=== PATIENT | female | born 1990 | race Caucasian/White ===

== ENCOUNTER 2023-07-12 18:59 | Outpatient (REF) | payer BC, SELFPAY ==
[2023-07-18 17:07] LABS: Age Gdln ACOG Testing Note (.); HPV Aptima Negative (Negative); IGP, Aptima HPV, rfx 16/18,45 Note (.)
== END 2023-07-12 19:00 | disposition home or self-care (01) ==
LOC: LAB 18:59
PROVIDERS: PCP Nurse Practitioner; Visit Provider Obstetrics & Gynecology
DX: Z12.4 Encounter for screening for malignant neoplasm of cervix (principal)
CPT/HCPCS: 87624; G0145

== ENCOUNTER 2023-12-29 09:30 | Outpatient (OUT) | payer BC, SELFPAY ==
--- NOTE | 2023-12-29 09:32 | US_ITS ---
[address] [address] Patient Name: MEE WIGGINS MRN: [id number] date: 1990 Sex: F Assigned Patient Location: [facility] Current Patient Location: [facility] Accession/Order Number: [id number] Exam Date: 12/29/2023 09:32 Report Date: 12/29/2023 10:36 At the request of: YEYO SHEARER Procedure: US OB transvaginal EXAMINATION: US OB transvaginal HISTORY: MISSED MENSES COMPARISON: No relevant comparison available. FINDINGS: GESTATIONAL SAC: Present and normal appearing. YOLK SAC: Present and normal appearing. POLE: Present and normal appearing. CARDIAC: Present. UTERUS: Normal size and appearance. OVARIES: Right: Normal. Left: Normal. CERVIX: 4.2 cm in length and closed. CUL-DE-SAC: Normal. OTHER: None. AGE BY LMP: 8 weeks 2 days QUINTIN BY LMP: 08/07/2024 AGE BY US CRL: 10 weeks 4 days QUINTIN BY US CRL: 07/22/2024 US/US OB transvaginal IMPRESSION: 1. Single live intrauterine . Electronically authenticated by: THONY SANTOS Date: 12/29/2023 10:36
== END 2023-12-29 09:31 | disposition home or self-care (01) ==
LOC: NOMS 09:30
PROVIDERS: PCP Nurse Practitioner; Visit Provider Obstetrics & Gynecology
DX: Z34.91 Encounter for supervision of normal pregnancy, unspecified, first trimester (principal); Z3A.08 8 weeks gestation of pregnancy
CPT/HCPCS: 76817

== ENCOUNTER 2023-12-29 10:42 | Outpatient (OUT) | payer BC, SELFPAY ==
[2023-12-29 11:23] LABS: Basophils Percent Auto 0.3 % (0.2-2.0); Eosinophils Percent Auto 0.4 % (0.9-7.0); Hematocrit 38.8 % (36.0-48.0); Hemoglobin 12.8 g/dL (12.0-16.0); Immature Granulocytes Abs Auto 0.02 10^3/uL (0.00-0.03); Immature Granulocytes Pct Auto 0.3 % (0.0-0.5); Lymphocytes Absolute Auto 1.5 10^3/uL (1.2-3.8); Lymphocytes Percent Auto 20.1 % (20.5-60.0); Mean Corpuscular Volume 90.9 fL (81.0-99.0); Mean Platelet Volume 9.4 fL (9.5-13.5); Monocytes Absolute Auto 0.5 10^3/uL (0.3-0.8); Monocytes Percent Auto 7.3 % (1.7-12.0); Neutrophils Absolute Auto 5.2 10^3/uL (1.4-6.5); Neutrophils Percent Auto 71.6 % (43.0-75.0); Platelet Count 258 10^3/uL (150-450); Red Blood Count 4.27 10^6/uL (4.20-5.40); Red Cell Distribution Width 13.2 % (11.0-15.0); White Blood Count 7.3 10^3/uL (4.0-11.0)
[2023-12-29 11:47] LABS: Estimated Average Glucose 91 mg/dL; Glycohemoglobin A1C 4.8 % (4.5-6.2)
[2023-12-30 06:09] LABS: HBsAg Screen Negative (Negative); HIV Ab/p24 Ag Screen Non Reactive (Non Reactive)
[2023-12-30 08:11] LABS: HCV Ab Non Reactive (Non Reactive); Rapid Plasma Reagin, Quant Non Reactive titer (NonRea<1:1); Rubella Antibodies, IgG 3.93 index (Immune >0.99)
== END 2023-12-29 10:43 | disposition home or self-care (01) ==
LOC: LAB 10:44
PROVIDERS: PCP Nurse Practitioner; Visit Provider Obstetrics & Gynecology
DX: Z34.91 Encounter for supervision of normal pregnancy, unspecified, first trimester (principal); Z3A.08 8 weeks gestation of pregnancy; Z36.0 Encounter for antenatal screening for chromosomal anomalies; N92.6 Irregular menstruation, unspecified
CPT/HCPCS: 36415; 76817; 83036; 85025; 86592; 86762; 86803; 86850; 86900; 86901; 87086; 87340; 87389

== ENCOUNTER 2024-04-02 15:54 | Outpatient (OUT) | payer BC, SELFPAY ==
--- NOTE | 2024-04-02 15:56 | US_ITS ---
[address] [address] Patient Name: MEE WIGGINS MRN: [id number] date: 1990 Sex: F Assigned Patient Location: Current Patient Location: Accession/Order Number: [id number] Exam Date: 04/02/2024 16:06 Report Date: 04/03/2024 07:04 At the request of: YEYO SHEARER Procedure: US OB growth EXAMINATION: US OB growth HISTORY: Choroid plexus cyst of fetus affecting care of mother COMPARISON: No relevant comparison available. FINDINGS: Heart Rate: 137.06 bpm Amniotic Fluid Volume: 19.4 cm. Maximum fluid pocket 5.1 cm Cervix: Closed, 3.7 cm in length Placenta: Anterior. The placental edge is 8 cm from the internal cervical os Number: 1 Position: Breech presentation, longitudinal lie BIOMETRY: BPD: 5.87 cm cm; 24 weeks 0 days; 38.40 %% HC: 22.32 cm cm; 24 weeks 2 days; 39.20 %% AC: 19.38 cm cm; 24 weeks 1 day; 38.90 %% FL: 4.17 cm cm; 23 weeks 4 days; 20.30 %% EFW: 641.17 g; 1 lb. 7 oz. 30.50 % FL/AC: 21.51 FL/BPD: 70.99 HC/AC: 1.15 GESTATIONAL AGE: Age by EDC: 24 weeks 1 day QUINTIN by EDC: 2024-07-22 Age by US: 24 weeks 0 days QUINTIN by US: 2024-07-23 US/US OB growth IMPRESSION: Normal interval growth Closed cervix measuring 3.7 cm in length Electronically authenticated by: SHUKRI LOCKWOOD Date: 04/03/2024 07:04
--- NOTE | 2024-04-02 15:56 | US_ITS ---
[address] [address] Patient Name: MEE WIGGINS MRN: [id number] date: 1990 Sex: F Assigned Patient Location: US Current Patient Location: Accession/Order Number: [id number] Exam Date: 04/02/2024 16:06 Report Date: 04/03/2024 07:04 At the request of: YEYO SHEARER Procedure: US OB cervical length EXAMINATION: US OB cervical length HISTORY: Encounter for screening for cervical length Z36.86 COMPARISON: No relevant comparison available. FINDINGS: Closed cervix measuring 3.7 cm in length US/US OB cervical length IMPRESSION: Closed cervix measuring 3.7 cm in length Electronically authenticated by: SHUKRI LOCKWOOD Date: 04/03/2024 07:04
== END 2024-04-02 15:55 | disposition home or self-care (01) ==
LOC: US 15:54
PROVIDERS: PCP Nurse Practitioner; Visit Provider Obstetrics & Gynecology
DX: O35.03X1 Maternal care for (suspected) central nervous system malformation or damage in fetus, choroid plexus cysts, fetus 1 (principal); Z36.86 Encounter for antenatal screening for cervical length; Z3A.24 24 weeks gestation of pregnancy
CPT/HCPCS: 76816; 76817

== ENCOUNTER 2024-04-24 15:37 | Outpatient (OUT) | payer BC, SELFPAY ==
--- NOTE | 2024-04-24 15:41 | US_ITS ---
[address] [address] Patient Name: MEE WIGGINS MRN: [id number] date: 1990 Sex: F Assigned Patient Location: Current Patient Location: Accession/Order Number: [id number] Exam Date: 04/24/2024 16:06 Report Date: 04/25/2024 07:34 At the request of: YEYO SHEARER Procedure: US OB growth EXAMINATION: US OB growth HISTORY: Choroid Plexus Cyst Affecting Care Of Mother COMPARISON: ULTRASOUND OB GROWTH 04/02/2024 FINDINGS: Heart Rate: 137.76 bpm Amniotic Fluid Volume: 16.3 cm; normal range Number: 1 Position: CEPHALIC Cervix: 3.3 cm in length, closed. BIOMETRY: BPD: 7.41 cm; 29 weeks 5 days; 96.60 % HC: 27.30 cm; 29 weeks 6 days; 91.80 % AC: 22.51 cm; 26 weeks 6 days; 30.20 % FL: 5.31 cm; 28 weeks 1 day; 63.10 % EFW: 1129.75 g; 59 % FL/AC: 23.59 FL/BPD: 71.62 HC/AC: 1.21 GESTATIONAL AGE: Age by EDC: 27 weeks 2 days QUINTIN by EDC: 2024-07-22 Age by US: 28 weeks 5 days QUINTIN by US: 2024-07-12 US/US OB growth IMPRESSION: 1. Single live intrauterine with growth detailed above. 2. Closed cervix 3.3 cm in length; unchanged. Electronically authenticated by: THONY SANTOS Date: 04/25/2024 07:34
--- NOTE | 2024-04-24 15:41 | US_ITS ---
[address] [address] Patient Name: MEE WIGGINS MRN: [id number] date: 1990 Sex: F Assigned Patient Location: Current Patient Location: Accession/Order Number: [id number] Exam Date: 04/24/2024 16:06 Report Date: 04/25/2024 07:35 At the request of: YEYO SHEARER Procedure: US OB cervical length EXAMINATION: US OB cervical length HISTORY: Choroid Plexus Cyst Affecting Care Of Mother COMPARISON: No relevant comparison available. TECHNIQUE: Transabdominal sonographic examination was performed for obstetrical and evaluation. FINDINGS: Closed cervix 3.3 cm in length. US/US OB cervical length IMPRESSION: 1. Stable, closed cervix 3.3 cm in length. Electronically authenticated by: THONY SANTOS Date: 04/25/2024 07:35
--- OUTSIDE RECORDS SUMMARY | 2024-04-24 15:48 | XMS_ITS | CCD ---
Author Organization [facility] Team Providers Care Telehealth Nurse Name Role Phone JANKI ., DR ORONA Admitting Unavailable JANKI ., DR ORONA Attending Unavailable LUIS E DAVIS Primary Care Unavailable JANKI ., DR ORONA Consulting Unavailable AICHHOLZ, CHAIR CAR DRIVER AC Admitting Unavailable AICHHOLZ, CHAIR CAR DRIVER AC Attending Unavailable AICHHOLZ, CHAIR CAR DRIVER AC Primary Care Unavailable AICHHOLZ, CHAIR CAR DRIVER AC Consulting Unavailable JANKI, YEYO Attending Unavailable PURA SOLIS Attending Unavailable JANKIYEYO Terrell Attending Unavailable Problems Active Problems Problem Classification Problem Date Documented Da te Episodic/Chronic Abdominal pain (4 sources) Unspecified abdominal pain; Translations: [UNSPECIFIED ABDOMINAL PAIN] Onset: 12-28-2022 Episodic Past or Other Problems Problem Classification Problem Date Documented Date Episodic/Chronic Immunizations and screening for infectious disease (1 source) Encounter for screening for human papillomavirus (HPV); Translations: [ENC SCREENING HUMAN PAPILLOMAVIRUS] Onset: 07-07-2022 Episodic Other screening for suspected conditions (not mental disorders or infectious disease) (4 sources) Encounter for screening for malignant neoplasm of cervix; Translations: [ENC SCREENING MALIG NEOPLASM CERV] Onset: 07-06-2022 Episodic Results Test Name Value Interpretation Reference Range Facil ity AMYLASEon 12-28-2022 Amylase [Catalytic activity/Vol] 36 U/L Normal 25-115 [facility] Comment on above: Performed By: #### C MP, PURA, DBIL, LIPA, LIPID #### [facility] [address] [address] [address] Garry Obrien BILIRUBIN CONJUGATED (DIRECT )on 12-28-2022 BILI, CONJUGATED 0.1 mg/dL Normal 0.0-0.2 [facility] Comment on above: Performed By: #### C MP, PURA, DBIL, LIPA, LIPID #### [facility] [address] [address] [address] Garry Obrien CBC AUTO DIFFon 12-28-2022 BASO # 0.0 103/ul Normal 0.0-0.1 [facility] Comment on above: Performed By: #### C BC #### [facility] [address] [address] [address] Garry Obrien Basophils/100 WBC (Bld) 0.3 % Normal 0.2-2.0 [facility] Comment on above: Performed By: #### C BC #### [facility] [address] [address] [address] Garry Obrien EO # 0.5 103/ul Normal 0.0-0.7 [facility] Comment on above: Performed By: #### C BC #### [facility] [address] [place] [address] Dr. Garry Obrien Eosinophils/100 WBC (Bld) 8.2 % Critically high 0.9-7.0 [facility] Comment on above: Performed By: #### C BC #### [facility] [address] [address] [address] Garry Obrien Erythrocyte distribution width (RBC) [Ratio] 13.5 % Normal 11.0-15.0 [facility] Comment on above: Performed By: #### C BC #### [facility] [address] [address] [address] Garry Obrien Hematocrit (Bld) [Volume fraction] 41.7 % Normal 36.0-48.0 [facility] Comment on above: Performed By: #### C BC #### [facility] [address] [address] [address] Garry Obrien Hemoglobin (Bld) [Mass/Vol] 13.8 g/dL Normal 12.0-16.0 [facility] Comment on above: Performed By: #### C BC #### [facility] [address] [address] [address] Garry Obrien IG # 0.01 10e3/ul Normal 0.00-0.03 [facility] Comment on above: Performed By: #### C BC #### [facility] [address] [place] [address] Dr. Garry Obrien IG % 0.2 % Normal 0.0-0.5 [facility] Comment on above: Performed By: #### C BC #### [facility] [address] [place] [address] Dr. Garry Obrien LYMPH # 2.0 103/ul Normal 1.2-3.8 [facility] Comment on above: Performed By: #### C BC #### [facility] [address] [place] [address] Dr. Garry Obrien Lymphocytes/100 WBC (Bld) 32.8 % Normal 20.5-60.0 [facility] Comment on above: Performed By: #### C BC #### [facility] [address] [place] [address] Dr. Garry Obrien MANUAL DIFF REQ NO Normal [facility] Comment on above: Performed By: #### C BC #### [facility] [address] [place] [address] Dr. Garry Obrien MCH (RBC) [Entitic mass] 29.2 pg Normal 26.7-34.0 [facility] Comment on above: Performed By: #### C BC #### [facility] [address] [place] [address] Dr. Garry Obrien MCHC (RBC) [Mass/Vol] 33.1 g/dL Normal 29.9-35.2 [facility] Comment on above: Performed By: #### C BC #### [facility] [address] [place] [address] Dr. Garry Obrien MCV (RBC) [Entitic vol] 88.2 fL Normal 81.0-99.0 [facility] Comment on above: Performed By: #### C BC #### [facility] [address] [place] [address] Dr. Garry Obrien MONO # 0.5 103/ul Normal 0.3-0.8 [facility] Comment on above: Performed By: #### C BC #### [facility] [address] [place] [address] Dr. Garry Obrien Monocytes/100 WBC (Bld) 7.7 % Normal 1.7-12.0 [facility] Comment on above: Performed By: #### C BC #### [facility] [address] [place] [address] Dr. Garry Obrien NEUT # 3.1 103/ul Normal 1.4-6.5 [facility] Comment on above: Performed By: #### C BC #### [facility] [address] [place] [address] Dr. Garry Obrien Neutrophils/100 WBC (Bld) 50.8 % Normal 43.0-75.0 [facility] Comment on above: Performed By: #### C BC #### [facility] [address] [place] [address] Dr. Garry Obrien Platelet mean volume (Bld) [Entitic vol] 9.3 fL Critically low 9.5-13.5 [facility] Comment on above: Performed By: #### C BC #### [facility] [address] [place] [address] Dr. Garry Obrien PLT 318 103/ul Normal 150-450 [facility] Comment on above: Performed By: #### C BC #### [facility] [address] [place] [address] Dr. Garry Obrien RBC 4.73 106/ul Normal 4.20-5.40 [facility] Comment on above: Performed By: #### C BC #### [facility] [address] [place] [address] Dr. Garry Obrien WBC 6.1 103/ul Normal 4.0-11.0 [facility] Comment on above: Performed By: #### C BC #### [facility] [address] [place] [address] Dr. Garry Obrien LIPASEon 12-28-2022 Lipase [Catalytic activity/Vol] 198.0 U/L Normal 73.0-393.0 [facility] Comment on above: Performed By: #### C MP, PURA, DBIL, LIPA, LIPID #### [facility] [address] [address] [address] Garry Obrien LIPID PROFILEon 12-28-2022 CHOL-HDL RATIO NORM SEE BELOW Normal [facility] Comment on above: Result Comment: 3.3 - 4.4 LOW RISK 4.4 - 7.1 AVERAGE RISK 7.1 - 11.0 MODERATE RISK >11.0 HIGH RISK Performed By: #### C MP, PURA, DBIL, LIPA, LIPID #### [facility] [address] [address] [address] Garry Obrien Cholesterol [Mass/Vol] 237 mg/dL Critically high <=200 [facility] Comment on above: Performed By: #### C MP, PURA, DBIL, LIPA, LIPID #### [facility] [address] [address] [address] Garry Obrien Cholesterol in HDL [Mass/Vol] 67 mg/dL Critically high 40-60 [facility] Comment on above: Performed By: #### C MP, PURA, DBIL, LIPA, LIPID #### [facility] [address] [address] [address] Garry Obrien Cholesterol in LDL [Mass/Vol] 144.8 mg/dL Normal [facility] Comment on above: Performed By: #### C MP, PURA, DBIL, LIPA, LIPID #### [facility] [address] [place] [address] Dr. Garry Obrien Cholesterol.total/ Cholesterol in HDL [Mass ratio] 3.5 {ratio} Normal [facility] Comment on above: Performed By: #### C MP, PURA, DBIL, LIPA, LIPID #### [facility] [address] [address] [address] Garry Obrien HDL NORMAL > or = 60 mg/dl - LO W CARDIOVASCULAR RISK <40 mg/dl - HIGH CARDIOVASCULAR RISK Normal [facility] Comment on above: Performed By: #### C MP, PURA, DBIL, LIPA, LIPID #### [facility] [address] [address] [address] Garry Obrien LDL CALC NORMAL SEE BELOW Normal [facility] Comment on above: Result Comment: <100 mg/dl OPTIMAL 100 - 129 mg/dl NEAR OR ABOVE OPTIMAL 130 - 159 mg/dl BORDERLINE HIGH 160 - 189 mg/dl HIGH >190 mg/dl VERY HIGH Performed By: #### C MP, PURA, DBIL, LIPA, LIPID #### [facility] [address] [address] [address] Garry Obrien Triglyceride [Mass/Vol] 126 mg/dL Normal <=150 [facility] Comment on above: Performed By: #### C MP, PURA, DBIL, LIPA, LIPID #### [facility] [address] [address] [address] Garry Obrien VLDL CALC 25.2 mg/dL Normal [facility] Comment on above: Performed By: #### C MP, PURA, DBIL, LIPA, LIPID #### [facility] [address] [place] [address] Dr. Garry Obrien PREG HCG QUALon 12-28-2022 , QUAL Negative Normal NEGATIVE [facility] Comment on above: Performed By: #### P REG #### [facility] [address] [place] [address] Dr. Garry Obrien PROF 14(COMP METB)on 023 Albumin [Mass/Vol] 3.9 g/dL Normal 3.4-5.0 [facility] Comment on above: Performed By: #### C MP, PURA, DBIL, LIPA, LIPID #### [facility] [address] [place] [address] Dr. Garry Obrien Albumin/Globulin [Mass ratio] 0.9 {ratio} Normal [facility] Comment on above: Performed By: #### C MP, PURA, DBIL, LIPA, LIPID #### [facility] [address] [place] [address] Dr. Garry Obrien ALP [Catalytic activity/Vol] 51 U/L Normal 46-116 [facility] Comment on above: Performed By: #### C MP, PURA, DBIL, LIPA, LIPID #### [facility] [address] [place] [address] Dr. Garry Obrien ALT [Catalytic activity/Vol] 20 U/L Normal 14-59 [facility] Comment on above: Performed By: #### C MP, PURA, DBIL, LIPA, LIPID #### [facility] [address] [place] [address] Dr. Garry Obrien Anion gap [Moles/Vol] 12.5 mmol/L Normal [facility] Comment on above: Performed By: #### C MP, PURA, DBIL, LIPA, LIPID #### [facility] [address] [place] [address] Dr. Garry Obrien AST [Catalytic activity/Vol] 20 U/L Normal 15-37 [facility] Comment on above: Performed By: #### C MP, PURA, DBIL, LIPA, LIPID #### [facility] [address] [place] [address] Dr. Garry Obrien Bilirubin [Mass/Vol] 0.5 mg/dL Normal 0.2-1.0 [facility] Comment on above: Performed By: #### C MP, PURA, DBIL, LIPA, LIPID #### [facility] [address] [place] [address] Dr. Garry Obrien Calcium [Mass/Vol] 9.5 mg/dL Normal 8.5-10.1 [facility] Comment on above: Performed By: #### C MP, PURA, DBIL, LIPA, LIPID #### [facility] [address] [place] [address] Dr. Garry Obrien Chloride [Moles/Vol] 100 mmol/L Normal 98-107 [facility] Comment on above: Performed By: #### C MP, PURA, DBIL, LIPA, LIPID #### [facility] [address] [place] [address] Dr. Garry Obrien CO2 [Moles/Vol] 27.4 mmol/L Normal 21.0-32.0 [facility] Comment on above: Performed By: #### C MP, PURA, DBIL, LIPA, LIPID #### [facility] [address] [place] [address] Dr. Garry Obrien Creatinine [Mass/Vol] 0.67 mg/dL Normal 0.55-1.02 [facility] Comment on above: Performed By: #### C MP, PURA, DBIL, LIPA, LIPID #### [facility] [address] [address] [address] Garry Obrien EGFR-AF SERBIAN >60 Normal >=60 [facility] Comment on above: Performed By: #### C MP, PURA, DBIL, LIPA, LIPID #### [facility] [address] [address] [address] Garry Obrien EGFR-NON AF SERBIAN >60 Normal >=60 [facility] Comment on above: Performed By: #### C MP, PURA, DBIL, LIPA, LIPID #### [facility] [address] [place] [address] Dr. Garry Obrien Globulin (S) [Mass/Vol] 4.3 g/dL Normal [facility] Comment on above: Performed By: #### C MP, PURA, DBIL, LIPA, LIPID #### [facility] [address] [place] [address] Dr. Garry Obrien Glucose [Mass/Vol] 99 mg/dL Normal 74-[address] [facility] Comment on above: Performed By: #### C MP, PURA, DBIL, LIPA, LIPID #### [facility] [address] [place] [address] Dr. Garry Obrien Potassium [Moles/Vol] 3.9 mmol/L Normal 3.5-5.1 [facility] Comment on above: Performed By: #### C MP, PURA, DBIL, LIPA, LIPID #### [facility] [address] [place] [address] Dr. Garry Obrien Protein [Mass/Vol] 8.2 g/dL Normal 6.4-8.[address] [facility] Comment on above: Performed By: #### C MP, PURA, DBIL, LIPA, LIPID #### [facility] [address] [place] [address] Dr. Garry Obrien Sodium [Moles/Vol] 136 mmol/L Normal 136-[address] [facility] Comment on above: Performed By: #### C MP, PURA, DBIL, LIPA, LIPID #### [facility] [address] [place] [address] Dr. Garry Obrien Urea nitrogen [Mass/Vol] 10.0 mg/dL Normal 7.0-18.0 [facility] Comment on above: Performed By: #### C MP, PURA, DBIL, LIPA, LIPID #### [facility] [address] [place] [address] Dr. Garry Obrien Urea nitrogen/Creatinin e [Mass ratio] 14.9 mg/mg Normal [facility] Comment on above: Performed By: #### C MP, PURA, DBIL, LIPA, LIPID #### [facility] [address] [place] [address] Dr. Garry Ob[facility] mm/hr Normal <=20 [facility] Comment on above: Performed By: #### S EDR #### [facility] [address] [place] [address] Dr. Garry Obrien UA RANDOM W/MICROSCOPICon BACTERIA SMALL Abnormal NONE SEEN [facility] Comment on above: Performed By: #### U AMIC #### [facility] [address] [place] [address] Dr. Garry Obrien Bilirubin Ql (U) Negative Normal NEGATIVE [facility] Comment on above: Performed By: #### U AMIC #### [facility] [address] [place] [address] Dr. Garry Obrien CAST NONE SEEN Normal NONE SEEN [facility] Comment on above: Performed By: #### U AMIC #### [facility] [address] [place] [address] Dr. Garry Obrien Clarity (U) CLEAR Normal CLEAR [facility] Comment on above: Performed By: #### U AMIC #### [facility] [address] [place] [address] Dr. Garry Obrien Color (U) LT. YELLOW Normal YELLOW [facility] Comment on above: Performed By: #### U AMIC #### [facility] [address] [address] [address] Garry Obrien Crystals LM Nom (Urine sed) NONE SEEN Normal NONE SEEN [facility] Comment on above: Performed By: #### U AMIC #### [facility] [address] [address] [address] Garry Obrien Epithelial cells LM Ql (Urine sed) FEW Abnormal NONE SEEN /RARE [facility] Comment on above: Performed By: #### U AMIC #### [facility] [address] [place] [address] Dr. Garry Obrien Glucose Ql (U) Negative Normal NEGATIVE [facility] Comment on above: Performed By: #### U AMIC #### [facility] [address] [place] [address] Dr. Garry Obrien Hemoglobin Ql (U) TRACE-INTACT Abnormal NEGATIVE [facility] Comment on above: Performed By: #### U AMIC #### [facility] [address] [address] [address] Garry Obrien Ketones Ql (U) Negative Normal NEGATIVE [facility] Comment on above: Performed By: #### U AMIC #### [facility] [address] [address] [address] Garry Obrien LEUKOCYTES TRACE Abnormal NEGATIVE [facility] Comment on above: Performed By: #### U AMIC #### [facility] [address] [address] [address] Garry Obrien MUCOUS NONE SEEN Normal NONE SEEN [facility] Comment on above: Performed By: #### U AMIC #### [facility] [address] [place] [address] Dr. Garry Obrien Nitrite Ql (U) Negative Normal NEGATIVE [facility] Comment on above: Performed By: #### U AMIC #### [facility] [address] [place] [address] Dr. Garry Obrien pH (U) 6.0 [pH] Normal 5-9 [facility] Comment on above: Performed By: #### U AMIC #### [facility] [address] [address] [address] Garry Obrien RBC 0-2 Normal 0-2 [facility] Comment on above: Performed By: #### U AMIC #### [facility] [address] [address] [address] Garry Obrien SPEC GRAVITY <=1.005 Abnormal 1.005-<=1.025 [facility] Comment on above: Performed By: #### U AMIC #### [facility] [address] [address] [address] Garry Obrien UA PROTEIN Negative Normal NEGATIVE/ TRACE [facility] Comment on above: Performed By: #### U AMIC #### [facility] [address] [address] [address] Garry Obrien Urobilinogen Qn (U) 0.2 {Griselda'U}/dL Normal 0.2 - 1.0 [facility] Comment on above: Performed By: #### U AMIC #### [facility] [address] [place] [address] Dr. Garry bOrien WBC 2-5 Abnormal NONE SEEN [facility] Comment on above: Performed By: #### U AMIC #### [facility] [address] [place] [address] Dr. Garry Obrien PAP ACOG PANEL 2: 30 to 65on 07-13-[address] [facility] Comment on above: Result Comment: Perf ormed at: WB Performed By: #### [id number] #### [facility] [address] [place] [address] Dr. Garry Obrien Age Gdln ACOG Testing 30-[address] [facility] Comment on above: Performed By: #### [id number] #### [facility] [address] [place] [address] Dr. Garry Obrien DIAGNOSIS: Comment Normal [facility] Comment on above: Result Comment: NEGA TIVE FOR INTRAEPITHELIAL LESION OR MALIGNANCY. Performed at: WB Performed By: #### [id number] #### [facility] [address] [place] [address] Dr. Garry Obrien HPV Aptima Negative Normal Negative [facility] Comment on above: Result Comment: This nucleic acid amplification test detects fourteen high-risk HPV types (16,18,31,33,35,39,45,51,52,56,58,59,66,68) without differentiation. Performed at: =G Performed By: #### [id number] #### [facility] [address] [address] [address] Garry Obrien Methodology: Comment Normal [facility] Comment on above: Result Comment: This liquid based ThinPrep(R) pap test was screened with the use of an image guided system. Performed at: WB Performed By: #### [id number] #### [facility] [address] [place] [address] Dr. Garry Obrien Note: Comment Normal [facility] Comment on above: Result Comment: The Pap smear is a screening test designed to aid in the detection of premalignant and malignant conditions of the uterine cervix. It is not a diagnostic procedure and should not be used as the sole means of detecting cervical cancer. Both false-positive and false-negative reports do occur. . Performed at: WB Performed By: #### [id number] #### [facility] [address] [address] [address] Garry Obrien Performed by: Comment Normal [facility] Comment on above: Result Comment: Macrina Lamar, Unit Aide Tech (ASCP) Performed at: WB Performed By: #### [id number] #### [facility] [address] [place] [address] Dr. Garry Obrien Specimen adequacy: Comment Normal [facility] Comment on above: Result Comment: Sati sfactory for evaluation. Endocervical and/or squamous metaplastic cells (endocervical component) are present. Performed at: WB Performed By: #### [id number] #### [facility] [address] [place] [address] Dr. Garry Obrien Encounters Encounter Date Encounter Type Care Provider Facility Start: 04-01-2024 End: 04-01-2024 ambulatory YEYO SHEARER Not Available Start: 02-28-2024 End: 02-28-2024 ambulatory PURA SOLIS Not Available Start: 01-31-2024 End: 01-31-2024 ambulatory YEYO SHEARER Not Available Start: 12-29-2023 End: 12-29-2023 ambulatory YEYO SHEARER Not Available Start: 12-28-2022 End: 12-29-2022 ambulatory MILEY COPELAND Facility: Start: 07-06-2022 End: 07-06-[address] YEYO SHEARER . Facility:[facility] Payers Date Payer Category Payer Unknown [id number] 2.16.84 [id number] 1992 Unknown [id number] 2.16.84 [id number] 1992 Unknown [id number] 2.16.84 [id number] 1992 Unknown [id number] 2.16.84 [id number] 1992 Unknown [id number] 2.16.84 [id number] 1992 Unknown [id number] 2.16.84 [id number] 1959 Unknown [id number] Summary Purpose Family History No Family History Records FoundNo Family History Records Found Advance Directives No Advanced Directives Records FoundNo Advanced Directives Records Found Additional Source Comments INFORMATION SOURCE (unrecogn ized section and content) DATE CREATED AUTHOR 01/01/2023 [facility] DATE CREATED AUTHOR AUTHOR'S ORGANIZ ATION 04/02/2024 [facility] FOR RECORDS PERTAINING TO PATIENTS WHO ARE OR HAVE BEEN ENROLLED IN A CHEMICAL DEPENDENCY/SUBSTANCEABUSE PROGRAM, SOME INFORMATION MAY BE OMITTED. This clinical summary was aggregated from multiple sources. Caution should be exercised in using it in the provision of clinical care. This summary normalizes information from multiple sources, and as a consequence, information in this document may materially change the coding, format and clinical context of patient data. In addition, data may be omitted in some cases. CLINICAL DECISIONS SHOULD BE BASED ON THE PRIMARY CLINICAL RECORDS. [facility]. provides no warranty or guarantee of the accuracy or completeness of information in this document.
== END 2024-04-24 15:38 | disposition home or self-care (01) ==
LOC: US 15:37
PROVIDERS: PCP Nurse Practitioner; Visit Provider Obstetrics & Gynecology
DX: O35.03X1 Maternal care for (suspected) central nervous system malformation or damage in fetus, choroid plexus cysts, fetus 1 (principal); Z36.86 Encounter for antenatal screening for cervical length; Z3A.28 28 weeks gestation of pregnancy
CPT/HCPCS: 76816; 76817

== ENCOUNTER 2024-05-09 06:48 | Outpatient (OUT) | payer BC, SELFPAY ==
--- OUTSIDE RECORDS SUMMARY | 2024-05-09 06:50 | XMS_ITS | CCD ---
Author Organization [facility] Team Providers Care First Helper Name Role Phone JANKI ., DR ORONA Admitting Unavailable JANKI ., DR ORONA Attending Unavailable LUIS E DAVIS Primary Care Unavailable JANKI ., DR ORONA Consulting Unavailable [place] Admitting Unavailable [place] Attending Unavailable [place] Primary Care Unavailable [place] Consulting Unavailable JANKI, YEYO Attending Unavailable PURA SOLIS Attending Unavailable JANKI, YEYO Attending Unavailable PURA SOLIS Attending Unavailable Problems Active Problems Problem Classification [...] [Catalytic activity/Vol] 36 U/L Normal 25-115 [facility] Comment on above: Performed By: #### C ERENDIRA, PURA, DBIL, LIPA, LIPID #### [facility] [address] [place], [place] [address] Dr. Garry Obrien BILIRUBIN CONJUGATED (DIRECT )on 12-28-2022 BILI, CONJUGATED 0.1 mg/dL Normal 0.0-0.2 [facility] Comment on above: Performed By: #### C MP, PURA, DBIL, LIPA, LIPID #### [facility] [address] [address] [address] Garry Obrien CBC AUTO DIFFon 12-28-2022 BASO # 0.0 103/ul Normal 0.0-0.1 [facility] Comment on above: Performed By: #### C BC #### [facility] [address] [address] [address] Garry Obrien Basophils/100 WBC (Bld) 0.3 % Normal 0.2-2.0 [facility] Comment on above: Performed By: #### C BC #### [facility] [address] [address] [address] Garry Obrien EO # 0.5 103/ul Normal 0.0-0.7 [facility] Comment on above: Performed By: #### C BC #### [facility] [address] [place] [address] Dr. Garry Obrien Eosinophils/100 WBC (Bld) 8.2 % Critically high 0.9-7.0 [facility] Comment on above: Performed By: #### C BC #### [facility] [address] [place] [address] Dr. Garry Obrien Erythrocyte distribution width (RBC) [Ratio] 13.5 % Normal 11.0-15.0 [facility] Comment on above: Performed By: #### C BC #### [facility] [address] [place] [address] Dr. Garry Obrien Hematocrit (Bld) [Volume fraction] 41.7 % Normal 36.0-48.0 [facility] Comment on above: Performed By: #### C BC #### [facility] [address] [place] [address] Dr. Garry Obrien Hemoglobin (Bld) [Mass/Vol] 13.8 g/dL Normal 12.0-16.0 [facility] Comment on above: Performed By: #### C BC #### [facility] [address] [place] [address] Dr. Garry Obrien IG # 0.01 10e3/ul Normal 0.00-0.03 [facility] Comment on above: Performed By: #### C BC #### [facility] [address] [place] [address] Dr. Garry Obrien IG % 0.2 % Normal 0.0-0.5 [facility] Comment on above: Performed By: #### C BC #### [facility] [address] [place] [address] Dr. Garry Obrien LYMPH # 2.0 103/ul Normal 1.2-3.8 [facility] Comment on above: Performed By: #### C BC #### [facility] [address] [place] [address] Dr. Garry Obrien Lymphocytes/100 WBC (Bld) 32.8 % Normal 20.5-60.0 [facility] Comment on above: Performed By: #### C BC #### [facility] [address] [place] [address] Dr. Garry Obrien MANUAL DIFF REQ NO Normal [facility] Comment on above: Performed By: #### C BC #### [facility] [address] [place] [address] Dr. Garry Obrien MCH (RBC) [Entitic mass] 29.2 pg Normal 26.7-34.0 [facility] Comment on above: Performed By: #### C BC #### [facility] [address] [place] [address] Dr. Garry Obrien MCHC (RBC) [Mass/Vol] 33.1 g/dL Normal 29.9-35.2 [facility] Comment on above: Performed By: #### C BC #### [facility] [address] [place] [address] Dr. Garry Obrien MCV (RBC) [Entitic vol] 88.2 fL Normal 81.0-99.0 [facility] Comment on above: Performed By: #### C BC #### [facility] [address] [place] [address] Dr. Garry Obrien MONO # 0.5 103/ul Normal 0.3-0.8 [facility] Comment on above: Performed By: #### C BC #### [facility] [address] [place] [address] Dr. Garry Obrien Monocytes/100 WBC (Bld) 7.7 % Normal 1.7-12.0 [facility] Comment on above: Performed By: #### C BC #### [facility] [address] [place] [address] Dr. Garry Obrien NEUT # 3.1 103/ul Normal 1.4-6.5 [facility] Comment on above: Performed By: #### C BC #### [facility] [address] [place] [address] Dr. Garry Obrien Neutrophils/100 WBC (Bld) 50.8 % Normal 43.0-75.0 [facility] Comment on above: Performed By: #### C BC #### [facility] [address] [place] [address] Dr. Garry Obrien Platelet mean volume (Bld) [Entitic vol] 9.3 fL Critically low 9.5-13.5 [facility] Comment on above: Performed By: #### C BC #### [facility] [address] [place] [address] Dr. Garry Obrien PLT 318 103/ul Normal 150-450 [facility] Comment on above: Performed By: #### C BC #### [facility] [address] [place] [address] Dr. Garry Obrien RBC 4.73 106/ul Normal 4.20-5.40 [facility] Comment on above: Performed By: #### C BC #### [facility] [address] [place] [address] Dr. Garry Obrien WBC 6.1 103/ul Normal 4.0-11.0 [facility] Comment on above: Performed By: #### C BC #### [facility] [address] [place] [address] Dr. Garry Obrien LIPASEon 12-28-2022 Lipase [Catalytic activity/Vol] 198.0 U/L Normal 73.0-393.0 [facility] Comment on above: Performed By: #### C MP, PURA, DBIL, LIPA, LIPID #### [facility] [address] [address] [address] Garry Obrien LIPID PROFILEon 12-28-2022 CHOL-HDL RATIO NORM SEE BELOW Normal [facility] Comment on above: Result Comment: 3.3 - 4.4 LOW RISK 4.4 - 7.1 AVERAGE RISK 7.1 - 11.0 MODERATE RISK >11.0 HIGH RISK Performed By: #### C MP, PURA, DBIL, LIPA, LIPID #### [facility] [address] [place] [address] Dr. Garry Obrien Cholesterol [Mass/Vol] 237 mg/dL Critically high <=200 [facility] Comment on above: Performed By: #### C MP, PURA, DBIL, LIPA, LIPID #### [facility] [address] [address] [address] Garry Obrien Cholesterol in HDL [Mass/Vol] 67 mg/dL Critically high 40-60 [facility] Comment on above: Performed By: #### C MP, PURA, DBIL, LIPA, LIPID #### [facility] [address] [place] [address] Dr. Garry Obrien Cholesterol in LDL [Mass/Vol] 144.8 mg/dL Normal [facility] Comment on above: Performed By: #### C MP, PURA, DBIL, LIPA, LIPID #### [facility] [address] [place] [address] Dr. Garry Obrien Cholesterol.total/ Cholesterol in HDL [Mass ratio] 3.5 {ratio} Normal [facility] Comment on above: Performed By: #### C MP, PURA, DBIL, LIPA, LIPID #### [facility] [address] [address] [address] Garry Obrien HDL NORMAL > or = 60 mg/dl - LO W CARDIOVASCULAR RISK <40 mg/dl - HIGH CARDIOVASCULAR RISK Normal [facility] Comment on above: Performed By: #### C MP, PURA, DBIL, LIPA, LIPID #### [facility] [address] [place] [address] Dr. Garry Obrien LDL CALC NORMAL SEE BELOW Normal [facility] Comment on above: Result Comment: <100 mg/dl OPTIMAL 100 - 129 mg/dl NEAR OR ABOVE OPTIMAL 130 - 159 mg/dl BORDERLINE HIGH 160 - 189 mg/dl HIGH >190 mg/dl VERY HIGH Performed By: #### C MP, PRUA, DBIL, LIPA, LIPID #### [facility] [address] [address] [address] Garry Obrien Triglyceride [Mass/Vol] 126 mg/dL Normal <=150 [facility] Comment on above: Performed By: #### C MP, PURA, DBIL, LIPA, LIPID #### [facility] [address] [address] [address] Garry Obrien VLDL CALC 25.2 mg/dL Normal [facility] Comment on above: Performed By: #### C MP, PURA, DBIL, LIPA, LIPID #### [facility] [address] [place] [address] Dr. Garry Obrien PREG HCG QUALon 12-28-2022 , QUAL Negative Normal NEGATIVE [facility] Comment on above: Performed By: #### P REG #### [facility] [address] [address] [address] Garry Obrien PROF 14(COMP METB)on 023 Albumin [Mass/Vol] 3.9 g/dL Normal 3.4-5.0 [facility] Comment on above: Performed By: #### C MP, PURA, DBIL, LIPA, LIPID #### [facility] [address] [address] [address] Garry Obrien Albumin/Globulin [Mass ratio] 0.9 {ratio} Normal [facility] Comment on above: Performed By: #### C MP, PURA, DBIL, LIPA, LIPID #### [facility] [address] [address] [address] Garry Obrien ALP [Catalytic activity/Vol] 51 U/L Normal 46-116 [facility] Comment on above: Performed By: #### C MP, PURA, DBIL, LIPA, LIPID #### [facility] [address] [address] [address] Garry Obrien ALT [Catalytic activity/Vol] 20 U/L Normal 14-59 [facility] Comment on above: Performed By: #### C MP, PURA, DBIL, LIPA, LIPID #### [facility] [address] [place] [address] Dr. Garry Obrien Anion gap [Moles/Vol] 12.5 mmol/L Normal [facility] Comment on above: Performed By: #### C MP, PURA, DBIL, LIPA, LIPID #### [facility] [address] [place] [address] Dr. Garry Obrien AST [Catalytic activity/Vol] 20 U/L Normal 15-37 [facility] Comment on above: Performed By: #### C MP, PURA, DBIL, LIPA, LIPID #### [facility] [address] [place] [address] Dr. Garry Obrien Bilirubin [Mass/Vol] 0.5 mg/dL Normal 0.2-1.0 [facility] Comment on above: Performed By: #### C MP, PURA, DBIL, LIPA, LIPID #### [facility] [address] [place] [address] Dr. Garry Obrien Calcium [Mass/Vol] 9.5 mg/dL Normal 8.5-10.1 [facility] Comment on above: Performed By: #### C MP, PURA, DBIL, LIPA, LIPID #### [facility] [address] [place] [address] Dr. Garry Obrien Chloride [Moles/Vol] 100 mmol/L Normal 98-107 [facility] Comment on above: Performed By: #### C MP, PURA, DBIL, LIPA, LIPID #### [facility] [address] [place] [address] Dr. Garry Obrein CO2 [Moles/Vol] 27.4 mmol/L Normal 21.0-32.0 [facility] Comment on above: Performed By: #### C MP, PURA, DBIL, LIPA, LIPID #### [facility] [address] [place] [address] Dr. Garry Obrien Creatinine [Mass/Vol] 0.67 mg/dL Normal 0.55-1.02 [facility] Comment on above: Performed By: #### C MP, PURA, DBIL, LIPA, LIPID #### [facility] [address] [address] [address] Garry Obrien EGFR-AF NICARAGUAN >60 Normal >=60 [facility] Comment on above: Performed By: #### C MP, PURA, DBIL, LIPA, LIPID #### [facility] [address] [place] [address] Dr. Garry Obrien EGFR-NON AF NICARAGUAN >60 Normal >=60 [facility] Comment on above: Performed By: #### C MP, PURA, DBIL, LIPA, LIPID #### [facility] [address] [place] [address] Dr. Garry Obrien Globulin (S) [Mass/Vol] 4.3 g/dL Normal [facility] Comment on above: Performed By: #### C MP, PURA, DBIL, LIPA, LIPID #### [facility] [address] [place] [address] Dr. Garry Obrien Glucose [Mass/Vol] 99 mg/dL Normal 74-106 [facility] Comment on above: Performed By: #### C MP, PURA, DBIL, LIPA, LIPID #### [facility] [address] [place] [address] Dr. Garry Obrien Potassium [Moles/Vol] 3.9 mmol/L Normal 3.5-5.1 [facility] Comment on above: Performed By: #### C MP, PURA, DBIL, LIPA, LIPID #### [facility] [address] [address] [address] Garry Obrien Protein [Mass/Vol] 8.2 g/dL Normal 6.4-8.2 [facility] Comment on above: Performed By: #### C MP, PURA, DBIL, LIPA, LIPID #### [facility] [address] [address] [address] Garry Obrien Sodium [Moles/Vol] 136 mmol/L Normal 136-145 [facility] Comment on above: Performed By: #### C MP, PURA, DBIL, LIPA, LIPID #### [facility] [address] [place] [address] Dr. Garry Obrien Urea nitrogen [Mass/Vol] 10.0 mg/dL Normal 7.0-18.0 [facility] Comment on above: Performed By: #### C MP, PURA, DBIL, LIPA, LIPID #### [facility] [address] [place] [address] Dr. Garry Obrien Urea nitrogen/Creatinin e [Mass ratio] 14.9 mg/mg Normal [facility] Comment on above: Performed By: #### C MP, PURA, DBIL, LIPA, LIPID #### [facility] [address] [place] [address] Dr. Garry Obrien [facility] 13 mm/hr Normal <=20 [facility] Comment on above: Performed By: #### S EDR #### [facility] [address] [place] [address] Dr. Garry Obrien UA RANDOM W/MICROSCOPICon BACTERIA SMALL Abnormal NONE SEEN [facility] Comment on above: Performed By: #### U AMIC #### [facility] [address] [place] [address] Dr. Garry Obrien Bilirubin Ql (U) Negative Normal NEGATIVE [facility] Comment on above: Performed By: #### U AMIC #### [facility] [address] [place] [address] Dr. Garry Obrien CAST NONE SEEN Normal NONE SEEN [facility] Comment on above: Performed By: #### U AMIC #### [facility] [address] [place] [address] Dr. Garry Obrien Clarity (U) CLEAR Normal CLEAR [facility] Comment on above: Performed By: #### U AMIC #### [facility] [address] [place] [address] Dr. Garry Obrien Color (U) LT. YELLOW Normal YELLOW [facility] Comment on above: Performed By: #### U AMIC #### [facility] [address] [address] [address] Garry Obrien Crystals LM Nom (Urine sed) NONE SEEN Normal NONE SEEN [facility] Comment on above: Performed By: #### U AMIC #### [facility] [address] [address] [address] Garry Obrien Epithelial cells LM Ql (Urine sed) FEW Abnormal NONE SEEN /RARE [facility] Comment on above: Performed By: #### U AMIC #### [facility] [address] [address] [address] Garry Obrien Glucose Ql (U) Negative Normal NEGATIVE [facility] Comment on above: Performed By: #### U AMIC #### [facility] [address] [place] [address] Dr. Garry Obrien Hemoglobin Ql (U) TRACE-INTACT Abnormal NEGATIVE [facility] Comment on above: Performed By: #### U AMIC #### [facility] [address] [address] [address] Garry Obrien Ketones Ql (U) Negative Normal NEGATIVE [facility] Comment on above: Performed By: #### U AMIC #### [facility] [address] [address] [address] Garry Obrien LEUKOCYTES TRACE Abnormal NEGATIVE [facility] Comment on above: Performed By: #### U AMIC #### [facility] [address] [address] [address] Garry Obrien MUCOUS NONE SEEN Normal NONE SEEN [facility] Comment on above: Performed By: #### U AMIC #### [facility] [address] [address] [address] Garry Obrien Nitrite Ql (U) Negative Normal NEGATIVE [facility] Comment on above: Performed By: #### U AMIC #### [facility] [address] [place] [address] Dr. Garry Obrien pH (U) 6.0 [pH] Normal 5-9 [facility] Comment on above: Performed By: #### U AMIC #### [facility] [address] [place] [address] Dr. Garry Obrien RBC 0-2 Normal 0-2 [facility] Comment on above: Performed By: #### U AMIC #### [facility] [address] [place] [address] Dr. Garry Obrien SPEC GRAVITY <=1.005 Abnormal 1.005-<=1.025 [facility] Comment on above: Performed By: #### U AMIC #### [facility] [address] [address] [address] Garry Obrien UA PROTEIN Negative Normal NEGATIVE/ TRACE [facility] Comment on above: Performed By: #### U AMIC #### [facility] [address] [place] [address] Dr. Garry Obrien Urobilinogen Qn (U) 0.2 {Griselda'U}/dL Normal 0.2 - 1.0 [facility] Comment on above: Performed By: #### U AMIC #### [facility] [address] [place] [address] Dr. Garry Obrien WBC 2-5 Abnormal NONE SEEN [facility] Comment on above: Performed By: #### U AMIC #### [facility] [address] [place] [address] Dr. Garry Obrien PAP ACOG PANEL 2: 30 to 65on 07-13-2022 . . Normal [facility] Comment on above: Result Comment: Perf ormed at: WB Performed By: #### [id number] #### [facility] [address] [place] [address] Dr. Garry Obrien Age Gdln ACOG Testing 30-65 Normal [facility] Comment on above: Performed By: #### [id number] #### [facility] [address] [place] [address] Dr. Garry Obrien DIAGNOSIS: Comment Normal [facility] Comment on above: Result Comment: NEGA TIVE FOR INTRAEPITHELIAL LESION OR MALIGNANCY. Performed at: WB Performed By: #### [id number] #### [facility] [address] [place] [address] Dr. Garry Obrien HPV Aptima Negative Normal Negative [facility] Comment on above: Result Comment: This nucleic acid amplification test detects fourteen high-risk HPV types (16,18,31,33,35,39,45,51,52,56,58,59,66,68) without differentiation. Performed at: =G Performed By: #### [id number] #### [facility] [address] [address] [address] Garry Obrien Methodology: Comment Normal [facility] Comment on above: Result Comment: This liquid based ThinPrep(R) pap test was screened with the use of an image guided system. Performed at: WB Performed By: #### [id number] #### [facility] [address] [place] [address] Dr. Garry Obrien Note: Comment Normal [facility] Comment on above: Result Comment: The Pap smear is a screening test designed to aid in the detection of premalignant and malignant conditions of the uterine cervix. It is not a diagnostic procedure and should not be used as the sole means of detecting cervical cancer. Both false-positive and false-negative reports do occur. . Performed at: WB Performed By: #### [id number] #### [facility] [address] [address] [address] Garry Obrien Performed by: Comment Normal [facility] Comment on above: Result Comment: Macrina Lamar, Senior Mechanical Design Engineer (ASCP) Performed at: WB Performed By: #### [id number] #### [facility] [address] [place] [address] Dr. Garry Obrien Specimen adequacy: Comment Normal [facility] Comment on above: Result Comment: Sati sfactory for evaluation. Endocervical and/or squamous metaplastic cells (endocervical component) are present. Performed at: WB Performed By: #### [id number] #### [facility] [address] [place] [address] Dr. Garry Obrien Encounters Encounter Date Encounter Type Care Provider Facility Start: 04-23-2024 End: 04-23-2024 ambulatory PURA SOLIS Not Available Start: 04-01-2024 End: 04-01-2024 ambulatory YEYO SHEARER Not Available Start: 02-28-2024 End: 02-28-2024 ambulatory PURA SOLIS Not Available Start: 01-31-2024 End: 01-31-2024 ambulatory YEYO SHEARER Not Available Start: 12-29-2023 End: 12-29-2023 ambulatory YEYO SHEARER Not Available Start: 12-28-2022 End: 12-29-2022 ambulatory MILEY COPELAND Facility:[facility] Start: 07-06-2022 End: 07-06-[address] YEYO SHEARER . Facility: Payers Date Payer Category Payer Unknown [id number] 2.16.84 [id number] 1992 Unknown [id number] 2.16.84 [id number] 1992 Unknown [id number] 2.16.84 [id number] 1992 Unknown [id number] 2.16.84 [id number] 1992 Unknown [id number] 2.16.84 [id number] 1992 Unknown [id number] 2.16.84 [id number] 1992 Unknown [id number] 2.16.84 [id number] 1959 Unknown [id number] Summary Purpose Family History No Family History Records FoundNo Family History Records Found Advance Directives No Advanced Directives Records FoundNo Advanced Directives Records Found Additional Source Comments INFORMATION SOURCE (unrecogn ized section and content) DATE CREATED AUTHOR 01/01/2023 [facility] DATE CREATED AUTHOR WILLIS IVEY 04/27/2024 [facility] EPIC FOR RECORDS PERTAINING TO PATIENTS WHO ARE [...] BE BASED ON THE PRIMARY CLINICAL RECORDS. [employer] [facility]. provides no warranty or guarantee of the accuracy or completeness of information in this document.
[2024-05-09 08:11] LABS: Basophils Percent Auto 0.3 % (0.2-2.0); Eosinophils Absolute Auto 0.1 10^3/uL (0.0-0.7); Eosinophils Percent Auto 0.7 % (0.9-7.0); Hematocrit 34.7 % (36.0-48.0); Hemoglobin 11.7 g/dL (12.0-16.0); Immature Granulocytes Abs Auto 0.14 10^3/uL (0.00-0.03); Immature Granulocytes Pct Auto 1.5 % (0.0-0.5); Lymphocytes Percent Auto 21.5 % (20.5-60.0); Mean Corpuscular HGB Conc 33.7 g/dL (29.9-35.2); Mean Corpuscular Hemoglobin 31.4 pg (26.7-34.0); Mean Platelet Volume 9.5 fL (9.5-13.5); Monocytes Absolute Auto 0.6 10^3/uL (0.3-0.8); Monocytes Percent Auto 6.3 % (1.7-12.0); Neutrophils Absolute Auto 6.6 10^3/uL (1.4-6.5); Neutrophils Percent Auto 69.7 % (43.0-75.0); Platelet Count 239 10^3/uL (150-450); Red Blood Count 3.73 10^6/uL (4.20-5.40); Red Cell Distribution Width 13.7 % (11.0-15.0); White Blood Count 9.5 10^3/uL (4.0-11.0)
--- NOTE | 2024-05-09 08:48 | US_ITS ---
[address] [address] Patient Name: MEE WIGGINS MRN: [id number] date: 1990 Sex: F Assigned Patient Location: US Current Patient Location: Accession/Order Number: [id number] Exam Date: 05/09/2024 08:54 Report Date: 05/09/2024 10:45 At the request of: YEYO SHEARER Procedure: US OB cervical length EXAMINATION: US OB cervical length HISTORY: Choroid Plexus Cyst Of Fetus Affecting Care Of Mother COMPARISON: No relevant comparison available. TECHNIQUE: Transabdominal and transvaginal sonographic examination for cervical length. FINDINGS: CERVIX LENGTH: 3.6 cm; closed. POSITION: Cephalic HEART RATE: 136 bpm AMNIOTIC FLUID: 17.0 cm Age by EDC: 33 weeks 5 days QUINTIN by EDC: 06/22/2024 US/US OB cervical length IMPRESSION: 1. Closed cervix 3.6 cm in length. Electronically authenticated by: THONY SANTOS Date: 05/09/2024 10:45
[2024-05-09 09:04] LABS: Glucose 1 Hour 117 mg/dL (<130)
== END 2024-05-09 06:49 | disposition home or self-care (01) ==
LOC: US 06:48
PROVIDERS: PCP Nurse Practitioner; Visit Provider Obstetrics & Gynecology
DX: Z13.1 Encounter for screening for diabetes mellitus (principal); Z3A.33 33 weeks gestation of pregnancy
CPT/HCPCS: 36415; 76817; 82950; 85025

== ENCOUNTER 2024-05-21 08:58 | Outpatient (OUT) | payer BC, SELFPAY ==
--- OUTSIDE RECORDS SUMMARY | 2024-05-21 09:07 | XMS_ITS | CCD ---
Author Organization [facility] Care Team Providers Care Gravity Prospecting Operator Name Role Phone JANKI ., DR ORONA Admitting Unavailable JANKI ., DR ORONA Attending Unavailable LUIS E DAVIS Primary Care Unavailable JANKI ., DR ORONA Consulting Unavailable AICHHOLZ, PARACHUTIST/COMBATANT DIVER QUALIFIED AC Admitting Unavailable AICHHOLZ, PARACHUTIST/COMBATANT DIVER QUALIFIED AC Attending Unavailable AICHHOLZ, PARACHUTIST/COMBATANT DIVER QUALIFIED AC Primary Care Unavailable AICHHOLZ, PARACHUTIST/COMBATANT DIVER QUALIFIED AC Consulting Unavailable JANKI, YEYO Attending Unavailable WILL, PURA Attending Unavailable JANKI, YEYO Attending Unavailable WILL PURA Attending Unavailable WILL, PURA Attending Unavailable Problems Active Problems Problem Classification [...] 36 U/L Normal 25-115 [facility] Comment on above: Performed By: #### C MP, PURA, DBIL, LIPA, LIPID #### [facility] [address], [place] [address] Dr. Garry Obrien BILIRUBIN CONJUGATED (DIRECT )on 12-28-2022 BILI, CONJUGATED 0.1 mg/dL Normal 0.0-0.2 [facility] Comment on above: Performed By: #### C MP, PURA, DBIL, LIPA, LIPID #### [facility] [address] [place] [address] Dr. Garry Obrien CBC AUTO DIFFon 12-28-2022 BASO # 0.0 103/ul Normal 0.0-0.1 [facility] Comment on above: Performed By: #### C BC #### [facility] [address] [place] [address] Dr. Garry Obrien Basophils/100 WBC (Bld) 0.3 % Normal 0.2-2.0 [facility] Comment on above: Performed By: #### C BC #### [facility] [address] [place] [address] Dr. Garry Obrien EO # 0.5 103/ul Normal 0.0-0.7 [facility] Comment on above: Performed By: #### C BC #### [facility] [address] [place] [address] Dr. Garry Obrien Eosinophils/100 WBC (Bld) 8.2 % Critically high 0.9-7.0 [facility] Comment on above: Performed By: #### C BC #### [facility] [address] [place] [address] Dr. Garry Obrien Erythrocyte distribution width (RBC) [Ratio] 13.5 % Normal 11.0-15.0 [facility] Comment on above: Performed By: #### C BC #### [facility] [address] [place] [address] Dr. Garry Obrien Hematocrit (Bld) [Volume fraction] 41.7 % Normal 36.0-48.0 [facility] Comment on above: Performed By: #### C BC #### [facility] [address] [place] [address] Dr. Garry Obrien Hemoglobin (Bld) [Mass/Vol] 13.8 g/dL Normal 12.0-16.0 [facility] Comment on above: Performed By: #### C BC #### [facility] [address] [place] [address] Dr. Garry Obrien IG # 0.01 10e3/ul Normal 0.00-0.03 [facility] Comment on above: Performed By: #### C BC #### [facility] [address] [place] [address] Dr. Garry Obrien IG % 0.2 % Normal 0.0-0.5 [facility] Comment on above: Performed By: #### C BC #### [facility] [address] [place] [address] Dr. Garry Obrien LYMPH # 2.0 103/ul Normal 1.2-3.8 [facility] Comment on above: Performed By: #### C BC #### [facility] [address] [place] [address] Dr. Garry Obrien Lymphocytes/100 WBC (Bld) 32.8 % Normal 20.5-60.0 [facility] Comment on above: Performed By: #### C BC #### [facility] [address] [place] [address] Dr. Garry Obrien MANUAL DIFF REQ NO Normal [facility] Comment on above: Performed By: #### C BC #### [facility] [address] [place] [address] Dr. Garry Obrien MCH (RBC) [Entitic mass] 29.2 pg Normal 26.7-34.0 [facility] Comment on above: Performed By: #### C BC #### [facility] [address] [place] [address] Dr. Garry Obrien MCHC (RBC) [Mass/Vol] 33.1 g/dL Normal 29.9-35.2 [facility] Comment on above: Performed By: #### C BC #### [facility] [address] [place] [address] Dr. Garry Obrien MCV (RBC) [Entitic vol] 88.2 fL Normal 81.0-99.0 [facility] Comment on above: Performed By: #### C BC #### [facility] [address] [place] [address] Dr. Garry Obrien MONO # 0.5 103/ul Normal 0.3-0.8 [facility] Comment on above: Performed By: #### C BC #### [facility] [address] [address] [address] Garry Obrien Monocytes/100 WBC (Bld) 7.7 % Normal 1.7-12.0 [facility] Comment on above: Performed By: #### C BC #### [facility] [address] [place] [address] Dr. Garry Obrien NEUT # 3.1 103/ul Normal 1.4-6.5 [facility] Comment on above: Performed By: #### C BC #### [facility] [address] [place] [address] Dr. Garry Obrien Neutrophils/100 WBC (Bld) 50.8 % Normal 43.0-75.0 [facility] Comment on above: Performed By: #### C BC #### [facility] [address] [place] [address] Dr. Garry Obrien Platelet mean volume (Bld) [Entitic vol] 9.3 fL Critically low 9.5-13.5 [facility] Comment on above: Performed By: #### C BC #### [facility] [address] [place] [address] Dr. Garry Obrien PLT 318 103/ul Normal 150-450 [facility] Comment on above: Performed By: #### C BC #### [facility] [address] [place] [address] Dr. Garry Obrien RBC 4.73 106/ul Normal 4.20-5.40 [facility] Comment on above: Performed By: #### C BC #### [facility] [address] [place] [address] Dr. Garry Obrien WBC 6.1 103/ul Normal 4.0-11.0 [facility] Comment on above: Performed By: #### C BC #### [facility] [address] [place] [address] Dr. Garry Obrien LIPASEon 12-28-2022 Lipase [Catalytic activity/Vol] 198.0 U/L Normal 73.0-393.0 [facility] Comment on above: Performed By: #### C MP, PURA, DBIL, LIPA, LIPID #### [facility] [address] [address] [address] Garry Obrien LIPID PROFILEon 12-28-2022 CHOL-HDL RATIO NORM SEE BELOW Normal [facility] Comment on above: Result Comment: 3.3 - 4.4 LOW RISK 4.4 - 7.1 AVERAGE RISK 7.1 - 11.0 MODERATE RISK >11.0 HIGH RISK Performed By: #### C MP, PURA, DBIL, LIPA, LIPID #### [facility] [address] [address] [address] Garry Obrien Cholesterol [Mass/Vol] 237 mg/dL Critically high <=200 [facility] Comment on above: Performed By: #### C MP, PURA, DBIL, LIPA, LIPID #### [facility] [address] [place] [address] Dr. Garry Obrien Cholesterol in HDL [Mass/Vol] 67 mg/dL Critically high 40-60 [facility] Comment on above: Performed By: #### C MP, PURA, DBIL, LIPA, LIPID #### [facility] [address] [place] [address] Dr. Garry Obrien Cholesterol in LDL [Mass/Vol] 144.8 mg/dL Normal [facility] Comment on above: Performed By: #### C MP, PURA, DBIL, LIPA, LIPID #### [facility] [address] [place] [address] Dr. Garry Obrien Cholesterol.total/ Cholesterol in HDL [Mass ratio] 3.5 {ratio} Normal [facility] Comment on above: Performed By: #### C MP, PURA, DBIL, LIPA, LIPID #### [facility] [address] [place] [address] Dr. Garry Obrien HDL NORMAL > or = 60 mg/dl - LO W CARDIOVASCULAR RISK <40 mg/dl - HIGH CARDIOVASCULAR RISK Normal [facility] Comment on above: Performed By: #### C MP, PURA, DBIL, LIPA, LIPID #### [facility] [address] [place] [address] Dr. Garry Obrien LDL CALC NORMAL SEE BELOW Normal [facility] Comment on above: Result Comment: <100 mg/dl OPTIMAL 100 - 129 mg/dl NEAR OR ABOVE OPTIMAL 130 - 159 mg/dl BORDERLINE HIGH 160 - 189 mg/dl HIGH >190 mg/dl VERY HIGH Performed By: #### C MP, PURA, DBIL, LIPA, LIPID #### [facility] [address] [address] [address] Garry Obrien Triglyceride [Mass/Vol] 126 mg/dL Normal <=150 [facility] Comment on above: Performed By: #### C MP, PURA, DBIL, LIPA, LIPID #### [facility] [address] [address] [address] Garry Obrien VLDL CALC 25.2 mg/dL Normal [facility] Comment on above: Performed By: #### C MP, PURA, DBIL, LIPA, LIPID #### [facility] [address] [address] [address] Garry Obrien PREG HCG QUALon 12-28-2022 , QUAL Negative Normal NEGATIVE [facility] Comment on above: Performed By: #### P REG #### [facility] [address] [address] [address] Garry Obrien PROF 14(COMP METB)on 023 Albumin [Mass/Vol] 3.9 g/dL Normal 3.4-5.0 [facility] Comment on above: Performed By: #### C MP, PURA, DBIL, LIPA, LIPID #### [facility] [address] [address] [address] Garry Obrien Albumin/Globulin [Mass ratio] 0.9 {ratio} Normal [facility] Comment on above: Performed By: #### C MP, PURA, DBIL, LIPA, LIPID #### [facility] [address] [address] [address] Garry Obrien ALP [Catalytic activity/Vol] 51 U/L Normal 46-116 [facility] Comment on above: Performed By: #### C MP, PURA, DBIL, LIPA, LIPID #### [facility] [address] [place] [address] Dr. Garry Obrien ALT [Catalytic activity/Vol] 20 U/L Normal 14-59 [facility] Comment on above: Performed By: #### C MP, PURA, DBIL, LIPA, LIPID #### [facility] [address] [place] [address] Dr. Garry Obrien Anion gap [Moles/Vol] 12.5 mmol/L Normal [facility] Comment on above: Performed By: #### C MP, PURA, DBIL, LIPA, LIPID #### [facility] [address] [place] [address] Dr. Garry Obrien AST [Catalytic activity/Vol] 20 U/L Normal 15-37 [facility] Comment on above: Performed By: #### C MP, PURA, DBIL, LIPA, LIPID #### [facility] [address] [place] [address] Dr. Garry Obrien Bilirubin [Mass/Vol] 0.5 mg/dL Normal 0.2-1.0 [facility] Comment on above: Performed By: #### C MP, PURA, DBIL, LIPA, LIPID #### [facility] [address] [place] [address] Dr. Garry Obrien Calcium [Mass/Vol] 9.5 mg/dL Normal 8.5-10.1 [facility] Comment on above: Performed By: #### C MP, PURA, DBIL, LIPA, LIPID #### [facility] [address] [place] [address] Dr. Garry Obrien Chloride [Moles/Vol] 100 mmol/L Normal 98-107 [facility] Comment on above: Performed By: #### C MP, PURA, DBIL, LIPA, LIPID #### [facility] [address] [place] [address] Dr. Garry Obrien CO2 [Moles/Vol] 27.4 mmol/L Normal 21.0-32.0 [facility] Comment on above: Performed By: #### C MP, PURA, DBIL, LIPA, LIPID #### [facility] [address] [place] [address] Dr. Garry Obrien Creatinine [Mass/Vol] 0.67 mg/dL Normal 0.55-1.02 [facility] Comment on above: Performed By: #### C MP, PURA, DBIL, LIPA, LIPID #### [facility] [address] [address] [address] Garry Obrien EGFR-AF SAMOAN >60 Normal >=60 [facility] Comment on above: Performed By: #### C MP, PURA, DBIL, LIPA, LIPID #### [facility] [address] [address] [address] Garry Obrien EGFR-NON AF SAMOAN >60 Normal >=60 [facility] Comment on above: Performed By: #### C MP, PURA, DBIL, LIPA, LIPID #### [facility] [address] [address] [address] Garry Obrien Globulin (S) [Mass/Vol] 4.3 g/dL Normal [facility] Comment on above: Performed By: #### C MP, PURA, DBIL, LIPA, LIPID #### [facility] [address] [address] [address] Garry Obrien Glucose [Mass/Vol] 99 mg/dL Normal 74-106 [facility] Comment on above: Performed By: #### C MP, PURA, DBIL, LIPA, LIPID #### [facility] [address] [address] [address] Garry Obrien Potassium [Moles/Vol] 3.9 mmol/L Normal 3.5-5.1 [facility] Comment on above: Performed By: #### C MP, PURA, DBIL, LIPA, LIPID #### [facility] [address] [address] [address] Garry Obrien Protein [Mass/Vol] 8.2 g/dL Normal 6.4-8.2 [facility] Comment on above: Performed By: #### C MP, PURA, DBIL, LIPA, LIPID #### [facility] [address] [address] [address] Garry Obrien Sodium [Moles/Vol] 136 mmol/L Normal 136-145 [facility] Comment on above: Performed By: #### C MP, PURA, DBIL, LIPA, LIPID #### [facility] [address] [place] [address] Dr. Garry Obrien Urea nitrogen [Mass/Vol] 10.0 mg/dL Normal 7.0-18.0 [facility] Comment on above: Performed By: #### C MP, PURA, DBIL, LIPA, LIPID #### [facility] [address] [place] [address] Dr. Garry Obrien Urea nitrogen/Creatinin e [Mass ratio] 14.9 mg/mg Normal [facility] Comment on above: Performed By: #### C MP, PURA, DBIL, LIPA, LIPID #### [facility] [address] [place] [address] Dr. Garry Obrien [facility] SED RATE 13 mm/hr Normal <=20 [facility] Comment on above: Performed By: #### S EDR #### [facility] [address] [place] [address] Dr. Garry Obrien UA RANDOM W/MICROSCOPICon BACTERIA SMALL Abnormal NONE SEEN [facility] Comment on above: Performed By: #### U AMIC #### [facility] [address] [place] [address] Dr. Garry Obrien Bilirubin Ql (U) Negative Normal NEGATIVE [facility] Comment on above: Performed By: #### U AMIC #### [facility] [address] [place] [address] Dr. Garry Obrien CAST NONE SEEN Normal NONE SEEN [facility] Comment on above: Performed By: #### U AMIC #### [facility] [address] [place] [address] Dr. Garry Obrien Clarity (U) CLEAR Normal CLEAR [facility] Comment on above: Performed By: #### U AMIC #### [facility] [address] [place] [address] Dr. Garry Obrien Color (U) LT. YELLOW Normal YELLOW [facility] Comment on above: Performed By: #### U AMIC #### [facility] [address] [address] [address] Garry Obrien Crystals LM Nom (Urine sed) NONE SEEN Normal NONE SEEN [facility] Comment on above: Performed By: #### U AMIC #### [facility] [address] [address] [address] Garry Obrien Epithelial cells LM Ql (Urine sed) FEW Abnormal NONE SEEN /RARE [facility] Comment on above: Performed By: #### U AMIC #### [facility] [address] [address] [address] Garry Obrien Glucose Ql (U) Negative Normal NEGATIVE [facility] Comment on above: Performed By: #### U AMIC #### [facility] [address] [address] [address] Garry Obrien Hemoglobin Ql (U) TRACE-INTACT Abnormal NEGATIVE [facility] Comment on above: Performed By: #### U AMIC #### [facility] [address] [address] [address] Garry Obrien Ketones Ql (U) Negative Normal NEGATIVE [facility] Comment on above: Performed By: #### U AMIC #### [facility] [address] [address] [address] Garry Obrien LEUKOCYTES TRACE Abnormal NEGATIVE [facility] Comment on above: Performed By: #### U AMIC #### [facility] [address] [address] [address] Garry Obrien MUCOUS NONE SEEN Normal NONE SEEN [facility] Comment on above: Performed By: #### U AMIC #### [facility] [address] [address] [address] Garry Obrien Nitrite Ql (U) Negative Normal NEGATIVE [facility] Comment on above: Performed By: #### U AMIC #### [facility] [address] [address] [address] Garry Obrien pH (U) 6.0 [pH] Normal 5-9 [facility] Comment on above: Performed By: #### U AMIC #### [facility] [address] [address] [address] Garry Obrien RBC 0-2 Normal 0-2 [facility] Comment on above: Performed By: #### U AMIC #### [facility] [address] [place] [address] Dr. Garry Obrien SPEC GRAVITY <=1.005 Abnormal 1.005-<=1.025 [facility] Comment on above: Performed By: #### U AMIC #### [facility] [address] [place] [address] Dr. Garry Obrien UA PROTEIN Negative Normal NEGATIVE/ TRACE [facility] Comment on above: Performed By: #### U AMIC #### [facility] [address] [place] [address] Dr. Garry Obrien Urobilinogen Qn (U) 0.2 {Griselda'U}/dL Normal 0.2 - 1.0 [facility] Comment on above: Performed By: #### U AMIC #### [facility] [address] [place] [address] Dr. Garry Obrien WBC 2-5 Abnormal NONE SEEN [facility] Comment on above: Performed By: #### U AMIC #### [facility] [address] [place] [address] Dr. Garry Obrien PAP ACOG PANEL 2: 30 to 65on 07-13-2022 . . Normal [facility] Comment on above: Result Comment: Perf ormed at: WB Performed By: #### [id number] #### [facility] [address] [place] [address] Dr. Garry Obrien Age Gdln ACOG Testing 30-65 Normal [facility] Comment on above: Performed By: #### [id number] #### [facility] [address] [place] [address] Dr. Garry Obrien DIAGNOSIS: Comment Normal [facility] Comment on above: Result Comment: NEGA TIVE FOR INTRAEPITHELIAL LESION OR MALIGNANCY. Performed at: WB Performed By: #### [id number] #### [facility] [address] [place] [address] Dr. Garry Obrien HPV Aptima Negative Normal Negative [facility] Comment on above: Result Comment: This nucleic acid amplification test detects fourteen high-risk HPV types (16,18,31,33,35,39,45,51,52,56,58,59,66,68) without differentiation. Performed at: =G Performed By: #### [id number] #### [facility] [address] [place] [address] Dr. Garry Obrien Methodology: Comment Normal [facility] Comment on above: Result Comment: This liquid based ThinPrep(R) pap test was screened with the use of an image guided system. Performed at: WB Performed By: #### [id number] #### [facility] [address] [place] [address] Dr. Garry Obrien Note: Comment Normal [facility] Comment on above: Result Comment: The Pap smear is a screening test designed to aid in the detection of premalignant and malignant conditions of the uterine cervix. It is not a diagnostic procedure and should not be used as the sole means of detecting cervical cancer. Both false-positive and false-negative reports do occur. . Performed at: WB Performed By: #### [id number] #### [facility] [address] [place] [address] Dr. Garry Obrien Performed by: Comment Normal [facility] Comment on above: Result Comment: Macrina Lamar, Inner Tube Tuber Machine Operator (ASCP) Performed at: WB Performed By: #### [id number] #### [facility] [address] [place] [address] Dr. Garry Obrien Specimen adequacy: Comment Normal [facility] Comment on above: Result Comment: Sati sfactory for evaluation. Endocervical and/or squamous metaplastic cells (endocervical component) are present. Performed at: WB Performed By: #### [id number] #### [facility] [address] [place] [address] Dr. Garry Obrien Encounters Encounter Date Encounter Type Care Provider Facility Start: 05-08-2024 End: 05-08-2024 ambulatory PURA SOLIS Not Available Start: 04-23-2024 End: 04-23-2024 ambulatory PURA SOLIS Not Available Start: 04-01-2024 End: 04-01-2024 ambulatory YEYO THOMPSONO Not Available Start: 02-28-2024 End: 02-28-2024 ambulatory PURA SOLIS Not Available Start: 01-31-2024 End: 01-31-2024 ambulatory YEYO JANKI Not Available Start: 12-29-2023 End: 12-29-2023 ambulatory YEYO SHEARER Not Available Start: 12-28-2022 End: 12-29-2022 ambulatory MILEY COPELAND Facility: Start: 07-06-2022 End: 07-06-[address] YEYO SHEARER . Facility: Payers Date Payer Category Payer Unknown [id number] 2.16.84 [id number] 1992 Unknown [id number] 2.16.84 [id number] 1992 Unknown [id number] 2.16.84 [id number] 1992 Unknown [id number] 2.16.84 [id number] 1992 Unknown [id number] 2.16.84 [id number] 1992 Unknown [id number] 2.16.84 [id number] 1992 Unknown [id number] 2.16.84 [id number] 1992 Unknown [id number] 2.16.84 [id number] 1959 Unknown [id number] Summary Purpose Family History No Family History Records FoundNo Family History Records Found Advance Directives No Advanced Directives Records FoundNo Advanced Directives Records Found Additional Source Comments INFORMATION SOURCE (unrecogn ized section and content) DATE CREATED AUTHOR 01/01/2023 [facility] DATE CREATED AUTHOR AUTHOR'S ORGANIZ ATDONNA 05/11/2024 [facility] dical Special[facility] FOR RECORDS PERTAINING TO PATIENTS [...] BE BASED ON THE PRIMARY CLINICAL RECORDS. [facility] provides no warranty or guarantee of the accuracy or completeness of information in this document.
--- NOTE | 2024-05-21 09:10 | US_ITS ---
[address] [address] Patient Name: MEE WIGGINS MRN: [id number] date: 1990 Sex: F Assigned Patient Location: [facility] Current Patient Location: [facility] Accession/Order Number: [id number] Exam Date: 05/21/2024 09:12 Report Date: 05/21/2024 10:23 At the request of: YEYO SHEARER Procedure: US OB growth EXAMINATION: US OB growth, US OB cervical length HISTORY: MATERNAL OBESITY WITH BMI>30, CHOROID PLEXUS CYST COMPARISON: 04/24/2024 TECHNIQUE: Transabdominal sonographic examination was performed for obstetrical and evaluation. FINDINGS: Number: 1 Heart Rate: 137 bpm H.B. /min Amniotic Fluid Volume: 13.2 cm, largest fluid pocket 3.8 cm position: Cephalic presentation, longitudinal lie Placental Location: Anterior Cervix Length: 3.66 cm , closed Other: Previously noted choroid plexus cyst is not observed BIOMETRY: BPD: 8.44 cm; 34 weeks 0 days; 97 % HC: 30.03 cm; 33 weeks 2 days; 73.40 % AC: 27.11 cm; 31 weeks 1 day; 48.50 % FL: 6.52 cm; 33 weeks 4 days; 92.40 % EFW:1965.50 g; 79.20 %, 4 lbs. 5 oz. FL/AC: 24.05 FL/BPD: 77.25 HC/AC: 1.11 GESTATIONAL AGE: Age by EDC: 31 weeks 1 day QUINTIN by EDC: 2024-07-22 Age by current US: 32 weeks 0 days QUINTIN by current US: 2024-07-09 US/US OB growth IMPRESSION: BPD greater than the 97th percentile Closed cervix measuring 3.7 cm *Reference: [facility] Practice Guideline for the performance of Obstetric Ultrasound Examinations, July 09, 2007. Electronically authenticated by: SHUKRI LOCKWOOD Date: 05/21/2024 10:23
--- NOTE | 2024-05-21 09:10 | US_ITS ---
[address] [address] Patient Name: MEE WIGGINS MRN: [id number] date: 1990 Sex: F Assigned Patient Location: [facility] Current Patient Location: [facility] Accession/Order Number: [id number] Exam Date: 05/21/2024 09:12 Report Date: 05/21/2024 10:23 At the request of: YEYO SHEARER Procedure: US OB cervical length EXAMINATION: US OB growth, US OB cervical length HISTORY: MATERNAL OBESITY WITH BMI>30, CHOROID PLEXUS CYST COMPARISON: 04/24/2024 TECHNIQUE: Transabdominal sonographic examination was performed for obstetrical and evaluation. FINDINGS: Number: 1 Heart Rate: 137 bpm H.B. /min Amniotic Fluid Volume: 13.2 cm, largest fluid pocket 3.8 cm position: Cephalic presentation, longitudinal lie Placental Location: Anterior Cervix Length: 3.66 cm , closed Other: Previously noted choroid plexus cyst is not observed BIOMETRY: BPD: 8.44 cm; 34 weeks 0 days; 97 % HC: 30.03 cm; 33 weeks 2 days; 73.40 % AC: 27.11 cm; 31 weeks 1 day; 48.50 % FL: 6.52 cm; 33 weeks 4 days; 92.40 % EFW:1965.50 g; 79.20 %, 4 lbs. 5 oz. 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 Electronically authenticated by: SHUKRI LOCKWOOD Date: 05/21/2024 10:23
== END 2024-05-21 08:59 | disposition home or self-care (01) ==
LOC: NOMS 08:58
PROVIDERS: PCP Nurse Practitioner; Visit Provider Obstetrics & Gynecology
DX: O35.03X1 Maternal care for (suspected) central nervous system malformation or damage in fetus, choroid plexus cysts, fetus 1 (principal); Z36.86 Encounter for antenatal screening for cervical length; Z3A.32 32 weeks gestation of pregnancy
CPT/HCPCS: 76816; 76817

== ENCOUNTER 2024-06-04 07:33 | Outpatient (OUT) | payer BC, SELFPAY ==
--- OUTSIDE RECORDS SUMMARY | 2024-06-04 07:35 | XMS_ITS | CCD ---
Author Organization [facility] Care Team Providers Care Occupational Therapist'S Assistant Name Role Phone JANKI ., DR ORONA Admitting Unavailable JANKI ., DR ORONA Attending Unavailable LUIS E DAVIS Primary Care Unavailable JANKI ., DR ORONA Consulting Unavailable AICHHOLZ, CITIZEN PARTICIPATION SPECIALIST AC Admitting Unavailable AICHHOLZ, CITIZEN PARTICIPATION SPECIALIST AC Attending Unavailable AICHHOLZ, CITIZEN PARTICIPATION SPECIALIST AC Primary Care Unavailable AICHHOLZ, CITIZEN PARTICIPATION SPECIALIST AC Consulting Unavailable JANKI, YEYO Attending Unavailable PURA SOLIS Attending Unavailable JANKI, YEYO Attending Unavailable WILL PURA Attending Unavailable WILL PURA Attending Unavailable JANKI, YEYO Attending Unavailable Problems Active Problems Problem Classification [...] [Catalytic activity/Vol] 36 U/L Normal 25-115 [facility] Comment on above: Performed By: #### C MP, PURA, DBIL, LIPA, LIPID #### [facility] [address], [place] [address] Dr. Garry Obrien BILIRUBIN CONJUGATED (DIRECT )on 12-28-2022 BILI, CONJUGATED 0.1 mg/dL Normal 0.0-0.2 [facility] Comment on above: Performed By: #### C MP, PURA, DBIL, LIPA, LIPID #### [facility] [address] [place] [address] Dr. Garry Obrien CBC AUTO DIFFon 12-28-2022 BASO # 0.0 103/ul Normal 0.0-0.1 [facility] Comment on above: Performed By: #### C BC #### [facility] [address] [place] [address] Dr. Garry Obrien Basophils/100 WBC (Bld) 0.3 % Normal 0.2-2.0 [facility] Comment on above: Performed By: #### C BC #### [facility] [address] [place] [address] Dr. Garry Obrien EO # 0.5 103/ul Normal 0.0-0.7 [facility] Comment on above: Performed By: #### C BC #### [facility] [address] [place] [address] Dr. Garry Obrien Eosinophils/100 WBC (Bld) 8.2 % Critically high 0.9-7.0 [facility] Comment on above: Performed By: #### C BC #### [facility] [address] [place] [address] Dr. Garry Obrien Erythrocyte distribution width (RBC) [Ratio] 13.5 % Normal 11.0-15.0 [facility] Comment on above: Performed By: #### C BC #### [facility] [address] [place] [address] Dr. Garry Obrien Hematocrit (Bld) [Volume fraction] 41.7 % Normal 36.0-48.0 [facility] Comment on above: Performed By: #### C BC #### [facility] [address] [place] [address] Dr. Garry Obrien Hemoglobin (Bld) [Mass/Vol] 13.8 g/dL Normal 12.0-16.0 [facility] Comment on above: Performed By: #### C BC #### [facility] [address] [place] [address] Dr. Garry Obrien IG # 0.01 10e3/ul Normal 0.00-0.03 [facility] Comment on above: Performed By: #### C BC #### [facility] [address] [place] [address] Dr. Garry Obrien IG % 0.2 % Normal 0.0-0.5 [facility] Comment on above: Performed By: #### C BC #### [facility] [address] [place] [address] Dr. Garry Obrein LYMPH # 2.0 103/ul Normal 1.2-3.8 [facility] Comment on above: Performed By: #### C BC #### [facility] [address] [place] [address] Dr. Garry Obrien Lymphocytes/100 WBC (Bld) 32.8 % Normal 20.5-60.0 [facility] Comment on above: Performed By: #### C BC #### [facility] [address] [place] [address] Dr. Garry Obrien MANUAL DIFF REQ NO Normal [facility] Comment on above: Performed By: #### C BC #### [facility] [address] [place] [address] Dr. Garry Obrien MCH (RBC) [Entitic mass] 29.2 pg Normal 26.7-34.0 [facility] Comment on above: Performed By: #### C BC #### [facility] [address] [place] [address] Dr. Garry Obrien MCHC (RBC) [Mass/Vol] 33.1 g/dL Normal 29.9-35.2 [facility] Comment on above: Performed By: #### C BC #### [facility] [address] [place] [address] Dr. Garry Obrien MCV (RBC) [Entitic vol] 88.2 fL Normal 81.0-99.0 [facility] Comment on above: Performed By: #### C BC #### [facility] [address] [place] [address] Dr. Garry Obrien MONO # 0.5 103/ul Normal 0.3-0.8 [facility] Comment on above: Performed By: #### C BC #### [facility] [address] [place] [address] Dr. Garry Obrine Monocytes/100 WBC (Bld) 7.7 % Normal 1.7-12.0 [facility] Comment on above: Performed By: #### C BC #### [facility] [address] [place] [address] Dr. Garry Obrien NEUT # 3.1 103/ul Normal 1.4-6.5 [facility] Comment on above: Performed By: #### C BC #### [facility] [address] [place] [address] Dr. Garry Obrien Neutrophils/100 WBC (Bld) 50.8 % Normal 43.0-75.0 [facility] Comment on above: Performed By: #### C BC #### [facility] [address] [place] [address] Dr. Garry Obrien Platelet mean volume (Bld) [Entitic vol] 9.3 fL Critically low 9.5-13.5 [facility] Comment on above: Performed By: #### C BC #### [facility] [address] [place] [address] Dr. aGrry Obrien PLT 318 103/ul Normal 150-450 [facility] Comment on above: Performed By: #### C BC #### [facility] [address] [place] [address] Dr. Garry Obrien RBC 4.73 106/ul Normal 4.20-5.40 [facility] Comment on above: Performed By: #### C BC #### [facility] [address] [place] [address] Dr. Garry Obrien WBC 6.1 103/ul Normal 4.0-11.0 [facility] Comment on above: Performed By: #### C BC #### [facility] [address] [place] [address] Dr. Garry Obrien LIPASEon 12-28-2022 Lipase [Catalytic activity/Vol] 198.0 U/L Normal 73.0-393.0 [facility] Comment on above: Performed By: #### C MP, PURA, DBIL, LIPA, LIPID #### [facility] [address] [place] [address] Dr. Garry Obrien LIPID PROFILEon 12-28-2022 CHOL-HDL RATIO NORM SEE BELOW Normal [facility] Comment on above: Result Comment: 3.3 - 4.4 LOW RISK 4.4 - 7.1 AVERAGE RISK 7.1 - 11.0 MODERATE RISK >11.0 HIGH RISK Performed By: #### C MP, PURA, DBIL, LIPA, LIPID #### [facility] [address] [place] [address] Dr. Garry Obrien Cholesterol [Mass/Vol] 237 mg/dL Critically high <=200 [facility] Comment on above: Performed By: #### C MP, PURA, DBIL, LIPA, LIPID #### [facility] [address] [place] [address] Dr. Garry Obrien Cholesterol in HDL [Mass/Vol] 67 mg/dL Critically high 40-60 [facility] Comment on above: Performed By: #### C MP, PURA, DBIL, LIPA, LIPID #### [facility] [address] [place] [address] Dr. Garry Obrien Cholesterol in LDL [Mass/Vol] 144.8 mg/dL Normal [facility] Comment on above: Performed By: #### C MP, PURA, DBIL, LIPA, LIPID #### [facility] [address] [place] [address] Dr. Garry Obrien Cholesterol.total/ Cholesterol in HDL [Mass ratio] 3.5 {ratio} Normal [facility] Comment on above: Performed By: #### C MP, PURA, DBIL, LIPA, LIPID #### [facility] [address] [place] [address] Dr. Garry Obrien HDL NORMAL > or = 60 mg/dl - LO W CARDIOVASCULAR RISK <40 mg/dl - HIGH CARDIOVASCULAR RISK Normal [facility] Comment on above: Performed By: #### C MP, PURA, DBIL, LIPA, LIPID #### [facility] [address] [place] [address] Dr. Garry Obrien LDL CALC NORMAL SEE BELOW Normal [facility] Comment on above: Result Comment: <100 mg/dl OPTIMAL 100 - 129 mg/dl NEAR OR ABOVE OPTIMAL 130 - 159 mg/dl BORDERLINE HIGH 160 - 189 mg/dl HIGH >190 mg/dl VERY HIGH Performed By: #### C MP, PURA, DBIL, LIPA, LIPID #### [facility] [address] [place] [address] [address] Garry Obrien Triglyceride [Mass/Vol] 126 mg/dL Normal <=150 [facility] Comment on above: Performed By: #### C MP, PURA, DBIL, LIPA, LIPID #### [facility] [address] [place] [address] [address] Garry Obrien VLDL CALC 25.2 mg/dL Normal [facility] Comment on above: Performed By: #### C MP, PURA, DBIL, LIPA, LIPID #### [facility] [address] [place] [address] Dr. Garry Obrien PREG HCG QUALon 12-28-2022 , QUAL Negative Normal NEGATIVE [facility] Comment on above: Performed By: #### P REG #### [facility] [address] [place] [address] Dr. Garry Obrien PROF 14(COMP METB)on 023 Albumin [Mass/Vol] 3.9 g/dL Normal 3.4-5.0 [facility] Comment on above: Performed By: #### C MP, PURA, DBIL, LIPA, LIPID #### [facility] [address] [place] [address] Dr. Garry Obrien Albumin/Globulin [Mass ratio] 0.9 {ratio} Normal [facility] Comment on above: Performed By: #### C MP, PURA, DBIL, LIPA, LIPID #### [facility] [address] [place] [address] Dr. Garry Obrien ALP [Catalytic activity/Vol] 51 U/L Normal 46-116 [facility] Comment on above: Performed By: #### C MP, PURA, DBIL, LIPA, LIPID #### [facility] [address] [place] [address] Dr. Garry Obrien ALT [Catalytic activity/Vol] 20 U/L Normal 14-59 [facility] Comment on above: Performed By: #### C MP, PURA, DBIL, LIPA, LIPID #### [facility] [address] [place] [address] Dr. Garry Obrien Anion gap [Moles/Vol] 12.5 mmol/L Normal [facility] Comment on above: Performed By: #### C MP, PURA, DBIL, LIPA, LIPID #### [facility] [address] [place] [address] Dr. Garry Obrien AST [Catalytic activity/Vol] 20 U/L Normal 15-37 [facility] Comment on above: Performed By: #### C MP, PURA, DBIL, LIPA, LIPID #### [facility] [address] [place] [address] Dr. Garry Obrien Bilirubin [Mass/Vol] 0.5 mg/dL Normal 0.2-1.0 [facility] Comment on above: Performed By: #### C MP, PURA, DBIL, LIPA, LIPID #### [facility] [address] [place] [address] Dr. Garry Obrien Calcium [Mass/Vol] 9.5 mg/dL Normal 8.5-10.1 [facility] Comment on above: Performed By: #### C MP, PURA, DBIL, LIPA, LIPID #### [facility] [address] [place] [address] Dr. Garry Obrien Chloride [Moles/Vol] 100 mmol/L Normal 98-107 [facility] Comment on above: Performed By: #### C MP, PURA, DBIL, LIPA, LIPID #### [facility] [address] [place] [address] Dr. Garry Obrien CO2 [Moles/Vol] 27.4 mmol/L Normal 21.0-32.0 [facility] Comment on above: Performed By: #### C MP, PURA, DBIL, LIPA, LIPID #### [facility] [address] [place] [address] [address] Garry Obrien Creatinine [Mass/Vol] 0.67 mg/dL Normal 0.55-1.02 [facility] Comment on above: Performed By: #### C MP, PURA, DBIL, LIPA, LIPID #### [facility] [address] [place] [address] [address] Garry Obrien EGFR-AF VINCENTIAN >60 Normal >=60 [facility] Comment on above: Performed By: #### C MP, PURA, DBIL, LIPA, LIPID #### [facility] [address] [place] [address] Dr. Garry Obrien EGFR-NON AF VINCENTIAN >60 Normal >=60 [facility] Comment on above: Performed By: #### C MP, PURA, DBIL, LIPA, LIPID #### [facility] [address] [place] [address] Dr. Garry Obrien Globulin (S) [Mass/Vol] 4.3 g/dL Normal [facility] Comment on above: Performed By: #### C MP, PURA, DBIL, LIPA, LIPID #### [facility] [address] [place] [address] Dr. Garry Obrien Glucose [Mass/Vol] 99 mg/dL Normal 74-106 [facility] Comment on above: Performed By: #### C MP, PURA, DBIL, LIPA, LIPID #### [facility] [address] [place] [address] Dr. Garry Obrien Potassium [Moles/Vol] 3.9 mmol/L Normal 3.5-5.1 [facility] Comment on above: Performed By: #### C MP, PURA, DBIL, LIPA, LIPID #### [facility] [address] [place] [address] Dr. Garry Obrien Protein [Mass/Vol] 8.2 g/dL Normal 6.4-8.2 [facility] Comment on above: Performed By: #### C MP, PURA, DBIL, LIPA, LIPID #### [facility] [address] [place] [address] Dr. Garry Obrien Sodium [Moles/Vol] 136 mmol/L Normal 136-145 [facility] Comment on above: Performed By: #### C MP, PURA, DBIL, LIPA, LIPID #### [facility] [address] [place] [address] Dr. Garry Obrien Urea nitrogen [Mass/Vol] 10.0 mg/dL Normal 7.0-18.0 [facility] Comment on above: Performed By: #### C MP, PURA, DBIL, LIPA, LIPID #### [facility] [address] [place] [address] Dr. Garry Obrien Urea nitrogen/Creatinin e [Mass ratio] 14.9 mg/mg Normal [facility] Comment on above: Performed By: #### C MP, PURA, DBIL, LIPA, LIPID #### [facility] [address] [place] [address] Dr. Garry Obrien [facility] mm/hr Normal <=20 [facility] Comment on above: Performed By: #### S EDR #### [facility] [address] [place] [address] Dr. Garry Obrien UA RANDOM W/MICROSCOPICon BACTERIA SMALL Abnormal NONE SEEN [facility] Comment on above: Performed By: #### U AMIC #### [facility] [address] [place] [address] Dr. Garry Obrien Bilirubin Ql (U) Negative Normal NEGATIVE [facility] Comment on above: Performed By: #### U AMIC #### [facility] [address] [place] [address] Dr. Garry Obrien CAST NONE SEEN Normal NONE SEEN [facility] Comment on above: Performed By: #### U AMIC #### [facility] [address] [place] [address] Dr. Garry Obrien Clarity (U) CLEAR Normal CLEAR [facility] Comment on above: Performed By: #### U AMIC #### [facility] [address] [place] [address] Dr. Garry Obrien Color (U) LT. YELLOW Normal YELLOW [facility] Comment on above: Performed By: #### U AMIC #### [facility] [address] [place] [address] [address] Garry Obrien Crystals LM Nom (Urine sed) NONE SEEN Normal NONE SEEN [facility] Comment on above: Performed By: #### U AMIC #### [facility] [address] [place] [address] [address] Garry Obrien Epithelial cells LM Ql (Urine sed) FEW Abnormal NONE SEEN /RARE [facility] Comment on above: Performed By: #### U AMIC #### [facility] [address] [address] [address] Garry Obrien Glucose Ql (U) Negative Normal NEGATIVE [facility] Comment on above: Performed By: #### U AMIC #### [facility] [address] [place] [address] Dr. Garry Obrien Hemoglobin Ql (U) TRACE-INTACT Abnormal NEGATIVE [facility] Comment on above: Performed By: #### U AMIC #### [facility] [address] [place] [address] [address] Garry Obrien Ketones Ql (U) Negative Normal NEGATIVE [facility] Comment on above: Performed By: #### U AMIC #### [facility] [address] [address] [address] Garry Obrien LEUKOCYTES TRACE Abnormal NEGATIVE [facility] Comment on above: Performed By: #### U AMIC #### [facility] [address] [place] [address] [address] Garry Obrien MUCOUS NONE SEEN Normal NONE SEEN [facility] Comment on above: Performed By: #### U AMIC #### [facility] [address] [address] [address] Garry Obrien Nitrite Ql (U) Negative Normal NEGATIVE [facility] Comment on above: Performed By: #### U AMIC #### [facility] [address] [place] [address] Dr. Garry Obrien pH (U) 6.0 [pH] Normal 5-9 [facility] Comment on above: Performed By: #### U AMIC #### [facility] [address] [address] [address] Garry Obrien RBC 0-2 Normal 0-2 [facility] Comment on above: Performed By: #### U AMIC #### [facility] [address] [address] [address] Garry Obrien SPEC GRAVITY <=1.005 Abnormal 1.005-<=1.025 [facility] Comment on above: Performed By: #### U AMIC #### [facility] [address] [place] [address] [address] Garry Obrien UA PROTEIN Negative Normal NEGATIVE/ TRACE [facility] Comment on above: Performed By: #### U AMIC #### [facility] [address] [place] [address] Dr. Garry Obrien Urobilinogen Qn (U) 0.2 {Griselda'U}/dL Normal 0.2 - 1.0 [facility] Comment on above: Performed By: #### U AMIC #### [facility] [address] [place] [address] Dr. Garyr Obrien WBC 2-5 Abnormal NONE SEEN [facility] Comment on above: Performed By: #### U AMIC #### [facility] [address] [place] [address] Dr. Garry Obrien PAP ACOG PANEL 2: 30 to 65on 07-13-2022 . . Normal [facility] Comment on above: Result Comment: Perf ormed at: WB Performed By: #### [id number] #### [facility] [address] [place] [address] Dr. Garry Obrien Age Gdln ACOG Testing 30-65 Normal [facility] Comment on above: Performed By: #### [id number] #### [facility] [address] [place] [address] Dr. Garry Obrien DIAGNOSIS: Comment Normal [facility] Comment on above: Result Comment: NEGA TIVE FOR INTRAEPITHELIAL LESION OR MALIGNANCY. Performed at: WB Performed By: #### [id number] #### [facility] [address] [place] [address] Dr. Garry Obrien HPV Aptima Negative Normal Negative [facility] Comment on above: Result Comment: This nucleic acid amplification test detects fourteen high-risk HPV types (16,18,31,33,35,39,45,51,52,56,58,59,66,68) without differentiation. Performed at: =G Performed By: #### [id number] #### [facility] [address] [place] [address] Dr. Garry Obrien Methodology: Comment Normal [facility] Comment on above: Result Comment: This liquid based ThinPrep(R) pap test was screened with the use of an image guided system. Performed at: WB Performed By: #### [id number] #### [facility] [address] [place] [address] Dr. Garry Obrien Note: Comment Normal [facility] Comment on above: Result Comment: The Pap smear is a screening test designed to aid in the detection of premalignant and malignant conditions of the uterine cervix. It is not a diagnostic procedure and should not be used as the sole means of detecting cervical cancer. Both false-positive and false-negative reports do occur. . Performed at: WB Performed By: #### [id number] #### [facility] [address] [place] [address] Dr. Garry Obrien Performed by: Comment Normal [facility] Comment on above: Result Comment: Macrina Lamar, Cooling System Operator (ASCP) Performed at: WB Performed By: #### [id number] #### [facility] [address] [place] [address] Dr. Garry Obrien Specimen adequacy: Comment Normal [facility] Comment on above: Result Comment: Sati sfactory for evaluation. Endocervical and/or squamous metaplastic cells (endocervical component) are present. Performed at: WB Performed By: #### [id number] #### [facility] [address] [place] [address] Dr. Garry Obrien Encounters Encounter Date Encounter Type Care Provider Facility Start: 05-21-2024 End: 05-21-2024 ambulatory YEYO SHEARER Not Available Start: 05-08-2024 End: 05-08-2024 ambulatory PURA SOLIS Not Available Start: 04-23-2024 End: 04-23-2024 ambulatory PURA SOLIS Not Available Start: 04-01-2024 End: 04-01-2024 ambulatory YEYO THOMPSONO Not Available Start: 02-28-2024 End: 02-28-2024 ambulatory PURA SOLIS Not Available Start: 01-31-2024 End: 01-31-2024 ambulatory YEYO JANKI Not Available Start: 12-29-2023 End: 12-29-2023 ambulatory YEYO JANKI Not Available Start: 12-28-2022 End: 12-29-2022 ambulatory MILEY AC DINORAH Facility:[facility] Start: 07-06-2022 End: 07-06-[address] YEYO SHEARER . Facility: Payers Date Payer Category Payer Unknown [id number] 2.16.84 [id number] 1990 Unknown [id number] 2.16.84 [id number] 1992 Unknown [id number] 2.16.84 [id number] 1992 Unknown [id number] 2.16.84 [id number] 1992 Unknown [id number] 2.16.84 [id number] 1992 Unknown [id number] 2.16.84 [id number] 1992 Unknown [id number] 2.16.84 [id number] 1992 Unknown [id number] 2.16.84 [id number] 1992 Unknown [id number] 2.16.84 [id number] 1959 Unknown [id number] Summary Purpose Family History No Family History Records FoundNo Family History Records Found Advance Directives No Advanced Directives Records FoundNo Advanced Directives Records Found Additional Source Comments INFORMATION SOURCE (unrecogn ized section and content) DATE CREATED AUTHOR 01/01/2023 [facility] DATE CREATED AUTHOR WILLIS IVEY 05/22/2024 [facility] EPIC FOR RECORDS PERTAINING TO [...] BE BASED ON THE PRIMARY CLINICAL RECORDS. [facility] [employer] provides no warranty or guarantee of the accuracy or completeness of information in this document.
--- NOTE | 2024-06-04 16:02 | US_ITS ---
[address] [address] Patient Name: MEE WIGGINS MRN: [id number] date: 1990 Sex: F Assigned Patient Location: US Current Patient Location: Accession/Order Number: [id number] Exam Date: 06/04/2024 16:07 Report Date: 06/05/2024 08:48 At the request of: YEYO SHEARER Procedure: US OB BPP w non-stress EXAMINATION: US OB BPP w non-stress HISTORY:CHOROID PLEXUS CYST O35.03X1 COMPARISON: Ultrasound OB growth 05/21/2024 TECHNIQUE: Ultrasound biophysical profile was performed in the radiology department. BREATHING MOVEMENTS: 2 GROSS BODY MOVEMENTS: 2 TONE: 2 QUALITATIVE AMNIOTIC FLUID VOLUME: 2 PRESENTATION: CEPHALIC HEART RATE: 139.18 bpm AMNIOTIC FLUID VOLUME: 13.87 cm GESTATIONAL AGE: 33 weeks 1 day US/US OB BPP w non-stress IMPRESSION: Total biophysical profile score: 8 Electronically authenticated by: THONY SANTOS Date: 06/05/2024 08:48
--- NOTE | 2024-06-04 16:03 | US_ITS ---
The [address] [address] Patient Name: MEE WIGGINS MRN: [id number] date: 1990 Sex: F Assigned Patient Location: US Current Patient Location: Accession/Order Number: [id number] Exam Date: 06/04/2024 16:07 Report Date: 06/05/2024 08:54 At the request of: YEYO SHEARER Procedure: US OB cervical length EXAMINATION: US OB cervical length HISTORY: CHOROID PLEXUS CYST O35.03X1 COMPARISON: Ultrasound OB cervical length 05/21/2024 TECHNIQUE: Transabdominal and transvaginal sonographic examination for cervical length. FINDINGS: CERVIX LENGTH: 3.2 cm, closed. POSITION: Cephalic HEART RATE: 139 bpm Age by EDC: 33 weeks 1 day QUINTIN by EDC: 07/22/2024 US/US OB cervical length IMPRESSION: 1. Closed cervix 3.2 cm in length (3.7 cm on 05/21/2024). Electronically authenticated by: THONY SANTOS Date: 06/05/2024 08:54
[2024-06-04 17:01] VITALS: BP 111/70; PULSE 96
== END 2024-06-04 17:30 | disposition home or self-care (01) ==
LOC: US 07:33 → FBC 15:52
PROVIDERS: PCP Nurse Practitioner; Visit Provider Obstetrics & Gynecology
DX: O35.03X1 Maternal care for (suspected) central nervous system malformation or damage in fetus, choroid plexus cysts, fetus 1 (principal); Z3A.33 33 weeks gestation of pregnancy
CPT/HCPCS: 76817; 76818

== ENCOUNTER 2024-06-07 07:10 | Outpatient (OUT) | payer BC, SELFPAY ==
--- OUTSIDE RECORDS SUMMARY | 2024-06-07 07:13 | XMS_ITS | CCD ---
Author Organization [email or web address] Team Providers Care Pediatric Medical Assistant Name Role Phone JANKI ., DR ORONA Admitting Unavailable JANKI ., DR ORONA Attending Unavailable LUIS E DAVIS Primary Care Unavailable JANKI ., DR ORONA Consulting Unavailable AICHHOLZ, VARITYPE OPERATOR AC Admitting Unavailable AICHHOLZ, VARITYPE OPERATOR AC Attending Unavailable AICHHOLZ, VARITYPE OPERATOR AC Primary Care Unavailable AICHHOLZ, VARITYPE OPERATOR AC Consulting Unavailable JANKI, YEYO Attending Unavailable WILL, PURA Attending Unavailable JANKI, YEYO Attending Unavailable WILL, PURA Attending Unavailable WILL, PURA Attending Unavailable JANKI, YEYO Attending Unavailable WILL, PURA Attending Unavailable Problems [...] 36 U/L Normal 25-115 [facility] Comment on above: Performed By: #### C MP, PURA, DBIL, LIPA, LIPID #### [facility] [address] [address] [address] Garry Obrien BILIRUBIN CONJUGATED (DIRECT )on 12-28-2022 BILI, CONJUGATED 0.1 mg/dL Normal 0.0-0.2 [facility] Comment on above: Performed By: #### C MP, PURA, DBIL, LIPA, LIPID #### [facility] [address] [place] [address] Dr. Garry Obrien CBC AUTO DIFFon 12-28-2022 BASO # 0.0 103/ul Normal 0.0-0.1 [facility] Comment on above: Performed By: #### C BC #### [facility] [address] [place] [address] Dr. Garry Obrien Basophils/100 WBC (Bld) 0.3 % Normal 0.2-2.0 [facility] Comment on above: Performed By: #### C BC #### [facility] [address] [place] [address] Dr. Garry Obrien EO # 0.5 103/ul Normal 0.0-0.7 [facility] Comment on above: Performed By: #### C BC #### [facility] [address] [place] [address] Dr. Garry Obrien Eosinophils/100 WBC (Bld) 8.2 % Critically high 0.9-7.0 [facility] Comment on above: Performed By: #### C BC #### [facility] [address] [place] [address] Dr. Garry Obrien Erythrocyte distribution width (RBC) [Ratio] 13.5 % Normal 11.0-15.0 [facility] Comment on above: Performed By: #### C BC #### [facility] [address] [place] [address] Dr. Garry Obrien Hematocrit (Bld) [Volume fraction] 41.7 % Normal 36.0-48.0 [facility] Comment on above: Performed By: #### C BC #### [facility] [address] [place] [address] Dr. Garry Obrien Hemoglobin (Bld) [Mass/Vol] 13.8 g/dL Normal 12.0-16.0 [facility] Comment on above: Performed By: #### C BC #### [facility] [address] [place] [address] Dr. Garry Obrien IG # 0.01 10e3/ul Normal 0.00-0.03 [facility] Comment on above: Performed By: #### C BC #### [facility] [address] [place] [address] Dr. Garry Obrien IG % 0.2 % Normal 0.0-0.5 [facility] Comment on above: Performed By: #### C BC #### [facility] [address] [place] [address] Dr. aGrry Obrien LYMPH # 2.0 103/ul Normal 1.2-3.8 [facility] Comment on above: Performed By: #### C BC #### [facility] [address] [place] [address] Dr. Garry Obrien Lymphocytes/100 WBC (Bld) 32.8 % Normal 20.5-60.0 [facility] Comment on above: Performed By: #### C BC #### [facility] [address] [place] [address] Dr. Garry Obrien MANUAL DIFF REQ NO Normal [facility] Comment on above: Performed By: #### C BC #### [facility] [address] [place] [address] Dr. Garry Obrien MCH (RBC) [Entitic mass] 29.2 pg Normal 26.7-34.0 [facility] Comment on above: Performed By: #### C BC #### [facility] [address] [place] [address] Dr. Garry Obrien MCHC (RBC) [Mass/Vol] 33.1 g/dL Normal 29.9-35.2 [facility] Comment on above: Performed By: #### C BC #### [facility] [address] [place] [address] Dr. Garry Obrien MCV (RBC) [Entitic vol] 88.2 fL Normal 81.0-99.0 [facility] Comment on above: Performed By: #### C BC #### [facility] [address] [place] [address] Dr. Garry Obrien MONO # 0.5 103/ul Normal 0.3-0.8 [facility] Comment on above: Performed By: #### C BC #### [facility] [address] [place] [address] Dr. Garry Obrien Monocytes/100 WBC (Bld) 7.7 % Normal 1.7-12.0 [facility] Comment on above: Performed By: #### C BC #### [facility] [address] [place] [address] Dr. Garry Obrien NEUT # 3.1 103/ul Normal 1.4-6.5 [facility] Comment on above: Performed By: #### C BC #### [facility] [address] [place] [address] Dr. Garry Obrien Neutrophils/100 WBC (Bld) 50.8 % Normal 43.0-75.0 [facility] Comment on above: Performed By: #### C BC #### [facility] [address] [place] [address] Dr. Garry Obrien Platelet mean volume (Bld) [Entitic vol] 9.3 fL Critically low 9.5-13.5 [facility] Comment on above: Performed By: #### C BC #### [facility] [address] [place] [address] Dr. Garry Obrien PLT 318 103/ul Normal 150-450 [facility] Comment on above: Performed By: #### C BC #### [facility] [address] [place] [address] Dr. Garry Obrien RBC 4.73 106/ul Normal 4.20-5.40 [facility] Comment on above: Performed By: #### C BC #### [facility] [address] [place] [address] Dr. Garry Obrien WBC 6.1 103/ul Normal 4.0-11.0 [facility] Comment on above: Performed By: #### C BC #### [facility] [address] [place] [address] Dr. Garry Obrien LIPASEon 12-28-2022 Lipase [Catalytic activity/Vol] 198.0 U/L Normal 73.0-393.0 [facility] Comment on above: Performed By: #### C MP, PURA, DBIL, LIPA, LIPID #### [facility] [address] [place] [address] Dr. Garry Obrien LIPID PROFILEon 12-28-2022 CHOL-HDL RATIO NORM SEE BELOW Normal [facility] Comment on above: Result Comment: 3.3 - 4.4 LOW RISK 4.4 - 7.1 AVERAGE RISK 7.1 - 11.0 MODERATE RISK >11.0 HIGH RISK Performed By: #### C MP, PURA, DBIL, LIPA, LIPID #### [facility] [address] [place] [address] Dr. Garry Obrien Cholesterol [Mass/Vol] 237 mg/dL Critically high <=200 [facility] Comment on above: Performed By: #### C MP, PURA, DBIL, LIPA, LIPID #### [facility] [address] [place] [address] Dr. Garry Obrien Cholesterol in HDL [Mass/Vol] 67 mg/dL Critically high 40-60 [facility] Comment on above: Performed By: #### C MP, PURA, DBIL, LIPA, LIPID #### [facility] [address] [place] [address] Dr. Garry Obrien Cholesterol in LDL [Mass/Vol] 144.8 mg/dL Normal [facility] Comment on above: Performed By: #### C MP, PURA, DBIL, LIPA, LIPID #### [facility] [address] [place] [address] Dr. Garry Obrien Cholesterol.total/ Cholesterol in HDL [Mass ratio] 3.5 {ratio} Normal [facility] Comment on above: Performed By: #### C MP, PURA, DBIL, LIPA, LIPID #### [facility] [address] [place] [address] Dr. Garry Obrien HDL NORMAL > or = 60 mg/dl - LO W CARDIOVASCULAR RISK <40 mg/dl - HIGH CARDIOVASCULAR RISK Normal [facility] Comment on above: Performed By: #### C MP, PURA, DBIL, LIPA, LIPID #### [facility] [address] [place] [address] Dr. Garry Obrien LDL CALC NORMAL SEE BELOW Normal [facility] Comment on above: Result Comment: <100 mg/dl OPTIMAL 100 - 129 mg/dl NEAR OR ABOVE OPTIMAL 130 - 159 mg/dl BORDERLINE HIGH 160 - 189 mg/dl HIGH >190 mg/dl VERY HIGH Performed By: #### C MP, PURA, DBIL, LIPA, LIPID #### [facility] [address] [place] [address] Dr. Garry Obrien Triglyceride [Mass/Vol] 126 mg/dL Normal <=150 [facility] Comment on above: Performed By: #### C MP, PURA, DBIL, LIPA, LIPID #### [facility] [address] [place] [address] Dr. Garry Obrien VLDL CALC 25.2 mg/dL Normal [facility] Comment on above: Performed By: #### C MP, PURA, DBIL, LIPA, LIPID #### [facility] [address] [place] [address] Dr. Garry Obrien PREG HCG QUALon 12-28-2022 , QUAL Negative Normal NEGATIVE [facility] Comment on above: Performed By: #### P REG #### [facility] [address] [place] [address] Dr. Garry Obrien PROF 14(COMP METB)on 023 Albumin [Mass/Vol] 3.9 g/dL Normal 3.4-5.0 [facility] Comment on above: Performed By: #### C MP, PURA, DBIL, LIPA, LIPID #### [facility] [address] [place] [address] Dr. Garry Obrien Albumin/Globulin [Mass ratio] 0.9 {ratio} Normal [facility] Comment on above: Performed By: #### C MP, PURA, DBIL, LIPA, LIPID #### [facility] [address] [place] [address] Dr. Garry Obrien ALP [Catalytic activity/Vol] 51 U/L Normal 46-116 [facility] Comment on above: Performed By: #### C MP, PURA, DBIL, LIPA, LIPID #### [facility] [address] [place] [address] Dr. Garry Obrien ALT [Catalytic activity/Vol] 20 U/L Normal 14-59 [facility] Comment on above: Performed By: #### C MP, PURA, DBIL, LIPA, LIPID #### [facility] [address] [place] [address] Dr. Garry Obrien Anion gap [Moles/Vol] 12.5 mmol/L Normal [facility] Comment on above: Performed By: #### C MP, PURA, DBIL, LIPA, LIPID #### [facility] [address] [place] [address] Dr. Garry Obrien AST [Catalytic activity/Vol] 20 U/L Normal 15-37 [facility] Comment on above: Performed By: #### C MP, PURA, DBIL, LIPA, LIPID #### [facility] [address] [place] [address] Dr. Garry Obrien Bilirubin [Mass/Vol] 0.5 mg/dL Normal 0.2-1.0 [facility] Comment on above: Performed By: #### C MP, PURA, DBIL, LIPA, LIPID #### [facility] [address] [place] [address] Dr. Garry Obrien Calcium [Mass/Vol] 9.5 mg/dL Normal 8.5-10.1 [facility] Comment on above: Performed By: #### C MP, PURA, DBIL, LIPA, LIPID #### [facility] [address] [place] [address] Dr. Garry Obrien Chloride [Moles/Vol] 100 mmol/L Normal 98-107 [facility] Comment on above: Performed By: #### C MP, PURA, DBIL, LIPA, LIPID #### [facility] [address] [place] [address] Dr. Garry Obrien CO2 [Moles/Vol] 27.4 mmol/L Normal 21.0-32.0 [facility] Comment on above: Performed By: #### C MP, PURA, DBIL, LIPA, LIPID #### [facility] [address] [place] [address] Dr. Garry Obrien Creatinine [Mass/Vol] 0.67 mg/dL Normal 0.55-1.02 [facility] Comment on above: Performed By: #### C MP, PURA, DBIL, LIPA, LIPID #### [facility] [address] [place] [address] Dr. Garry Obrien EGFR-AF TURKISH >60 Normal >=[address] [facility] Comment on above: Performed By: #### C MP, PURA, DBIL, LIPA, LIPID #### [facility] [address] [place] [address] Dr. Garry Obrien EGFR-NON AF TURKISH >60 Normal >=60 [facility] Comment on above: Performed By: #### C MP, PURA, DBIL, LIPA, LIPID #### [facility] [address] [place] [address] Dr. Garry Obrien Globulin (S) [Mass/Vol] 4.3 g/dL Normal [facility] Comment on above: Performed By: #### C MP, PURA, DBIL, LIPA, LIPID #### [facility] [address] [place] [address] Dr. Garry Obrien Glucose [Mass/Vol] 99 mg/dL Normal 74-106 [facility] Comment on above: Performed By: #### C MP, PURA, DBIL, LIPA, LIPID #### [facility] [address] [place] [address] Dr. Garry Obrien Potassium [Moles/Vol] 3.9 mmol/L Normal 3.5-5.1 [facility] Comment on above: Performed By: #### C MP, PURA, DBIL, LIPA, LIPID #### [facility] [address] [place] [address] Dr. Garry Obrien Protein [Mass/Vol] 8.2 g/dL Normal 6.4-8.2 [facility] Comment on above: Performed By: #### C MP, PURA, DBIL, LIPA, LIPID #### [facility] [address] [place] [address] Dr. Garry Obrien Sodium [Moles/Vol] 136 mmol/L Normal 136-145 [facility] Comment on above: Performed By: #### C MP, PURA, DBIL, LIPA, LIPID #### [facility] [address] [place] [address] Dr. Garry Obrien Urea nitrogen [Mass/Vol] 10.0 mg/dL Normal 7.0-18.0 [facility] Comment on above: Performed By: #### C MP, PURA, DBIL, LIPA, LIPID #### [facility] [address] [place] [address] Dr. Garry Obrien Urea nitrogen/Creatinin e [Mass ratio] 14.9 mg/mg Normal [facility] Comment on above: Performed By: #### C MP, PURA, DBIL, LIPA, LIPID #### [facility] [address] [place] [address] Dr. Garry Obrien [facility] 13 mm/hr Normal <=20 [facility] Comment on above: Performed By: #### S EDR #### [facility] [address] [place] [address] Dr. Garry Obrien UA RANDOM W/MICROSCOPICon BACTERIA SMALL Abnormal NONE SEEN [facility] Comment on above: Performed By: #### U AMIC #### [facility] [address] [place] [address] Dr. Garry Obrien Bilirubin Ql (U) Negative Normal NEGATIVE [facility] Comment on above: Performed By: #### U AMIC #### [facility] [address] [place] [address] Dr. Garry Obrien CAST NONE SEEN Normal NONE SEEN [facility] Comment on above: Performed By: #### U AMIC #### [facility] [address] [place] [address] Dr. Garry Obrien Clarity (U) CLEAR Normal CLEAR [facility] Comment on above: Performed By: #### U AMIC #### [facility] [address] [place] [address] Dr. Garry Obrien Color (U) LT. YELLOW Normal YELLOW [facility] Comment on above: Performed By: #### U AMIC #### [facility] [address] [address] [address] Garry Obrien Crystals LM Nom (Urine sed) NONE SEEN Normal NONE SEEN [facility] Comment on above: Performed By: #### U AMIC #### [facility] [address] [address] [address] Garry Obrien Epithelial cells LM Ql (Urine sed) FEW Abnormal NONE SEEN /RARE [facility] Comment on above: Performed By: #### U AMIC #### [facility] [address] [address] [address] Garry Obrien Glucose Ql (U) Negative Normal NEGATIVE [facility] Comment on above: Performed By: #### U AMIC #### [facility] [address] [place] [address] Dr. Garry Obrien Hemoglobin Ql (U) TRACE-INTACT Abnormal NEGATIVE [facility] Comment on above: Performed By: #### U AMIC #### [facility] [address] [address] [address] Garry Obrien Ketones Ql (U) Negative Normal NEGATIVE [facility] Comment on above: Performed By: #### U AMIC #### [facility] [address] [address] [address] Garry Obrien LEUKOCYTES TRACE Abnormal NEGATIVE [facility] Comment on above: Performed By: #### U AMIC #### [facility] [address] [address] [address] Garry Obrien MUCOUS NONE SEEN Normal NONE SEEN [facility] Comment on above: Performed By: #### U AMIC #### [facility] [address] [address] [address] Garry Obrien Nitrite Ql (U) Negative Normal NEGATIVE [facility] Comment on above: Performed By: #### U AMIC #### [facility] [address] [place] [address] Dr. Garry Obrien pH (U) 6.0 [pH] Normal 5-9 [facility] Comment on above: Performed By: #### U AMIC #### [facility] [address] [address] [address] Garry Obrien RBC 0-2 Normal 0-2 [facility] Comment on above: Performed By: #### U AMIC #### [facility] [address] [address] [address] Garry Obrien SPEC GRAVITY <=1.005 Abnormal 1.005-<=1.025 [facility] Comment on above: Performed By: #### U AMIC #### [facility] [address] [address] [address] Garry Obrien UA PROTEIN Negative Normal NEGATIVE/ TRACE [facility] Comment on above: Performed By: #### U AMIC #### [facility] [address] [address] [address] Garry Obrien Urobilinogen Qn (U) 0.2 {Griselda'U}/dL Normal 0.2 - 1.0 [facility] Comment on above: Performed By: #### U AMIC #### [facility] [address] [place] [address] Dr. Garry Obrien WBC 2-5 Abnormal NONE SEEN [facility] Comment on above: Performed By: #### U AMIC #### [facility] [address] [place] [address] Dr. Garry Obrien PAP ACOG PANEL 2: 30 to 65on 07-13-2022 . . Normal [facility] Comment on above: Result Comment: Perf ormed at: WB Performed By: #### [id number] #### [facility] [address] [place] [address] Dr. Garry Obrien Age Gdln ACOG Testing 30-65 [facility] Comment on above: Performed By: #### [id number] #### [facility] [address] [place] [address] Dr. Garry Obrien DIAGNOSIS: Comment Normal [facility] Comment on above: Result Comment: NEGA TIVE FOR INTRAEPITHELIAL LESION OR MALIGNANCY. Performed at: WB Performed By: #### [id number] #### [facility] [address] [place] [address] Dr. Garry Obrien HPV Aptima Negative Normal Negative [facility] Comment on above: Result Comment: This nucleic acid amplification test detects fourteen high-risk HPV types (16,18,31,33,35,39,45,51,52,56,58,59,66,68) without differentiation. Performed at: =G Performed By: #### [id number] #### [facility] [address] [place] [address] Dr. Garry Obiren Methodology: Comment Normal [facility] Comment on above: Result Comment: This liquid based ThinPrep(R) pap test was screened with the use of an image guided system. Performed at: WB Performed By: #### [id number] #### [facility] [address] [place] [address] Dr. Garry Obrien Note: Comment Normal [facility] Comment on above: Result Comment: The Pap smear is a screening test designed to aid in the detection of premalignant and malignant conditions of the uterine cervix. It is not a diagnostic procedure and should not be used as the sole means of detecting cervical cancer. Both false-positive and false-negative reports do occur. . Performed at: WB Performed By: #### [id number] #### [facility] [address] [place] [address] Dr. Garry Obrien Performed by: Comment Normal [facility] Comment on above: Result Comment: Macrina Lamar, Glost Kiln Operator (ASCP) Performed at: WB Performed By: #### [id number] #### [facility] [address] [place] [address] Dr. Garry Obrien Specimen adequacy: Comment Normal [facility] Comment on above: Result Comment: Sati sfactory for evaluation. Endocervical and/or squamous metaplastic cells (endocervical component) are present. Performed at: WB Performed By: #### [id number] #### [facility] [address] [place] [address] Dr. Garry Obrien Encounters Encounter Date Encounter Type Care Provider Facility Start: 06-04-2024 End: 06-04-2024 ambulatory PURA WILL Not Available Start: 05-21-2024 End: 05-21-2024 ambulatory YEYO JANKI Not Available Start: 05-08-2024 End: 05-08-2024 ambulatory PURA WILL Not Available Start: 04-23-2024 End: 04-23-2024 ambulatory PURA WILL Not Available Start: 04-01-2024 End: 04-01-2024 ambulatory YEYO JANKI Not Available Start: 02-28-2024 End: 02-28-2024 ambulatory PURA WILL Not Available Start: 01-31-2024 End: 01-31-2024 ambulatory YEYO JANKI Not Available Start: 12-29-2023 End: 12-29-2023 ambulatory YEYO JANKI Not Available Start: 12-28-2022 End: 12-29-2022 ambulatory MILEY COPELAND Facility: Start: 07-06-2022 End: 07-06-[address] YEYO SHEARER . Facility: Payers Date Payer Category Payer Unknown [id number] 2.16.84 [id number] 1992 Unknown [id number] 2.16.84 [id number] 1992 Unknown [id number] 2.16.84 [id number] 1992 Unknown [id number] 1992 Unknown [id number] 2.16.84 [id number] 1992 Unknown [id number] .16.84 [id number] 1992 Unknown [id number] .16.84 [id number] 1992 Unknown [id number] 2.16.84 [id number] 1992 Unknown [id number] 2.16.84 [id number] 1992 Unknown [id number] 2.16.84 [id number] 1959 Unknown [id number] Summary Purpose Family History No Family History Records FoundNo Family History Records Found Advance Directives No Advanced Directives Records FoundNo Advanced Directives Records Found Additional Source Comments INFORMATION SOURCE (unrecogn ized section and content) DATE CREATED AUTHOR 01/01/2023 [facility] DATE CREATED AUTHOR AUTHOR'S MARYIZ ATDONNA 06/06/2024 [facility] FOR RECORDS PERTAINING TO PATIENTS WHO ARE [...] BE BASED ON THE PRIMARY CLINICAL RECORDS. [facility] [employer] provides no warranty or guarantee of the accuracy or completeness of information in this document.
[2024-06-07 15:00] VITALS: BP 112/66; PULSE 103
== END 2024-06-07 15:38 | disposition home or self-care (01) ==
LOC: FBCO 07:11 → FBC 14:55
PROVIDERS: PCP Nurse Practitioner; Visit Provider Obstetrics & Gynecology
DX: O26.893 Other specified pregnancy related conditions, third trimester (principal)
CPT/HCPCS: 59025

== ENCOUNTER 2024-06-11 07:10 | Outpatient (OUT) | payer BC, SELFPAY ==
--- OUTSIDE RECORDS SUMMARY | 2024-06-11 07:12 | XMS_ITS | CCD ---
Author Organization [place] [facility] Care Team Providers Care Field Service Representative Name Role Phone JANKI ., DR ORONA Admitting Unavailable JANKI ., DR ORONA Attending Unavailable LUIS E DAVIS Primary Care Unavailable JANKI ., DR ORONA Consulting Unavailable AICHHOLZ, [employer]ER AC Admitting Unavailable AICHHOLZ, [employer] MANUFACTURER AC Attending Unavailable AICHHOLZ, [employer] MANUFACTURER AC Primary Care Unavailable AICHHOLZ, [employer] MANUFACTURER AC Consulting Unavailable JANKI, YEYO Attending Unavailable [...] [Catalytic activity/Vol] 36 U/L Normal 25-115 [facility] Comment on above: Performed By: #### C MP, PURA, DBIL, LIPA, LIPID #### [facility] [address] [address] [address] Garry Obrien BILIRUBIN CONJUGATED (DIRECT )on 12-28-2022 BILI, CONJUGATED 0.1 mg/dL Normal 0.0-0.2 [facility] Comment on above: Performed By: #### C MP, PURA, DBIL, LIPA, LIPID #### [facility] [address] [place] [address] Dr. Garry Obrien CBC AUTO DIFFon 12-28-2022 BASO # 0.0 103/ul Normal 0.0-0.1 [facility] Comment on above: Performed By: #### C BC #### [facility] [address] [place] [address] Dr. Garry Obrien Basophils/100 WBC (Bld) 0.3 % Normal 0.2-2.0 [facility] Comment on above: Performed By: #### C BC #### [facility] [address] [place] [address] Dr. Garry Obrien EO # 0.5 103/ul Normal 0.0-0.7 [facility] Comment on above: Performed By: #### C BC #### [facility] [address] [place] [address] Dr. Garry Obrien Eosinophils/100 WBC (Bld) 8.2 % Critically high 0.9-7.0 [facility] Comment on above: Performed By: #### C BC #### [facility] [address] [place] [address] Dr. Garry Obrien Erythrocyte distribution width (RBC) [Ratio] 13.5 % Normal 11.0-15.0 [facility] Comment on above: Performed By: #### C BC #### [facility] [address] [place] [address] Dr. Garry Obrien Hematocrit (Bld) [Volume fraction] 41.7 % Normal 36.0-48.0 [facility] Comment on above: Performed By: #### C BC #### [facility] [address] [place] [address] Dr. Garry Obrien Hemoglobin (Bld) [Mass/Vol] 13.8 g/dL Normal 12.0-16.0 [facility] Comment on above: Performed By: #### C BC #### [facility] [address] [place] [address] Dr. Garry Obrien IG # 0.01 10e3/ul Normal 0.00-0.03 [facility] Comment on above: Performed By: #### C BC #### [facility] [address] [place] [address] Dr. Garry Obrien IG % 0.2 % Normal 0.0-0.5 [facility] Comment on above: Performed By: #### C BC #### [facility] [address] [place] [address] Dr. Garry Obrien LYMPH # 2.0 103/ul Normal 1.2-3.8 [facility] Comment on above: Performed By: #### C BC #### [facility] [address] [place] [address] Dr. Garry Obrien Lymphocytes/100 WBC (Bld) 32.8 % Normal 20.5-60.0 [facility] Comment on above: Performed By: #### C BC #### [facility] [address] [place] [address] Dr. Garry Obrien MANUAL DIFF REQ NO Normal [facility] Comment on above: Performed By: #### C BC #### [facility] [address] [place] [address] Dr. Garry Obrien MCH (RBC) [Entitic mass] 29.2 pg Normal 26.7-34.0 [facility] Comment on above: Performed By: #### C BC #### [facility] [address] [place] [address] Dr. Garry Obrien MCHC (RBC) [Mass/Vol] 33.1 g/dL Normal 29.9-35.2 [facility] Comment on above: Performed By: #### C BC #### [facility] [address] [place] [address] Dr. Garry Obrien MCV (RBC) [Entitic vol] 88.2 fL Normal 81.0-99.0 [facility] Comment on above: Performed By: #### C BC #### [facility] [address] [place] [address] Dr. Garry Obrien MONO # 0.5 103/ul Normal 0.3-0.8 [facility] Comment on above: Performed By: #### C BC #### [facility] [address] [place] [address] Dr. Garry Obrien Monocytes/100 WBC (Bld) 7.7 % Normal 1.7-12.0 [facility] Comment on above: Performed By: #### C BC #### [facility] [address] [place] [address] Dr. Garry Obrien NEUT # 3.1 103/ul Normal 1.4-6.5 [facility] Comment on above: Performed By: #### C BC #### [facility] [address] [place] [address] Dr. Garry Obrien Neutrophils/100 WBC (Bld) 50.8 % Normal 43.0-75.0 [facility] Comment on above: Performed By: #### C BC #### [facility] [address] [place] [address] Dr. Garry Obrien Platelet mean volume (Bld) [Entitic vol] 9.3 fL Critically low 9.5-13.5 [facility] Comment on above: Performed By: #### C BC #### [facility] [address] [place] [address] Dr. Garry Obrien PLT 318 103/ul Normal 150-450 [facility] Comment on above: Performed By: #### C BC #### [facility] [address] [place] [address] Dr. Garry Obrien RBC 4.73 106/ul Normal 4.20-5.40 [facility] Comment on above: Performed By: #### C BC #### [facility] [address] [place] [address] Dr. Garry Obrien WBC 6.1 103/ul Normal 4.0-11.0 [facility] Comment on above: Performed By: #### C BC #### [facility] [address] [place] [address] Dr. Garry Obrien LIPASEon 12-28-2022 Lipase [Catalytic activity/Vol] 198.0 U/L Normal 73.0-393.0 [facility] Comment on above: Performed By: #### C MP, PURA, DBIL, LIPA, LIPID #### [facility] [address] [place] [address] Dr. Garry Obrien LIPID PROFILEon 12-28-2022 CHOL-HDL RATIO NORM SEE BELOW Normal [facility] Comment on above: Result Comment: 3.3 - 4.4 LOW RISK 4.4 - 7.1 AVERAGE RISK 7.1 - 11.0 MODERATE RISK >11.0 HIGH RISK Performed By: #### C MP, PURA, DBIL, LIPA, LIPID #### [facility] [address] [place] [address] Dr. Garry Obrien Cholesterol [Mass/Vol] 237 mg/dL Critically high <=200 [facility] Comment on above: Performed By: #### C MP, PURA, DBIL, LIPA, LIPID #### [facility] [address] [place] [address] Dr. Garry Obrien Cholesterol in HDL [Mass/Vol] 67 mg/dL Critically high 40-60 [facility] Comment on above: Performed By: #### C MP, PURA, DBIL, LIPA, LIPID #### [facility] [address] [place] [address] Dr. Garry Obrien Cholesterol in LDL [Mass/Vol] 144.8 mg/dL Normal [facility] Comment on above: Performed By: #### C MP, PURA, DBIL, LIPA, LIPID #### [facility] [address] [place] [address] Dr. Garry Obrien Cholesterol.total/ Cholesterol in HDL [Mass ratio] 3.5 {ratio} Normal [facility] Comment on above: Performed By: #### C MP, PURA, DBIL, LIPA, LIPID #### [facility] [address] [place] [address] Dr. Garry Obrien HDL NORMAL > or = 60 mg/dl - LO W CARDIOVASCULAR RISK <40 mg/dl - HIGH CARDIOVASCULAR RISK Normal [facility] Comment on above: Performed By: #### C MP, PURA, DBIL, LIPA, LIPID #### [facility] [address] [place] [address] Dr. Garry Obrien LDL CALC NORMAL SEE BELOW Normal [facility] Comment on above: Result Comment: <100 mg/dl OPTIMAL 100 - 129 mg/dl NEAR OR ABOVE OPTIMAL 130 - 159 mg/dl BORDERLINE HIGH 160 - 189 mg/dl HIGH >190 mg/dl VERY HIGH Performed By: #### C MP, PURA, DBIL, LIPA, LIPID #### [facility] [address] [place] [address] Dr. Garry Obrien Triglyceride [Mass/Vol] 126 mg/dL Normal <=150 [facility] Comment on above: Performed By: #### C MP, PURA, DBIL, LIPA, LIPID #### [facility] [address] [place] [address] Dr. Garry Obrien VLDL CALC 25.2 mg/dL Normal [facility] Comment on above: Performed By: #### C MP, PURA, DBIL, LIPA, LIPID #### [facility] [address] [place] [address] Dr. Garry Obrien PREG HCG QUALon 12-28-2022 , QUAL Negative Normal NEGATIVE [facility] Comment on above: Performed By: #### P REG #### [facility] [address] [place] [address] Dr. Garry Obrien PROF 14(COMP METB)on 023 Albumin [Mass/Vol] 3.9 g/dL Normal 3.4-5.0 [facility] Comment on above: Performed By: #### C MP, PURA, DBIL, LIPA, LIPID #### [facility] [address] [place] [address] Dr. Garry Obrien Albumin/Globulin [Mass ratio] 0.9 {ratio} Normal [facility] Comment on above: Performed By: #### C MP, PURA, DBIL, LIPA, LIPID #### [facility] [address] [place] [address] Dr. Garry Obrien ALP [Catalytic activity/Vol] 51 U/L Normal 46-116 [facility] Comment on above: Performed By: #### C MP, PURA, DBIL, LIPA, LIPID #### [facility] [address] [place] [address] Dr. Garry Obrien ALT [Catalytic activity/Vol] 20 U/L Normal 14-59 [facility] Comment on above: Performed By: #### C MP, PURA, DBIL, LIPA, LIPID #### [facility] [address] [place] [address] Dr. Garry Obrien Anion gap [Moles/Vol] 12.5 mmol/L Normal [facility] Comment on above: Performed By: #### C MP, PURA, DBIL, LIPA, LIPID #### [facility] [address] [place] [address] Dr. Garry Obrien AST [Catalytic activity/Vol] 20 U/L Normal 15-37 [facility] Comment on above: Performed By: #### C MP, PURA, DBIL, LIPA, LIPID #### [facility] [address] [place] [address] Dr. Garry Obrien Bilirubin [Mass/Vol] 0.5 mg/dL Normal 0.2-1.0 [facility] Comment on above: Performed By: #### C MP, PURA, DBIL, LIPA, LIPID #### [facility] [address] [place] [address] Dr. Garry Obrien Calcium [Mass/Vol] 9.5 mg/dL Normal 8.5-10.1 [facility] Comment on above: Performed By: #### C MP, PURA, DBIL, LIPA, LIPID #### [facility] [address] [place] [address] Dr. Garry Obrien Chloride [Moles/Vol] 100 mmol/L Normal 98-107 [facility] Comment on above: Performed By: #### C MP, PURA, DBIL, LIPA, LIPID #### [facility] [address] [place] [address] Dr. Garry Obrien CO2 [Moles/Vol] 27.4 mmol/L Normal 21.0-32.0 [facility] Comment on above: Performed By: #### C MP, PURA, DBIL, LIPA, LIPID #### [facility] [address] [place] [address] Dr. Garry Obrien Creatinine [Mass/Vol] 0.67 mg/dL Normal 0.55-1.02 [facility] Comment on above: Performed By: #### C MP, PURA, DBIL, LIPA, LIPID #### [facility] [address] [place] [address] Dr. Garry Obrien EGFR-AF GUYANESE >60 Normal >=60 [facility] Comment on above: Performed By: #### C MP, PURA, DBIL, LIPA, LIPID #### [facility] [address] [place] [address] Dr. Garry Obrien EGFR-NON AF GUYANESE >60 Normal >=60 [facility] Comment on above: Performed By: #### C MP, PURA, DBIL, LIPA, LIPID #### [facility] [address] [place] [address] Dr. Garry Obrien Globulin (S) [Mass/Vol] 4.3 g/dL Normal [facility] Comment on above: Performed By: #### C MP, PURA, DBIL, LIPA, LIPID #### [facility] [address] [place] [address] Dr. Garry Obrien Glucose [Mass/Vol] 99 mg/dL Normal 74-106 [facility] Comment on above: Performed By: #### C MP, PURA, DBIL, LIPA, LIPID #### [facility] [address] [place] [address] Dr. Garry Obrien Potassium [Moles/Vol] 3.9 mmol/L Normal 3.5-5.1 [facility] Comment on above: Performed By: #### C MP, PURA, DBIL, LIPA, LIPID #### [facility] [address] [place] [address] Dr. Garry Obrien Protein [Mass/Vol] 8.2 g/dL Normal 6.4-8.2 [facility] Comment on above: Performed By: #### C MP, PURA, DBIL, LIPA, LIPID #### [facility] [address] [place] [address] Dr. Garry Obrien Sodium [Moles/Vol] 136 mmol/L Normal 136-145 [facility] Comment on above: Performed By: #### C MP, PURA, DBIL, LIPA, LIPID #### [facility] [address] [place] [address] Dr. Garry Obrien Urea nitrogen [Mass/Vol] 10.0 mg/dL Normal 7.0-18.0 [facility] Comment on above: Performed By: #### C MP, PURA, DBIL, LIPA, LIPID #### [facility] [address] [place] [address] Dr. Garry Obrien Urea nitrogen/Creatinin e [Mass ratio] 14.9 mg/mg Normal [facility] Comment on above: Performed By: #### C MP, PURA, DBIL, LIPA, LIPID #### [facility] [address] [place] [address] Dr. Garry Obrien [facility] SED RATE 13 mm/hr Normal <=20 [facility] Comment on above: Performed By: #### S EDR #### [facility] [address] [place] [address] Dr. Garry Obrien UA RANDOM W/MICROSCOPICon BACTERIA SMALL Abnormal NONE SEEN [facility] Comment on above: Performed By: #### U AMIC #### [facility] [address] [place] [address] Dr. Garry Obrien Bilirubin Ql (U) Negative Normal NEGATIVE [facility] Comment on above: Performed By: #### U AMIC #### [facility] [address] [place] [address] Dr. Garry Obrien CAST NONE SEEN Normal NONE SEEN [facility] Comment on above: Performed By: #### U AMIC #### [facility] [address] [place] [address] Dr. Garry Obrien Clarity (U) CLEAR Normal CLEAR [facility] Comment on above: Performed By: #### U AMIC #### [facility] [address] [place] [address] Dr. Garry Obrien Color (U) LT. YELLOW Normal YELLOW [facility] Comment on above: Performed By: #### U AMIC #### [facility] [address] [address] [address] Garry Obrien Crystals LM Nom (Urine sed) NONE SEEN Normal NONE SEEN [facility] Comment on above: Performed By: #### U AMIC #### [facility] [address] [address] [address] Garry Obrien Epithelial cells LM Ql (Urine sed) FEW Abnormal NONE SEEN /RARE [facility] Comment on above: Performed By: #### U AMIC #### [facility] [address] [address] [address] Garry Obrien Glucose Ql (U) Negative Normal NEGATIVE [facility] Comment on above: Performed By: #### U AMIC #### [facility] [address] [place] [address] Dr. Garry Obrien Hemoglobin Ql (U) TRACE-INTACT Abnormal NEGATIVE [facility] Comment on above: Performed By: #### U AMIC #### [facility] [address] [address] [address] Garry Obrien Ketones Ql (U) Negative Normal NEGATIVE [facility] Comment on above: Performed By: #### U AMIC #### [facility] [address] [address] [address] Garry Obrien LEUKOCYTES TRACE Abnormal NEGATIVE [facility] Comment on above: Performed By: #### U AMIC #### [facility] [address] [address] [address] Garry Obrien MUCOUS NONE SEEN Normal NONE SEEN [facility] Comment on above: Performed By: #### U AMIC #### [facility] [address] [address] [address] Garry Obrien Nitrite Ql (U) Negative Normal NEGATIVE [facility] Comment on above: Performed By: #### U AMIC #### [facility] [address] [place] [address] Dr. Garry Obrien pH (U) 6.0 [pH] Normal 5-9 [facility] Comment on above: Performed By: #### U AMIC #### [facility] [address] [address] [address] Garry Obrien RBC 0-2 Normal 0-2 [facility] Comment on above: Performed By: #### U AMIC #### [facility] [address] [address] [address] Garry Obrien SPEC GRAVITY <=1.005 Abnormal 1.005-<=1.025 [facility] Comment on above: Performed By: #### U AMIC #### [facility] [address] [address] [address] Garry Obrien UA PROTEIN Negative Normal NEGATIVE/ TRACE [facility] Comment on above: Performed By: #### U AMIC #### [facility] [address] [address] [address] Garry Obrien Urobilinogen Qn (U) 0.2 {Griselda'U}/dL Normal 0.2 - 1.0 [facility] Comment on above: Performed By: #### U AMIC #### [facility] [address] [place] [address] Dr. Garry Obrien WBC 2-5 Abnormal NONE SEEN [facility] Comment on above: Performed By: #### U AMIC #### [facility] [address] [place] [address] Dr. Garry Obrien PAP ACOG PANEL 2: 30 to 65on 07-13-2022 . . Normal [facility] Comment on above: Result Comment: Perf ormed at: WB Performed By: #### [id number] #### [facility] [address] [place] [address] Dr. Garry Obrien Age Gdln ACOG Testing 30-65 [facility] Comment on above: Performed By: #### [id number] #### [facility] [address] [place] [address] Dr. Garry Obrien DIAGNOSIS: Comment Normal [facility] Comment on above: Result Comment: NEGA TIVE FOR INTRAEPITHELIAL LESION OR MALIGNANCY. Performed at: WB Performed By: #### [id number] #### [facility] [address] [place] [address] Dr. Garry Obrien HPV Aptima Negative Normal Negative [facility] Comment on above: Result Comment: This nucleic acid amplification test detects fourteen high-risk HPV types (16,18,31,33,35,39,45,51,52,56,58,59,66,68) without differentiation. Performed at: =G Performed By: #### [id number] #### [facility] [address] [place] [address] Dr. Garry Obrien Methodology: Comment Normal [facility] Comment on above: Result Comment: This liquid based ThinPrep(R) pap test was screened with the use of an image guided system. Performed at: WB Performed By: #### [id number] #### [facility] [address] [place] [address] Dr. Garry Obrien Note: Comment Normal [facility] Comment on above: Result Comment: The Pap smear is a screening test designed to aid in the detection of premalignant and malignant conditions of the uterine cervix. It is not a diagnostic procedure and should not be used as the sole means of detecting cervical cancer. Both false-positive and false-negative reports do occur. . Performed at: WB Performed By: #### [id number] #### [facility] [address] [place] [address] Dr. Garry Obrien Performed by: Comment Normal [facility] Comment on above: Result Comment: Macrina Lamar, Oxyhydrogen Welder (ASCP) Performed at: WB Performed By: #### [id number] #### [facility] [address] [place] [address] Dr. Garry Obrien Specimen adequacy: Comment Normal [facility] Comment on above: Result Comment: Sati sfactory for evaluation. Endocervical and/or squamous metaplastic cells (endocervical component) are present. Performed at: WB Performed By: #### [id number] #### [facility] [address] [place] [address] Dr. Garry Obrien Encounters Encounter Date Encounter [...] Facility: Payers Date Payer Category Payer Unknown [id number] 2.16.84 [id number] 1990 Unknown [id number] 2.16.84 [id number] 1992 Unknown [id number] 2.16.84 [id number] 1992 Unknown [id number] 1992 Unknown [id number] 2.16.84 [id number] 1992 Unknown [id number] .16.84 [id number] 1992 Unknown [id number] .16.84 [id number] 1992 Unknown [id number] 2.16.84 [id number] 1992 Unknown [id number] 2.16.84 [id number] 1992 Unknown [id number] 2.16.84 [id number] 1959 Unknown [id number] Summary Purpose Family History No Family History Records FoundNo Family History Records Found Advance Directives No Advanced Directives Records FoundNo Advanced Directives Records Found Additional Source Comments INFORMATION SOURCE (unrecogn ized section and content) DATE CREATED AUTHOR 01/01/2023 [facility] DATE CREATED AUTHOR AUTHOR'S MARYIZ ATDONNA 06/06/2024 [facility] Special[facility] FOR RECORDS PERTAINING TO PATIENTS WHO [...] BE BASED ON THE PRIMARY CLINICAL RECORDS. [facility] [employer] provides no warranty or guarantee of the accuracy or completeness of information in this document.
--- NOTE | 2024-06-11 15:08 | US_ITS ---
[address] [address] Patient Name: MEE WIGGINS MRN: [facility]:[id number] date: 1990 Sex: F Assigned Patient Location: [facility] Current Patient Location: Accession/Order Number: [id number] Exam Date: 06/11/2024 15:09 Report Date: 06/12/2024 05:48 At the request of: YEYO SHEARER Procedure: US OB BPP w non-stress EXAMINATION: US OB BPP w non-stress HISTORY:Choroid plexus cyst of fetus O35.03x1 COMPARISON: Ultrasound OB biophysical 06/04/2024 TECHNIQUE: Ultrasound biophysical profile was performed in the radiology department. BREATHING MOVEMENTS: 2 GROSS BODY MOVEMENTS: 2 TONE: 2 QUALITATIVE AMNIOTIC FLUID VOLUME: 2 PRESENTATION: CEPHALIC HEART RATE: 134 bpm AMNIOTIC FLUID VOLUME: 16.76 cm GESTATIONAL AGE: 34 weeks 1 day US/US OB BPP w non-stress IMPRESSION: Total biophysical profile score: 8 Electronically authenticated by: THONY SANTOS Date: 06/12/2024 05:48
[2024-06-11 15:30] VITALS: BP 111/62; PULSE 97
== END 2024-06-11 16:08 | disposition home or self-care (01) ==
LOC: US 07:10 → FBC 15:06
PROVIDERS: PCP Nurse Practitioner; Visit Provider Obstetrics & Gynecology
DX: O35.03X1 Maternal care for (suspected) central nervous system malformation or damage in fetus, choroid plexus cysts, fetus 1 (principal); Z3A.34 34 weeks gestation of pregnancy
CPT/HCPCS: 76818

== ENCOUNTER 2024-06-14 06:59 | Outpatient (OUT) | payer BC, SELFPAY ==
--- OUTSIDE RECORDS SUMMARY | 2024-06-14 07:03 | XMS_ITS | CCD ---
Author Organization [facility] Care Team Providers Care Hospitality Services Manager Name Role Phone JANKI ., DR ORONA Admitting Unavailable JANKI ., DR ORONA Attending Unavailable LUIS E DAVIS Primary Care Unavailable JANKI ., DR ORONA Consulting Unavailable AICHHOLZ, SCRAP METAL BURNER AC Admitting Unavailable AICHHOLZ, SCRAP METAL BURNER AC Attending Unavailable AICHHOLZ, SCRAP METAL BURNER AC Primary Care Unavailable AICHHOLZ, SCRAP METAL BURNER AC Consulting Unavailable JANKI, YEYO Attending Unavailable WILL, PURA Attending Unavailable JANKI, YYEO Attending Unavailable WILL, PURA Attending Unavailable WILL, [...] [Catalytic activity/Vol] 36 U/L Normal 25-115 [facility] Comment on above: Performed By: #### C MP, PURA, DBIL, LIPA, LIPID #### [facility] [address] [address] [address] Garry Obrien BILIRUBIN CONJUGATED (DIRECT )on 12-28-2022 BILI, CONJUGATED 0.1 mg/dL Normal 0.0-0.2 [facility] Comment on above: Performed By: #### C MP, PURA, DBIL, LIPA, LIPID #### [facility] [address] [place] [address] Dr. Garry Obrien CBC AUTO DIFFon 12-28-2022 BASO # 0.0 103/ul Normal 0.0-0.1 [facility] Comment on above: Performed By: #### C BC #### [facility] [address] [place] [address] Dr. Garry Obrien Basophils/100 WBC (Bld) 0.3 % Normal 0.2-2.0 [facility] Comment on above: Performed By: #### C BC #### [facility] [address] [place] [address] Dr. Garry Obrien EO # 0.5 103/ul Normal 0.0-0.7 [facility] Comment on above: Performed By: #### C BC #### [facility] [address] [place] [address] Dr. Garry Obrien Eosinophils/100 WBC (Bld) 8.2 % Critically high 0.9-7.0 [facility] Comment on above: Performed By: #### C BC #### [facility] [address] [place] [address] Dr. Garry Obrien Erythrocyte distribution width (RBC) [Ratio] 13.5 % Normal 11.0-15.0 [facility] Comment on above: Performed By: #### C BC #### [facility] [address] [place] [address] Dr. Garry Obrien Hematocrit (Bld) [Volume fraction] 41.7 % Normal 36.0-48.0 [facility] Comment on above: Performed By: #### C BC #### [facility] [address] [place] [address] Dr. Garry Obrien Hemoglobin (Bld) [Mass/Vol] 13.8 g/dL Normal 12.0-16.0 [facility] Comment on above: Performed By: #### C BC #### [facility] [address] [place] [address] Dr. Garry Obrien IG # 0.01 10e3/ul Normal 0.00-0.03 [facility] Comment on above: Performed By: #### C BC #### [facility] [address] [place] [address] Dr. Garry Obrien IG % 0.2 % Normal 0.0-0.5 [facility] Comment on above: Performed By: #### C BC #### [facility] [address] [place] [address] Dr. Garry Obrien LYMPH # 2.0 103/ul Normal 1.2-3.8 [facility] Comment on above: Performed By: #### C BC #### [facility] [address] [place] [address] Dr. Garry Obrien Lymphocytes/100 WBC (Bld) 32.8 % Normal 20.5-60.0 [facility] Comment on above: Performed By: #### C BC #### [facility] [address] [place] [address] Dr. Garry Obrien MANUAL DIFF REQ NO Normal [facility] Comment on above: Performed By: #### C BC #### [facility] [address] [place] [address] Dr. Garry Obrien MCH (RBC) [Entitic mass] 29.2 pg Normal 26.7-34.0 [facility] Comment on above: Performed By: #### C BC #### [facility] [address] [place] [address] Dr. Garry Obrien MCHC (RBC) [Mass/Vol] 33.1 g/dL Normal 29.9-35.2 [facility] Comment on above: Performed By: #### C BC #### [facility] [address] [place] [address] Dr. Garry Obrien MCV (RBC) [Entitic vol] 88.2 fL Normal 81.0-99.0 [facility] Comment on above: Performed By: #### C BC #### [facility] [address] [place] [address] Dr. Garry Obrien MONO # 0.5 103/ul Normal 0.3-0.8 [facility] Comment on above: Performed By: #### C BC #### [facility] [address] [place] [address] Dr. Garry Obrien Monocytes/100 WBC (Bld) 7.7 % Normal 1.7-12.0 [facility] Comment on above: Performed By: #### C BC #### [facility] [address] [place] [address] Dr. Garry Obrien NEUT # 3.1 103/ul Normal 1.4-6.5 [facility] Comment on above: Performed By: #### C BC #### [facility] [address] [place] [address] Dr. Garry Obrien Neutrophils/100 WBC (Bld) 50.8 % Normal 43.0-75.0 [facility] Comment on above: Performed By: #### C BC #### [facility] [address] [place] [address] Dr. Garry Obrien Platelet mean volume (Bld) [Entitic vol] 9.3 fL Critically low 9.5-13.5 [facility] Comment on above: Performed By: #### C BC #### [facility] [address] [place] [address] Dr. Garry Obrien PLT 318 103/ul Normal 150-450 [facility] Comment on above: Performed By: #### C BC #### [facility] [address] [place] [address] Dr. Garry Obrien RBC 4.73 106/ul Normal 4.20-5.40 [facility] Comment on above: Performed By: #### C BC #### [facility] [address] [place] [address] Dr. Garry Obrien WBC 6.1 103/ul Normal 4.0-11.0 [facility] Comment on above: Performed By: #### C BC #### [facility] [address] [place] [address] Dr. Garry Obrien LIPASEon 12-28-2022 Lipase [Catalytic activity/Vol] 198.0 U/L Normal 73.0-393.0 [facility] Comment on above: Performed By: #### C MP, PURA, DBIL, LIPA, LIPID #### [facility] [address] [place] [address] Dr. Garry Obrien LIPID PROFILEon 12-28-2022 CHOL-HDL RATIO NORM SEE BELOW Normal [facility] Comment on above: Result Comment: 3.3 - 4.4 LOW RISK 4.4 - 7.1 AVERAGE RISK 7.1 - 11.0 MODERATE RISK >11.0 HIGH RISK Performed By: #### C MP, PURA, DBIL, LIPA, LIPID #### [facility] [address] [place] [address] Dr. Garry Obrien Cholesterol [Mass/Vol] 237 mg/dL Critically high <=200 [facility] Comment on above: Performed By: #### C MP, PURA, DBIL, LIPA, LIPID #### [facility] [address] [place] [address] Dr. Garry Obrien Cholesterol in HDL [Mass/Vol] 67 mg/dL Critically high 40-60 [facility] Comment on above: Performed By: #### C MP, PURA, DBIL, LIPA, LIPID #### [facility] [address] [place] [address] Dr. Garry Obrien Cholesterol in LDL [Mass/Vol] 144.8 mg/dL Normal [facility] Comment on above: Performed By: #### C MP, PURA, DBIL, LIPA, LIPID #### [facility] [address] [place] [address] Dr. Garry Obrien Cholesterol.total/ Cholesterol in HDL [Mass ratio] 3.5 {ratio} Normal [facility] Comment on above: Performed By: #### C MP, PURA, DBIL, LIPA, LIPID #### [facility] [address] [place] [address] Dr. Garry Obrien HDL NORMAL > or = 60 mg/dl - LO W CARDIOVASCULAR RISK <40 mg/dl - HIGH CARDIOVASCULAR RISK Normal [facility] Comment on above: Performed By: #### C MP, PURA, DBIL, LIPA, LIPID #### [facility] [address] [place] [address] Dr. Garry Obrien LDL CALC NORMAL SEE BELOW Normal [facility] Comment on above: Result Comment: <100 mg/dl OPTIMAL 100 - 129 mg/dl NEAR OR ABOVE OPTIMAL 130 - 159 mg/dl BORDERLINE HIGH 160 - 189 mg/dl HIGH >190 mg/dl VERY HIGH Performed By: #### C MP, PURA, DBIL, LIPA, LIPID #### [facility] [address] [place] [address] Dr. Garry Obrien Triglyceride [Mass/Vol] 126 mg/dL Normal <=150 [facility] Comment on above: Performed By: #### C MP, PURA, DBIL, LIPA, LIPID #### [facility] [address] [place] [address] Dr. Garry Obrien VLDL CALC 25.2 mg/dL Normal [facility] Comment on above: Performed By: #### C MP, PURA, DBIL, LIPA, LIPID #### [facility] [address] [place] [address] Dr. Garry Obrien PREG HCG QUALon 12-28-2022 , QUAL Negative Normal NEGATIVE [facility] Comment on above: Performed By: #### P REG #### [facility] [address] [place] [address] Dr. Garry Obrien PROF 14(COMP METB)on 023 Albumin [Mass/Vol] 3.9 g/dL Normal 3.4-5.0 [facility] Comment on above: Performed By: #### C MP, PURA, DBIL, LIPA, LIPID #### [facility] [address] [place] [address] Dr. Garry Obrien Albumin/Globulin [Mass ratio] 0.9 {ratio} Normal [facility] Comment on above: Performed By: #### C MP, PURA, DBIL, LIPA, LIPID #### [facility] [address] [place] [address] Dr. Garry Obrien ALP [Catalytic activity/Vol] 51 U/L Normal 46-116 [facility] Comment on above: Performed By: #### C MP, PURA, DBIL, LIPA, LIPID #### [facility] [address] [place] [address] Dr. Garry Obrien ALT [Catalytic activity/Vol] 20 U/L Normal 14-59 [facility] Comment on above: Performed By: #### C MP, PURA, DBIL, LIPA, LIPID #### [facility] [address] [place] [address] Dr. Garry Obrien Anion gap [Moles/Vol] 12.5 mmol/L Normal [facility] Comment on above: Performed By: #### C MP, PURA, DBIL, LIPA, LIPID #### [facility] [address] [place] [address] Dr. Garry Obrien AST [Catalytic activity/Vol] 20 U/L Normal 15-37 [facility] Comment on above: Performed By: #### C MP, PURA, DBIL, LIPA, LIPID #### [facility] [address] [place] [address] Dr. Garry Obrien Bilirubin [Mass/Vol] 0.5 mg/dL Normal 0.2-1.0 [facility] Comment on above: Performed By: #### C MP, PURA, DBIL, LIPA, LIPID #### [facility] [address] [place] [address] Dr. Garry Obrien Calcium [Mass/Vol] 9.5 mg/dL Normal 8.5-10.1 [facility] Comment on above: Performed By: #### C MP, PURA, DBIL, LIPA, LIPID #### [facility] [address] [place] [address] Dr. Garry Obrien Chloride [Moles/Vol] 100 mmol/L Normal 98-107 [facility] Comment on above: Performed By: #### C MP, PURA, DBIL, LIPA, LIPID #### [facility] [address] [place] [address] Dr. Garry Obrien CO2 [Moles/Vol] 27.4 mmol/L Normal 21.0-32.0 [facility] Comment on above: Performed By: #### C MP, PURA, DBIL, LIPA, LIPID #### [facility] [address] [place] [address] Dr. Garry Obrien Creatinine [Mass/Vol] 0.67 mg/dL Normal 0.55-1.02 [facility] Comment on above: Performed By: #### C MP, PURA, DBIL, LIPA, LIPID #### [facility] [address] [place] [address] Dr. Garry Obrien EGFR-AF JAPANESE >60 Normal >=60 [facility] Comment on above: Performed By: #### C MP, PURA, DBIL, LIPA, LIPID #### [facility] [address] [place] [address] Dr. Garry Obrien EGFR-NON AF JAPANESE >60 Normal >=60 [facility] Comment on above: Performed By: #### C MP, PURA, DBIL, LIPA, LIPID #### [facility] [address] [place] [address] Dr. Garry Obrien Globulin (S) [Mass/Vol] 4.3 g/dL Normal [facility] Comment on above: Performed By: #### C MP, PURA, DBIL, LIPA, LIPID #### [facility] [address] [place] [address] Dr. Garry Obrien Glucose [Mass/Vol] 99 mg/dL Normal 74-106 [facility] Comment on above: Performed By: #### C MP, PURA, DBIL, LIPA, LIPID #### [facility] [address] [place] [address] Dr. Garry Obrien Potassium [Moles/Vol] 3.9 mmol/L Normal 3.5-5.1 [facility] Comment on above: Performed By: #### C MP, PURA, DBIL, LIPA, LIPID #### [facility] [address] [place] [address] Dr. Garry Obrien Protein [Mass/Vol] 8.2 g/dL Normal 6.4-8.2 [facility] Comment on above: Performed By: #### C MP, PURA, DBIL, LIPA, LIPID #### [facility] [address] [place] [address] Dr. Garry Obrien Sodium [Moles/Vol] 136 mmol/L Normal 136-145 [facility] Comment on above: Performed By: #### C MP, PURA, DBIL, LIPA, LIPID #### [facility] [address] [place] [address] Dr. Garry Obrien Urea nitrogen [Mass/Vol] 10.0 mg/dL Normal 7.0-18.0 [facility] Comment on above: Performed By: #### C MP, PURA, DBIL, LIPA, LIPID #### [facility] [address] [place] [address] Dr. Garry Obrien Urea nitrogen/Creatinin e [Mass ratio] 14.9 mg/mg Normal [facility] Comment on above: Performed By: #### C MP, PURA, DBIL, LIPA, LIPID #### [facility] [address] [place] [address] Dr. Garry Obrien [facility] SED RATE 13 mm/hr Normal <=20 [facility] Comment on above: Performed By: #### S EDR #### [facility] [address] [place] [address] Dr. Garry Obrien UA RANDOM W/MICROSCOPICon BACTERIA SMALL Abnormal NONE SEEN [facility] Comment on above: Performed By: #### U AMIC #### [facility] [address] [place] [address] Dr. Garry Obrien Bilirubin Ql (U) Negative Normal NEGATIVE [facility] Comment on above: Performed By: #### U AMIC #### [facility] [address] [place] [address] Dr. Garry Obrien CAST NONE SEEN Normal NONE SEEN [facility] Comment on above: Performed By: #### U AMIC #### [facility] [address] [place] [address] Dr. Garry Obrien Clarity (U) CLEAR Normal CLEAR [facility] Comment on above: Performed By: #### U AMIC #### [facility] [address] [place] [address] Dr. Garry Obrien Color (U) LT. YELLOW Normal YELLOW [facility] Comment on above: Performed By: #### U AMIC #### [facility] [address] [address] [address] Garry Obrien Crystals LM Nom (Urine sed) NONE SEEN Normal NONE SEEN [facility] Comment on above: Performed By: #### U AMIC #### [facility] [address] [address] [address] Garry Obrien Epithelial cells LM Ql (Urine sed) FEW Abnormal NONE SEEN /RARE [facility] Comment on above: Performed By: #### U AMIC #### [facility] [address] [address] [address] Garry Obrien Glucose Ql (U) Negative Normal NEGATIVE [facility] Comment on above: Performed By: #### U AMIC #### [facility] [address] [place] [address] Dr. Garry Obrien Hemoglobin Ql (U) TRACE-INTACT Abnormal NEGATIVE [facility] Comment on above: Performed By: #### U AMIC #### [facility] [address] [address] [address] Garry Obrien Ketones Ql (U) Negative Normal NEGATIVE [facility] Comment on above: Performed By: #### U AMIC #### [facility] [address] [address] [address] Garry Obrien LEUKOCYTES TRACE Abnormal NEGATIVE [facility] Comment on above: Performed By: #### U AMIC #### [facility] [address] [address] [address] Garry Obrien MUCOUS NONE SEEN Normal NONE SEEN [facility] Comment on above: Performed By: #### U AMIC #### [facility] [address] [address] [address] Garry Obrien Nitrite Ql (U) Negative Normal NEGATIVE [facility] Comment on above: Performed By: #### U AMIC #### [facility] [address] [place] [address] Dr. Garry Obrien pH (U) 6.0 [pH] Normal 5-9 [facility] Comment on above: Performed By: #### U AMIC #### [facility] [address] [address] [address] Garry Obrien RBC 0-2 Normal 0-2 [facility] Comment on above: Performed By: #### U AMIC #### [facility] [address] [address] [address] Garry Obrien SPEC GRAVITY <=1.005 Abnormal 1.005-<=1.025 [facility] Comment on above: Performed By: #### U AMIC #### [facility] [address] [address] [address] Garry Obrien UA PROTEIN Negative Normal NEGATIVE/ TRACE [facility] Comment on above: Performed By: #### U AMIC #### [facility] [address] [address] [address] Garry Obrien Urobilinogen Qn (U) 0.2 {Griselda'U}/dL Normal 0.2 - 1.0 [facility] Comment on above: Performed By: #### U AMIC #### [facility] [address] [place] [address] Dr. Garry Obrien WBC 2-5 Abnormal NONE SEEN [facility] Comment on above: Performed By: #### U AMIC #### [facility] [address] [place] [address] Dr. Garry Obrien PAP ACOG PANEL 2: 30 to 65on 07-13-2022 . . Normal [facility] Comment on above: Result Comment: Perf ormed at: WB Performed By: #### [id number] #### [facility] [address] [place] [address] Dr. Garry Obrien Age Gdln ACOG Testing 30-65 [facility] Comment on above: Performed By: #### [id number] #### [facility] [address] [place] [address] Dr. Garry Obrien DIAGNOSIS: Comment Normal [facility] Comment on above: Result Comment: NEGA TIVE FOR INTRAEPITHELIAL LESION OR MALIGNANCY. Performed at: WB Performed By: #### [id number] #### [facility] [address] [place] [address] Dr. Garry Obrien HPV Aptima Negative Normal Negative [facility] Comment on above: Result Comment: This nucleic acid amplification test detects fourteen high-risk HPV types (16,18,31,33,35,39,45,51,52,56,58,59,66,68) without differentiation. Performed at: =G Performed By: #### [id number] #### [facility] [address] [place] [address] Dr. Garry Obrien Methodology: Comment Normal [facility] Comment on above: Result Comment: This liquid based ThinPrep(R) pap test was screened with the use of an image guided system. Performed at: WB Performed By: #### [id number] #### [facility] [address] [place] [address] Dr. Garry Obrien Note: Comment Normal [facility] Comment on above: Result Comment: The Pap smear is a screening test designed to aid in the detection of premalignant and malignant conditions of the uterine cervix. It is not a diagnostic procedure and should not be used as the sole means of detecting cervical cancer. Both false-positive and false-negative reports do occur. . Performed at: WB Performed By: #### [id number] #### [facility] [address] [place] [address] Dr. Garry Obrien Performed by: Comment Normal [facility] Comment on above: Result Comment: Macrina Lamar, Felt Washing Machine Tender (ASCP) Performed at: WB Performed By: #### [id number] #### [facility] [address] [place] [address] Dr. Garry Obrien Specimen adequacy: Comment Normal [facility] Comment on above: Result Comment: Sati sfactory for evaluation. Endocervical and/or squamous metaplastic cells (endocervical component) are present. Performed at: WB Performed By: #### [id number] #### [facility] [address] [place] [address] Dr. Garry Obrien Encounters Encounter Date Encounter [...] Facility: Payers Date Payer Category Payer Unknown [id number] 2.16.84 [id number] 1992 Unknown [id number] 2.16.84 [id number] 1992 Unknown [id number] 2.16.84 [id number] 1992 Unknown [id number] 1992 Unknown [id number] 2.16.84 [id number] 1992 Unknown [id number] .16.84 [id number] 1992 Unknown [id number] .16.84 [id number] 1992 Unknown [id number] 2.16.84 [id number] 1992 Unknown [id number] 2.16.84 [id number] 1992 Unknown [id number] 2.16.84 [id number] 1959 Unknown [id number] Summary Purpose Family History No Family History Records FoundNo Family History Records Found Advance Directives No Advanced Directives Records FoundNo Advanced Directives Records Found Additional Source Comments INFORMATION SOURCE (unrecogn ized section and content) DATE CREATED AUTHOR 01/01/2023 [facility] DATE CREATED AUTHOR AUTHOR'S MARYIZ ATDONNA 06/06/2024 [facility] FOR RECORDS PERTAINING TO PATIENTS WHO [...] BE BASED ON THE PRIMARY CLINICAL RECORDS. [facility] [employer] provides no warranty or guarantee of the accuracy or completeness of information in this document.
[2024-06-14 12:07] VITALS: BP 131/74; PULSE 81
== END 2024-06-14 12:54 | disposition home or self-care (01) ==
LOC: FBCO 06:59 → FBC 11:59
PROVIDERS: PCP Nurse Practitioner; Visit Provider Obstetrics & Gynecology
DX: O35.8XX0 Maternal care for other (suspected) fetal abnormality and damage, not applicable or unspecified (principal)
CPT/HCPCS: 59025

== ENCOUNTER 2024-06-18 06:50 | Outpatient (OUT) | payer BC, SELFPAY ==
--- OUTSIDE RECORDS SUMMARY | 2024-06-18 06:52 | XMS_ITS | CCD ---
Author Organization [place] [employer] [facility] Team Providers Care Medical Photographer Name Role Phone JANKI ., DR ORONA Admitting Unavailable JANKI ., DR ORONA Attending Unavailable LUIS E DAVIS Primary Care Unavailable JANKI ., DR ORONA Consulting Unavailable AICHHOLZ, SALES CLERK SUPERVISOR AC Admitting Unavailable AICHHOLZ, SALES CLERK SUPERVISOR AC Attending Unavailable AICHHOLZ, SALES CLERK SUPERVISOR AC Primary Care Unavailable AICHHOLZ, SALES CLERK SUPERVISOR AC Consulting Unavailable JANKI, YEYO Attending Unavailable [...] [Catalytic activity/Vol] 36 U/L Normal 25-115 [facility] Comment on above: Performed By: #### C MP, PURA, DBIL, LIPA, LIPID #### [facility] [address] [address] [address] Garry Obrien BILIRUBIN CONJUGATED (DIRECT )on 12-28-2022 BILI, CONJUGATED 0.1 mg/dL Normal 0.0-0.2 [facility] Comment on above: Performed By: #### C MP, PURA, DBIL, LIPA, LIPID #### [facility] [address] [place] [address] Dr. Garry Obrien CBC AUTO DIFFon 12-28-2022 BASO # 0.0 103/ul Normal 0.0-0.1 [facility] Comment on above: Performed By: #### C BC #### [facility] [address] [place] [address] Dr. Garry Obrien Basophils/100 WBC (Bld) 0.3 % Normal 0.2-2.0 [facility] Comment on above: Performed By: #### C BC #### [facility] [address] [place] [address] Dr. Garry Obrien EO # 0.5 103/ul Normal 0.0-0.7 [facility] Comment on above: Performed By: #### C BC #### [facility] [address] [place] [address] Dr. Garry Obrien Eosinophils/100 WBC (Bld) 8.2 % Critically high 0.9-7.0 [facility] Comment on above: Performed By: #### C BC #### [facility] [address] [place] [address] Dr. Garry Obrien Erythrocyte distribution width (RBC) [Ratio] 13.5 % Normal 11.0-15.0 [facility] Comment on above: Performed By: #### C BC #### [facility] [address] [place] [address] Dr. Garry Obrien Hematocrit (Bld) [Volume fraction] 41.7 % Normal 36.0-48.0 [facility] Comment on above: Performed By: #### C BC #### [facility] [address] [place] [address] Dr. Garry Obrien Hemoglobin (Bld) [Mass/Vol] 13.8 g/dL Normal 12.0-16.0 [facility] Comment on above: Performed By: #### C BC #### [facility] [address] [place] [address] Dr. Garry Obrien IG # 0.01 10e3/ul Normal 0.00-0.03 [facility] Comment on above: Performed By: #### C BC #### [facility] [address] [place] [address] Dr. Garry Obrien IG % 0.2 % Normal 0.0-0.5 [facility] Comment on above: Performed By: #### C BC #### [facility] [address] [place] [address] Dr. Garry Obrien LYMPH # 2.0 103/ul Normal 1.2-3.8 [facility] Comment on above: Performed By: #### C BC #### [facility] [address] [place] [address] Dr. Garry Obrien Lymphocytes/100 WBC (Bld) 32.8 % Normal 20.5-60.0 [facility] Comment on above: Performed By: #### C BC #### [facility] [address] [place] [address] Dr. Garry Obrien MANUAL DIFF REQ NO Normal [facility] Comment on above: Performed By: #### C BC #### [facility] [address] [place] [address] Dr. Garry Obrien MCH (RBC) [Entitic mass] 29.2 pg Normal 26.7-34.0 [facility] Comment on above: Performed By: #### C BC #### [facility] [address] [place] [address] Dr. Garry Obrien MCHC (RBC) [Mass/Vol] 33.1 g/dL Normal 29.9-35.2 [facility] Comment on above: Performed By: #### C BC #### [facility] [address] [place] [address] Dr. Garry Obrien MCV (RBC) [Entitic vol] 88.2 fL Normal 81.0-99.0 [facility] Comment on above: Performed By: #### C BC #### [facility] [address] [place] [address] Dr. Garry Obrien MONO # 0.5 103/ul Normal 0.3-0.8 [facility] Comment on above: Performed By: #### C BC #### [facility] [address] [place] [address] Dr. Garry Obrien Monocytes/100 WBC (Bld) 7.7 % Normal 1.7-12.0 [facility] Comment on above: Performed By: #### C BC #### [facility] [address] [place] [address] Dr. Garry Obrien NEUT # 3.1 103/ul Normal 1.4-6.5 [facility] Comment on above: Performed By: #### C BC #### [facility] [address] [place] [address] Dr. Garry Obrien Neutrophils/100 WBC (Bld) 50.8 % Normal 43.0-75.0 [facility] Comment on above: Performed By: #### C BC #### [facility] [address] [place] [address] Dr. Garry Obrien Platelet mean volume (Bld) [Entitic vol] 9.3 fL Critically low 9.5-13.5 [facility] Comment on above: Performed By: #### C BC #### [facility] [address] [place] [address] Dr. Garry Obrien PLT 318 103/ul Normal 150-450 [facility] Comment on above: Performed By: #### C BC #### [facility] [address] [place] [address] Dr. Garry Obrien RBC 4.73 106/ul Normal 4.20-5.40 [facility] Comment on above: Performed By: #### C BC #### [facility] [address] [place] [address] Dr. Garry Obrien WBC 6.1 103/ul Normal 4.0-11.0 [facility] Comment on above: Performed By: #### C BC #### [facility] [address] [place] [address] Dr. Garry Obrien LIPASEon 12-28-2022 Lipase [Catalytic activity/Vol] 198.0 U/L Normal 73.0-393.0 [facility] Comment on above: Performed By: #### C MP, PURA, DBIL, LIPA, LIPID #### [facility] [address] [place] [address] Dr. Garry Obrien LIPID PROFILEon 12-28-2022 CHOL-HDL RATIO NORM SEE BELOW Normal [facility] Comment on above: Result Comment: 3.3 - 4.4 LOW RISK 4.4 - 7.1 AVERAGE RISK 7.1 - 11.0 MODERATE RISK >11.0 HIGH RISK Performed By: #### C MP, PURA, DBIL, LIPA, LIPID #### [facility] [address] [place] [address] Dr. Garry Obrien Cholesterol [Mass/Vol] 237 mg/dL Critically high <=200 [facility] Comment on above: Performed By: #### C MP, PURA, DBIL, LIPA, LIPID #### [facility] [address] [place] [address] Dr. Garry Obrien Cholesterol in HDL [Mass/Vol] 67 mg/dL Critically high 40-60 [facility] Comment on above: Performed By: #### C MP, PURA, DBIL, LIPA, LIPID #### [facility] [address] [place] [address] Dr. Garry Obrien Cholesterol in LDL [Mass/Vol] 144.8 mg/dL Normal [facility] Comment on above: Performed By: #### C MP, PURA, DBIL, LIPA, LIPID #### [facility] [address] [place] [address] Dr. Garry Obrien Cholesterol.total/ Cholesterol in HDL [Mass ratio] 3.5 {ratio} Normal [facility] Comment on above: Performed By: #### C MP, PRUA, DBIL, LIPA, LIPID #### [facility] [address] [place] [address] Dr. Garry Obrien HDL NORMAL > or = 60 mg/dl - LO W CARDIOVASCULAR RISK <40 mg/dl - HIGH CARDIOVASCULAR RISK Normal [facility] Comment on above: Performed By: #### C MP, PURA, DBIL, LIPA, LIPID #### [facility] [address] [place] [address] Dr. Garry Obrien LDL CALC NORMAL SEE BELOW Normal [facility] Comment on above: Result Comment: <100 mg/dl OPTIMAL 100 - 129 mg/dl NEAR OR ABOVE OPTIMAL 130 - 159 mg/dl BORDERLINE HIGH 160 - 189 mg/dl HIGH >190 mg/dl VERY HIGH Performed By: #### C MP, PURA, DBIL, LIPA, LIPID #### [facility] [address] [place] [address] Dr. Garry Obrien Triglyceride [Mass/Vol] 126 mg/dL Normal <=150 [facility] Comment on above: Performed By: #### C MP, PURA, DBIL, LIPA, LIPID #### [facility] [address] [place] [address] Dr. Garry Obrien VLDL CALC 25.2 mg/dL Normal [facility] Comment on above: Performed By: #### C MP, PURA, DBIL, LIPA, LIPID #### [facility] [address] [place] [address] Dr. Garry Obrien PREG HCG QUALon 12-28-2022 , QUAL Negative Normal NEGATIVE [facility] Comment on above: Performed By: #### P REG #### [facility] [address] [place] [address] Dr. Garry Obrien PROF 14(COMP METB)on 023 Albumin [Mass/Vol] 3.9 g/dL Normal 3.4-5.0 [facility] Comment on above: Performed By: #### C MP, PURA, DBIL, LIPA, LIPID #### [facility] [address] [place] [address] Dr. Garry Obrien Albumin/Globulin [Mass ratio] 0.9 {ratio} Normal [facility] Comment on above: Performed By: #### C MP, PURA, DBIL, LIPA, LIPID #### [facility] [address] [place] [address] Dr. Garry Obrien ALP [Catalytic activity/Vol] 51 U/L Normal 46-116 [facility] Comment on above: Performed By: #### C MP, PURA, DBIL, LIPA, LIPID #### [facility] [address] [place] [address] Dr. Garry Obrien ALT [Catalytic activity/Vol] 20 U/L Normal 14-59 [facility] Comment on above: Performed By: #### C MP, PURA, DBIL, LIPA, LIPID #### [facility] [address] [place] [address] Dr. Garry Obrien Anion gap [Moles/Vol] 12.5 mmol/L Normal [facility] Comment on above: Performed By: #### C MP, PURA, DBIL, LIPA, LIPID #### [facility] [address] [place] [address] Dr. Garry Obrien AST [Catalytic activity/Vol] 20 U/L Normal 15-37 [facility] Comment on above: Performed By: #### C MP, PURA, DBIL, LIPA, LIPID #### [facility] [address] [place] [address] Dr. Garry Obrien Bilirubin [Mass/Vol] 0.5 mg/dL Normal 0.2-1.0 [facility] Comment on above: Performed By: #### C MP, PURA, DBIL, LIPA, LIPID #### [facility] [address] [place] [address] Dr. Garry Obrien Calcium [Mass/Vol] 9.5 mg/dL Normal 8.5-10.1 [facility] Comment on above: Performed By: #### C MP, PURA, DBIL, LIPA, LIPID #### [facility] [address] [place] [address] Dr. Garry Obrien Chloride [Moles/Vol] 100 mmol/L Normal 98-107 [facility] Comment on above: Performed By: #### C MP, PURA, DBIL, LIPA, LIPID #### [facility] [address] [place] [address] Dr. Garry Obrien CO2 [Moles/Vol] 27.4 mmol/L Normal 21.0-32.0 [facility] Comment on above: Performed By: #### C MP, PURA, DBIL, LIPA, LIPID #### [facility] [address] [place] [address] Dr. Garry Obrien Creatinine [Mass/Vol] 0.67 mg/dL Normal 0.55-1.02 [facility] Comment on above: Performed By: #### C MP, PURA, DBIL, LIPA, LIPID #### [facility] [address] [place] [address] Dr. Garry Obrien EGFR-AF FIJIAN >60 Normal >=60 [facility] Comment on above: Performed By: #### C MP, PURA, DBIL, LIPA, LIPID #### [facility] [address] [place] [address] Dr. Garry Obrien EGFR-NON AF FIJIAN >60 Normal >=60 [facility] Comment on above: Performed By: #### C MP, PURA, DBIL, LIPA, LIPID #### [facility] [address] [place] [address] Dr. Garry Obrien Globulin (S) [Mass/Vol] 4.3 g/dL Normal [facility] Comment on above: Performed By: #### C MP, PURA, DBIL, LIPA, LIPID #### [facility] [address] [place] [address] Dr. Garyr Obrien Glucose [Mass/Vol] 99 mg/dL Normal 74-106 [facility] Comment on above: Performed By: #### C MP, PURA, DBIL, LIPA, LIPID #### [facility] [address] [place] [address] Dr. Garry Obrien Potassium [Moles/Vol] 3.9 mmol/L Normal 3.5-5.1 [facility] Comment on above: Performed By: #### C MP, PURA, DBIL, LIPA, LIPID #### [facility] [address] [place] [address] Dr. Garry Obrien Protein [Mass/Vol] 8.2 g/dL Normal 6.4-8.2 [facility] Comment on above: Performed By: #### C MP, PURA, DBIL, LIPA, LIPID #### [facility] [address] [place] [address] Dr. Garry Obrien Sodium [Moles/Vol] 136 mmol/L Normal 136-145 [facility] Comment on above: Performed By: #### C MP, PURA, DBIL, LIPA, LIPID #### [facility] [address] [place] [address] Dr. Garry Obrien Urea nitrogen [Mass/Vol] 10.0 mg/dL Normal 7.0-18.0 [facility] Comment on above: Performed By: #### C MP, PURA, DBIL, LIPA, LIPID #### [facility] [address] [place] [address] Dr. Garry Obrien Urea nitrogen/Creatinin e [Mass ratio] 14.9 mg/mg Normal [facility] Comment on above: Performed By: #### C MP, PURA, DBIL, LIPA, LIPID #### [facility] [address] [place] [address] Dr. Garry Obrien [facility] SED RATE 13 mm/hr Normal <=20 [facility] Comment on above: Performed By: #### S EDR #### [facility] [address] [place] [address] Dr. Garry Obrien UA RANDOM W/MICROSCOPICon BACTERIA SMALL Abnormal NONE SEEN [facility] Comment on above: Performed By: #### U AMIC #### [facility] [address] [place] [address] Dr. Garry Obrien Bilirubin Ql (U) Negative Normal NEGATIVE [facility] Comment on above: Performed By: #### U AMIC #### [facility] [address] [place] [address] Dr. Garry Obrien CAST NONE SEEN Normal NONE SEEN [facility] Comment on above: Performed By: #### U AMIC #### [facility] [address] [place] [address] Dr. Garry Obrien Clarity (U) CLEAR Normal CLEAR [facility] Comment on above: Performed By: #### U AMIC #### [facility] [address] [place] [address] Dr. Garry Obrien Color (U) LT. YELLOW Normal YELLOW [facility] Comment on above: Performed By: #### U AMIC #### [facility] [address] [address] [address] Garry Obrien Crystals LM Nom (Urine sed) NONE SEEN Normal NONE SEEN [facility] Comment on above: Performed By: #### U AMIC #### [facility] [address] [address] [address] Garry Obrien Epithelial cells LM Ql (Urine sed) FEW Abnormal NONE SEEN /RARE [facility] Comment on above: Performed By: #### U AMIC #### [facility] [address] [address] [address] Garry Obrien Glucose Ql (U) Negative Normal NEGATIVE [facility] Comment on above: Performed By: #### U AMIC #### [facility] [address] [place] [address] Dr. Garry Obrien Hemoglobin Ql (U) TRACE-INTACT Abnormal NEGATIVE [facility] Comment on above: Performed By: #### U AMIC #### [facility] [address] [address] [address] Garry Obrien Ketones Ql (U) Negative Normal NEGATIVE [facility] Comment on above: Performed By: #### U AMIC #### [facility] [address] [address] [address] Garry Obrien LEUKOCYTES TRACE Abnormal NEGATIVE [facility] Comment on above: Performed By: #### U AMIC #### [facility] [address] [address] [address] Garry Obrien MUCOUS NONE SEEN Normal NONE SEEN [facility] Comment on above: Performed By: #### U AMIC #### [facility] [address] [address] [address] Garry Obrien Nitrite Ql (U) Negative Normal NEGATIVE [facility] Comment on above: Performed By: #### U AMIC #### [facility] [address] [place] [address] Dr. Garry Obrien pH (U) 6.0 [pH] Normal 5-9 [facility] Comment on above: Performed By: #### U AMIC #### [facility] [address] [address] [address] Garry Obrien RBC 0-2 Normal 0-2 [facility] Comment on above: Performed By: #### U AMIC #### [facility] [address] [address] [address] Garry Obrien SPEC GRAVITY <=1.005 Abnormal 1.005-<=1.025 [facility] Comment on above: Performed By: #### U AMIC #### [facility] [address] [address] [address] Garry Obrien UA PROTEIN Negative Normal NEGATIVE/ TRACE [facility] Comment on above: Performed By: #### U AMIC #### [facility] [address] [address] [address] Garry Obrien Urobilinogen Qn (U) 0.2 {Griselda'U}/dL Normal 0.2 - 1.0 [facility] Comment on above: Performed By: #### U AMIC #### [facility] [address] [place] [address] Dr. Garry Obrien WBC 2-5 Abnormal NONE SEEN [facility] Comment on above: Performed By: #### U AMIC #### [facility] [address] [place] [address] Dr. Garry Obrien PAP ACOG PANEL 2: 30 to 65on 07-13-2022 . . Normal [facility] Comment on above: Result Comment: Perf ormed at: WB Performed By: #### [id number] #### [facility] [address] [place] [address] Dr. Garry Obrien Age Gdln ACOG Testing 30-65 [facility] Comment on above: Performed By: #### [id number] #### [facility] [address] [place] [address] Dr. Garry Obrien DIAGNOSIS: Comment Normal [facility] Comment on above: Result Comment: NEGA TIVE FOR INTRAEPITHELIAL LESION OR MALIGNANCY. Performed at: WB Performed By: #### [id number] #### [facility] [address] [place] [address] Dr. Garry Obrien HPV Aptima Negative Normal Negative [facility] Comment on above: Result Comment: This nucleic acid amplification test detects fourteen high-risk HPV types (16,18,31,33,35,39,45,51,52,56,58,59,66,68) without differentiation. Performed at: =G Performed By: #### [id number] #### [facility] [address] [place] [address] Dr. Garry Obrien Methodology: Comment Normal [facility] Comment on above: Result Comment: This liquid based ThinPrep(R) pap test was screened with the use of an image guided system. Performed at: WB Performed By: #### [id number] #### [facility] [address] [place] [address] Dr. Garry Obrien Note: Comment Normal [facility] Comment on above: Result Comment: The Pap smear is a screening test designed to aid in the detection of premalignant and malignant conditions of the uterine cervix. It is not a diagnostic procedure and should not be used as the sole means of detecting cervical cancer. Both false-positive and false-negative reports do occur. . Performed at: WB Performed By: #### [id number] #### [facility] [address] [place] [address] Dr. Garry Obrien Performed by: Comment Normal [facility] Comment on above: Result Comment: Macrina Lamar, Veneer Slicing Machine Operator (ASCP) Performed at: WB Performed By: #### [id number] #### [facility] [address] [place] [address] Dr. Garry Obrien Specimen adequacy: Comment Normal [facility] Comment on above: Result Comment: Sati sfactory for evaluation. Endocervical and/or squamous metaplastic cells (endocervical component) are present. Performed at: WB Performed By: #### [id number] #### [facility] [address] [place] [address] Dr. Garry Obrien Encounters Encounter Date Encounter [...] Facility: Payers Date Payer Category Payer Unknown [id number] 2.16.84 [id number] 1992 Unknown [id number] 2.16.84 [id number] 1992 Unknown [id number] 2.16.84 0.1.091277.3.579.2.9 1992 Unknown [id number] 0.1.260018.3.579.2.1258 1992 Unknown [id number] 2.16.84 0.1.843841.3.579.2.9 1992 Unknown [id number] .16.84 0.1.066839.3.579.2.1258 1992 Unknown [id number] .16.84 0.1.756162.3.579.2.9 1992 Unknown [id number] 2.16.84 0.1.054627.3.579.2.9 1992 Unknown [id number] 2.16.84 0.1.761990.3.579.2.1259 1992 Unknown [id number] 2.16.84 [id number] 1959 Unknown [id number] Summary Purpose Family History No Family History Records FoundNo Family History Records Found Advance Directives No Advanced Directives Records FoundNo Advanced Directives Records Found Additional Source Comments INFORMATION SOURCE (unrecogn ized section and content) DATE CREATED AUTHOR 01/01/2023 [facility] DATE CREATED AUTHOR AUTHOR'S MARYIZ ATDONNA 06/06/2024 [facility] FOR RECORDS PERTAINING TO PATIENTS WHO [...] BE BASED ON THE PRIMARY CLINICAL RECORDS. [facility] [employer] provides no warranty or guarantee of the accuracy or completeness of information in this document.
--- NOTE | 2024-06-18 16:05 | US_ITS ---
[address] [address] Patient Name: MEE WIGGINS MRN: [id number] date: 1990 Sex: F Assigned Patient Location: Current Patient Location[place] [facility] [place]/Order Number: [id number] Exam Date: 06/18/2024 16:08 Report Date: 06/19/2024 07:32 At the request of: YEYO SHEARER Procedure: US OB BPP w non-stress EXAMINATION: US OB BPP w non-stress HISTORY: CHOROID PLEXUS CYST OF FETUS O35.03X1 COMPARISON: No relevant comparison available. TECHNIQUE: Ultrasound biophysical profile was performed in the radiology department. non-reactive stress testing was performed by nursing staff in the birthing center. FINDINGS: BREATHING MOVEMENTS: 2 GROSS BODY MOVEMENTS: 2 TONE: 2 QUALITATIVE AMNIOTIC FLUID VOLUME: 2 PRESENTATION: CEPHALIC HEART RATE: 131.07 bpm AMNIOTIC FLUID VOLUME: 18.4 cm GESTATIONAL AGE: 35 weeks 1 day US/US OB BPP w non-stress IMPRESSION: Total biophysical profile score: 8 Electronically authenticated by: SHUKRI LOCKWOOD Date: 06/19/2024 07:32
--- NOTE | 2024-06-18 16:05 | US_ITS ---
[address] [address] Patient Name: MEE WIGGINS MRN: [id number] date: 1990 Sex: F Assigned Patient Location: US Current Patient Location: US Accession/Order Number: [id number] Exam Date: 06/18/2024 16:08 Report Date: 06/19/2024 08:20 At the request of: YEYO SHEARER Procedure: US OB cervical length EXAMINATION: US OB growth, US OB cervical length HISTORY: MATERNAL OBESITY WITH BMI >30 P00.89 COMPARISON: No relevant comparison available. FINDINGS: Single intrauterine gestation position: Cephalic presentation, longitudinal lie Amniotic fluid volume: 18.4 cm, largest fluid pocket 7.2 cm Heart rate: 131 beats minute Cervix: 3.1 cm, closed BPD: 9.36 cm, 38 weeks 1 day, greater than 97% Head circumference: 34.26 cm, 39 weeks 4 days, greater than 97% Abdominal circumference: 32.44 cm, 36 weeks 2 days, 87% Femur length: 6.9 cm, 35 weeks 3 days, 50% Estimated weight: 2990 g, 6 lbs. 9 oz., 86% Head circumference to abdominal circumference: 1.06 Femur length at circumference: 20.12 Clinical age: 35 weeks 1 day Clinical QUINTIN: 07/22/2024 Ultrasound age: 37 weeks 3 days Ultrasound QUINTIN: 07/06/2024 US/US OB cervical length IMPRESSION: BPD and head circumference greater than the 97th percentile Estimated weight 86 percentile Closed cervix measuring 3.1 cm length Electronically authenticated by: SHUKRI LOCKWOOD Date: 06/19/2024 08:20
--- NOTE | 2024-06-18 16:07 | US_ITS ---
[address] [address] Patient Name: MEE WIGGINS MRN: [id number] date: 1990 Sex: F Assigned Patient Location: [facility] Current Patient Location: Accession/Order Number: [id number] Exam Date: 06/18/2024 16:08 Report Date: 06/19/2024 08:20 At the request of: YEYO SHEARER Procedure: US OB growth EXAMINATION: US OB growth, US OB cervical length HISTORY: MATERNAL OBESITY WITH BMI >30 P00.89 COMPARISON: No relevant comparison available. FINDINGS: Single intrauterine gestation position: Cephalic presentation, longitudinal lie Amniotic fluid volume: 18.4 cm, largest fluid pocket 7.2 cm Heart rate: 131 beats minute Cervix: 3.1 cm, closed BPD: 9.36 cm, 38 weeks 1 day, greater than 97% Head circumference: 34.26 cm, 39 weeks 4 days, greater than 97% Abdominal circumference: 32.44 cm, 36 weeks 2 days, 87% Femur length: 6.9 cm, 35 weeks 3 days, 50% Estimated weight: 2990 g, 6 lbs. 9 oz., 86% Head circumference to abdominal circumference: 1.06 Femur length at circumference: 20.12 Clinical age: 35 weeks 1 day Clinical QUINTIN: 07/22/2024 Ultrasound age: 37 weeks 3 days Ultrasound QUINTIN: 07/06/2024 US/US OB growth IMPRESSION: BPD and head circumference greater than the 97th percentile Estimated weight 86 percentile Closed cervix measuring 3.1 cm length Electronically authenticated by: SHUKRI LOCKWOOD Date: 06/19/2024 08:20
[2024-06-18 17:00] VITALS: BP 121/67; PULSE 95
== END 2024-06-18 17:48 | disposition home or self-care (01) ==
LOC: US 06:50 → FBC 16:02
PROVIDERS: PCP Nurse Practitioner; Visit Provider Obstetrics & Gynecology
DX: O35.03X0 Maternal care for (suspected) central nervous system malformation or damage in fetus, choroid plexus cysts, not applicable or unspecified (principal); O09.899 Supervision of other high risk pregnancies, unspecified trimester; Z3A.37 37 weeks gestation of pregnancy
CPT/HCPCS: 76816; 76817; 76818

== ENCOUNTER 2024-06-21 08:06 | Outpatient (OUT) | payer BC, SELFPAY ==
[2024-06-21 15:03] VITALS: BP 126/77; PULSE 97
== END 2024-06-21 15:48 | disposition home or self-care (01) ==
LOC: FBCO 08:06 → FBC 14:57
PROVIDERS: PCP Nurse Practitioner; Visit Provider Obstetrics & Gynecology
DX: O35.8XX0 Maternal care for other (suspected) fetal abnormality and damage, not applicable or unspecified (principal)
CPT/HCPCS: 59025

== ENCOUNTER 2024-06-25 07:06 | Outpatient (OUT) | payer BC, SELFPAY ==
--- OUTSIDE RECORDS SUMMARY | 2024-06-25 07:08 | XMS_ITS | CCD ---
Author Organization [place] 1[employer]1MediaOn license of [facility] Care Team Providers Care Aquaculturist Name Role Phone JANKI ., DR ORONA Admitting Unavailable JANKI ., DR ORONA Attending Unavailable LUIS E DAVIS Primary Care Unavailable JANKI ., DR ORONA Consulting Unavailable AICHHOLZ, WASTE COTTON CLEANER AC Admitting Unavailable AICHHOLZ, WASTE COTTON CLEANER AC Attending Unavailable AICHHOLZ, WASTE COTTON CLEANER AC Primary Care Unavailable AICHHOLZ, WASTE COTTON CLEANER AC Consulting Unavailable JANKI, YEYO Attending Unavailable [...] [Catalytic activity/Vol] 36 U/L Normal 25-115 [facility] Comment on above: Performed By: #### C MP, PURA, DBIL, LIPA, LIPID #### [facility] [address] [place], [place] [address] Dr. Garry Obrien BILIRUBIN CONJUGATED (DIRECT )on 03-22-2023 BILI, CONJUGATED 0.1 mg/dL Normal 0.0-0.2 [facility] Comment on above: Performed By: #### C MP, PURA, DBIL, LIPA, LIPID #### [facility] [address] [place] [address] Dr. Garry Obrien CBC AUTO DIFFon 12-28-2022 BASO # 0.0 103/ul Normal 0.0-0.1 [facility] Comment on above: Performed By: #### C BC #### [facility] [address] [place] [address] Dr. Garry Obrien Basophils/100 WBC (Bld) 0.3 % Normal 0.2-2.0 [facility] Comment on above: Performed By: #### C BC #### [facility] [address] [place] [address] Dr. Garry Obrien EO # 0.5 103/ul Normal 0.0-0.7 [facility] Comment on above: Performed By: #### C BC #### [facility] [address] [place] [address] Dr. Garry Obrien Eosinophils/100 WBC (Bld) 8.2 % Critically high 0.9-7.0 [facility] Comment on above: Performed By: #### C BC #### [facility] [address] [place] [address] Dr. Garry Obrien Erythrocyte distribution width (RBC) [Ratio] 13.5 % Normal 11.0-15.0 [facility] Comment on above: Performed By: #### C BC #### [facility] [address] [place] [address] Dr. Garry Obrien Hematocrit (Bld) [Volume fraction] 41.7 % Normal 36.0-48.0 [facility] Comment on above: Performed By: #### C BC #### [facility] [address] [place] [address] Dr. Garry Obrien Hemoglobin (Bld) [Mass/Vol] 13.8 g/dL Normal 12.0-16.0 [facility] Comment on above: Performed By: #### C BC #### [facility] [address] [place] [address] Dr. Garry Obrien IG # 0.01 10e3/ul Normal 0.00-0.03 [facility] Comment on above: Performed By: #### C BC #### [facility] [address] [place] [address] Dr. Garry Obrien IG % 0.2 % Normal 0.0-0.5 [facility] Comment on above: Performed By: #### C BC #### [facility] [address] [place] [address] Dr. Garry Obrien LYMPH # 2.0 103/ul Normal 1.2-3.8 [facility] Comment on above: Performed By: #### C BC #### [facility] [address] [place] [address] Dr. Garry Obrien Lymphocytes/100 WBC (Bld) 32.8 % Normal 20.5-60.0 [facility] Comment on above: Performed By: #### C BC #### [facility] [address] [place] [address] Dr. Garry Obrien MANUAL DIFF REQ NO Normal [facility] Comment on above: Performed By: #### C BC #### [facility] [address] [place] [address] Dr. Garry Obrien MCH (RBC) [Entitic mass] 29.2 pg Normal 26.7-34.0 [facility] Comment on above: Performed By: #### C BC #### [facility] [address] [place] [address] Dr. Garry Obrien MCHC (RBC) [Mass/Vol] 33.1 g/dL Normal 29.9-35.2 [facility] Comment on above: Performed By: #### C BC #### [facility] [address] [place] [address] Dr. Garry Obrien MCV (RBC) [Entitic vol] 88.2 fL Normal 81.0-99.0 [facility] Comment on above: Performed By: #### C BC #### [facility] [address] [place] [address] Dr. Garry Obrien MONO # 0.5 103/ul Normal 0.3-0.8 [facility] Comment on above: Performed By: #### C BC #### [facility] [address] [place] [address] Dr. Garry Obrien Monocytes/100 WBC (Bld) 7.7 % Normal 1.7-12.0 [facility] Comment on above: Performed By: #### C BC #### [facility] [address] [place] [address] Dr. Garry Obrien NEUT # 3.1 103/ul Normal 1.4-6.5 [facility] Comment on above: Performed By: #### C BC #### [facility] [address] [place] [address] Dr. Garry Obrien Neutrophils/100 WBC (Bld) 50.8 % Normal 43.0-75.0 [facility] Comment on above: Performed By: #### C BC #### [facility] [address] [place] [address] Dr. Garry Obrien Platelet mean volume (Bld) [Entitic vol] 9.3 fL Critically low 9.5-13.5 [facility] Comment on above: Performed By: #### C BC #### [facility] [address] [place] [address] Dr. Garry Obrien PLT 318 103/ul Normal 150-450 [facility] Comment on above: Performed By: #### C BC #### [facility] [address] [place] [address] Dr. Garry Obrien RBC 4.73 106/ul Normal 4.20-5.40 [facility] Comment on above: Performed By: #### C BC #### [facility] [address] [place] [address] Dr. Garry Obrien WBC 6.1 103/ul Normal 4.0-11.0 [facility] Comment on above: Performed By: #### C BC #### [facility] [address] [place] [address] Dr. Garry Obrien LIPASEon 12-28-2022 Lipase [Catalytic activity/Vol] 198.0 U/L Normal 73.0-393.0 [facility] Comment on above: Performed By: #### C MP, PURA, DBIL, LIPA, LIPID #### [facility] [address] [place] [address] Dr. Garry Obrien LIPID PROFILEon 12-28-2022 CHOL-HDL RATIO NORM SEE BELOW Normal [facility] Comment on above: Result Comment: 3.3 - 4.4 LOW RISK 4.4 - 7.1 AVERAGE RISK 7.1 - 11.0 MODERATE RISK >11.0 HIGH RISK Performed By: #### C MP, PURA, DBIL, LIPA, LIPID #### [facility] [address] [place] [address] Dr. Garry Obrien Cholesterol [Mass/Vol] 237 mg/dL Critically high <=200 [facility] Comment on above: Performed By: #### C MP, PURA, DBIL, LIPA, LIPID #### [facility] [address] [place] [address] Dr. Garry Obrien Cholesterol in HDL [Mass/Vol] 67 mg/dL Critically high 40-60 [facility] Comment on above: Performed By: #### C MP, PURA, DBIL, LIPA, LIPID #### [facility] [address] [place] [address] Dr. Garry Obrien Cholesterol in LDL [Mass/Vol] 144.8 mg/dL Normal [facility] Comment on above: Performed By: #### C MP, PURA, DBIL, LIPA, LIPID #### [facility] [address] [place] [address] Dr. Garry Obrien Cholesterol.total/ Cholesterol in HDL [Mass ratio] 3.5 {ratio} Normal [facility] Comment on above: Performed By: #### C MP, PURA, DBIL, LIPA, LIPID #### [facility] [address] [place] [address] Dr. Garry Obrien HDL NORMAL > or = 60 mg/dl - LO W CARDIOVASCULAR RISK <40 mg/dl - HIGH CARDIOVASCULAR RISK Normal [facility] Comment on above: Performed By: #### C MP, PURA, DBIL, LIPA, LIPID #### [facility] [address] [place] [address] [address] Garry Obrien LDL CALC NORMAL SEE BELOW Normal [facility] Comment on above: Result Comment: <100 mg/dl OPTIMAL 100 - 129 mg/dl NEAR OR ABOVE OPTIMAL 130 - 159 mg/dl BORDERLINE HIGH 160 - 189 mg/dl HIGH >190 mg/dl VERY HIGH Performed By: #### C MP, PURA, DBIL, LIPA, LIPID #### [facility] [address] [place] [address] [address] Garry Obrien Triglyceride [Mass/Vol] 126 mg/dL Normal <=150 [facility] Comment on above: Performed By: #### C MP, PURA, DBIL, LIPA, LIPID #### [facility] [address] [place] [address] [address] Garry Obrien VLDL CALC 25.2 mg/dL Normal [facility] Comment on above: Performed By: #### C MP, PURA, DBIL, LIPA, LIPID #### [facility] [address] [place] [address] Dr. Garry Obrien PREG HCG QUALon 12-28-2022 , QUAL Negative Normal NEGATIVE [facility] Comment on above: Performed By: #### P REG #### [facility] [address] [place] [address] Dr. Garry Obrien PROF 14(COMP METB)on 023 Albumin [Mass/Vol] 3.9 g/dL Normal 3.4-5.[address] [facility] Comment on above: Performed By: #### C MP, PURA, DBIL, LIPA, LIPID #### [facility] [address] [place] [address] Dr. Garry Obrien Albumin/Globulin [Mass ratio] 0.9 {ratio} Normal [facility] Comment on above: Performed By: #### C MP, PURA, DBIL, LIPA, LIPID #### [facility] [address] [place] [address] Dr. Garry Obrien ALP [Catalytic activity/Vol] 51 U/L Normal 46-116 [facility] Comment on above: Performed By: #### C MP, PURA, DBIL, LIPA, LIPID #### [facility] [address] [place] [address] Dr. Garry Obrien ALT [Catalytic activity/Vol] 20 U/L Normal 14-59 [facility] Comment on above: Performed By: #### C MP, PURA, DBIL, LIPA, LIPID #### [facility] [address] [place] [address] Dr. Garry Obrien Anion gap [Moles/Vol] 12.5 mmol/L Normal [facility] Comment on above: Performed By: #### C MP, PURA, DBIL, LIPA, LIPID #### [facility] [address] [place] [address] Dr. Garry Obrien AST [Catalytic activity/Vol] 20 U/L Normal 15-37 [facility] Comment on above: Performed By: #### C MP, PURA, DBIL, LIPA, LIPID #### [facility] [address] [place] [address] Dr. Garry Obrien Bilirubin [Mass/Vol] 0.5 mg/dL Normal 0.2-1.0 [facility] Comment on above: Performed By: #### C MP, PURA, DBIL, LIPA, LIPID #### [facility] [address] [place] [address] Dr. Garry Obrien Calcium [Mass/Vol] 9.5 mg/dL Normal 8.5-10.[address] [facility] Comment on above: Performed By: #### C MP, PURA, DBIL, LIPA, LIPID #### [facility] [address] [place] [address] Dr. Garry Obrien Chloride [Moles/Vol] 100 mmol/L Normal 98-107 [facility] Comment on above: Performed By: #### C MP, PURA, DBIL, LIPA, LIPID #### [facility] [address] [place] [address] Dr. Garry Obrien CO2 [Moles/Vol] 27.4 mmol/L Normal 21.0-32.0 [facility] Comment on above: Performed By: #### C MP, PURA, DBIL, LIPA, LIPID #### [facility] [address] [place] [address] Dr. Garry Obrien Creatinine [Mass/Vol] 0.67 mg/dL Normal 0.55-1.02 [facility] Comment on above: Performed By: #### C MP, PURA, DBIL, LIPA, LIPID #### [facility] [address] [place] [address] Dr. Garry Obrien EGFR-AF BOLIVIAN >60 Normal >=60 [facility] Comment on above: Performed By: #### C MP, PURA, DBIL, LIPA, LIPID #### [facility] [address] [place] [address] Dr. Garry Obrien EGFR-NON AF BOLIVIAN >60 Normal >=60 [facility] Comment on above: Performed By: #### C MP, PURA, DBIL, LIPA, LIPID #### [facility] [address] [place] [address] Dr. Garry Obrien Globulin (S) [Mass/Vol] 4.3 g/dL Normal [facility] Comment on above: Performed By: #### C MP, PURA, DBIL, LIPA, LIPID #### [facility] [address] [place] [address] Dr. Garry Obrien Glucose [Mass/Vol] 99 mg/dL Normal 74-[address] [facility] Comment on above: Performed By: #### C MP, PURA, DBIL, LIPA, LIPID #### [facility] [address] [place] [address] Dr. Garry Obrien Potassium [Moles/Vol] 3.9 mmol/L Normal 3.5-5.1 [facility] Comment on above: Performed By: #### C MP, PURA, DBIL, LIPA, LIPID #### [facility] [address] [place] [address] Dr. Garry Obrien Protein [Mass/Vol] 8.2 g/dL Normal 6.4-8.2 [facility] Comment on above: Performed By: #### C MP, PURA, DBIL, LIPA, LIPID #### [facility] [address] [place] [address] [address] Garry Obrien Sodium [Moles/Vol] 136 mmol/L Normal 136-145 [facility] Comment on above: Performed By: #### C MP, PURA, DBIL, LIPA, LIPID #### [facility] [address] [place] [address] Dr. Garry Obrien Urea nitrogen [Mass/Vol] 10.0 mg/dL Normal 7.0-18.0 [facility] Comment on above: Performed By: #### C MP, PURA, DBIL, LIPA, LIPID #### [facility] [address] [place] [address] Dr. Garry Obrien Urea nitrogen/Creatinin e [Mass ratio] 14.9 mg/mg Normal [facility] Comment on above: Performed By: #### C MP, PURA, DBIL, LIPA, LIPID #### [facility] [address] [place] [address] Dr. Gar[facility] Ob[facility] 13 mm/hr Normal <=20 [facility] Comment on above: Performed By: #### S EDR #### [facility] [address] [place] [address] Dr. Garry Obrien UA RANDOM W/MICROSCOPICon BACTERIA SMALL Abnormal NONE SEEN [facility] Comment on above: Performed By: #### U AMIC #### [facility] [address] [place] [address] Dr. Garry Obrien Bilirubin Ql (U) Negative Normal NEGATIVE [facility] Comment on above: Performed By: #### U AMIC #### [facility] [address] [place] [address] Dr. Garry Obrien CAST NONE SEEN Normal NONE SEEN [facility] Comment on above: Performed By: #### U AMIC #### [facility] [address] [place] [address] Dr. Garry Obrien Clarity (U) CLEAR Normal CLEAR [facility] Comment on above: Performed By: #### U AMIC #### [facility] [address] [place] [address] Dr. Garry Obrien Color (U) LT. YELLOW Normal YELLOW [facility] Comment on above: Performed By: #### U AMIC #### [facility] [address] [place] [address] [address] Garry Obrien Crystals LM Nom (Urine sed) NONE SEEN Normal NONE SEEN [facility] Comment on above: Performed By: #### U AMIC #### [facility] [address] [place] [address] [address] Garry Obrien Epithelial cells LM Ql (Urine sed) FEW Abnormal NONE SEEN /RARE [facility] Comment on above: Performed By: #### U AMIC #### [facility] [address] [place] [address] Dr. Garry Obrien Glucose Ql (U) Negative Normal NEGATIVE [facility] Comment on above: Performed By: #### U AMIC #### [facility] [address] [place] [address] Dr. Garry Obrien Hemoglobin Ql (U) TRACE-INTACT Abnormal NEGATIVE [facility] Comment on above: Performed By: #### U AMIC #### [facility] [address] [place] [address] Dr. Garry Obrien Ketones Ql (U) Negative Normal NEGATIVE [facility] Comment on above: Performed By: #### U AMIC #### [facility] [address] [place] [address] Dr. Garry Obrien LEUKOCYTES TRACE Abnormal NEGATIVE [facility] Comment on above: Performed By: #### U AMIC #### [facility] [address] [place] [address] Dr. Garry Obrien MUCOUS NONE SEEN Normal NONE SEEN [facility] Comment on above: Performed By: #### U AMIC #### [facility] [address] [place] [address] Dr. Garry Obrien Nitrite Ql (U) Negative Normal NEGATIVE [facility] Comment on above: Performed By: #### U AMIC #### [facility] [address] [place] [address] [address] Garry Obrien pH (U) 6.0 [pH] Normal 5-9 [facility] Comment on above: Performed By: #### U AMIC #### [facility] [address] [place] [address] [address] Garry Obrien RBC 0-2 Normal 0-2 [facility] Comment on above: Performed By: #### U AMIC #### [facility] [address] [place] [address] [address] Garry Obrien SPEC GRAVITY <=1.005 Abnormal 1.005-<=1.025 [facility] Comment on above: Performed By: #### U AMIC #### [facility] [address] [place] [address] [address] Garry Obrien UA PROTEIN Negative Normal NEGATIVE/ TRACE [facility] Comment on above: Performed By: #### U AMIC #### [facility] [address] [place] [address] Dr. Garry Obrien Urobilinogen Qn (U) 0.2 {Griselda'U}/dL Normal 0.2 - 1.0 [facility] Comment on above: Performed By: #### U AMIC #### [facility] [address] [place] [address] Dr. Garry Obrien WBC 2-5 Abnormal NONE SEEN [facility] Comment on above: Performed By: #### U AMIC #### [facility] [address] [place] [address] Dr. Garry Obrien PAP ACOG PANEL 2: 30 to 65on 07-13-2022 . . Normal [facility] Comment on above: Result Comment: Perf ormed at: WB Performed By: #### [id number] #### [facility] [address] [place] [address] Dr. Garry Obrien Age Gdln ACOG Testing 30-65 [facility] Comment on above: Performed By: #### [id number] #### [facility] [address] [place] [address] Dr. Garry Obrien DIAGNOSIS: Comment Normal [facility] Comment on above: Result Comment: NEGA TIVE FOR INTRAEPITHELIAL LESION OR MALIGNANCY. Performed at: WB Performed By: #### [id number] #### [facility] [address] [place] [address] Dr. Garry Obrien HPV Aptima Negative Normal Negative [facility] Comment on above: Result Comment: This nucleic acid amplification test detects fourteen high-risk HPV types (16,18,31,33,35,39,45,51,52,56,58,59,66,68) without differentiation. Performed at: =G Performed By: #### [id number] #### [facility] [address] [place] [address] Dr. Garry Obrien Methodology: Comment Normal [facility] Comment on above: Result Comment: This liquid based ThinPrep(R) pap test was screened with the use of an image guided system. Performed at: WB Performed By: #### [id number] #### [facility] [address] [place] [address] Dr. Garry Obrien Note: Comment Normal [facility] Comment on above: Result Comment: The Pap smear is a screening test designed to aid in the detection of premalignant and malignant conditions of the uterine cervix. It is not a diagnostic procedure and should not be used as the sole means of detecting cervical cancer. Both false-positive and false-negative reports do occur. . Performed at: WB Performed By: #### [id number] #### [facility] [address] [place] [address] Dr. Garry Obrien Performed by: Comment Normal [facility] Comment on above: Result Comment: Macrina Lamar, Voip Network Technician (ASCP) Performed at: WB Performed By: #### [id number] #### [facility] [address] [place] [address] Dr. Garry Obrien Specimen adequacy: Comment Normal [facility] Comment on above: Result Comment: Sati sfactory for evaluation. Endocervical and/or squamous metaplastic cells (endocervical component) are present. Performed at: WB Performed By: #### [id number] #### [facility] [address] [place] [address] Dr. Garry Obrien Encounters Encounter Date Encounter Type Care Provider Facility Start: 06-19-2024 End: 06-19-2024 ambulatory YEYO JANKI Not Available Start: 06-04-2024 End: 06-04-2024 ambulatory PURA WILL [...] Not Available Start: 12-28-2022 End: 12-29-2022 ambulatory WASTE COTTON CLEANER AC [facility] Facility: Start: 07-06-2022 End: 07-06-2022 ambulatory YEYO JANKI . Facility: Payers Date Payer Category Payer Unknown [id number] 2.16.84 [id number] 1990 Unknown [id number] 2.16.84 [id number] 1990 Unknown [id number] 2.16.84 [id number] 1992 Unknown [id number] 2.16.84 [id number] 1992 Unknown [id number] 2.16.84 [id number] 1992 Unknown [id number] .16.84 [id number] 1992 Unknown [id number] .16.84 [id number] 1992 Unknown [id number] 2.16.84 [id number] 1992 Unknown [id number] 2.16.84 [id number] 1992 Unknown [id number] 2.16.84 [id number] 1992 Unknown [id number] 2.16.84 [id number] 1959 Unknown [id number] Summary Purpose Family History No Family History Records FoundNo Family History Records Found Advance Directives No Advanced Directives Records FoundNo Advanced Directives Records Found Additional Source Comments INFORMATION SOURCE (unrecogn ized section and content) DATE CREATED AUTHOR 01/01/2023 [facility] DATE CREATED AUTHOR WILLIS IVEY 06/21/2024 [facility] FOR RECORDS PERTAINING TO PATIENTS [...] THE PRIMARY CLINICAL RECORDS. [facility] [employer] provides no warranty or guarantee of the accuracy or completeness of information in this document.
--- NOTE | 2024-06-25 15:56 | US_ITS ---
[address] [address] Patient Name: MEE WIGGINS MRN: [id number] date: 1990 Sex: F Assigned Patient Location: Current Patient Location: Accession/Order Number: [id number] Exam Date: 06/25/2024 16:04 Report Date: 06/26/2024 07:10 At the request of: YEYO SHEARER Procedure: US OB BPP w non-stress EXAMINATION: US OB BPP w non-stress HISTORY: Choroid plexus cyst of fetus O35.03X1 COMPARISON: 06/18/2024 TECHNIQUE: Ultrasound biophysical profile was performed in the radiology department. non-reactive stress testing was performed by nursing staff in the birthing center. FINDINGS: BREATHING MOVEMENTS: 2 GROSS BODY MOVEMENTS: 2 TONE: 2 QUALITATIVE AMNIOTIC FLUID VOLUME: 2 PRESENTATION: Cephalic HEART RATE: 130 BPM AMNIOTIC FLUID VOLUME: 19.4 cm GESTATIONAL AGE: 36 weeks 1 day US/US OB BPP w non-stress IMPRESSION: Total biophysical profile score: 8/8 Electronically authenticated by: SHUKRI LOCKWOOD Date: 06/26/2024 07:10
[2024-06-25 16:38] VITALS: BP 118/73; PULSE 107
== END 2024-06-25 17:03 | disposition home or self-care (01) ==
LOC: US 07:06 → FBC 15:51
PROVIDERS: PCP Nurse Practitioner; Visit Provider Obstetrics & Gynecology
DX: O35.03X1 Maternal care for (suspected) central nervous system malformation or damage in fetus, choroid plexus cysts, fetus 1 (principal); Z3A.36 36 weeks gestation of pregnancy
CPT/HCPCS: 76818

== ENCOUNTER 2024-06-26 19:01 | Outpatient (REF) | payer BC, SELFPAY | END 2024-06-26 19:02 | disposition home or self-care (01) | LOC: LAB 19:01 | PROVIDERS: PCP Nurse Practitioner; Visit Provider Physician Assistant | DX: Z34.93 Encounter for supervision of normal pregnancy, unspecified, third trimester (principal) | CPT/HCPCS: 87081; 87150 ==

== ENCOUNTER 2024-06-28 07:00 | Outpatient (OUT) | payer BC, SELFPAY ==
--- OUTSIDE RECORDS SUMMARY | 2024-06-28 07:03 | XMS_ITS | CCD ---
Author Organization [facility] Care Team Providers Care Roast Master Name Role Phone JANKI ., DR ORONA Admitting Unavailable JANKI ., DR ORONA Attending Unavailable LUIS E DAVIS Primary Care Unavailable JANKI ., DR ORONA Consulting Unavailable AICHHOLZ, TRAVEL REGISTERED NURSE ICU AC Admitting Unavailable AICHHOLZ, TRAVEL REGISTERED NURSE ICU AC Attending Unavailable AICHHOLZ, TRAVEL REGISTERED NURSE ICU AC Primary Care Unavailable AICHHOLZ, TRAVEL REGISTERED NURSE ICU AC Consulting Unavailable JANKI, YEYO Attending Unavailable [...] [Catalytic activity/Vol] 36 U/L Normal 25-115 [facility] Comment on above: Performed By: #### C MP, PURA, DBIL, LIPA, LIPID #### [facility] [address], [place] [address] Dr. Garry Obrien BILIRUBIN CONJUGATED (DIRECT )on 03-22-2023 BILI, CONJUGATED 0.1 mg/dL Normal 0.0-0.2 [facility] Comment on above: Performed By: #### C MP, PURA, DBIL, LIPA, LIPID #### [facility] [address] [place] [address] Dr. Garry Obrien CBC AUTO DIFFon 12-28-2022 BASO # 0.0 103/ul Normal 0.0-0.1 [facility] Comment on above: Performed By: #### C BC #### [facility] [address] [place] [address] Dr. Garry Obrien Basophils/100 WBC (Bld) 0.3 % Normal 0.2-2.0 [facility] Comment on above: Performed By: #### C BC #### [facility] [address] [place] [address] Dr. Garry Obrien EO # 0.5 103/ul Normal 0.0-0.7 [facility] Comment on above: Performed By: #### C BC #### [facility] [address] [place] [address] Dr. Garry Obrien Eosinophils/100 WBC (Bld) 8.2 % Critically high 0.9-7.0 [facility] Comment on above: Performed By: #### C BC #### [facility] [address] [place] [address] Dr. Garry Obrien Erythrocyte distribution width (RBC) [Ratio] 13.5 % Normal 11.0-15.0 [facility] Comment on above: Performed By: #### C BC #### [facility] [address] [place] [address] Dr. Garry Obrien Hematocrit (Bld) [Volume fraction] 41.7 % Normal 36.0-48.0 [facility] Comment on above: Performed By: #### C BC #### [facility] [address] [place] [address] Dr. Garry Obrien Hemoglobin (Bld) [Mass/Vol] 13.8 g/dL Normal 12.0-16.0 [facility] Comment on above: Performed By: #### C BC #### [facility] [address] [place] [address] Dr. Garry Obrien IG # 0.01 10e3/ul Normal 0.00-0.03 [facility] Comment on above: Performed By: #### C BC #### [facility] [address] [place] [address] Dr. Garry Obrien IG % 0.2 % Normal 0.0-0.5 [facility] Comment on above: Performed By: #### C BC #### [facility] [address] [place] [address] Dr. Garry Obrien LYMPH # 2.0 103/ul Normal 1.2-3.8 [facility] Comment on above: Performed By: #### C BC #### [facility] [address] [place] [address] Dr. Garry Obrien Lymphocytes/100 WBC (Bld) 32.8 % Normal 20.5-60.0 [facility] Comment on above: Performed By: #### C BC #### [facility] [address] [place] [address] Dr. Garry Obrien MANUAL DIFF REQ NO Normal [facility] Comment on above: Performed By: #### C BC #### [facility] [address] [place] [address] Dr. Garry Obrien MCH (RBC) [Entitic mass] 29.2 pg Normal 26.7-34.0 [facility] Comment on above: Performed By: #### C BC #### [facility] [address] [place] [address] Dr. Garry Obrien MCHC (RBC) [Mass/Vol] 33.1 g/dL Normal 29.9-35.2 [facility] Comment on above: Performed By: #### C BC #### [facility] [address] [place] [address] Dr. Garry Obrien MCV (RBC) [Entitic vol] 88.2 fL Normal 81.0-99.0 [facility] Comment on above: Performed By: #### C BC #### [facility] [address] [place] [address] Dr. Garry Obrien MONO # 0.5 103/ul Normal 0.3-0.8 [facility] Comment on above: Performed By: #### C BC #### [facility] [address] [place] [address] Dr. Garry Obrien Monocytes/100 WBC (Bld) 7.7 % Normal 1.7-12.0 [facility] Comment on above: Performed By: #### C BC #### [facility] [address] [place] [address] Dr. Garry Obrien NEUT # 3.1 103/ul Normal 1.4-6.5 [facility] Comment on above: Performed By: #### C BC #### [facility] [address] [place] [address] Dr. Garry Obrien Neutrophils/100 WBC (Bld) 50.8 % Normal 43.0-75.0 [facility] Comment on above: Performed By: #### C BC #### [facility] [address] [place] [address] Dr. Garry Obrien Platelet mean volume (Bld) [Entitic vol] 9.3 fL Critically low 9.5-13.5 [facility] Comment on above: Performed By: #### C BC #### [facility] [address] [place] [address] Dr. Garry Obrien PLT 318 103/ul Normal 150-450 [facility] Comment on above: Performed By: #### C BC #### [facility] [address] [place] [address] Dr. Garry Obrien RBC 4.73 106/ul Normal 4.20-5.40 [facility] Comment on above: Performed By: #### C BC #### [facility] [address] [place] [address] Dr. Garry Obrien WBC 6.1 103/ul Normal 4.0-11.0 [facility] Comment on above: Performed By: #### C BC #### [facility] [address] [place] [address] Dr. Garry Obrien LIPASEon 12-28-2022 Lipase [Catalytic activity/Vol] 198.0 U/L Normal 73.0-393.0 [facility] Comment on above: Performed By: #### C MP, PURA, DBIL, LIPA, LIPID #### [facility] [address] [place] [address] Dr. Garry Obrien LIPID PROFILEon 12-28-2022 CHOL-HDL RATIO NORM SEE BELOW Normal [facility] Comment on above: Result Comment: 3.3 - 4.4 LOW RISK 4.4 - 7.1 AVERAGE RISK 7.1 - 11.0 MODERATE RISK >11.0 HIGH RISK Performed By: #### C MP, PURA, DBIL, LIPA, LIPID #### [facility] [address] [place] [address] Dr. Garry Obrien Cholesterol [Mass/Vol] 237 mg/dL Critically high <=200 [facility] Comment on above: Performed By: #### C MP, PURA, DBIL, LIPA, LIPID #### [facility] [address] [place] [address] Dr. Garry Obrien Cholesterol in HDL [Mass/Vol] 67 mg/dL Critically high 40-60 [facility] Comment on above: Performed By: #### C MP, PURA, DBIL, LIPA, LIPID #### [facility] [address] [place] [address] Dr. Garry Obrien Cholesterol in LDL [Mass/Vol] 144.8 mg/dL Normal [facility] Comment on above: Performed By: #### C MP, PURA, DBIL, LIPA, LIPID #### [facility] [address] [place] [address] Dr. Garry Obrien Cholesterol.total/ Cholesterol in HDL [Mass ratio] 3.5 {ratio} Normal [facility] Comment on above: Performed By: #### C MP, PURA, DBIL, LIPA, LIPID #### [facility] [address] [place] [address] Dr. Garry Obrien HDL NORMAL > or = 60 mg/dl - LO W CARDIOVASCULAR RISK <40 mg/dl - HIGH CARDIOVASCULAR RISK Normal [facility] Comment on above: Performed By: #### C MP, PURA, DBIL, LIPA, LIPID #### [facility] [address] [address] [address] Garry Obrien LDL CALC NORMAL SEE BELOW Normal [facility] Comment on above: Result Comment: <100 mg/dl OPTIMAL 100 - 129 mg/dl NEAR OR ABOVE OPTIMAL 130 - 159 mg/dl BORDERLINE HIGH 160 - 189 mg/dl HIGH >190 mg/dl VERY HIGH Performed By: #### C MP, PURA, DBIL, LIPA, LIPID #### [facility] [address] [address] [address] Garry Obrien Triglyceride [Mass/Vol] 126 mg/dL Normal <=150 [facility] Comment on above: Performed By: #### C MP, PURA, DBIL, LIPA, LIPID #### [facility] [address] [address] [address] Garry Obrien VLDL CALC 25.2 mg/dL Normal [facility] Comment on above: Performed By: #### C MP, PURA, DBIL, LIPA, LIPID #### [facility] [address] [place] [address] Dr. Garry Obrien PREG HCG QUALon 12-28-2022 , QUAL Negative Normal NEGATIVE [facility] Comment on above: Performed By: #### P REG #### [facility] [address] [place] [address] Dr. Garry Obrien PROF 14(COMP METB)on 023 Albumin [Mass/Vol] 3.9 g/dL Normal 3.4-5.0 [facility] Comment on above: Performed By: #### C MP, PURA, DBIL, LIPA, LIPID #### [facility] [address] [place] [address] Dr. Garry Obrien Albumin/Globulin [Mass ratio] 0.9 {ratio} Normal [facility] Comment on above: Performed By: #### C MP, PURA, DBIL, LIPA, LIPID #### [facility] [address] [place] [address] Dr. Garry Obrien ALP [Catalytic activity/Vol] 51 U/L Normal 46-116 [facility] Comment on above: Performed By: #### C MP, PURA, DBIL, LIPA, LIPID #### [facility] [address] [place] [address] Dr. Garry Obrien ALT [Catalytic activity/Vol] 20 U/L Normal 14-59 [facility] Comment on above: Performed By: #### C MP, PURA, DBIL, LIPA, LIPID #### [facility] [address] [place] [address] Dr. Garry Obrien Anion gap [Moles/Vol] 12.5 mmol/L Normal [facility] Comment on above: Performed By: #### C MP, PURA, DBIL, LIPA, LIPID #### [facility] [address] [place] [address] Dr. Garry Obrien AST [Catalytic activity/Vol] 20 U/L Normal 15-37 [facility] Comment on above: Performed By: #### C MP, PURA, DBIL, LIPA, LIPID #### [facility] [address] [place] [address] Dr. Garry Obrien Bilirubin [Mass/Vol] 0.5 mg/dL Normal 0.2-1.0 [facility] Comment on above: Performed By: #### C MP, PURA, DBIL, LIPA, LIPID #### [facility] [address] [place] [address] Dr. Garry Obrien Calcium [Mass/Vol] 9.5 mg/dL Normal 8.5-10.1 [facility] Comment on above: Performed By: #### C MP, PURA, DBIL, LIPA, LIPID #### [facility] [address] [place] [address] Dr. Garry Obrien Chloride [Moles/Vol] 100 mmol/L Normal 98-107 [facility] Comment on above: Performed By: #### C MP, PURA, DBIL, LIPA, LIPID #### [facility] [address] [place] [address] Dr. Garry Obrien CO2 [Moles/Vol] 27.4 mmol/L Normal 21.0-32.0 [facility] Comment on above: Performed By: #### C MP, PURA, DBIL, LIPA, LIPID #### [facility] [address] [place] [address] Dr. Garry Obiren Creatinine [Mass/Vol] 0.67 mg/dL Normal 0.55-1.02 [facility] Comment on above: Performed By: #### C MP, PURA, DBIL, LIPA, LIPID #### [facility] [address] [place] [address] Dr. Garry Obrien EGFR-AF CHINESE >60 Normal >=60 [facility] Comment on above: Performed By: #### C MP, PURA, DBIL, LIPA, LIPID #### [facility] [address] [place] [address] Dr. Garry Obrien EGFR-NON AF CHINESE >60 Normal >=60 [facility] Comment on above: Performed By: #### C MP, PURA, DBIL, LIPA, LIPID #### [facility] [address] [place] [address] Dr. Garry Obrien Globulin (S) [Mass/Vol] 4.3 g/dL Normal [facility] Comment on above: Performed By: #### C MP, PURA, DBIL, LIPA, LIPID #### [facility] [address] [place] [address] Dr. Garry Obrien Glucose [Mass/Vol] 99 mg/dL Normal 74-106 [facility] Comment on above: Performed By: #### C MP, PURA, DBIL, LIPA, LIPID #### [facility] [address] [place] [address] Dr. Garry Obrien Potassium [Moles/Vol] 3.9 mmol/L Normal 3.5-5.1 [facility] Comment on above: Performed By: #### C MP, PURA, DBIL, LIPA, LIPID #### [facility] [address] [place] [address] Dr. Garry Obrien Protein [Mass/Vol] 8.2 g/dL Normal 6.4-8.2 [facility] Comment on above: Performed By: #### C MP, PURA, DBIL, LIPA, LIPID #### [facility] [address] [address] [address] Garry Obrien Sodium [Moles/Vol] 136 mmol/L Normal 136-145 [facility] Comment on above: Performed By: #### C MP, PURA, DBIL, LIPA, LIPID #### [facility] [address] [place] [address] Dr. Garry Obrien Urea nitrogen [Mass/Vol] 10.0 mg/dL Normal 7.0-18.0 [facility] Comment on above: Performed By: #### C MP, PURA, DBIL, LIPA, LIPID #### [facility] [address] [place] [address] Dr. Garry Obrien Urea nitrogen/Creatinin e [Mass ratio] 14.9 mg/mg Normal [facility] Comment on above: Performed By: #### C MP, PURA, DBIL, LIPA, LIPID #### [facility] [address] [place] [address] Dr. Garry Ob[facility] 13 mm/hr Normal <=20 [facility] Comment on above: Performed By: #### S EDR #### [facility] [address] [place] [address] Dr. Garry Obrien UA RANDOM W/MICROSCOPICon BACTERIA SMALL Abnormal NONE SEEN [facility] Comment on above: Performed By: #### U AMIC #### [facility] [address] [place] [address] Dr. Garry Obrien Bilirubin Ql (U) Negative Normal NEGATIVE [facility] Comment on above: Performed By: #### U AMIC #### [facility] [address] [place] [address] Dr. Garry Obrien CAST NONE SEEN Normal NONE SEEN [facility] Comment on above: Performed By: #### U AMIC #### [facility] [address] [place] [address] Dr. Garry Obrien Clarity (U) CLEAR Normal CLEAR [facility] Comment on above: Performed By: #### U AMIC #### [facility] [address] [place] [address] Dr. Garry Obrien Color (U) LT. YELLOW Normal YELLOW [facility] Comment on above: Performed By: #### U AMIC #### [facility] [address] [address] [address] Garry Obrien Crystals LM Nom (Urine sed) NONE SEEN Normal NONE SEEN [facility] Comment on above: Performed By: #### U AMIC #### [facility] [address] [address] [address] Garry Obrien Epithelial cells LM Ql (Urine sed) FEW Abnormal NONE SEEN /RARE [facility] Comment on above: Performed By: #### U AMIC #### [facility] [address] [place] [address] Dr. Garry Obrien Glucose Ql (U) Negative Normal NEGATIVE [facility] Comment on above: Performed By: #### U AMIC #### [facility] [address] [place] [address] Dr. Garry Obrien Hemoglobin Ql (U) TRACE-INTACT Abnormal NEGATIVE [facility] Comment on above: Performed By: #### U AMIC #### [facility] [address] [place] [address] Dr. Garry Obrien Ketones Ql (U) Negative Normal NEGATIVE [facility] Comment on above: Performed By: #### U AMIC #### [facility] [address] [place] [address] Dr. Garry Obrien LEUKOCYTES TRACE Abnormal NEGATIVE [facility] Comment on above: Performed By: #### U AMIC #### [facility] [address] [place] [address] Dr. Garry Obrien MUCOUS NONE SEEN Normal NONE SEEN [facility] Comment on above: Performed By: #### U AMIC #### [facility] [address] [place] [address] Dr. Garry Obrien Nitrite Ql (U) Negative Normal NEGATIVE [facility] Comment on above: Performed By: #### U AMIC #### [facility] [address] [address] [address] Garry Obrien pH (U) 6.0 [pH] Normal 5-9 [facility] Comment on above: Performed By: #### U AMIC #### [facility] [address] [address] [address] Garry Obrien RBC 0-2 Normal 0-2 [facility] Comment on above: Performed By: #### U AMIC #### [facility] [address] [address] [address] Garry Obrien SPEC GRAVITY <=1.005 Abnormal 1.005-<=1.025 [facility] Comment on above: Performed By: #### U AMIC #### [facility] [address] [address] [address] Garry Obrien UA PROTEIN Negative Normal NEGATIVE/ TRACE [facility] Comment on above: Performed By: #### U AMIC #### [facility] [address] [place] [address] Dr. Garry Obrien Urobilinogen Qn (U) 0.2 {Griselda'U}/dL Normal 0.2 - 1.0 [facility] Comment on above: Performed By: #### U AMIC #### [facility] [address] [place] [address] Dr. Garry Obrien WBC 2-5 Abnormal NONE SEEN [facility] Comment on above: Performed By: #### U AMIC #### [facility] [address] [place] [address] Dr. Garry Obrien PAP ACOG PANEL 2: 30 to 65on 07-13-2022 . . Normal [facility] Comment on above: Result Comment: Perf ormed at: WB Performed By: #### [id number] #### [facility] [address] [place] [address] Dr. Garry Obrien Age Gdln ACOG Testing 30-65 [facility] Comment on above: Performed By: #### [id number] #### [facility] [address] [place] [address] Dr. Garry Obrien DIAGNOSIS: Comment Normal [facility] Comment on above: Result Comment: NEGA TIVE FOR INTRAEPITHELIAL LESION OR MALIGNANCY. Performed at: WB Performed By: #### [id number] #### [facility] [address] [place] [address] Dr. Garry Obrien HPV Aptima Negative Normal Negative [facility] Comment on above: Result Comment: This nucleic acid amplification test detects fourteen high-risk HPV types (16,18,31,33,35,39,45,51,52,56,58,59,66,68) without differentiation. Performed at: =G Performed By: #### [id number] #### [facility] [address] [place] [address] Dr. Garry Obrien Methodology: Comment Normal [facility] Comment on above: Result Comment: This liquid based ThinPrep(R) pap test was screened with the use of an image guided system. Performed at: WB Performed By: #### [id number] #### [facility] [address] [place] [address] Dr. Garry Obrien Note: Comment Normal [facility] Comment on above: Result Comment: The Pap smear is a screening test designed to aid in the detection of premalignant and malignant conditions of the uterine cervix. It is not a diagnostic procedure and should not be used as the sole means of detecting cervical cancer. Both false-positive and false-negative reports do occur. . Performed at: WB Performed By: #### [id number] #### [facility] [address] [place] [address] Dr. Garry Obrien Performed by: Comment Normal [facility] Comment on above: Result Comment: Macrina Lamar, Service Order Dispatcher (ASCP) Performed at: WB Performed By: #### [id number] #### [facility] [address] [place] [address] Dr. Garry Obrien Specimen adequacy: Comment Normal [facility] Comment on above: Result Comment: Sati sfactory for evaluation. Endocervical and/or squamous metaplastic cells (endocervical component) are present. Performed at: WB Performed By: #### [id number] #### [facility] [address] [place] [address] Dr. Garry Obrien Encounters Encounter Date Encounter [...] Not Available Start: 12-28-2022 End: 12-29-2022 ambulatory TRAVEL REGISTERED NURSE ICU AC ELTONTerryDARIANA Facility: Start: 07-06-2022 End: 07-06-2022 ambulatory YEYO JANKI . Facility: Payers Date Payer Category Payer Unknown [id number] 2.16.84 [id number] 1992 Unknown [id number] 2.16.84 [id number] 1992 Unknown [id number] 2.16.84 [id number] 1992 Unknown [id number] 2.16.84 [id number] 1992 Unknown [id number] 2.16.84 [id number] 1992 Unknown [id number] .16.84 [id number] 1992 Unknown [id number] .16.84 [id number] 1992 Unknown [id number] 2.16.84 [id number] 1992 Unknown [id number] 2.16.84 [id number] 1992 Unknown [id number] 2.16.84 [id number] 1992 Unknown [id number] 2.16.84 [id number] 1959 Unknown [id number] Summary Purpose Family History No Family History Records FoundNo Family History Records Found Advance Directives No Advanced Directives Records FoundNo Advanced Directives Records Found Additional Source Comments INFORMATION SOURCE (unrecogn ized section and content) DATE CREATED AUTHOR 01/01/2023 [facility] DATE CREATED AUTHOR WILLIS IVEY 06/21/2024 [facility] FOR RECORDS PERTAINING TO PATIENTS WHO [...] BE BASED ON THE PRIMARY CLINICAL RECORDS. [facility] [employer] provides no warranty or guarantee of the accuracy or completeness of information in this document.
[2024-06-28 15:22] VITALS: BP 125/68; PULSE 93
== END 2024-06-28 15:50 | disposition home or self-care (01) ==
LOC: FBCO 07:40 → FBC 15:05
PROVIDERS: PCP Nurse Practitioner; Visit Provider Obstetrics & Gynecology
DX: O26.893 Other specified pregnancy related conditions, third trimester (principal); Z3A.36 36 weeks gestation of pregnancy
CPT/HCPCS: 59025

== ENCOUNTER 2024-07-02 07:23 | Outpatient (OUT) | payer BC, SELFPAY ==
--- OUTSIDE RECORDS SUMMARY | 2024-07-02 07:26 | XMS_ITS | CCD ---
Author Organization [facility] Care Team Providers Care Tube Coremaker Name Role Phone JANKI ., DR ORONA Admitting Unavailable JANKI ., DR ORONA Attending Unavailable LUIS E DAVIS Primary Care Unavailable JANKI ., DR ORONA Consulting Unavailable AICHHOLZ, GROOVER AND STRIPER OPERATOR AC Admitting Unavailable AICHHOLZ, GROOVER AND STRIPER OPERATOR AC Attending Unavailable AICHHOLZ, GROOVER AND STRIPER OPERATOR AC Primary Care Unavailable AICHHOLZ, GROOVER AND STRIPER OPERATOR AC Consulting Unavailable JANKI, YEYO Attending [...] [Catalytic activity/Vol] 36 U/L Normal 25-115 The [facility] Comment on above: Performed By: #### C MP, PURA, DBIL, LIPA, LIPID #### [facility] [address], [place] [address] Dr. Garry Obrien BILIRUBIN CONJUGATED (DIRECT )on 12-28-2022 BILI, CONJUGATED 0.1 mg/dL Normal 0.0-0.2 [facility] Comment on above: Performed By: #### C MP, PURA, DBIL, LIPA, LIPID #### [facility] [address] [place] [address] Dr. Garry Obrien CBC AUTO DIFFon 12-28-2022 BASO # 0.0 103/ul Normal 0.0-0.1 [facility] Comment on above: Performed By: #### C BC #### [facility] [address] [place] [address] Dr. Garry Obrien Basophils/100 WBC (Bld) 0.3 % Normal 0.2-2.0 [facility] Comment on above: Performed By: #### C BC #### [facility] [address] [place] [address] Dr. Garry Obrien EO # 0.5 103/ul Normal 0.0-0.7 [facility] Comment on above: Performed By: #### C BC #### [facility] [address] [place] [address] Dr. Garry Obrien Eosinophils/100 WBC (Bld) 8.2 % Critically high 0.9-7.0 [facility] Comment on above: Performed By: #### C BC #### [facility] [address] [place] [address] Dr. Garry Obrine Erythrocyte distribution width (RBC) [Ratio] 13.5 % Normal 11.0-15.0 [facility] Comment on above: Performed By: #### C BC #### [facility] [address] [place] [address] Dr. Garry Obrien Hematocrit (Bld) [Volume fraction] 41.7 % Normal 36.0-48.0 [facility] Comment on above: Performed By: #### C BC #### [facility] [address] [place] [address] Dr. Garry Obrien Hemoglobin (Bld) [Mass/Vol] 13.8 g/dL Normal 12.0-16.0 [facility] Comment on above: Performed By: #### C BC #### [facility] [address] [place] [address] Dr. Garry Obrien IG # 0.01 10e3/ul Normal 0.00-0.03 [facility] Comment on above: Performed By: #### C BC #### [facility] [address] [place] [address] Dr. Garry Obrien IG % 0.2 % Normal 0.0-0.5 [facility] Comment on above: Performed By: #### C BC #### [facility] [address] [place] [address] Dr. Garry Obrien LYMPH # 2.0 103/ul Normal 1.2-3.8 [facility] Comment on above: Performed By: #### C BC #### [facility] [address] [place] [address] Dr. Garry Obrien Lymphocytes/100 WBC (Bld) 32.8 % Normal 20.5-60.0 [facility] Comment on above: Performed By: #### C BC #### [facility] [address] [place] [address] Dr. Garry Obrien MANUAL DIFF REQ NO Normal [facility] Comment on above: Performed By: #### C BC #### [facility] [address] [place] [address] Dr. Garry Obrien MCH (RBC) [Entitic mass] 29.2 pg Normal 26.7-34.0 [facility] Comment on above: Performed By: #### C BC #### [facility] [address] [place] [address] Dr. Garry Obrien MCHC (RBC) [Mass/Vol] 33.1 g/dL Normal 29.9-35.2 [facility] Comment on above: Performed By: #### C BC #### [facility] [address] [place] [address] Dr. Garry Obrien MCV (RBC) [Entitic vol] 88.2 fL Normal 81.0-99.0 [facility] Comment on above: Performed By: #### C BC #### [facility] [address] [place] [address] Dr. Garry Obrien MONO # 0.5 103/ul Normal 0.3-0.8 [facility] Comment on above: Performed By: #### C BC #### [facility] [address] [place] [address] Dr. Garry Obrien Monocytes/100 WBC (Bld) 7.7 % Normal 1.7-12.0 [facility] Comment on above: Performed By: #### C BC #### [facility] [address] [place] [address] Dr. Garry Obrien NEUT # 3.1 103/ul Normal 1.4-6.5 [facility] Comment on above: Performed By: #### C BC #### [facility] [address] [place] [address] Dr. Garry Obrien Neutrophils/100 WBC (Bld) 50.8 % Normal 43.0-75.0 [facility] Comment on above: Performed By: #### C BC #### [facility] [address] [place] [address] Dr. Garry Obrien Platelet mean volume (Bld) [Entitic vol] 9.3 fL Critically low 9.5-13.5 [facility] Comment on above: Performed By: #### C BC #### [facility] [address] [place] [address] Dr. Garry Obrien PLT 318 103/ul Normal 150-450 [facility] Comment on above: Performed By: #### C BC #### [facility] [address] [place] [address] Dr. Garry Obrien RBC 4.73 106/ul Normal 4.20-5.40 The [facility] Comment on above: Performed By: #### C BC #### [facility] [address] [place] [address] Dr. Garry Obrien WBC 6.1 103/ul Normal 4.0-11.0 [facility] Comment on above: Performed By: #### C BC #### [facility] [address] [place] [address] Dr. Garry Obrien LIPASEon 03-22-2023 Lipase [Catalytic activity/Vol] 198.0 U/L Normal 73.0-393.0 [facility] Comment on above: Performed By: #### C MP, PURA, DBIL, LIPA, LIPID #### [facility] [address] [place] [address] Dr. Garry Obrien LIPID PROFILEon 12-28-2022 CHOL-HDL RATIO NORM SEE BELOW Normal [facility] Comment on above: Result Comment: 3.3 - 4.4 LOW RISK 4.4 - 7.1 AVERAGE RISK 7.1 - 11.0 MODERATE RISK >11.0 HIGH RISK Performed By: #### C MP, PURA, DBIL, LIPA, LIPID #### [facility] [address] [place] [address] Dr. Garry Obrien Cholesterol [Mass/Vol] 237 mg/dL Critically high <=200 [facility] Comment on above: Performed By: #### C MP, PURA, DBIL, LIPA, LIPID #### [facility] [address] [place] [address] Dr. Garry Obrien Cholesterol in HDL [Mass/Vol] 67 mg/dL Critically high 40-60 [facility] Comment on above: Performed By: #### C MP, PURA, DBIL, LIPA, LIPID #### [facility] [address] [place] [address] Dr. Garry Obrien Cholesterol in LDL [Mass/Vol] 144.8 mg/dL Normal [facility] Comment on above: Performed By: #### C MP, PURA, DBIL, LIPA, LIPID #### [facility] [address] [place] [address] Dr. Garry Obrien Cholesterol.total/ Cholesterol in HDL [Mass ratio] 3.5 {ratio} Normal [facility] Comment on above: Performed By: #### C MP, PURA, DBIL, LIPA, LIPID #### [facility] [address] [place] [address] Dr. Garry Obrien HDL NORMAL > or = 60 mg/dl - LO W CARDIOVASCULAR RISK <40 mg/dl - HIGH CARDIOVASCULAR RISK Normal [facility] Comment on above: Performed By: #### C MP, PURA, DBIL, LIPA, LIPID #### [facility] [address] [place] [address] [address] Garry Obrien LDL CALC NORMAL SEE BELOW Normal [facility] Comment on above: Result Comment: <100 mg/dl OPTIMAL 100 - 129 mg/dl NEAR OR ABOVE OPTIMAL 130 - 159 mg/dl BORDERLINE HIGH 160 - 189 mg/dl HIGH >190 mg/dl VERY HIGH Performed By: #### C MP, PURA, DBIL, LIPA, LIPID #### [facility] [address] [place] [address] [address] Garry Obrien Triglyceride [Mass/Vol] 126 mg/dL Normal <=150 [facility] Comment on above: Performed By: #### C MP, PURA, DBIL, LIPA, LIPID #### [facility] [address] [place] [address] Dr. Garry Obrien VLDL CALC 25.2 mg/dL Normal [facility] Comment on above: Performed By: #### C MP, PURA, DBIL, LIPA, LIPID #### [facility] [address] [place] [address] Dr. Garry Obrien PREG HCG QUALon 12-28-2022 , QUAL Negative Normal NEGATIVE [facility] Comment on above: Performed By: #### P REG #### [facility] [address] [place] [address] Dr. Garry Obrien PROF 14(COMP METB)on 023 Albumin [Mass/Vol] 3.9 g/dL Normal 3.4-5.0 [facility] Comment on above: Performed By: #### C MP, PURA, DBIL, LIPA, LIPID #### [facility] [address] [place] [address] Dr. Garry Obrien Albumin/Globulin [Mass ratio] 0.9 {ratio} Normal [facility] Comment on above: Performed By: #### C MP, PURA, DBIL, LIPA, LIPID #### [facility] [address] [place] [address] Dr. Garry Obrien ALP [Catalytic activity/Vol] 51 U/L Normal 46-116 [facility] Comment on above: Performed By: #### C MP, PURA, DBIL, LIPA, LIPID #### [facility] [address] [place] [address] Dr. Garry Obrien ALT [Catalytic activity/Vol] 20 U/L Normal 14-59 [facility] Comment on above: Performed By: #### C MP, PURA, DBIL, LIPA, LIPID #### [facility] [address] [place] [address] Dr. Garry Obrien Anion gap [Moles/Vol] 12.5 mmol/L Normal [facility] Comment on above: Performed By: #### C MP, PURA, DBIL, LIPA, LIPID #### [facility] [address] [place] [address] Dr. Garry Obrien AST [Catalytic activity/Vol] 20 U/L Normal 15-37 [facility] Comment on above: Performed By: #### C MP, PURA, DBIL, LIPA, LIPID #### [facility] [address] [place] [address] Dr. Garry Obrien Bilirubin [Mass/Vol] 0.5 mg/dL Normal 0.2-1.0 [facility] Comment on above: Performed By: #### C MP, PURA, DBIL, LIPA, LIPID #### [facility] [address] [place] [address] Dr. Garry Obrien Calcium [Mass/Vol] 9.5 mg/dL Normal 8.5-10.1 [facility] Comment on above: Performed By: #### C MP, PURA, DBIL, LIPA, LIPID #### [facility] [address] [place] [address] Dr. Garry Obrien Chloride [Moles/Vol] 100 mmol/L Normal 98-107 The [facility] Comment on above: Performed By: #### C MP, PURA, DBIL, LIPA, LIPID #### [facility] [address] [place] [address] Dr. Garry Obrien CO2 [Moles/Vol] 27.4 mmol/L Normal 21.0-32.0 [facility] Comment on above: Performed By: #### C MP, PURA, DBIL, LIPA, LIPID #### [facility] [address] [place] [address] Dr. Garry Obrien Creatinine [Mass/Vol] 0.67 mg/dL Normal 0.55-1.02 [facility] Comment on above: Performed By: #### C MP, PURA, DBIL, LIPA, LIPID #### [facility] [address] [place] [address] Dr. Garry Obrien EGFR-AF BARBADIAN >60 Normal >=60 [facility] Comment on above: Performed By: #### C MP, PURA, DBIL, LIPA, LIPID #### [facility] [address] [place] [address] Dr. Garry Obiren EGFR-NON AF BARBADIAN >60 Normal >=60 [facility] Comment on above: Performed By: #### C MP, PURA, DBIL, LIPA, LIPID #### [facility] [address] [place] [address] Dr. Garry Obrien Globulin (S) [Mass/Vol] 4.3 g/dL Normal [facility] Comment on above: Performed By: #### C MP, PURA, DBIL, LIPA, LIPID #### [facility] [address] [place] [address] Dr. Garry Obrien Glucose [Mass/Vol] 99 mg/dL Normal 74-106 [facility] Comment on above: Performed By: #### C MP, PURA, DBIL, LIPA, LIPID #### [facility] [address] [place] [address] Dr. Garry Obrien Potassium [Moles/Vol] 3.9 mmol/L Normal 3.5-5.1 The [facility] Comment on above: Performed By: #### C MP, PURA, DBIL, LIPA, LIPID #### [facility] [address] [place] [address] Dr. Garry Obrien Protein [Mass/Vol] 8.2 g/dL Normal 6.4-8.2 [facility] Comment on above: Performed By: #### C MP, PURA, DBIL, LIPA, LIPID #### [facility] [address] [place] [address] Dr. Garry Obrien Sodium [Moles/Vol] 136 mmol/L Normal 136-145 [facility] Comment on above: Performed By: #### C MP, PURA, DBIL, LIPA, LIPID #### [facility] [address] [place] [address] Dr. Garry Obrien Urea nitrogen [Mass/Vol] 10.0 mg/dL Normal 7.0-18.0 [facility] Comment on above: Performed By: #### C MP, PURA, DBIL, LIPA, LIPID #### [facility] [address] [place] [address] Dr. Garry Obrien Urea nitrogen/Creatinin e [Mass ratio] 14.9 mg/mg Normal [facility] Comment on above: Performed By: #### C MP, PURA, DBIL, LIPA, LIPID #### [facility] [address] [place] [address] Dr. Garry Obrien SED RATE [facility] 2022 SED RATE 13 mm/hr Normal <=20 [facility] Comment on above: Performed By: #### S EDR #### [facility] [address] [place] [address] Dr. Garry Obrien UA RANDOM W/MICROSCOPICon BACTERIA SMALL Abnormal NONE SEEN [facility] Comment on above: Performed By: #### U AMIC #### [facility] [address] [place] [address] Dr. Garry Obrien Bilirubin Ql (U) Negative Normal NEGATIVE [facility] Comment on above: Performed By: #### U AMIC #### [facility] [address] [place] [address] Dr. Garry Obrien CAST NONE SEEN Normal NONE SEEN [facility] Comment on above: Performed By: #### U AMIC #### [facility] [address] [place] [address] Dr. Garry Obrien Clarity (U) CLEAR Normal CLEAR The [facility] Comment on above: Performed By: #### U AMIC #### [facility] [address] [place] [address] [address] Garry Obrien Color (U) LT. YELLOW Normal YELLOW [facility] Comment on above: Performed By: #### U AMIC #### [facility] [address] [place] [address] [address] Garry Obrien Crystals LM Nom (Urine sed) NONE SEEN Normal NONE SEEN [facility] Comment on above: Performed By: #### U AMIC #### [facility] [address] [place] [address] Dr. Garry Obrien Epithelial cells LM Ql (Urine sed) FEW Abnormal NONE SEEN /RARE The [facility] Comment on above: Performed By: #### U AMIC #### [facility] [address] [place] [address] Dr. Garry Obrien Glucose Ql (U) Negative Normal NEGATIVE [facility] Comment on above: Performed By: #### U AMIC #### [facility] [address] [place] [address] Dr. Garry Obrien Hemoglobin Ql (U) TRACE-INTACT Abnormal NEGATIVE [facility] Comment on above: Performed By: #### U AMIC #### [facility] [address] [place] [address] Dr. Garry Obrien Ketones Ql (U) Negative Normal NEGATIVE [facility] Comment on above: Performed By: #### U AMIC #### [facility] [address] [place] [address] Dr. Garry Obrien LEUKOCYTES TRACE Abnormal NEGATIVE [facility] Comment on above: Performed By: #### U AMIC #### [facility] [address] [place] [address] Dr. Garry Obrien MUCOUS NONE SEEN Normal NONE SEEN [facility] Comment on above: Performed By: #### U AMIC #### [facility] [address] [place] [address] Dr. Garry Obrien Nitrite Ql (U) Negative Normal NEGATIVE [facility] Comment on above: Performed By: #### U AMIC #### [facility] [address] [place] [address] Dr. Garry Obrien pH (U) 6.0 [pH] Normal 5-9 [facility] Comment on above: Performed By: #### U AMIC #### [facility] [address] [address] [address] Garry Obrien RBC 0-2 Normal 0-2 [facility] Comment on above: Performed By: #### U AMIC #### [facility] [address] [address] [address] Garry Obrien SPEC GRAVITY <=1.005 Abnormal 1.005-<=1.025 [facility] Comment on above: Performed By: #### U AMIC #### [facility] [address] [address] [address] Garry Obrien UA PROTEIN Negative Normal NEGATIVE/ TRACE [facility] Comment on above: Performed By: #### U AMIC #### [facility] [address] [place] [address] Dr. Garry Obrien Urobilinogen Qn (U) 0.2 {Griselda'U}/dL Normal 0.2 - 1.0 [facility] Comment on above: Performed By: #### U AMIC #### [facility] [address] [address] [address] Garry Obrien WBC 2-5 Abnormal NONE SEEN [facility] Comment on above: Performed By: #### U AMIC #### [facility] [address] [place] [address] Dr. Garry Obrien PAP ACOG PANEL 2: 30 to 65on 07-13-2022 . . Normal [facility] Comment on above: Result Comment: Perf ormed at: WB Performed By: #### [id number] #### [facility] [address] [address] [address] Garry Obrien Age Gdln ACOG Testing 30-65 [facility] Comment on above: Performed By: #### [id number] #### [facility] [address] [place] [address] Dr. Garry Obrien DIAGNOSIS: Comment Normal [facility] Comment on above: Result Comment: NEGA TIVE FOR INTRAEPITHELIAL LESION OR MALIGNANCY. Performed at: WB Performed By: #### [id number] #### [facility] [address] [address] [address] Garry Obrien HPV Aptima Negative Normal Negative [facility] Comment on above: Result Comment: This nucleic acid amplification test detects fourteen high-risk HPV types (16,18,31,33,35,39,45,51,52,56,58,59,66,68) without differentiation. Performed at: =G Performed By: #### [id number] #### [facility] [address] [place] [address] Dr. Garry Obrien Methodology: Comment Normal [facility] Comment on above: Result Comment: This liquid based ThinPrep(R) pap test was screened with the use of an image guided system. Performed at: WB Performed By: #### [id number] #### [facility] [address] [place] [address] Dr. Garry Obrien Note: Comment Normal [facility] Comment on above: Result Comment: The Pap smear is a screening test designed to aid in the detection of premalignant and malignant conditions of the uterine cervix. It is not a diagnostic procedure and should not be used as the sole means of detecting cervical cancer. Both false-positive and false-negative reports do occur. . Performed at: WB Performed By: #### [id number] #### [facility] [address] [place] [address] Dr. Garry Obrien Performed by: Comment Normal [facility] Comment on above: Result Comment: Macrina Lamar, History Instructor (ASCP) Performed at: WB Performed By: #### [id number] #### [facility] [address] [place] [address] Dr. Garry Obrien Specimen adequacy: Comment Normal [facility] Comment on above: Result Comment: Sati sfactory for evaluation. Endocervical and/or squamous metaplastic cells (endocervical component) are present. Performed at: WB Performed By: #### [id number] #### [facility] [address] [place] [address] Dr. Garry Obrien Encounters Encounter Date Encounter Type Care Provider Facility Start: 06-26-2024 End: 06-26-2024 ambulatory PURA WILL Not Available Start: 06-19-2024 End: 06-19-2024 ambulatory YEYO JANKI [...] Start: 12-28-2022 End: 12-29-2022 ambulatory MILEY AC OLIVERDENILSONAdriana Facility: Start: 07-06-2022 End: 07-06-[address] YEYO SHEARER . Facility: Payers Date Payer Category Payer Unknown [id number] 2.16.84 [id number] 1990 Unknown [id number] 2..84 [id number] 1992 Unknown [id number] 2.16.84 [id number] 1992 Unknown [id number] .16.84 [id number] 1992 Unknown [id number] .16.84 [id number] 1992 Unknown [id number] 2.16.84 [id number] 1992 Unknown [id number] .16.84 [id number] 1992 Unknown [id number] 2.16.84 [id number] 1992 Unknown [id number] 2.16.84 [id number] 1992 Unknown [id number] 2.16.84 [id number] 1992 Unknown [id number] 2.16.84 [id number] 1992 Unknown [id number] 2.16.84 [id number] 1959 Unknown [id number] Summary Purpose Family History No Family History Records FoundNo Family History Records Found Advance Directives No Advanced Directives Records FoundNo Advanced Directives Records Found Additional Source Comments INFORMATION SOURCE (unrecogn ized section and content) DATE CREATED AUTHOR 01/01/2023 [facility] DATE CREATED AUTHOR AUTHOR'S JOSAFAT IVEY 06/29/2024 [facility] dical Specialists [facility] FOR RECORDS PERTAINING TO PATIENTS WHO [...] BE BASED ON THE PRIMARY CLINICAL RECORDS. [facility] [employer] provides no warranty or guarantee of the accuracy or completeness of information in this document.
--- NOTE | 2024-07-02 16:05 | US_ITS ---
[address] [address] Patient Name: MEE WIGGINS MRN: [id number] date: 1990 Sex: F Assigned Patient Location: [facility] Current Patient Location: [facility] Accession/Order Number: [id number] Exam Date: 07/02/2024 17:00 Report Date: 07/03/2024 04:17 At the request of: YEYO SHEARER Procedure: US OB BPP w non-stress EXAMINATION: US OB BPP w non-stress HISTORY:History of delivery COMPARISON: Ultrasound OB biophysical 06/25/2024 TECHNIQUE: Ultrasound biophysical profile was performed in the radiology department. BREATHING MOVEMENTS: 2 GROSS BODY MOVEMENTS: 2 TONE: 2 QUALITATIVE AMNIOTIC FLUID VOLUME: 2 PRESENTATION: CEPHALIC HEART RATE: 129.81 bpm AMNIOTIC FLUID VOLUME: 19.86 cm GESTATIONAL AGE: 37 weeks 1 day US/US OB BPP w non-stress IMPRESSION: Total biophysical profile score: 8 Electronically authenticated by: THONY SANTOS Date: 07/03/2024 04:17
[2024-07-02 16:12] VITALS: BP 110/67; PULSE 86
== END 2024-07-02 16:53 | disposition home or self-care (01) ==
LOC: US 07:24 → FBC 16:02
PROVIDERS: PCP Nurse Practitioner; Visit Provider Obstetrics & Gynecology
DX: O09.213 Supervision of pregnancy with history of pre-term labor, third trimester (principal); Z3A.37 37 weeks gestation of pregnancy
CPT/HCPCS: 76818

== ENCOUNTER 2024-07-05 07:14 | Outpatient (OUT) | payer BC, SELFPAY ==
--- OUTSIDE RECORDS SUMMARY | 2024-07-05 07:16 | XMS_ITS | CCD ---
Author Organization [facility] Care Team Providers Care Jump Roll Operator Name Role Phone JANKI ., DR ORONA Admitting Unavailable JANKI ., DR ORONA Attending Unavailable LUIS E DAVIS Primary Care Unavailable JANKI ., DR ORONA Consulting Unavailable AICHHOLZ, LINE PERSON AC Admitting Unavailable AICHHOLZ, LINE PERSON AC Attending Unavailable AICHHOLZ, LINE PERSON AC Primary Care Unavailable AICHHOLZ, LINE PERSON AC Consulting Unavailable JANKI, YEYO Attending Unavailable [...] [Catalytic activity/Vol] 36 U/L Normal 25-[address] [facility] Comment on above: Performed By: #### C MP, PURA, DBIL, LIPA, LIPID #### [facility] [address] [place], [place] [address] Dr. Garry Obrien BILIRUBIN CONJUGATED (DIRECT )on 12-28-2022 BILI, CONJUGATED 0.1 mg/dL Normal 0.0-0.2 [facility] Comment on above: Performed By: #### C MP, PURA, DBIL, LIPA, LIPID #### [facility] [address] [place] [address] Dr. Garry Obrien CBC AUTO DIFFon 12-28-2022 BASO # 0.0 103/ul Normal 0.0-0.1 [facility] Comment on above: Performed By: #### C BC #### [facility] [address] [place] [address] Dr. Garry Obrien Basophils/100 WBC (Bld) 0.3 % Normal 0.2-2.0 [facility] Comment on above: Performed By: #### C BC #### [facility] [address] [place] [address] Dr. Garry Obrien EO # 0.5 103/ul Normal 0.0-0.7 [facility] Comment on above: Performed By: #### C BC #### [facility] [address] [place] [address] Dr. Garry Obrien Eosinophils/100 WBC (Bld) 8.2 % Critically high 0.9-7.0 [facility] Comment on above: Performed By: #### C BC #### [facility] [address] [place] [address] Dr. Garry Obrien Erythrocyte distribution width (RBC) [Ratio] 13.5 % Normal 11.0-15.[address] [facility] Comment on above: Performed By: #### C BC #### [facility] [address] [place] [address] Dr. Garry Obrien Hematocrit (Bld) [Volume fraction] 41.7 % Normal 36.0-48.[address] [facility] Comment on above: Performed By: #### C BC #### [facility] [address] [place] [address] Dr. Garry Obrien Hemoglobin (Bld) [Mass/Vol] 13.8 g/dL Normal 12.0-16.[address] [facility] Comment on above: Performed By: #### C BC #### [facility] [address] [place] [address] Dr. Garry Obrien IG # 0.01 10e3/ul Normal 0.00-0.03 [facility] Comment on above: Performed By: #### C BC #### [facility] [address] [place] [address] Dr. Garry Obrien IG % 0.2 % Normal 0.0-0.5 [facility] Comment on above: Performed By: #### C BC #### [facility] [address] [place] [address] Dr. Garry Obrien LYMPH # 2.0 103/ul Normal 1.2-3.8 [facility] Comment on above: Performed By: #### C BC #### [facility] [address] [place] [address] Dr. Garry Obrien Lymphocytes/100 WBC (Bld) 32.8 % Normal 20.5-60.0 [facility] Comment on above: Performed By: #### C BC #### [facility] [address] [place] [address] Dr. Garry Obrien MANUAL DIFF REQ NO Normal [facility] Comment on above: Performed By: #### C BC #### [facility] [address] [place] [address] Dr. Garry Obrien MCH (RBC) [Entitic mass] 29.2 pg Normal 26.7-34.0 [facility] Comment on above: Performed By: #### C BC #### [facility] [address] [place] [address] Dr. Garry Obrien MCHC (RBC) [Mass/Vol] 33.1 g/dL Normal 29.9-35.2 [facility] Comment on above: Performed By: #### C BC #### [facility] [address] [place] [address] Dr. Garry Obrien MCV (RBC) [Entitic vol] 88.2 fL Normal 81.0-99.0 [facility] Comment on above: Performed By: #### C BC #### [facility] [address] [place] [address] Dr. Garry Obrien MONO # 0.5 103/ul Normal 0.3-0.8 [facility] Comment on above: Performed By: #### C BC #### [facility] [address] [place] [address] Dr. Garry Obrien Monocytes/100 WBC (Bld) 7.7 % Normal 1.7-12.0 [facility] Comment on above: Performed By: #### C BC #### [facility] [address] [place] [address] Dr. Garry Obrien NEUT # 3.1 103/ul Normal 1.4-6.5 [facility] Comment on above: Performed By: #### C BC #### [facility] [address] [place] [address] Dr. Garry Obrien Neutrophils/100 WBC (Bld) 50.8 % Normal 43.0-75.0 [facility] Comment on above: Performed By: #### C BC #### [facility] [address] [place] [address] Dr. Garry Obrien Platelet mean volume (Bld) [Entitic vol] 9.3 fL Critically low 9.5-13.5 [facility] Comment on above: Performed By: #### C BC #### [facility] [address] [place] [address] Dr. Garry Obrien PLT 318 103/ul Normal 150-[address] [facility] Comment on above: Performed By: #### C BC #### [facility] [address] [place] [address] Dr. Garry Obrien RBC 4.73 106/ul Normal 4.20-5.[address] [facility] Comment on above: Performed By: #### C BC #### [facility] [address] [place] [address] Dr. Garry Obrien WBC 6.1 103/ul Normal 4.0-11.[address] [facility] Comment on above: Performed By: #### C BC #### [facility] [address] [place] [address] Dr. Garry Obrien LIPASEon 03-22-2023 Lipase [Catalytic activity/Vol] 198.0 U/L Normal 73.0-393.0 [facility] Comment on above: Performed By: #### C MP, PURA, DBIL, LIPA, LIPID #### [facility] [address] [place] [address] Dr. Garry Obrien LIPID PROFILEon 12-28-2022 CHOL-HDL RATIO NORM SEE BELOW Normal [facility] Comment on above: Result Comment: 3.3 - 4.4 LOW RISK 4.4 - 7.1 AVERAGE RISK 7.1 - 11.0 MODERATE RISK >11.0 HIGH RISK Performed By: #### C MP, PURA, DBIL, LIPA, LIPID #### [facility] [address] [place] [address] Dr. Garry Obrien Cholesterol [Mass/Vol] 237 mg/dL Critically high <=200 [facility] Comment on above: Performed By: #### C MP, PURA, DBIL, LIPA, LIPID #### [facility] [address] [place] [address] Dr. Garry Obrien Cholesterol in HDL [Mass/Vol] 67 mg/dL Critically high 40-60 [facility] Comment on above: Performed By: #### C MP, PURA, DBIL, LIPA, LIPID #### [facility] [address] [place] [address] Dr. Garry Obrien Cholesterol in LDL [Mass/Vol] 144.8 mg/dL Normal [facility] Comment on above: Performed By: #### C MP, PURA, DBIL, LIPA, LIPID #### [facility] [address] [place] [address] Dr. Garry Obrien Cholesterol.total/ Cholesterol in HDL [Mass ratio] 3.5 {ratio} Normal [facility] Comment on above: Performed By: #### C MP, PURA, DBIL, LIPA, LIPID #### [facility] [address] [place] [address] Dr. Garry Obrien HDL NORMAL > or = 60 mg/dl - LO W CARDIOVASCULAR RISK <40 mg/dl - HIGH CARDIOVASCULAR RISK Normal [facility] Comment on above: Performed By: #### C MP, PURA, DBIL, LIPA, LIPID #### [facility] [address] [place] [address] [address] Garry Obrien LDL CALC NORMAL SEE BELOW Normal [facility] Comment on above: Result Comment: <100 mg/dl OPTIMAL 100 - 129 mg/dl NEAR OR ABOVE OPTIMAL 130 - 159 mg/dl BORDERLINE HIGH 160 - 189 mg/dl HIGH >190 mg/dl VERY HIGH Performed By: #### C MP, PURA, DBIL, LIPA, LIPID #### [facility] [address] [place] [address] [address] Garry Obrien Triglyceride [Mass/Vol] 126 mg/dL Normal <=150 [facility] Comment on above: Performed By: #### C MP, PURA, DBIL, LIPA, LIPID #### [facility] [address] [place] [address] Dr. Garry Obrien VLDL CALC 25.2 mg/dL Normal [facility] Comment on above: Performed By: #### C MP, PURA, DBIL, LIPA, LIPID #### [facility] [address] [place] [address] Dr. Garry Obrien PREG HCG QUALon 12-28-2022 , QUAL Negative Normal NEGATIVE [facility] Comment on above: Performed By: #### P REG #### [facility] [address] [place] [address] Dr. Garry Obrien PROF 14(COMP METB)on 023 Albumin [Mass/Vol] 3.9 g/dL Normal 3.4-5.0 [facility] Comment on above: Performed By: #### C MP, PURA, DBIL, LIPA, LIPID #### [facility] [address] [place] [address] Dr. Garry Obrien Albumin/Globulin [Mass ratio] 0.9 {ratio} Normal [facility] Comment on above: Performed By: #### C MP, PURA, DBIL, LIPA, LIPID #### [facility] [address] [place] [address] Dr. Garry Obrien ALP [Catalytic activity/Vol] 51 U/L Normal 46-116 [facility] Comment on above: Performed By: #### C MP, PURA, DBIL, LIPA, LIPID #### [facility] [address] [place] [address] Dr. Garry Obrien ALT [Catalytic activity/Vol] 20 U/L Normal 14-59 [facility] Comment on above: Performed By: #### C MP, PURA, DBIL, LIPA, LIPID #### [facility] [address] [place] [address] Dr. Garry Obrien Anion gap [Moles/Vol] 12.5 mmol/L Normal [facility] Comment on above: Performed By: #### C MP, PURA, DBIL, LIPA, LIPID #### [facility] [address] [place] [address] Dr. Garry Obrien AST [Catalytic activity/Vol] 20 U/L Normal 15-37 [facility] Comment on above: Performed By: #### C MP, PURA, DBIL, LIPA, LIPID #### [facility] [address] [place] [address] Dr. Garry Obrien Bilirubin [Mass/Vol] 0.5 mg/dL Normal 0.2-1.0 [facility] Comment on above: Performed By: #### C MP, PURA, DBIL, LIPA, LIPID #### [facility] [address] [place] [address] Dr. Garry Obrien Calcium [Mass/Vol] 9.5 mg/dL Normal 8.5-10.1 [facility] Comment on above: Performed By: #### C MP, PURA, DBIL, LIPA, LIPID #### [facility] [address] [place] [address] Dr. Garry Obrien Chloride [Moles/Vol] 100 mmol/L Normal 98-[address] [facility] Comment on above: Performed By: #### C MP, PURA, DBIL, LIPA, LIPID #### [facility] [address] [place] [address] Dr. Garry Obrien CO2 [Moles/Vol] 27.4 mmol/L Normal 21.0-32.0 [facility] Comment on above: Performed By: #### C MP, PURA, DBIL, LIPA, LIPID #### [facility] [address] [place] [address] Dr. Garry Obrien Creatinine [Mass/Vol] 0.67 mg/dL Normal 0.55-1.02 [facility] Comment on above: Performed By: #### C MP, PURA, DBIL, LIPA, LIPID #### [facility] [address] [place] [address] Dr. Garry Obrien EGFR-AF MACANESE >60 Normal >=60 [facility] Comment on above: Performed By: #### C MP, PURA, DBIL, LIPA, LIPID #### [facility] [address] [place] [address] Dr. Garry Obrien EGFR-NON AF MACANESE >60 Normal >=60 [facility] Comment on above: Performed By: #### C MP, PURA, DBIL, LIPA, LIPID #### [facility] [address] [place] [address] Dr. Garry Obrien Globulin (S) [Mass/Vol] 4.3 g/dL Normal [facility] Comment on above: Performed By: #### C MP, PURA, DBIL, LIPA, LIPID #### [facility] [address] [place] [address] Dr. Garry Obrien Glucose [Mass/Vol] 99 mg/dL Normal 74-106 [facility] Comment on above: Performed By: #### C MP, PURA, DBIL, LIPA, LIPID #### [facility] [address] [place] [address] Dr. Garry Obrien Potassium [Moles/Vol] 3.9 mmol/L Normal 3.5-5.[address] [facility] Comment on above: Performed By: #### C MP, PURA, DBIL, LIPA, LIPID #### [facility] [address] [place] [address] Dr. Grary Obrien Protein [Mass/Vol] 8.2 g/dL Normal 6.4-8.2 [facility] Comment on above: Performed By: #### C MP, PURA, DBIL, LIPA, LIPID #### [facility] [address] [place] [address] Dr. Garry Obrien Sodium [Moles/Vol] 136 mmol/L Normal 136-145 [facility] Comment on above: Performed By: #### C MP, PURA, DBIL, LIPA, LIPID #### [facility] [address] [place] [address] Dr. Garry Obrien Urea nitrogen [Mass/Vol] 10.0 mg/dL Normal 7.0-18.0 [facility] Comment on above: Performed By: #### C MP, PURA, DBIL, LIPA, LIPID #### [facility] [address] [place] [address] Dr. Garry Obrien Urea nitrogen/Creatinin e [Mass ratio] 14.9 mg/mg Normal [facility] Comment on above: Performed By: #### C MP, PURA, DBIL, LIPA, LIPID #### [facility] [address] [place] [address] Dr. Garry Obrien SED RATE [facility] 2022 SED RATE 13 mm/hr Normal <=20 [facility] Comment on above: Performed By: #### S EDR #### [facility] [address] [place] [address] Dr. Garry Obrien UA RANDOM W/MICROSCOPICon BACTERIA SMALL Abnormal NONE SEEN [facility] Comment on above: Performed By: #### U AMIC #### [facility] [address] [place] [address] Dr. Garry Obrien Bilirubin Ql (U) Negative Normal NEGATIVE [facility] Comment on above: Performed By: #### U AMIC #### [facility] [address] [place] [address] Dr. Garry Obrien CAST NONE SEEN Normal NONE SEEN [facility] Comment on above: Performed By: #### U AMIC #### [facility] [address] [place] [address] Dr. Garry Obrien Clarity (U) CLEAR Normal CLEAR [facility] Comment on above: Performed By: #### U AMIC #### [facility] [address] [place] [address] [address] Garry Obrien Color (U) LT. YELLOW Normal YELLOW [facility] Comment on above: Performed By: #### U AMIC #### [facility] [address] [address] [address] Garry Obrien Crystals LM Nom (Urine sed) NONE SEEN Normal NONE SEEN [facility] Comment on above: Performed By: #### U AMIC #### [facility] [address] [place] [address] Dr. Garry Obrien Epithelial cells LM Ql (Urine sed) FEW Abnormal NONE SEEN /RARE [facility] Comment on above: Performed By: #### U AMIC #### [facility] [address] [place] [address] Dr. Garry Obrien Glucose Ql (U) Negative Normal NEGATIVE [facility] Comment on above: Performed By: #### U AMIC #### [facility] [address] [place] [address] Dr. Garry Obrien Hemoglobin Ql (U) TRACE-INTACT Abnormal NEGATIVE [facility] Comment on above: Performed By: #### U AMIC #### [facility] [address] [place] [address] Dr. Garry Obrien Ketones Ql (U) Negative Normal NEGATIVE [facility] Comment on above: Performed By: #### U AMIC #### [facility] [address] [place] [address] Dr. Garry Obrien LEUKOCYTES TRACE Abnormal NEGATIVE [facility] Comment on above: Performed By: #### U AMIC #### [facility] [address] [place] [address] Dr. Garry Obrien MUCOUS NONE SEEN Normal NONE SEEN [facility] Comment on above: Performed By: #### U AMIC #### [facility] [address] [place] [address] Dr. Garry Obrien Nitrite Ql (U) Negative Normal NEGATIVE [facility] Comment on above: Performed By: #### U AMIC #### [facility] [address] [place] [address] Dr. Garry Obrien pH (U) 6.0 [pH] Normal 5-9 [facility] Comment on above: Performed By: #### U AMIC #### [facility] [address] [address] [address] Garry Obrien RBC 0-2 Normal 0-2 [facility] Comment on above: Performed By: #### U AMIC #### [facility] [address] [address] [address] Garry Obrien SPEC GRAVITY <=1.005 Abnormal 1.005-<=1.025 [facility] Comment on above: Performed By: #### U AMIC #### [facility] [address] [address] [address] Garry Obrien UA PROTEIN Negative Normal NEGATIVE/ TRACE [facility] Comment on above: Performed By: #### U AMIC #### [facility] [address] [place] [address] Dr. Garry Obrien Urobilinogen Qn (U) 0.2 {Griselda'U}/dL Normal 0.2 - 1.0 [facility] Comment on above: Performed By: #### U AMIC #### [facility] [address] [address] [address] Garry Obrien WBC 2-5 Abnormal NONE SEEN [facility] Comment on above: Performed By: #### U AMIC #### [facility] [address] [place] [address] Dr. Garry Obrien PAP ACOG PANEL 2: 30 to 65on 07-13-2022 . . Normal [facility] Comment on above: Result Comment: Perf ormed at: WB Performed By: #### [id number] #### [facility] [address] [address] [address] Garry Obrien Age Gdln ACOG Testing 30-65 [facility] Comment on above: Performed By: #### [id number] #### [facility] [address] [place] [address] Dr. Garry Obrien DIAGNOSIS: Comment Normal [facility] Comment on above: Result Comment: NEGA TIVE FOR INTRAEPITHELIAL LESION OR MALIGNANCY. Performed at: WB Performed By: #### [id number] #### [facility] [address] [address] [address] Garry Obrien HPV Aptima Negative Normal Negative [facility] Comment on above: Result Comment: This nucleic acid amplification test detects fourteen high-risk HPV types (16,18,31,33,35,39,45,51,52,56,58,59,66,68) without differentiation. Performed at: =G Performed By: #### [id number] #### [facility] [address] [place] [address] Dr. Garry Obrien Methodology: Comment Normal [facility] Comment on above: Result Comment: This liquid based ThinPrep(R) pap test was screened with the use of an image guided system. Performed at: WB Performed By: #### [id number] #### [facility] [address] [place] [address] Dr. Garry Obrien Note: Comment Normal [facility] Comment on above: Result Comment: The Pap smear is a screening test designed to aid in the detection of premalignant and malignant conditions of the uterine cervix. It is not a diagnostic procedure and should not be used as the sole means of detecting cervical cancer. Both false-positive and false-negative reports do occur. . Performed at: WB Performed By: #### [id number] #### [facility] [address] [place] [address] Dr. Garry Obrien Performed by: Comment Normal [facility] Comment on above: Result Comment: Macrina Lamar, Digital Designer (ASCP) Performed at: WB Performed By: #### [id number] #### [facility] [address] [place] [address] Dr. Garry Obrien Specimen adequacy: Comment Normal [facility] Comment on above: Result Comment: Sati sfactory for evaluation. Endocervical and/or squamous metaplastic cells (endocervical component) are present. Performed at: WB Performed By: #### [id number] #### [facility] [address] [place] [address] Dr. Garry Obrien Encounters Encounter Date Encounter [...] Facility: Payers Date Payer Category Payer Unknown [id number] 2.16.84 [id number] 1992 Unknown [id number] 2..84 [id number] 1992 Unknown [id number] 2.16.84 [id number] 1992 Unknown [id number] .16.84 [id number] 1992 Unknown [id number] .16.84 [id number] 1992 Unknown [id number] 2.16.84 [id number] 1992 Unknown [id number] .16.84 0.1.481107.3.579.2.9 1992 Unknown [id number] 2.16.84 [id number] 1992 Unknown [id number] 2.16.84 [id number] 1992 Unknown [id number] 2.16.84 0.1.738029.3.579.2.1258 1992 Unknown [id number] 2.16.84 [id number] 1992 Unknown [id number] 2.16.84 [id number] 1959 Unknown [id number] Summary Purpose Family History No Family History Records FoundNo Family History Records Found Advance Directives No Advanced Directives Records FoundNo Advanced Directives Records Found Additional Source Comments INFORMATION SOURCE (unrecogn ized section and content) DATE CREATED AUTHOR [facility]/01/2023 [facility] DATE CREATED AUTHOR AUTHOR'S JOSAFAT IVEY 06/29/2024 [facility] FOR RECORDS PERTAINING TO PATIENTS WHO [...] BE BASED ON THE PRIMARY CLINICAL RECORDS. [facility] [employer] provides no warranty or guarantee of the accuracy or completeness of information in this document.
[2024-07-05 15:12] VITALS: BP 119/80; PULSE 102
== END 2024-07-05 15:40 | disposition home or self-care (01) ==
LOC: FBCO 07:15 → FBC 15:03
PROVIDERS: PCP Nurse Practitioner; Visit Provider Obstetrics & Gynecology
DX: O35.03X1 Maternal care for (suspected) central nervous system malformation or damage in fetus, choroid plexus cysts, fetus 1 (principal)
CPT/HCPCS: 59025

== ENCOUNTER 2024-07-10 14:09 | Inpatient (IN) | payer BC, SELFPAY ==
[2024-07-10] VITALS (37 sets, daily range): BP systolic 93–125; BP diastolic 52–94; PULSE 60–101; TEMP 36.1–36.9; O2SAT 96–99; BMI 32.5
--- OUTSIDE RECORDS SUMMARY | 2024-07-10 10:51 | XMS_ITS | CCD ---
Author Organization [place] via680[facility] Care Team Providers Care Loan Interviewer Mortgage Name Role Phone JANKI ., DR ORONA Admitting Unavailable JANKI ., DR ORONA Attending Unavailable LUIS E DAVIS Primary Care Unavailable JANKI ., DR ORONA Consulting Unavailable AICHHOLZ, HANDY MAN AC Admitting Unavailable AICHHOLZ, HANDY MAN AC Attending Unavailable AICHHOLZ, HANDY MAN AC Primary Care Unavailable AICHHOLZ, HANDY MAN AC Consulting Unavailable JANKI, YEYO Attending Unavailable [...] [Catalytic activity/Vol] 36 U/L Normal 25-115 [facility] Comment on above: Performed By: #### C MP, PURA, DBIL, LIPA, LIPID #### [facility] [address] [place], [place] [address] Dr. Garry Obrien BILIRUBIN CONJUGATED (DIRECT )on 12-28-2022 BILI, CONJUGATED 0.1 mg/dL Normal 0.0-0.2 [facility] Comment on above: Performed By: #### C MP, PURA, DBIL, LIPA, LIPID #### [facility] [address] [place] [address] Dr. Garry Obrien CBC AUTO DIFFon 12-28-2022 BASO # 0.0 103/ul Normal 0.0-0.1 [facility] Comment on above: Performed By: #### C BC #### [facility] [address] [place] [address] Dr. Garry Obrien Basophils/100 WBC (Bld) 0.3 % Normal 0.2-2.0 [facility] Comment on above: Performed By: #### C BC #### [facility] [address] [place] [address] Dr. Garry Obrien EO # 0.5 103/ul Normal 0.0-0.7 [facility] Comment on above: Performed By: #### C BC #### [facility] [address] [place] [address] Dr. Garry Obrien Eosinophils/100 WBC (Bld) 8.2 % Critically high 0.9-7.0 [facility] Comment on above: Performed By: #### C BC #### [facility] [address] [place] [address] Dr. Garry Obrien Erythrocyte distribution width (RBC) [Ratio] 13.5 % Normal 11.0-15.0 [facility] Comment on above: Performed By: #### C BC #### [facility] [address] [place] [address] Dr. Garry Obrien Hematocrit (Bld) [Volume fraction] 41.7 % Normal 36.0-48.0 [facility] Comment on above: Performed By: #### C BC #### [facility] [address] [place] [address] Dr. Garry Orbien Hemoglobin (Bld) [Mass/Vol] 13.8 g/dL Normal 12.0-16.0 [facility] Comment on above: Performed By: #### C BC #### [facility] [address] [place] [address] Dr. Garry Obrien IG # 0.01 10e3/ul Normal 0.00-0.03 [facility] Comment on above: Performed By: #### C BC #### [facility] [address] [place] [address] Dr. Garry Obrien IG % 0.2 % Normal 0.0-0.5 [facility] Comment on above: Performed By: #### C BC #### [facility] [address] [place] [address] Dr. Garry Obrien LYMPH # 2.0 103/ul Normal 1.2-3.8 [facility] Comment on above: Performed By: #### C BC #### [facility] [address] [place] [address] Dr. Garry Obrien Lymphocytes/100 WBC (Bld) 32.8 % Normal 20.5-60.0 [facility] Comment on above: Performed By: #### C BC #### [facility] [address] [place] [address] Dr. Garry Obrien MANUAL DIFF REQ NO Normal [facility] Comment on above: Performed By: #### C BC #### [facility] [address] [place] [address] Dr. Garry Obrien MCH (RBC) [Entitic mass] 29.2 pg Normal 26.7-34.0 [facility] Comment on above: Performed By: #### C BC #### [facility] [address] [place] [address] Dr. Garry Obrien MCHC (RBC) [Mass/Vol] 33.1 g/dL Normal 29.9-35.2 [facility] Comment on above: Performed By: #### C BC #### [facility] [address] [place] [address] Dr. Garry Obrien MCV (RBC) [Entitic vol] 88.2 fL Normal 81.0-99.0 [facility] Comment on above: Performed By: #### C BC #### [facility] [address] [place] [address] Dr. Garry Obrien MONO # 0.5 103/ul Normal 0.3-0.8 [facility] Comment on above: Performed By: #### C BC #### [facility] [address] [place] [address] Dr. Garry Obrien Monocytes/100 WBC (Bld) 7.7 % Normal 1.7-12.0 [facility] Comment on above: Performed By: #### C BC #### [facility] [address] [place] [address] Dr. Garry Obrien NEUT # 3.1 103/ul Normal 1.4-6.5 [facility] Comment on above: Performed By: #### C BC #### [facility] [address] [place] [address] Dr. Garry Obrien Neutrophils/100 WBC (Bld) 50.8 % Normal 43.0-75.0 [facility] Comment on above: Performed By: #### C BC #### [facility] [address] [place] [address] Dr. Garry Obrien Platelet mean volume (Bld) [Entitic vol] 9.3 fL Critically low 9.5-13.5 [facility] Comment on above: Performed By: #### C BC #### [facility] [address] [place] [address] Dr. Garry Obrien PLT 318 103/ul Normal 150-450 [facility] Comment on above: Performed By: #### C BC #### [facility] [address] [place] [address] Dr. Garry Obrien RBC 4.73 106/ul Normal 4.20-5.40 [facility] Comment on above: Performed By: #### C BC #### [facility] [address] [place] [address] Dr. Garry Obrien WBC 6.1 103/ul Normal 4.0-11.0 [facility] Comment on above: Performed By: #### C BC #### [facility] [address] [place] [address] Dr. Garry Obrien LIPASEon 03-22-2023 Lipase [Catalytic activity/Vol] 198.0 U/L Normal 73.0-393.0 [facility] Comment on above: Performed By: #### C MP, PURA, DBIL, LIPA, LIPID #### [facility] [address] [place] [address] Dr. Garry Obrien LIPID PROFILEon 12-28-2022 CHOL-HDL RATIO NORM SEE BELOW Normal [facility] Comment on above: Result Comment: 3.3 - 4.4 LOW RISK 4.4 - 7.1 AVERAGE RISK 7.1 - 11.0 MODERATE RISK >11.0 HIGH RISK Performed By: #### C MP, PURA, DBIL, LIPA, LIPID #### [facility] [address] [place] [address] Dr. Garry Obrien Cholesterol [Mass/Vol] 237 mg/dL Critically high <=200 [facility] Comment on above: Performed By: #### C MP, PURA, DBIL, LIPA, LIPID #### [facility] [address] [place] [address] Dr. Garry Obrien Cholesterol in HDL [Mass/Vol] 67 mg/dL Critically high 40-60 [facility] Comment on above: Performed By: #### C MP, PURA, DBIL, LIPA, LIPID #### [facility] [address] [place] [address] Dr. Garry Obrien Cholesterol in LDL [Mass/Vol] 144.8 mg/dL Normal [facility] Comment on above: Performed By: #### C MP, PURA, DBIL, LIPA, LIPID #### [facility] [address] [place] [address] Dr. Garry Obrien Cholesterol.total/ Cholesterol in HDL [Mass ratio] 3.5 {ratio} Normal [facility] Comment on above: Performed By: #### C MP, PURA, DBIL, LIPA, LIPID #### [facility] [address] [place] [address] Dr. Garry Obrien HDL NORMAL > or = 60 mg/dl - LO W CARDIOVASCULAR RISK <40 mg/dl - HIGH CARDIOVASCULAR RISK Normal [facility] Comment on above: Performed By: #### C MP, PURA, DBIL, LIPA, LIPID #### [facility] [address] [place] [address] [address] Garry Obrien LDL CALC NORMAL SEE BELOW Normal [facility] Comment on above: Result Comment: <100 mg/dl OPTIMAL 100 - 129 mg/dl NEAR OR ABOVE OPTIMAL 130 - 159 mg/dl BORDERLINE HIGH 160 - 189 mg/dl HIGH >190 mg/dl VERY HIGH Performed By: #### C MP, PURA, DBIL, LIPA, LIPID #### [facility] [address] [place] [address] [address] Garry Obrien Triglyceride [Mass/Vol] 126 mg/dL Normal <=150 [facility] Comment on above: Performed By: #### C MP, PURA, DBIL, LIPA, LIPID #### [facility] [address] [place] [address] Dr. Garry Obrien VLDL CALC 25.2 mg/dL Normal [facility] Comment on above: Performed By: #### C MP, PURA, DBIL, LIPA, LIPID #### [facility] [address] [place] [address] Dr. Garry Obrien PREG HCG QUALon 12-28-2022 , QUAL Negative Normal NEGATIVE [facility] Comment on above: Performed By: #### P REG #### [facility] [address] [place] [address] Dr. Garry Obrien PROF 14(COMP METB)on 023 Albumin [Mass/Vol] 3.9 g/dL Normal 3.4-5.0 [facility] Comment on above: Performed By: #### C MP, PURA, DBIL, LIPA, LIPID #### [facility] [address] [place] [address] Dr. Garry Obrien Albumin/Globulin [Mass ratio] 0.9 {ratio} Normal [facility] Comment on above: Performed By: #### C MP, PURA, DBIL, LIPA, LIPID #### [facility] [address] [place] [address] Dr. Garry Obrien ALP [Catalytic activity/Vol] 51 U/L Normal 46-116 [facility] Comment on above: Performed By: #### C MP, PURA, DBIL, LIPA, LIPID #### [facility] [address] [place] [address] Dr. Garry Obrien ALT [Catalytic activity/Vol] 20 U/L Normal 14-59 [facility] Comment on above: Performed By: #### C MP, PURA, DBIL, LIPA, LIPID #### [facility] [address] [place] [address] Dr. Garry Obrien Anion gap [Moles/Vol] 12.5 mmol/L Normal [facility] Comment on above: Performed By: #### C MP, PURA, DBIL, LIPA, LIPID #### [facility] [address] [place] [address] Dr. Garry Obrien AST [Catalytic activity/Vol] 20 U/L Normal 15-37 [facility] Comment on above: Performed By: #### C MP, PURA, DBIL, LIPA, LIPID #### [facility] [address] [place] [address] Dr. Garry Obrien Bilirubin [Mass/Vol] 0.5 mg/dL Normal 0.2-1.0 [facility] Comment on above: Performed By: #### C MP, PURA, DBIL, LIPA, LIPID #### [facility] [address] [place] [address] Dr. Garry Obrien Calcium [Mass/Vol] 9.5 mg/dL Normal 8.5-10.1 [facility] Comment on above: Performed By: #### C MP, PURA, DBIL, LIPA, LIPID #### [facility] [address] [place] [address] Dr. Garry Obrien Chloride [Moles/Vol] 100 mmol/L Normal 98-107 [facility] Comment on above: Performed By: #### C MP, PURA, DBIL, LIPA, LIPID #### [facility] [address] [place] [address] Dr. Garry Obrien CO2 [Moles/Vol] 27.4 mmol/L Normal 21.0-32.0 [facility] Comment on above: Performed By: #### C MP, PURA, DBIL, LIPA, LIPID #### [facility] [address] [place] [address] Dr. Garry Obrien Creatinine [Mass/Vol] 0.67 mg/dL Normal 0.55-1.02 [facility] Comment on above: Performed By: #### C MP, PURA, DBIL, LIPA, LIPID #### [facility] [address] [place] [address] Dr. Garry Obrien EGFR-AF AUSTRIAN >60 Normal >=60 [facility] Comment on above: Performed By: #### C MP, PURA, DBIL, LIPA, LIPID #### [facility] [address] [place] [address] Dr. Garry Obrien EGFR-NON AF AUSTRIAN >60 Normal >=60 [facility] Comment on above: Performed By: #### C MP, PURA, DBIL, LIPA, LIPID #### [facility] [address] [place] [address] Dr. Garry Obrien Globulin (S) [Mass/Vol] 4.3 g/dL Normal [facility] Comment on above: Performed By: #### C MP, PURA, DBIL, LIPA, LIPID #### [facility] [address] [place] [address] Dr. Garry Obrien Glucose [Mass/Vol] 99 mg/dL Normal 74-106 [facility] Comment on above: Performed By: #### C MP, PURA, DBIL, LIPA, LIPID #### [facility] [address] [place] [address] Dr. Garry Obrien Potassium [Moles/Vol] 3.9 mmol/L Normal 3.5-5.1 [facility] Comment on above: Performed By: #### C MP, PURA, DBIL, LIPA, LIPID #### [facility] [address] [place] [address] Dr. Garry Obrien Protein [Mass/Vol] 8.2 g/dL Normal 6.4-8.2 [facility] Comment on above: Performed By: #### C MP, PURA, DBIL, LIPA, LIPID #### [facility] [address] [place] [address] Dr. Garry Obrien Sodium [Moles/Vol] 136 mmol/L Normal 136-145 [facility] Comment on above: Performed By: #### C MP, PURA, DBIL, LIPA, LIPID #### [facility] [address] [place] [address] Dr. Garry Obrien Urea nitrogen [Mass/Vol] 10.0 mg/dL Normal 7.0-18.0 [facility] Comment on above: Performed By: #### C MP, PURA, DBIL, LIPA, LIPID #### [facility] [address] [place] [address] Dr. Garry Obrien Urea nitrogen/Creatinin e [Mass ratio] 14.9 mg/mg Normal [facility] Comment on above: Performed By: #### C MP, PURA, DBIL, LIPA, LIPID #### [facility] [address] [place] [address] Dr. Garry Obrien SED RATE [facility] 2022 SED RATE 13 mm/hr Normal <=20 [facility] Comment on above: Performed By: #### S EDR #### [facility] [address] [place] [address] Dr. Garry Obrien UA RANDOM W/MICROSCOPICon BACTERIA SMALL Abnormal NONE SEEN [facility] Comment on above: Performed By: #### U AMIC #### [facility] [address] [place] [address] Dr. Garry Obrien Bilirubin Ql (U) Negative Normal NEGATIVE [facility] Comment on above: Performed By: #### U AMIC #### [facility] [address] [place] [address] Dr. Garry Obrien CAST NONE SEEN Normal NONE SEEN [facility] Comment on above: Performed By: #### U AMIC #### [facility] [address] [place] [address] Dr. Garry Obrien Clarity (U) CLEAR Normal CLEAR [facility] Comment on above: Performed By: #### U AMIC #### [facility] [address] [place] [address] [address] Garry Obrien Color (U) LT. YELLOW Normal YELLOW [facility] Comment on above: Performed By: #### U AMIC #### [facility] [address] [place] [address] [address] Garry Obrien Crystals LM Nom (Urine sed) NONE SEEN Normal NONE SEEN [facility] Comment on above: Performed By: #### U AMIC #### [facility] [address] [place] [address] Dr. Garry Obrien Epithelial cells LM Ql (Urine sed) FEW Abnormal NONE SEEN /RARE [facility] Comment on above: Performed By: #### U AMIC #### [facility] [address] [place] [address] Dr. Garry Obrien Glucose Ql (U) Negative Normal NEGATIVE [facility] Comment on above: Performed By: #### U AMIC #### [facility] [address] [place] [address] Dr. aGrry Obrien Hemoglobin Ql (U) TRACE-INTACT Abnormal NEGATIVE [facility] Comment on above: Performed By: #### U AMIC #### [facility] [address] [place] [address] Dr. Garry Obrien Ketones Ql (U) Negative Normal NEGATIVE [facility] Comment on above: Performed By: #### U AMIC #### [facility] [address] [place] [address] Dr. Garry Obrien LEUKOCYTES TRACE Abnormal NEGATIVE [facility] Comment on above: Performed By: #### U AMIC #### [facility] [address] [place] [address] Dr. Garry Obrien MUCOUS NONE SEEN Normal NONE SEEN [facility] Comment on above: Performed By: #### U AMIC #### [facility] [address] [place] [address] Dr. Garry Obrien Nitrite Ql (U) Negative Normal NEGATIVE [facility] Comment on above: Performed By: #### U AMIC #### [facility] [address] [place] [address] Dr. Garry Obrien pH (U) 6.0 [pH] Normal 5-9 [facility] Comment on above: Performed By: #### U AMIC #### [facility] [address] [place] [address] [address] Garry Obrien RBC 0-2 Normal 0-2 [facility] Comment on above: Performed By: #### U AMIC #### [facility] [address] [place] [address] [address] Garry Obrien SPEC GRAVITY <=1.005 Abnormal 1.005-<=1.025 [facility] Comment on above: Performed By: #### U AMIC #### [facility] [address] [place] [address] [address] Garry Obrien UA PROTEIN Negative Normal NEGATIVE/ TRACE [facility] Comment on above: Performed By: #### U AMIC #### [facility] [address] [place] [address] Dr. Garry Obrien Urobilinogen Qn (U) 0.2 {Griselda'U}/dL Normal 0.2 - 1.0 [facility] Comment on above: Performed By: #### U AMIC #### [facility] [address] [place] [address] [address] Garry Obrien WBC 2-5 Abnormal NONE SEEN [facility] Comment on above: Performed By: #### U AMIC #### [facility] [address] [place] [address] Dr. Garry Obrien PAP ACOG PANEL 2: 30 to 65on 07-13-2022 . . Normal [facility] Comment on above: Result Comment: Perf ormed at: WB Performed By: #### [id number] #### [facility] [address] [place] [address] [address] Garry Obrien Age Gdln ACOG Testing 30-65 [facility] Comment on above: Performed By: #### [id number] #### [facility] [address] [place] [address] Dr. Garry Obrien DIAGNOSIS: Comment Normal [facility] Comment on above: Result Comment: NEGA TIVE FOR INTRAEPITHELIAL LESION OR MALIGNANCY. Performed at: WB Performed By: #### [id number] #### [facility] [address] [address] [address] Garry Obrien HPV Aptima Negative Normal Negative [facility] Comment on above: Result Comment: This nucleic acid amplification test detects fourteen high-risk HPV types (16,18,31,33,35,39,45,51,52,56,58,59,66,68) without differentiation. Performed at: =G Performed By: #### [id number] #### [facility] [address] [place] [address] Dr. Garry Obrien Methodology: Comment Normal [facility] Comment on above: Result Comment: This liquid based ThinPrep(R) pap test was screened with the use of an image guided system. Performed at: WB Performed By: #### [id number] #### [facility] [address] [place] [address] Dr. Garry Obrien Note: Comment Normal [facility] Comment on above: Result Comment: The Pap smear is a screening test designed to aid in the detection of premalignant and malignant conditions of the uterine cervix. It is not a diagnostic procedure and should not be used as the sole means of detecting cervical cancer. Both false-positive and false-negative reports do occur. . Performed at: WB Performed By: #### [id number] #### [facility] [address] [place] [address] Dr. Garry Obrien Performed by: Comment Normal [facility] Comment on above: Result Comment: Macrina Lamar, Eyelet Punch Operator (ASCP) Performed at: WB Performed By: #### [id number] #### [facility] [address] [place] [address] Dr. Garry Obrien Specimen adequacy: Comment Normal [facility] Comment on above: Result Comment: Sati sfactory for evaluation. Endocervical and/or squamous metaplastic cells (endocervical component) are present. Performed at: WB Performed By: #### [id number] #### [facility] [address] [place] [address] Dr. Garry Obrien Encounters Encounter Date Encounter [...] Facility: Payers Date Payer Category Payer Unknown [id number] 2.16.84 [id number] 1992 Unknown [id number] 2..84 [id number] 1992 Unknown [id number] 2.16.84 [id number] 1992 Unknown [id number] .16.84 [id number] 1992 Unknown [id number] .16.84 [id number] 1992 Unknown [id number] 2.16.84 [id number] 1992 Unknown [id number] .16.84 [id number] 1992 Unknown [id number] 2.16.84 [id number] 1992 Unknown [id number] 2.16.84 [id number] 1992 Unknown [id number] 2.16.84 [id number] 1992 Unknown [id number] 2.16.84 [id number] 1992 Unknown [id number] 2.16.84 [id number] 1959 Unknown [id number] Summary Purpose Family History No Family History Records FoundNo Family History Records Found Advance Directives No Advanced Directives Records FoundNo Advanced Directives Records Found Additional Source Comments INFORMATION SOURCE (unrecogn ized section and content) DATE CREATED AUTHOR [facility]/01/2023 [facility] DATE CREATED AUTHOR AUTHOR'S JOSAFAT IVEY 06/29/2024 [facility] FOR RECORDS PERTAINING TO PATIENTS WHO [...] BE BASED ON THE PRIMARY CLINICAL RECORDS. [facility] [employer] provides no warranty or guarantee of the accuracy or completeness of information in this document.
[2024-07-10 10:53] LABS: Basophils Percent Auto 0.1 % (0.2-2.0); Eosinophils Percent Auto 0.3 % (0.9-7.0); Hematocrit 40.2 % (36.0-48.0); Hemoglobin 13.7 g/dL (12.0-16.0); Immature Granulocytes Abs Auto 0.09 10^3/uL (0.00-0.03); Lymphocytes Percent Auto 22.2 % (20.5-60.0); Mean Corpuscular HGB Conc 34.1 g/dL (29.9-35.2); Mean Corpuscular Hemoglobin 31.2 pg (26.7-34.0); Mean Corpuscular Volume 91.6 fL (81.0-99.0); Mean Platelet Volume 9.7 fL (9.5-13.5); Monocytes Absolute Auto 0.6 10^3/uL (0.3-0.8); Monocytes Percent Auto 6.6 % (1.7-12.0); Neutrophils Absolute Auto 6.1 10^3/uL (1.4-6.5); Neutrophils Percent Auto 69.8 % (43.0-75.0); Platelet Count 252 10^3/uL (150-450); Red Blood Count 4.39 10^6/uL (4.20-5.40); White Blood Count 8.8 10^3/uL (4.0-11.0)
[2024-07-10 10:53] LABS: Bilirubin Urine NEGATIVE (NEGATIVE); Blood Urine NEGATIVE (NEGATIVE); Clarity Urine CLEAR (CLEAR); Color Urine LT. YELLOW (YELLOW); Glucose Urine UA NEGATIVE (NEGATIVE); Ketones Urine NEGATIVE (NEGATIVE); Leukocyte Esterase Urine SMALL (NEGATIVE); Nitrite Urine NEGATIVE (NEGATIVE); Protein Urine NEGATIVE (NEG/TRACE); Specific Gravity Urine 1.025 (1.005-1.025); Urobilinogen Urine 0.2 EU/dL (0.2-1.0); pH Urine 6.5 (5.0-9.0)
[2024-07-10] MEDS: 0.9 % SODIUM CHLORIDE 1,000 ML 1000 ML IV ×2 (11:20→12:01)
[2024-07-10 12:11] LABS: Cannabinoid Screen Urine NEGATIVE (NEGATIVE); Cocaine Screen Urine NEGATIVE (NEGATIVE); Methamphetamines Screen Urine NEGATIVE (NEGATIVE); Phencyclidine Screen Urine NEGATIVE (NEGATIVE)
[2024-07-10 12:12] LABS: Amphetamine Screen Urine NEGATIVE (NEGATIVE); Barbiturates Screen Urine NEGATIVE (NEGATIVE); Benzodiazepines Screen Urine NEGATIVE (NEGATIVE); Buprenorphine Screen Urine NEGATIVE (NEGATIVE); Methadone Screen Urine NEGATIVE (NEGATIVE); Opiate Screen Urine NEGATIVE (NEGATIVE); Oxycodone Screen Urine NEGATIVE (NEGATIVE); Tricyclic Antidepressant Urine NEGATIVE (NEGATIVE)
[2024-07-10] MEDS: CITRIC ACID/SODIUM CITRATE 30 ML SOLUTION ORACIT SHOHL'S SOLN PO (12:15)
[2024-07-10] MEDS: FAMOTIDINE/PF 20 MG/2 ML VIAL IV (12:16)
[2024-07-10] MEDS: CEFAZOLIN SODIUM/DEXTROSE,ISO 2 GM/50 ML PIGGYBACK IV ×2 (12:18→18:34)
[2024-07-10] MEDS: METOCLOPRAMIDE HCL 10 MG/2 ML VIAL IVP (12:18)
[2024-07-10] MEDS: LACTATED RINGER'S SOLUTION 1,000 ML 50 ML IV ×2 (12:50→13:01)
--- NOTE | 2024-07-10 13:16 | P.ON_ITS ---
Brief Operative Note Date of procedure: 07/10/24 Pre-op diagnosis general: iup at 39wks, previous c/s Post-op diagnosis: same as pre-op Procedure: NAME OF PROCEDURE: [ section ] PROCEDURE: Patient was taken back to the Operating Room where she was given a spinal anesthesia with Duramorph without difficulty. She was prepped and draped in the normal sterile fashion. A Pfannenstiel skin incision was then made 2 cm above the symphysis pubis and carried down to underlying rectus fascia using a Bovie. The fascia was incised in the midline and extended laterally using Barahona scissors. Two Johanna clamps were placed on the superior aspect of the fascia and dissected off the underlying rectus muscles. The same was performed on the inferior aspect as well. The muscles were then in the midline. Peritoneum was identified and entered bluntly. The peritoneum was then extended superiorly and inferiorly with good visualization of the bladder. The bladder blade was inserted. A low transverse incision was made on the patient's uterus and extended laterally digitally. The was then delivered atraumatically after the bladder blade was removed in the cephalic position. The cord was clamped and cut. Cord blood was obtained. The was handed off to awaiting team. The patient's placenta was spontaneously delivered. The uterus was then exteriorized. The uterus was cleared of all clots and debris. The bladder blade was reinserted. The patient's uterine incision was closed using #0 Vicryl in a running lock fashion. Excellent hemostasis was assured. The uterus was then returned to the patient's abdomen. The patient's abdomen was copiously irrigated using warm saline. Peritoneal gutters were cleared of all clots and debris. Again excellent hemostasis was assured. The patient's peritoneum was closed using 3-0 Vicryl in a running fashion. The patient's fascia was closed using #0 Vicryl in a running fashion. The patient's skin was closed using 4-0 Vicryl subcuticularly. The patient tolerated the procedure well. Sponge, lap, and needle counts were correct x2. The patient was taken to the Recovery Room in stable condition. Anesthesia: SIS Surgeon: Felice Burden Warp Knitting Machine Operator: Jaylin Buchanan Estimated blood loss (mL): 575 Pathology: none sent Condition: stable Disposition: PACU Urinary Catheter Management Urinary Catheter Management Urethral: Cath placed during this visit: no
--- NOTE | 2024-07-10 13:17 | PM.OBPRCCS ---
Procedure Pre-op/Post-op diagnoses: Pre-Op/Post-Op Diagnoses Operation Date: 07/10/24 12:30 <No data on this case meets the specified criteria> Procedure: Procedures Operation Date: 07/10/24 12:30 Actual Procedure Side Surgeon p Repeat Not Applicable Felice Burden DO Disability Liaison Officer: Jaylin Buchanan Estimated blood loss (mL): 575 Disposition: PACU Anesthesia type: Spinal
--- OUTSIDE RECORDS SUMMARY | 2024-07-10 14:32 | XMS_ITS | CCD ---
Author Organization [place] [facility] Care Team Providers Care Burial Vault Setter Name Role Phone JANKI ., DR ORONA Admitting Unavailable JANKI ., DR ORONA Attending Unavailable LUIS E DAVIS Primary Care Unavailable JANKI ., DR ORONA Consulting Unavailable AICHHOLZ, ELECTRONICS TEACHER AC Admitting Unavailable AICHHOLZ, ELECTRONICS TEACHER AC Attending Unavailable AICHHOLZ, ELECTRONICS TEACHER AC Primary Care Unavailable AICHHOLZ, ELECTRONICS TEACHER AC Consulting Unavailable JANKI, YEYO Attending Unavailable WILL, PURA Attending Unavailable JANKI, YEYO Attending Unavailable WILL, PURA Attending Unavailable WILL, PURA Attending Unavailable JANKI, YEYO Attending Unavailable WILL, PURA Attending Unavailable JANKI, YEYO Attending Unavailable WILL, PUAR Attending Unavailable Problems Active Problems Problem Classification [...] [Catalytic activity/Vol] 36 U/L Normal 25-115 [facility] Comment on above: Performed By: #### C MP, PURA, DBIL, LIPA, LIPID #### [facility] [address], [place] [address] Dr. Garry Obrien BILIRUBIN CONJUGATED (DIRECT )on 12-28-2022 BILI, CONJUGATED 0.1 mg/dL Normal 0.0-0.2 [facility] Comment on above: Performed By: #### C MP, PURA, DBIL, LIPA, LIPID #### [facility] [address] [place] [address] Dr. Garry Obrien CBC AUTO DIFFon 12-28-2022 BASO # 0.0 103/ul Normal 0.0-0.1 [facility] Comment on above: Performed By: #### C BC #### [facility] [address] [place] [address] Dr. Garry Obrien Basophils/100 WBC (Bld) 0.3 % Normal 0.2-2.0 [facility] Comment on above: Performed By: #### C BC #### [facility] [address] [place] [address] Dr. Garry Obrien EO # 0.5 103/ul Normal 0.0-0.7 [facility] Comment on above: Performed By: #### C BC #### [facility] [address] [place] [address] Dr. Garry Obrien Eosinophils/100 WBC (Bld) 8.2 % Critically high 0.9-7.0 [facility] Comment on above: Performed By: #### C BC #### [facility] [address] [place] [address] Dr. Garry Obrien Erythrocyte distribution width (RBC) [Ratio] 13.5 % Normal 11.0-15.0 [facility] Comment on above: Performed By: #### C BC #### [facility] [address] [place] [address] Dr. Garry Obrien Hematocrit (Bld) [Volume fraction] 41.7 % Normal 36.0-48.0 [facility] Comment on above: Performed By: #### C BC #### [facility] [address] [place] [address] Dr. Garry Obrien Hemoglobin (Bld) [Mass/Vol] 13.8 g/dL Normal 12.0-16.0 [facility] Comment on above: Performed By: #### C BC #### [facility] [address] [place] [address] Dr. Garry Obrien IG # 0.01 10e3/ul Normal 0.00-0.03 [facility] Comment on above: Performed By: #### C BC #### [facility] [address] [place] [address] Dr. Garry Obrien IG % 0.2 % Normal 0.0-0.5 [facility] Comment on above: Performed By: #### C BC #### [facility] [address] [place] [address] Dr. Garry Obrien LYMPH # 2.0 103/ul Normal 1.2-3.8 [facility] Comment on above: Performed By: #### C BC #### [facility] [address] [place] [address] Dr. Garry Obrien Lymphocytes/100 WBC (Bld) 32.8 % Normal 20.5-60.0 [facility] Comment on above: Performed By: #### C BC #### [facility] [address] [place] [address] Dr. Garry Obrien MANUAL DIFF REQ NO Normal [facility] Comment on above: Performed By: #### C BC #### [facility] [address] [place] [address] Dr. Garry Obrien MCH (RBC) [Entitic mass] 29.2 pg Normal 26.7-34.0 [facility] Comment on above: Performed By: #### C BC #### [facility] [address] [place] [address] Dr. Garry Obrien MCHC (RBC) [Mass/Vol] 33.1 g/dL Normal 29.9-35.2 [facility] Comment on above: Performed By: #### C BC #### [facility] [address] [place] [address] Dr. Garry Obrien MCV (RBC) [Entitic vol] 88.2 fL Normal 81.0-99.0 [facility] Comment on above: Performed By: #### C BC #### [facility] [address] [place] [address] Dr. Garry Obrien MONO # 0.5 103/ul Normal 0.3-0.8 [facility] Comment on above: Performed By: #### C BC #### [facility] [address] [place] [address] Dr. Garry Obrien Monocytes/100 WBC (Bld) 7.7 % Normal 1.7-12.0 [facility] Comment on above: Performed By: #### C BC #### [facility] [address] [place] [address] Dr. Garry Obrien NEUT # 3.1 103/ul Normal 1.4-6.5 [facility] Comment on above: Performed By: #### C BC #### [facility] [address] [place] [address] Dr. Garry Obrien Neutrophils/100 WBC (Bld) 50.8 % Normal 43.0-75.0 [facility] Comment on above: Performed By: #### C BC #### [facility] [address] [place] [address] Dr. Garry Obrien Platelet mean volume (Bld) [Entitic vol] 9.3 fL Critically low 9.5-13.5 [facility] Comment on above: Performed By: #### C BC #### [facility] [address] [place] [address] Dr. Garry Obrien PLT 318 103/ul Normal 150-450 [facility] Comment on above: Performed By: #### C BC #### [facility] [address] [place] [address] Dr. Garry Obrien RBC 4.73 106/ul Normal 4.20-5.40 [facility] Comment on above: Performed By: #### C BC #### [facility] [address] [place] [address] Dr. Garry Obrien WBC 6.1 103/ul Normal 4.0-11.0 [facility] Comment on above: Performed By: #### C BC #### [facility] [address] [place] [address] Dr. Garry Obrien LIPASEon 03-22-2023 Lipase [Catalytic activity/Vol] 198.0 U/L Normal 73.0-393.0 [facility] Comment on above: Performed By: #### C MP, PURA, DBIL, LIPA, LIPID #### [facility] [address] [place] [address] Dr. Garry Obrien LIPID PROFILEon 12-28-2022 CHOL-HDL RATIO NORM SEE BELOW Normal [facility] Comment on above: Result Comment: 3.3 - 4.4 LOW RISK 4.4 - 7.1 AVERAGE RISK 7.1 - 11.0 MODERATE RISK >11.0 HIGH RISK Performed By: #### C MP, PURA, DBIL, LIPA, LIPID #### [facility] [address] [place] [address] Dr. Garry Obrien Cholesterol [Mass/Vol] 237 mg/dL Critically high <=200 [facility] Comment on above: Performed By: #### C MP, PURA, DBIL, LIPA, LIPID #### [facility] [address] [place] [address] Dr. Garry Obrien Cholesterol in HDL [Mass/Vol] 67 mg/dL Critically high 40-60 [facility] Comment on above: Performed By: #### C MP, PURA, DBIL, LIPA, LIPID #### [facility] [address] [place] [address] Dr. Garry Obrien Cholesterol in LDL [Mass/Vol] 144.8 mg/dL Normal [facility] Comment on above: Performed By: #### C MP, PURA, DBIL, LIPA, LIPID #### [facility] [address] [place] [address] Dr. Garry Obrien Cholesterol.total/ Cholesterol in HDL [Mass ratio] 3.5 {ratio} Normal [facility] Comment on above: Performed By: #### C MP, PURA, DBIL, LIPA, LIPID #### [facility] [address] [place] [address] Dr. Garry Obrien HDL NORMAL > or = 60 mg/dl - LO W CARDIOVASCULAR RISK <40 mg/dl - HIGH CARDIOVASCULAR RISK Normal [facility] Comment on above: Performed By: #### C MP, PURA, DBIL, LIPA, LIPID #### [facility] [address] [place] [address] [address] Garry Obrien LDL CALC NORMAL SEE BELOW Normal [facility] Comment on above: Result Comment: <100 mg/dl OPTIMAL 100 - 129 mg/dl NEAR OR ABOVE OPTIMAL 130 - 159 mg/dl BORDERLINE HIGH 160 - 189 mg/dl HIGH >190 mg/dl VERY HIGH Performed By: #### C MP, PURA, DBIL, LIPA, LIPID #### [facility] [address] [address] [address] Garry Obrien Triglyceride [Mass/Vol] 126 mg/dL Normal <=150 [facility] Comment on above: Performed By: #### C MP, PURA, DBIL, LIPA, LIPID #### [facility] [address] [place] [address] Dr. Garry Obrien VLDL CALC 25.2 mg/dL Normal [facility] Comment on above: Performed By: #### C MP, PURA, DBIL, LIPA, LIPID #### [facility] [address] [place] [address] Dr. Garry Obrien PREG HCG QUALon 12-28-2022 , QUAL Negative Normal NEGATIVE [facility] Comment on above: Performed By: #### P REG #### [facility] [address] [place] [address] Dr. Garry Obrien PROF 14(COMP METB)on 023 Albumin [Mass/Vol] 3.9 g/dL Normal 3.4-5.0 [facility] Comment on above: Performed By: #### C MP, PURA, DBIL, LIPA, LIPID #### [facility] [address] [place] [address] Dr. Garry Obrien Albumin/Globulin [Mass ratio] 0.9 {ratio} Normal [facility] Comment on above: Performed By: #### C MP, PURA, DBIL, LIPA, LIPID #### [facility] [address] [place] [address] Dr. Garry Obrien ALP [Catalytic activity/Vol] 51 U/L Normal 46-116 [facility] Comment on above: Performed By: #### C MP, PURA, DBIL, LIPA, LIPID #### [facility] [address] [place] [address] Dr. Garry Obrien ALT [Catalytic activity/Vol] 20 U/L Normal 14-59 [facility] Comment on above: Performed By: #### C MP, PURA, DBIL, LIPA, LIPID #### [facility] [address] [place] [address] Dr. Garry Obrien Anion gap [Moles/Vol] 12.5 mmol/L Normal [facility] Comment on above: Performed By: #### C MP, PURA, DBIL, LIPA, LIPID #### [facility] [address] [place] [address] Dr. Garry Obrien AST [Catalytic activity/Vol] 20 U/L Normal 15-37 [facility] Comment on above: Performed By: #### C MP, PURA, DBIL, LIPA, LIPID #### [facility] [address] [place] [address] Dr. Garry Obrien Bilirubin [Mass/Vol] 0.5 mg/dL Normal 0.2-1.0 [facility] Comment on above: Performed By: #### C MP, PURA, DBIL, LIPA, LIPID #### [facility] [address] [place] [address] Dr. Garry Obrien Calcium [Mass/Vol] 9.5 mg/dL Normal 8.5-10.1 [facility] Comment on above: Performed By: #### C MP, PURA, DBIL, LIPA, LIPID #### [facility] [address] [place] [address] Dr. Garry Obrien Chloride [Moles/Vol] 100 mmol/L Normal 98-107 [facility] Comment on above: Performed By: #### C MP, PURA, DBIL, LIPA, LIPID #### [facility] [address] [place] [address] Dr. Garry Obrien CO2 [Moles/Vol] 27.4 mmol/L Normal 21.0-32.0 [facility] Comment on above: Performed By: #### C MP, PURA, DBIL, LIPA, LIPID #### [facility] [address] [place] [address] Dr. Garry Obrien Creatinine [Mass/Vol] 0.67 mg/dL Normal 0.55-1.02 [facility] Comment on above: Performed By: #### C MP, PURA, DBIL, LIPA, LIPID #### [facility] [address] [place] [address] Dr. Garry Obrien EGFR-AF MEXICAN >60 Normal >=60 [facility] Comment on above: Performed By: #### C MP, PURA, DBIL, LIPA, LIPID #### [facility] [address] [place] [address] Dr. Garry Obrien EGFR-NON AF MEXICAN >60 Normal >=60 [facility] Comment on above: Performed By: #### C MP, PURA, DBIL, LIPA, LIPID #### [facility] [address] [place] [address] Dr. Garry Obrien Globulin (S) [Mass/Vol] 4.3 g/dL Normal [facility] Comment on above: Performed By: #### C MP, PURA, DBIL, LIPA, LIPID #### [facility] [address] [place] [address] Dr. Garry Obrien Glucose [Mass/Vol] 99 mg/dL Normal 74-106 [facility] Comment on above: Performed By: #### C MP, PURA, DBIL, LIPA, LIPID #### [facility] [address] [place] [address] Dr. Garry Obrien Potassium [Moles/Vol] 3.9 mmol/L Normal 3.5-5.1 [facility] Comment on above: Performed By: #### C MP, PURA, DBIL, LIPA, LIPID #### [facility] [address] [place] [address] Dr. Garry Obrien Protein [Mass/Vol] 8.2 g/dL Normal 6.4-8.2 [facility] Comment on above: Performed By: #### C MP, PURA, DBIL, LIPA, LIPID #### [facility] [address] [place] [address] Dr. Garry Obrien Sodium [Moles/Vol] 136 mmol/L Normal 136-145 [facility] Comment on above: Performed By: #### C MP, PURA, DBIL, LIPA, LIPID #### [facility] [address] [place] [address] Dr. Garry Obrien Urea nitrogen [Mass/Vol] 10.0 mg/dL Normal 7.0-18.0 [facility] Comment on above: Performed By: #### C MP, PURA, DBIL, LIPA, LIPID #### [facility] [address] [place] [address] Dr. Garry Obrien Urea nitrogen/Creatinin e [Mass ratio] 14.9 mg/mg Normal [facility] Comment on above: Performed By: #### C MP, PURA, DBIL, LIPA, LIPID #### [facility] [address] [place] [address] Dr. Garry Obrien SED RATE [facility] 2022 SED RATE 13 mm/hr Normal <=20 [facility] Comment on above: Performed By: #### S EDR #### [facility] [address] [place] [address] Dr. Garry Obrien UA RANDOM W/MICROSCOPICon BACTERIA SMALL Abnormal NONE SEEN [facility] Comment on above: Performed By: #### U AMIC #### [facility] [address] [place] [address] Dr. Garry Obrien Bilirubin Ql (U) Negative Normal NEGATIVE [facility] Comment on above: Performed By: #### U AMIC #### [facility] [address] [place] [address] Dr. Garry Obrien CAST NONE SEEN Normal NONE SEEN [facility] Comment on above: Performed By: #### U AMIC #### [facility] [address] [place] [address] Dr. Garry Obrien Clarity (U) CLEAR Normal CLEAR [facility] Comment on above: Performed By: #### U AMIC #### [facility] [address] [place] [address] [address] Garry Obrien Color (U) LT. YELLOW Normal YELLOW [facility] Comment on above: Performed By: #### U AMIC #### [facility] [address] [address] [address] Garry Obrien Crystals LM Nom (Urine sed) NONE SEEN Normal NONE SEEN [facility] Comment on above: Performed By: #### U AMIC #### [facility] [address] [place] [address] Dr. Garry Obrien Epithelial cells LM Ql (Urine sed) FEW Abnormal NONE SEEN /RARE [facility] Comment on above: Performed By: #### U AMIC #### [facility] [address] [place] [address] Dr. Garry Obrien Glucose Ql (U) Negative Normal NEGATIVE [facility] Comment on above: Performed By: #### U AMIC #### [facility] [address] [place] [address] Dr. Garry Obrien Hemoglobin Ql (U) TRACE-INTACT Abnormal NEGATIVE [facility] Comment on above: Performed By: #### U AMIC #### [facility] [address] [place] [address] Dr. Garry Obrien Ketones Ql (U) Negative Normal NEGATIVE [facility] Comment on above: Performed By: #### U AMIC #### [facility] [address] [place] [address] Dr. Garry Obrien LEUKOCYTES TRACE Abnormal NEGATIVE [facility] Comment on above: Performed By: #### U AMIC #### [facility] [address] [place] [address] Dr. Garry Obrien MUCOUS NONE SEEN Normal NONE SEEN [facility] Comment on above: Performed By: #### U AMIC #### [facility] [address] [place] [address] Dr. Garry Obrien Nitrite Ql (U) Negative Normal NEGATIVE [facility] Comment on above: Performed By: #### U AMIC #### [facility] [address] [place] [address] Dr. Garry Obrien pH (U) 6.0 [pH] Normal 5-9 [facility] Comment on above: Performed By: #### U AMIC #### [facility] [address] [address] [address] Garry Obrien RBC 0-2 Normal 0-2 [facility] Comment on above: Performed By: #### U AMIC #### [facility] [address] [address] [address] Garry Obrien SPEC GRAVITY <=1.005 Abnormal 1.005-<=1.025 [facility] Comment on above: Performed By: #### U AMIC #### [facility] [address] [address] [address] Garry Obrien UA PROTEIN Negative Normal NEGATIVE/ TRACE [facility] Comment on above: Performed By: #### U AMIC #### [facility] [address] [place] [address] Dr. Garry Obrien Urobilinogen Qn (U) 0.2 {Griselda'U}/dL Normal 0.2 - 1.0 [facility] Comment on above: Performed By: #### U AMIC #### [facility] [address] [address] [address] Garry Obrien WBC 2-5 Abnormal NONE SEEN [facility] Comment on above: Performed By: #### U AMIC #### [facility] [address] [place] [address] Dr. Garry Obrien PAP ACOG PANEL 2: 30 to 65on 07-13-2022 . . Normal [facility] Comment on above: Result Comment: Perf ormed at: WB Performed By: #### [id number] #### [facility] [address] [address] [address] Garry Obrien Age Gdln ACOG Testing 30-65 [facility] Comment on above: Performed By: #### [id number] #### [facility] [address] [place] [address] Dr. Garry Obrien DIAGNOSIS: Comment Normal [facility] Comment on above: Result Comment: NEGA TIVE FOR INTRAEPITHELIAL LESION OR MALIGNANCY. Performed at: WB Performed By: #### [id number] #### [facility] [address] [address] [address] Garry Obrien HPV Aptima Negative Normal Negative [facility] Comment on above: Result Comment: This nucleic acid amplification test detects fourteen high-risk HPV types (16,18,31,33,35,39,45,51,52,56,58,59,66,68) without differentiation. Performed at: =G Performed By: #### [id number] #### [facility] [address] [place] [address] Dr. Garry Obrien Methodology: Comment Normal [facility] Comment on above: Result Comment: This liquid based ThinPrep(R) pap test was screened with the use of an image guided system. Performed at: WB Performed By: #### [id number] #### [facility] [address] [place] [address] Dr. Garry Obrien Note: Comment Normal [facility] Comment on above: Result Comment: The Pap smear is a screening test designed to aid in the detection of premalignant and malignant conditions of the uterine cervix. It is not a diagnostic procedure and should not be used as the sole means of detecting cervical cancer. Both false-positive and false-negative reports do occur. . Performed at: WB Performed By: #### [id number] #### [facility] [address] [place] [address] Dr. Garry Obrien Performed by: Comment Normal [facility] Comment on above: Result Comment: Macrina Lamar, [employer] (ASCP) Performed at: WB Performed By: #### [id number] #### [facility] [address] [place] [address] Dr. Garry Obrien Specimen adequacy: Comment Normal [facility] Comment on above: Result Comment: Sati sfactory for evaluation. Endocervical and/or squamous metaplastic cells (endocervical component) are present. Performed at: WB Performed By: #### [id number] #### [facility] [address] [place] [address] Dr. Garry Obrien Encounters Encounter Date Encounter [...] Facility: Payers Date Payer Category Payer Unknown [id number] 2.16.84 [id number] 1992 Unknown [id number] 2..84 [id number] 1992 Unknown [id number] 2.16.84 [id number] 1992 Unknown [id number] .16.84 [id number] 1992 Unknown [id number] .16.84 [id number] 1992 Unknown [id number] 2.16.84 [id number] 1992 Unknown [id number] .16.84 [id number] 1992 Unknown [id number] 2.16.84 [id number] 1992 Unknown [id number] 2.16.84 [id number] 1992 Unknown [id number] 2.16.84 [id number] 1992 Unknown [id number] 2.16.84 [id number] 1992 Unknown [id number] 2.16.84 [id number] 1959 Unknown [id number] Summary Purpose Family History No Family History Records FoundNo Family History Records Found Advance Directives No Advanced Directives Records FoundNo Advanced Directives Records Found Additional Source Comments INFORMATION SOURCE (unrecogn ized section and content) DATE CREATED AUTHOR 01/01/2023 [facility] DATE CREATED AUTHOR AUTHOR'S JOSAFAT IVEY 06/29/2024 [facility] FOR RECORDS PERTAINING TO PATIENTS WHO [...] BE BASED ON THE PRIMARY CLINICAL RECORDS. [facility] [employer] provides no warranty or guarantee of the accuracy or completeness of information in this document.
[2024-07-10] MEDS: OXYTOCIN/0.9 % SODIUM CHLORIDE 20 UNITS/1,000 ML PLAST..BAG 125 UNIT IV (14:45)
[2024-07-10] MEDS: ACETAMINOPHEN 500 MG TABLET 1000 MG PO (19:52)
[2024-07-10] MEDS: KETOROLAC TROMETHAMINE 30 MG/ML VIAL IVP (19:53)
--- NOTE | 2024-07-10 20:22 | PC.NURSE ---
Macie-care performed; macie-pad changed. Abbasi catheter emptied.
--- NOTE | 2024-07-10 22:09 | W.PC.ACHO ---
Registration Status: ADM IN Primary Language: Swiss Preferred Language: Swiss report given to Dary THOMASON at 1900. Care relinquished. Active Medications Generic Name Dose Route Start Last Admin Trade Name Freq PRN Reason Stop Dose Admin Acetaminophen 1,000 mg 07/10/24 20:00 07/10/24 19:52 Acetaminophen 500 Mg Tablet PO 07/12/24 20:01 1,000 mg Q8H ZACHARY Administration Al Hydroxide/Mg Hydroxide 2,400 mg 07/10/24 13:18 Magnesium Hydroxide 2,400 Mg/10 Ml Oral.Susp PO Q6H PRN Dyspepsia Diphenhydramine HCl 25 mg 07/10/24 13:18 Diphenhydramine Hcl 50 Mg/Ml Vial IV 07/11/24 13:19 Q6H PRN Itching Diphtheria/Pertussis/Tetanus Vacc 0.5 ml 07/12/24 09:00 Adacel Diph,Pertuss(Acell),Tet Vac/Pf 0.5 Ml Adult Syringe IM 07/12/24 09:01 .ONCE ONE Docusate Sodium 100 mg 07/11/24 09:00 Docusate Sodium 100 Mg Capsule PO BID ZACHARY Enoxaparin Sodium 40 mg 07/10/24 23:30 Enoxaparin Sodium 40 Mg/0.4 Ml Syringe SUBQ Q24H ZACHARY Lactated Ringer's 1,000 mls @ 125 mls/hr 07/10/24 14:00 Lactated Ringers IV .Q8H ZACHARY Promethazine HCl 25 mg/ Sodium 51 mls @ 204 mls/hr 07/10/24 13:18 Chloride IV Q6H PRN Nausea And Vomiting Ibuprofen 800 mg 07/11/24 13:00 Ibuprofen 400 Mg Tablet PO Q6H ZACHARY Ketorolac Tromethamine 30 mg 07/10/24 19:00 07/10/24 19:53 Ketorolac Tromethamine 30 Mg/Ml Vial IVP 07/11/24 07:01 30 mg Q6H ZACHARY Administration Measles/Mumps/Rubella Vaccine Live 0.5 ml 07/12/24 09:00 Measles,Mumps,Rubella Vacc/Pf 0.5 Ml Vial SQ 07/12/24 09:01 .ONCE ONE Ondansetron HCl 4 mg 07/10/24 13:18 Ondansetron Pf 4 Mg/2 Ml Vial IV Q6H PRN Nausea And Vomiting Ondansetron HCl 4 mg 07/10/24 13:18 Ondansetron 4 Mg Rapdis Tablet PO Q6H PRN Nausea And Vomiting Oxycodone HCl 5 mg 07/10/24 13:18 Oxycodone Hcl 5 Mg Tablet PO Q4H PRN Breakthrough Pain Senna 17.2 mg 07/10/24 20:00 Sennosides 8.6 Mg Tablet PO QHS PRN Constipation Simethicone 80 mg 07/10/24 13:18 Simethicone 80 Mg Tab.Chew PO QID PRN Abdominal Distention Diet Category Date Time Status Regular Consistency Diet Diet 07/10/24 16:05 Active IV Insertion/Site Date of IV Line Insertion [ 07/10/24 Short PIV (<1.75 in) 18g left Forearm] IV Insertion Time [Short PIV ( 11:17 <1.75 in) 18g left Forearm] Neurology Patient orientation (short person,place,time,situation list) Respiratory Pulse Oximetry 98 Pulse Oximetry 97 Pulse Oximetry 98 Pulse Oximetry 98 Pulse Oximetry 97 Pulse Oximetry 98 Pulse Oximetry 98 Pulse Oximetry 98 Pulse Oximetry 99 Pulse Oximetry 99 Pulse Oximetry 97 Pulse Oximetry 96 Pulse Oximetry 98 Pulse Oximetry 98 Pulse Oximetry 97 Pulse Oximetry 98 Pulse Oximetry 98 Pulse Oximetry 97 Pulse Oximetry 97 Pulse Oximetry 96 Pulse Oximetry 96 Pulse Oximetry 97 Pulse Oximetry 96 Oxygen Delivery Method Room Air Oxygen Delivery Method Room Air Oxygen Delivery Method Room Air Catheter Urinary Catheter Date of 07/10/24 Insertion [Urethral] Urinary Catheter Time of 12:30 Insertion [Urethral]
[2024-07-11] MEDS: KETOROLAC TROMETHAMINE 30 MG/ML VIAL IVP ×2 (01:16→08:57)
[2024-07-11] MEDS: ENOXAPARIN SODIUM 40 MG/0.4 ML SYRINGE SUBQ (01:17)
[2024-07-11 01:21] VITALS: BP 107/64; PULSE 57
[2024-07-11 01:30] VITALS: TEMP 36.8
[2024-07-11 04:18] VITALS: BP 106/60; PULSE 62
[2024-07-11 07:25] LABS: Basophils Percent Auto 0.1 % (0.2-2.0); Hematocrit 34.3 % (36.0-48.0); Hemoglobin 11.7 g/dL (12.0-16.0); Immature Granulocytes Abs Auto 0.12 10^3/uL (0.00-0.03); Immature Granulocytes Pct Auto 0.7 % (0.0-0.5); Lymphocytes Absolute Auto 1.6 10^3/uL (1.2-3.8); Lymphocytes Percent Auto 9.6 % (20.5-60.0); Mean Corpuscular HGB Conc 34.1 g/dL (29.9-35.2); Mean Corpuscular Hemoglobin 31.3 pg (26.7-34.0); Mean Corpuscular Volume 91.7 fL (81.0-99.0); Mean Platelet Volume 10.3 fL (9.5-13.5); Monocytes Absolute Auto 1.2 10^3/uL (0.3-0.8); Monocytes Percent Auto 6.8 % (1.7-12.0); Neutrophils Percent Auto 82.8 % (43.0-75.0); Platelet Count 217 10^3/uL (150-450); Red Blood Count 3.74 10^6/uL (4.20-5.40); Red Cell Distribution Width 14.2 % (11.0-15.0); White Blood Count 16.9 10^3/uL (4.0-11.0)
[2024-07-11] MEDS: DOCUSATE SODIUM 100 MG CAPSULE PO (08:57)
[2024-07-11 09:01] VITALS: BP 118/83; PULSE 70; TEMP 36.7
--- NOTE | 2024-07-11 14:10 | PM.OBPN ---
OB - PN: Subj Subjective Patient comments: no complaints, pain well controlled, tolerating diet and flatus present [place] infant status: doing well Exam Narrative Exam Narrative: voicing no complaints Constitutional Vital Signs, click to edit/add: Last Vital Signs Temp 98.0 F 07/11/24 09:01 Pulse 70 07/11/24 09:01 Resp 16 07/11/24 09:01 BP 118/83 07/11/24 09:01 Pulse Ox 98 07/10/24 14:15 O2 Del Method Room Air 07/11/24 09:01 Documenting provider has reviewed patient's vital signs: yes Common normals: no apparent distress, average body habitus, oriented x3, no limitations, healthy appearing, alert and well nourished HENMT Common normals: normocephalic and head/scalp atraumatic Eye Common normals: PERRL Pupil: accommodation reflex normal Neck & C-Spine Common normals: full ROM and supple Respiratory Common normals: normal respiratory effort Auscultation: clear to auscultation bilaterally Cardio Common normals: regular rate and regular rhythm GI Common normals: Normal to inspection, nondistended, normoactive bowel sounds present, soft to palpation and non-tender Common normals: no CVA tenderness Back & Pelvis Common normals: no thoracic nor lumbar tenderness Extremity Common normals: full ROM and no calf tenderness Neuro Common normals: oriented x3, CN's II-XII intact bilaterally, moves all extremities, no focal motor deficits and no sensory deficits noted Motor exam: strength 5/5 throughout Psych Common normals: mental status grossly normal, thought process normal, cooperative, affect normal and speech normal Results Labs Labs: Short CBC 07/11/24 Range/Units 06:51 WBC 16.9 H (4.0-11.0) 10^3/uL Hgb 11.7 L (12.0-16.0) g/dL Hct 34.3 L (36.0-48.0) % Plt Count 217 (150-450) 10^3/uL Urinary Catheter Management Urinary Catheter Management Urethral: Cath placed during this visit: yes, but has since been removed by the nurse Insertion date: 07/10/24 Insertion time: 12:30 Removal date: 07/11/24 Removal time: 09:01 OB - PN: A/P Assessment and Plan (1) Status post repeat low transverse section: Assessment and Plan: exam non focal, good pain control, breast feeding, voicing no complaints, ambulating eating and eliminating normally Plan - day: 1 Plan: routine postop care Time Spent with Patient Time: Total time spent is greater than 50% in coordination of care (as documented) at patient's floor/unit and/or counseling patient: Total time spent with greater than 50% in coordination of care (as documented) at patient's floor/unit and/or counseling patient: less than 15 minutes
[2024-07-11] MEDS: IBUPROFEN 400 MG TABLET 800 MG PO (15:22)
[2024-07-11 17:38] VITALS: BP 110/66; PULSE 70
[2024-07-11] MEDS: ACETAMINOPHEN 500 MG TABLET 1000 MG PO (17:47)
[2024-07-11 17:51] VITALS: TEMP 36.7
[2024-07-12] MEDS: IBUPROFEN 400 MG TABLET 800 MG PO ×3 (00:12→15:12)
[2024-07-12] MEDS: DOCUSATE SODIUM 100 MG CAPSULE PO ×2 (00:12→08:47)
[2024-07-12] MEDS: ENOXAPARIN SODIUM 40 MG/0.4 ML SYRINGE SUBQ (00:12)
[2024-07-12 00:15] VITALS: BP 116/67; PULSE 66; TEMP 36.4
[2024-07-12] MEDS: ACETAMINOPHEN 500 MG TABLET 1000 MG PO (04:36)
[2024-07-12 08:49] VITALS: BP 122/69; PULSE 79
[2024-07-12 09:00] VITALS: TEMP 36.6
--- NOTE | 2024-07-12 12:01 | P.DS_ITS ---
DS: Providers Provider Date of admission: 07/10/24 14:09 Primary care physician: Alicia Dunn NP Admitting clinician: Felice Burden Attending physician on discharge: Venus Arroyo Anticipated date of discharge: 07/12/24 DS: Diagnosis Discharge Diagnosis (1) Status post repeat low transverse section: Assessment and plan: condition good, for discharge Plan given scripts for ibuprofin and percocet 5/325, home going instructions given with stated understanding, follow up in one weeks for incision check, call for problem or concern OB - DS: Summary Hospital Course Hospital Course: uncomplicated Time spent discussing smoking cessation with patient: 3 to 10 minutes Peripartum Data - Procedures: Procedures Operation Date: 07/10/24 12:30 Actual Procedure Side Surgeon p Repeat Not Applicable Felice Burden DO Peripartum Data - Vaginal Delivery Procedures: Procedures Operation Date: 07/10/24 12:30 Actual Procedure Side Surgeon p Repeat Not Applicable Felice Burden DO Complications complications: none Delivery method: section Gender: male Discharge plan: home Status at Discharge Cognitive/behavioral status at discharge: wnl Functional status at discharge: independent ambulation Overall status at discharge: patient is progressing back to baseline Time Spent with Patient Time attestation: Total time spent providing and/or coordinating discharge services: Time spent: less than 30 minutes Exam Constitutional Vital Signs, click to edit/add: Last Vital Signs Temp 97.9 F 07/12/24 09:00 Pulse 79 07/12/24 08:49 Resp 18 07/12/24 09:00 BP 122/69 07/12/24 08:49 Pulse Ox 98 07/10/24 14:15 O2 Del Method Room Air 07/12/24 09:00 Common normals: no apparent distress and oriented x3 HENMT Common normals: normocephalic and head/scalp atraumatic Eye Common normals: PERRL Pupil: accommodation reflex normal Neck & C-Spine Common normals: full ROM and supple Respiratory Common normals: normal respiratory effort Auscultation: clear to auscultation bilaterally Cardio Common normals: regular rate and regular rhythm GI Common normals: Normal to inspection, nondistended, normoactive bowel sounds present, soft to palpation and non-tender Common normals: no CVA tenderness Back & Pelvis Common normals: no thoracic nor lumbar tenderness Extremity Common normals: normal to inspection and no calf tenderness Neuro Common normals: CN's II-XII intact bilaterally, moves all extremities, no focal motor deficits and no sensory deficits noted Motor exam: strength 5/5 throughout Psych Common normals: mental status grossly normal, thought process normal, cooperative, affect normal, speech normal and activity/motor behavior normal Discharge Plan Discharge Disposition: Home, Self-Care Condition: Good Discharge Medications: Continued PNV [id number] [] 28 mg iron- 800 mcg tablet 1 tab PO DAILY cetirizine [Zyrtec] 10 mg tablet 10 mg PO DAILY PRN (Reason: allergy symptoms) Activity: resume usual activities as tolerated Activity Detail: no sex six weeks, may climb stairs, may shower, no tub for 4 weeks, no car for [address] ellington, sports bra is stops breast feeding, general covid and rsv precautions, walking only exercise for six weeks Diet: regular diet Print Language: Swedish Forms: Portal Instructions Follow Up Appointments: needs an appointment for incision check in one week with Dr. Burden Discharge location: home
== END 2024-07-12 15:15 | disposition home or self-care (01) | DRG 788 ==
LOC: SURGOUT 14:10 → FBC 14:10
PROVIDERS: Admitting Provider Obstetrics & Gynecology; PCP Nurse Practitioner; Visit Provider Obstetrics & Gynecology
PROC: 10D00Z1 Extraction of Products of Conception, Low, Open Approach (ICD-10-PCS; CPT 59514; principal; 2024-07-10 12:30)
DX: O34.219 Maternal care for unspecified type scar from previous cesarean delivery (principal); Z3A.39 39 weeks gestation of pregnancy; Z37.0 Single live birth; Z87.891 Personal history of nicotine dependence
CPT/HCPCS: 36415; 51702; 59050; 64488; 80307; 81003; 85025; 86850; 86900; 86901; 94667; 94668; J0131; J0665; J0690; J1100; J1650; J1885; J2274; J2371; J2405; J2590; J2765

== ENCOUNTER 2024-07-16 08:16 | Outpatient (OUT) | payer BC, SELFPAY ==
--- OUTSIDE RECORDS SUMMARY | 2024-07-16 08:25 | XMS_ITS | CCD ---
Author Organization [facility] Care Team Providers Care Medical Librarian Name Role Phone JENISE ., DR ORONA Admitting Unavailable JENISE ., DR ORONA Attending Unavailable LUIS E DAVIS Primary Care Unavailable JENISE ., DR ORONA Consulting Unavailable AICHHOLZ, SANDER SETTER AC Admitting Unavailable AICHHOLZ, SANDER SETTER AC Attending Unavailable AICHHOLZ, SANDER SETTER AC Primary Care Unavailable AICHHOLZ, SANDER SETTER AC Consulting Unavailable JENISE, YEYO Attending Unavailable WILL, PURA Attending Unavailable JENISE, YEYO Attending Unavailable WILL, PURA Attending Unavailable WILL, PURA Attending Unavailable JENISE, YEYO Attending Unavailable WILL, PURA Attending Unavailable JENISE, YEYO Attending Unavailable WILL, PURA Attending Unavailable JENISE, YEYO Attending Unavailable Unavailable Primary Care Provider Unavailabl e Medications Current Medications Medication Drug Class(es) Dates Sig (Normalized) Sig (Original) cetirizine hydrochloride 10 mg oral capsule (1 source) Histamine-1 Receptor Antagonist take 1 tablet by mouth once daily Cetirizine HCl 10 MG capsule Take 1 tablet by mouth Daily Active docusate sodium 50 mg oral capsule (1 source) docusate sodium (Colace) 50 MG capsule Take 50 capsules by mouth in the morning and 50 capsules before bedtime. Active Magnesium (1 source) Magnesium 400 MG capsule Take by mouth Active MV-Min-Fe Fum-FA-DHA ( 1 PO) (1 source) MV-Min- Fe Fum-FA-DHA ( 1 PO) Take by mouth Active Problems Active Problems Problem Classification Problem Date Documented Da te Episodic/Chronic Abdominal pain (4 sources) Unspecified abdominal pain; Translations: [UNSPECIFIED ABDOMINAL PAIN] Onset: 12-28-2022 Episodic Past or Other Problems Problem Classification Problem Date Documented Date Episodic/Chronic Immunizations and screening for infectious disease (1 source) Encounter for screening for human papillomavirus (HPV); Translations: [[facility] SCREENING HUMAN PAPILLOMAVIRUS] Onset: 07-07-2022 Episodic Other screening for suspected conditions (not mental disorders or infectious disease) (4 sources) Encounter for screening for malignant neoplasm of cervix; Translations: [[facility] SCREENING MALIG NEOPLASM CERV] Onset: 07-06-2022 Episodic Results Test Name Value Interpretation Reference Range Facility ALL CBC WITH AUTO DIFFon BASOPHILS ABSOLUTE AUTO 0.0 [facility] Basophils/100 WBC (Bld) 0.1 % Low 0.2 - 2.0 % [facility] Eosinophils/100 WBC (Bld) 0.3 % Low 0.9 - 7.0 % [facility] Erythrocyte distribution width (RBC) [Ratio] 14.0 % 11.0 - 15.0 % [facility] Hematocrit (Bld) [Volume fraction] 40.2 % 36.0 - 48.0 % [facility] Hemoglobin (Bld) [Mass/Vol] 13.7 g/dL 12.0 - 16.0 g/dL [facility] IMMATURE GRANULOCYTES ABS AUTO 0.09 High [facility] Immature granulocytes/100 WBC (Bld) 1.0 % High 0.0 - 0.5 % [facility] LYMPHOCYTES ABSOLUTE AUTO 2.0 [facility] Lymphocytes/100 WBC (Bld) 22.2 % 20.5 - 60.0 % [facility] MCH (RBC) [Entitic mass] 31.2 pg 26.7 - 34.0 pg [facility] MCHC (RBC) [Mass/Vol] 34.1 g/dL 29.9 - 35.2 g/dL [facility] MCV (RBC) [Entitic vol] 91.6 fL 81.0 - 99.0 fL [facility] MONOCYTES ABSOLUTE AUTO 0.6 [facility] Monocytes/100 WBC (Bld) 6.6 % 1.7 - 12.0 % [facility] NEUTROPHILS ABSOLUTE AUTO 6.1 [facility] Neutrophils/100 WBC (Bld) 69.8 % 43.0 - 75.0 % [facility] Platelet mean volume (Bld) [Entitic vol] 9.7 fL 9.5 - 13.5 fL [facility] TBH EO # 0.0 [facility] PLT 252 [facility] RBC 4.39 [facility] WBC 8.8 [facility] ALL URINALYSISon 07-10-2024 BILIRUBIN URINE Negative NEGATIVE [facility] BLOOD URINE Negative NEGATIVE [facility] Clarity (U) CLEAR CLEAR [facility] Color (U) LT. YELLOW YELLOW [facility] GLUCOSE URINE UA Negative NEGATIVE mg/dL [facility] Ketones Ql (U) Negative NEGATIVE mg/dL [facility] Leukocyte esterase Test strip Ql (U) SMALL Abnormal NEGATIVE [facility] NITRITE URINE Negative NEGATIVE [facility] care pH (U) 6.5 [pH] 5.0 - 9.0 [facility] PROTEIN URINE Negative NEG/TRACE mg/dL [facility] SPECIFIC GRAVITY URINE 1.025 1.005 - 1.025 [facility] UROBILINOGEN URINE 0.2 EU/dL 0.2 - 1.0 EU/dL [facility] No Panel Informationon 07-10 Interpretation and review of laboratory results Abnormal [facility] AMYLASEon 12-28-2022 Amylase [Catalytic activity/Vol] 36 U/L Normal 25-115 [facility] Comment on above: Performed By: #### C MP, PURA, DBIL, LIPA, LIPID #### [facility] [address] [place] [address] Dr. Garry Obrien BILIRUBIN CONJUGATED (DIRECT )on 12-28-2022 BILI, CONJUGATED 0.1 mg/dL Normal 0.0-0.2 [facility] Comment on above: Performed By: #### C MP, PURA, DBIL, LIPA, LIPID #### [facility] [address] [place] [address] Dr. Garry Obrien CBC AUTO DIFFon 12-28-2022 BASO # 0.0 103/ul Normal 0.0-0.1 [facility] Comment on above: Performed By: #### C BC #### [facility] [address] [place] [address] Dr. Garry Obrien Basophils/100 WBC (Bld) 0.3 % Normal 0.2-2.0 [facility] Comment on above: Performed By: #### C BC #### [facility] [address] [place] [address] Dr. Garry Obrien EO # 0.5 103/ul Normal 0.0-0.7 [facility] Comment on above: Performed By: #### C BC #### [facility] [address] [place] [address] Dr. Garry Obrien Eosinophils/100 WBC (Bld) 8.2 % Critically high 0.9-7.0 [facility] Comment on above: Performed By: #### C BC #### [facility] [address] [place] [address] Dr. Garry Obrien Erythrocyte distribution width (RBC) [Ratio] 13.5 % Normal 11.0-15.0 [facility] Comment on above: Performed By: #### C BC #### [facility] [address] [place] [address] Dr. Garry Obrien Hematocrit (Bld) [Volume fraction] 41.7 % Normal 36.0-48.0 [facility] Comment on above: Performed By: #### C BC #### [facility] [address] [place] [address] Dr. Garry Obrien Hemoglobin (Bld) [Mass/Vol] 13.8 g/dL Normal 12.0-16.0 [facility] Comment on above: Performed By: #### C BC #### [facility] [address] [place] [address] Dr. Garry Obrien IG # 0.01 10e3/ul Normal 0.00-0.03 [facility] Comment on above: Performed By: #### C BC #### [facility] [address] [place] [address] Dr. Garry Obrien IG % 0.2 % Normal 0.0-0.5 [facility] Comment on above: Performed By: #### C BC #### [facility] [address] [place] [address] Dr. Garry Obrien LYMPH # 2.0 103/ul Normal 1.2-3.8 [facility] Comment on above: Performed By: #### C BC #### [facility] [address] [place] [address] Dr. Garry Obrien Lymphocytes/100 WBC (Bld) 32.8 % Normal 20.5-60.0 [facility] Comment on above: Performed By: #### C BC #### [facility] [address] [place] [address] Dr. Garry Obrien MANUAL DIFF REQ NO Normal [facility] Comment on above: Performed By: #### C BC #### [facility] [address] [place] [address] Dr. Garry Obrien MCH (RBC) [Entitic mass] 29.2 pg Normal 26.7-34.0 [facility] Comment on above: Performed By: #### C BC #### [facility] [address] [place] [address] Dr. Garry Obrien MCHC (RBC) [Mass/Vol] 33.1 g/dL Normal 29.9-35.2 [facility] Comment on above: Performed By: #### C BC #### [facility] [address] [place] [address] Dr. Garry Obrien MCV (RBC) [Entitic vol] 88.2 fL Normal 81.0-99.0 [facility] Comment on above: Performed By: #### C BC #### [facility] [address] [place] [address] Dr. Garry Obrien MONO # 0.5 103/ul Normal 0.3-0.8 [facility] Comment on above: Performed By: #### C BC #### [facility] [address] [place] [address] Dr. Garry Obrien Monocytes/100 WBC (Bld) 7.7 % Normal 1.7-12.0 [facility] Comment on above: Performed By: #### C BC #### [facility] [address] [place] [address] Dr. Garry Obrien NEUT # 3.1 103/ul Normal 1.4-6.5 [facility] Comment on above: Performed By: #### C BC #### [facility] [address] [place] [address] Dr. Garry Obrien Neutrophils/100 WBC (Bld) 50.8 % Normal 43.0-75.0 [facility] Comment on above: Performed By: #### C BC #### [facility] [address] [place] [address] Dr. Garry Obrien Platelet mean volume (Bld) [Entitic vol] 9.3 fL Critically low 9.5-13.5 [facility] Comment on above: Performed By: #### C BC #### [facility] [address] [place] [address] Dr. Garry Obrien PLT 318 103/ul Normal 150-450 [facility] Comment on above: Performed By: #### C BC #### [facility] [address] [place] [address] Dr. Garry Obrien RBC 4.73 106/ul Normal 4.20-5.40 [facility] Comment on above: Performed By: #### C BC #### [facility] [address] [place] [address] Dr. Garry Obrien WBC 6.1 103/ul Normal 4.0-11.0 [facility] Comment on above: Performed By: #### C BC #### [facility] [address] [place] [address] Dr. Garry Obrien LIPASEon 12-28-2022 Lipase [Catalytic activity/Vol] 198.0 U/L Normal 73.0-393.0 [facility] Comment on above: Performed By: #### C MP, PURA, DBIL, LIPA, LIPID #### [facility] [address] [place] [address] Dr. Garry Obrien LIPID PROFILEon 12-28-2022 CHOL-HDL RATIO NORM SEE BELOW Normal [facility] Comment on above: Result Comment: 3.3 - 4.4 LOW RISK 4.4 - 7.1 AVERAGE RISK 7.1 - 11.0 MODERATE RISK >11.0 HIGH RISK Performed By: #### C MP, PURA, DBIL, LIPA, LIPID #### [facility] [address] [place] [address] Dr. Garry Obrien Cholesterol [Mass/Vol] 237 mg/dL Critically high <=200 [facility] Comment on above: Performed By: #### C MP, PURA, DBIL, LIPA, LIPID #### [facility] [address] [address] [address] Garry Obrien Cholesterol in HDL [Mass/Vol] 67 mg/dL Critically high 40-60 [facility] Comment on above: Performed By: #### C MP, PURA, DBIL, LIPA, LIPID #### [facility] [address] [address] [address] Garry Obrien Cholesterol in LDL [Mass/Vol] 144.8 mg/dL Normal [facility] Comment on above: Performed By: #### C MP, PURA, DBIL, LIPA, LIPID #### [facility] [address] [place] [address] Dr. Garry Obrien Cholesterol.total/C holesterol in HDL [Mass ratio] 3.5 {ratio} Normal [facility] Comment on above: Performed By: #### C MP, PURA, DBIL, LIPA, LIPID #### [facility] [address] [address] [address] Garry Obrien HDL NORMAL > or = 60 mg/dl - LO W CARDIOVASCULAR RISK <40 mg/dl - HIGH CARDIOVASCULAR RISK Normal [facility] Comment on above: Performed By: #### C MP, PURA, DBIL, LIPA, LIPID #### [facility] [address] [address] [address] Garry Obrien LDL CALC NORMAL SEE BELOW Normal [facility] Comment on above: Result Comment: <100 mg/dl OPTIMAL 100 - 129 mg/dl NEAR OR ABOVE OPTIMAL 130 - 159 mg/dl BORDERLINE HIGH 160 - 189 mg/dl HIGH >190 mg/dl VERY HIGH Performed By: #### C MP, PURA, DBIL, LIPA, LIPID #### [facility] [address] [address] [address] Garry Obrien Triglyceride [Mass/Vol] 126 mg/dL Normal <=150 [facility] Comment on above: Performed By: #### C MP, PURA, DBIL, LIPA, LIPID #### [facility] [address] [address] [address] Garry Obrien VLDL CALC 25.2 mg/dL Normal [facility] Comment on above: Performed By: #### C MP, PURA, DBIL, LIPA, LIPID #### [facility] [address] [place] [address] Dr. Garry Obrien PREG HCG QUALon 12-28-2022 , QUAL Negative Normal NEGATIVE [facility] Comment on above: Performed By: #### P REG #### [facility] [address] [place] [address] Dr. Garry Obrien PROF 14(COMP METB)on 023 Albumin [Mass/Vol] 3.9 g/dL Normal 3.4-5.0 [facility] Comment on above: Performed By: #### C MP, PURA, DBIL, LIPA, LIPID #### [facility] [address] [place] [address] Dr. Garry Obrien Albumin/Globulin [Mass ratio] 0.9 {ratio} Normal [facility] Comment on above: Performed By: #### C MP, PURA, DBIL, LIPA, LIPID #### [facility] [address] [place] [address] Dr. Garry Obrien ALP [Catalytic activity/Vol] 51 U/L Normal 46-116 [facility] Comment on above: Performed By: #### C MP, PURA, DBIL, LIPA, LIPID #### [facility] [address] [place] [address] Dr. Garry Obrien ALT [Catalytic activity/Vol] 20 U/L Normal 14-59 [facility] Comment on above: Performed By: #### C MP, PURA, DBIL, LIPA, LIPID #### [facility] [address] [place] [address] Dr. Garry Obrien Anion gap [Moles/Vol] 12.5 mmol/L Normal [facility] Comment on above: Performed By: #### C MP, PURA, DBIL, LIPA, LIPID #### [facility] [address] [place] [address] Dr. Garry Obrien AST [Catalytic activity/Vol] 20 U/L Normal 15-37 [facility] Comment on above: Performed By: #### C MP, PURA, DBIL, LIPA, LIPID #### [facility] [address] [address] [address] Garry Obrien Bilirubin [Mass/Vol] 0.5 mg/dL Normal 0.2-1.0 [facility] Comment on above: Performed By: #### C MP, PURA, DBIL, LIPA, LIPID #### [facility] [address] [place] [address] Dr. Garry Obrien Calcium [Mass/Vol] 9.5 mg/dL Normal 8.5-10.1 [facility] Comment on above: Performed By: #### C MP, PURA, DBIL, LIPA, LIPID #### [facility] [address] [place] [address] Dr. Garry Obrien Chloride [Moles/Vol] 100 mmol/L Normal 98-107 [facility] Comment on above: Performed By: #### C MP, PURA, DBIL, LIPA, LIPID #### [facility] [address] [place] [address] Dr. Garry Obrien CO2 [Moles/Vol] 27.4 mmol/L Normal 21.0-32.0 [facility] Comment on above: Performed By: #### C MP, PURA, DBIL, LIPA, LIPID #### [facility] [address] [place] [address] Dr. Garry Obrien Creatinine [Mass/Vol] 0.67 mg/dL Normal 0.55-1.02 [facility] Comment on above: Performed By: #### C MP, PURA, DBIL, LIPA, LIPID #### [facility] [address] [place] [address] Dr. Garry Obrien EGFR-AF CHILEAN >60 Normal >=60 [facility] Comment on above: Performed By: #### C MP, PURA, DBIL, LIPA, LIPID #### [facility] [address] [place] [address] Dr. Garry Obrien EGFR-NON AF CHILEAN >60 Normal >=60 [facility] Comment on above: Performed By: #### C MP, PURA, DBIL, LIPA, LIPID #### [facility] [address] [place] [address] Dr. Garry Obrien Globulin (S) [Mass/Vol] 4.3 g/dL Normal [facility] Comment on above: Performed By: #### C MP, PURA, DBIL, LIPA, LIPID #### [facility] [address] [place] [address] Dr. Garry Obrien Glucose [Mass/Vol] 99 mg/dL Normal 74-106 [facility] Comment on above: Performed By: #### C MP, PURA, DBIL, LIPA, LIPID #### [facility] [address] [place] [address] Dr. Garry Obrien Potassium [Moles/Vol] 3.9 mmol/L Normal 3.5-5.1 [facility] Comment on above: Performed By: #### C MP, PURA, DBIL, LIPA, LIPID #### [facility] [address] [place] [address] Dr. Garry Obrien Protein [Mass/Vol] 8.2 g/dL Normal 6.4-8.2 [facility] Comment on above: Performed By: #### C MP, PURA, DBIL, LIPA, LIPID #### [facility] [address] [place] [address] Dr. Garry Obrien Sodium [Moles/Vol] 136 mmol/L Normal 136-145 [facility] Comment on above: Performed By: #### C MP, PURA, DBIL, LIPA, LIPID #### [facility] [address] [place] [address] Dr. Garry Obrien Urea nitrogen [Mass/Vol] 10.0 mg/dL Normal 7.0-18.0 [facility] Comment on above: Performed By: #### C MP, PURA, DBIL, LIPA, LIPID #### [facility] [address] [place] [address] Dr. Garry Obrien Urea nitrogen/Creatinine [Mass ratio] 14.9 mg/mg Normal [facility] Comment on above: Performed By: #### C MP, PURA, DBIL, LIPA, LIPID #### [facility] [address] [address] [address] Garry Obrien SED RATE WESTERGRENon 2022 SED RATE 13 mm/hr Normal <=20 [facility] Comment on above: Performed By: #### S EDR #### [facility] [address] [place] [address] Dr. Garry Obrien UA RANDOM W/MICROSCOPICon BACTERIA SMALL Abnormal NONE SEEN [facility] Comment on above: Performed By: #### U AMIC #### [facility] [address] [address] [address] Garry Obrien Bilirubin Ql (U) Negative Normal NEGATIVE [facility] Comment on above: Performed By: #### U AMIC #### [facility] [address] [place] [address] Dr. Garry Obrien CAST NONE SEEN Normal NONE SEEN [facility] Comment on above: Performed By: #### U AMIC #### [facility] [address] [address] [address] Garry Obrien Clarity (U) CLEAR Normal CLEAR [facility] Comment on above: Performed By: #### U AMIC #### [facility] [address] [address] [address] Garry Obrien Color (U) LT. YELLOW Normal YELLOW [facility] Comment on above: Performed By: #### U AMIC #### [facility] [address] [address] [address] Garry Obrien Crystals LM Nom (Urine sed) NONE SEEN Normal NONE SEEN [facility] Comment on above: Performed By: #### U AMIC #### [facility] [address] [address] [address] Garry Obrien Epithelial cells LM Ql (Urine sed) FEW Abnormal NONE SEEN /RARE [facility] Comment on above: Performed By: #### U AMIC #### [facility] [address] [place] [address] Dr. Garry Obrien Glucose Ql (U) Negative Normal NEGATIVE [facility] Comment on above: Performed By: #### U AMIC #### [facility] [address] [address] [address] Garry Obrien Hemoglobin Ql (U) TRACE-INTACT Abnormal NEGATIVE [facility] Comment on above: Performed By: #### U AMIC #### [facility] [address] [address] [address] Garry Obrien Ketones Ql (U) Negative Normal NEGATIVE [facility] Comment on above: Performed By: #### U AMIC #### [facility] [address] [address] [address] Garry Obrien LEUKOCYTES TRACE Abnormal NEGATIVE [facility] Comment on above: Performed By: #### U AMIC #### [facility] [address] [address] [address] Garry Obrien MUCOUS NONE SEEN Normal NONE SEEN [facility] Comment on above: Performed By: #### U AMIC #### [facility] [address] [address] [address] Garry Obrien Nitrite Ql (U) Negative Normal NEGATIVE [facility] Comment on above: Performed By: #### U AMIC #### [facility] [address] [address] [address] Garry Obrien pH (U) 6.0 [pH] Normal 5-9 [facility] Comment on above: Performed By: #### U AMIC #### [facility] [address] [address] [address] Garry Obrien RBC 0-2 Normal 0-2 [facility] Comment on above: Performed By: #### U AMIC #### [facility] [address] [address] [address] Garry Obrien SPEC GRAVITY <=1.005 Abnormal 1.005-<=1.025 [facility] Comment on above: Performed By: #### U AMIC #### [facility] [address] [address] [address] Garry Obrien UA PROTEIN Negative Normal NEGATIVE/ TRACE [facility] Comment on above: Performed By: #### U AMIC #### [facility] [address] [place] [address] Dr. Garry Obrien Urobilinogen Qn (U) 0.2 {Griselda'U}/dL Normal 0.2 - 1. 0 [facility] Comment on above: Performed By: #### U AMIC #### [facility] [address] [place] [address] Dr. Garry Obrien WBC 2-[address] [facility] Comment on above: Performed By: #### U AMIC #### [facility] [address] [place] [address] Dr. Garry Obrien PAP ACOG PANEL 2: 30 to 65on 07-13-[address] [facility] Comment on above: Result Comment: Perf ormed at: WB Performed By: #### [id number] #### [facility] [address] [place] [address] Dr. Garry Obrien Age Gdln ACOG Testing 30-[address] [facility] Comment on above: Performed By: #### [id number] #### [facility] [address] [place] [address] Dr. Garry Obrien DIAGNOSIS: Comment Normal [facility] Comment on above: Result Comment: NEGA TIVE FOR INTRAEPITHELIAL LESION OR MALIGNANCY. Performed at: WB Performed By: #### [id number] #### [facility] [address] [place] [address] Dr. Garry Obrien HPV Aptima Negative Normal Negative [facility] Comment on above: Result Comment: This nucleic acid amplification test detects fourteen high-risk HPV types (16,18,31,33,35,39,45,51,52,56,58,59,66,68) without differentiation. Performed at: =G Performed By: #### [id number] #### [facility] [address] [place] [address] Dr. Garry Obrien Methodology: Comment Normal [facility] Comment on above: Result Comment: This liquid based ThinPrep(R) pap test was screened with the use of an image guided system. Performed at: WB Performed By: #### [id number] #### [facility] [address] [address] [address] Garry Obrien Note: Comment [facility] Comment on above: Result Comment: The Pap smear is a screening test designed to aid in the detection of premalignant and malignant conditions of the uterine cervix. It is not a diagnostic procedure and should not be used as the sole means of detecting cervical cancer. Both false-positive and false-negative reports do occur. . Performed at: WB Performed By: [id number] #### [facility] [address] [address] [address] Garry Obrien Performed by: Comment Normal [facility] Comment on above: Result Comment: Macrina Lamar, Sample Prep Technician (ASCP) Performed at: WB Performed By: #### [id number] #### [facility] [address] [place] [address] Dr. Garry Obrien Specimen adequacy: Comment Normal [facility] Comment on above: Result Comment: Sati sfactory for evaluation. Endocervical and/or squamous metaplastic cells (endocervical component) are present. Performed at: WB Performed By: #### [id number] #### [facility] [address] [address] [address] Garry Obrien Encounters Encounter Date Encounter Type Care Provider Facility Start: 07-10-2024 End: 07-10-2024 Clinisync Result Encounter Generic External Data Provider [facility] Unsolicited Start: 07-10-2024 End: 07-10-2024 Clinisync Result Encounter Generic External Data Provider [facility] External [facility] Unsolicited Start: 07-03-2024 End: 07-03-2024 ambulatory YEYO JENISE Not Available Start: 06-26-2024 End: 06-26-2024 ambulatory PURA WILL Not Available Start: 06-19-2024 End: 06-19-2024 ambulatory YEYO JENISE Not Available Start: 06-04-2024 End: 06-04-2024 ambulatory PURA WILL Not Available Start: 05-21-2024 End: 05-21-2024 ambulatory YEYO JENISE Not Available Start: 05-08-2024 End: 05-08-2024 ambulatory PURA WILL Not Available Start: 04-23-2024 End: 04-23-2024 ambulatory PURA SOLIS Not Available Start: 04-01-2024 End: 04-01-2024 ambulatory YEYO JENISE Not Available Start: 02-28-2024 End: 02-28-2024 ambulatory PURA SOLIS Not Available Start: 01-31-2024 End: 01-31-2024 ambulatory YEYO JENISE Not Available Start: 12-29-2023 End: 12-29-2023 ambulatory YEYO JENISE Not Available Start: 12-28-2022 End: 12-29-2022 ambulatory MILEY COPELAND Facility: Start: 07-06-2022 End: 07-06-[address] YEYO SHEARER . Facility: Procedures Date Procedure Procedure Detail Performing Clinician Start: 07-10-2024 ALL CBC WITH AUTO DIFF Yeyo Jenise DO Work Phone: Start: 07-10-2024 ALL URINALYSIS Yeyo Fa zio DO Work Phone: Payers Date Payer Category Payer Unknown BCBS BCBS xxxxxx [id number] 2022-Present [phone] [address] [place] [address] [id number] 1992 Unknown [id number] 2.840.1.525352.3.579.2.59 1992 Unknown [id number] 2.840.1.683278.3.579.2.59 1992 Unknown [id number] 2.840.1.168779.3.579.2.1258 1992 Unknown [id number] 2.840.1.617678.3.579.2.1258 1992 Unknown [id number] 2.840.1.270656.3.579.2.9 1992 Unknown [id number] 2.840.1.727924.3.579.2.9 1992 Unknown [id number] 2.16.840.1.004904.3.579.2.9 1992 Unknown [id number] 2.16.840.1.760932.3.579.2.1258 1992 Unknown [id number] 2.16.840.1.832171.3.579.2.1258 1992 Unknown [id number] 2.16.840.1.728097.3.579.2.1258 1992 Unknown [id number] 2.16.840.1.820381.3.579.2.1258 1992 Unknown [id number] 2.16.840.1.439501.3.579.2.1258 1992 Unknown [id number] 2.16.840.1.219799.3.579.2.1259 1959 Unknown [id number] Social History Date Type Detail Facility Start: 04-01-2024 Tobacco smoking stat [facility] Ex-smoker [facility] End: 02-20-2016 History of tobacco use Current smoker [facility] End: 02-20-2016 History of tobacco use Cigarette Smoker [facility] Start: 04-01-2024 Cigarettes smoked cu rrent (pack per day) - Reported 1 [facility] Start: 04-01-2024 Tobacco use and exposure Smoke less tobacco non-user [facility] Start: 07-03-2024 Alcoholic beverage intake Ex-drinker (finding) [facility] Start: 04-01-2024 Tobacco use panel [facility] Start: 10-30-2023 [facility] Start: 1992 Sex assigned at Not on file [facility] Summary Purpose Family History No Family History Records FoundNo Family History Records FoundNo Family History Records Found Advance Directives No Advanced Directives Records FoundNo Advanced Directives Records FoundNo Advanced Directives Records Found Additional Source Comments INFORMATION SOURCE (unrecogn ized section and content) DATE CREATED AUTHOR 01/01/2023 [facility] DATE CREATED AUTHOR AUTHOR'S ORGANIZ ATION 06/29/2024 [facility] dical [facility] EPIC DATE CREATED AUTHOR AUTHOR'S ORGANIZ ATION 07/12/2024 [facility] Specialists EPIC FOR RECORDS PERTAINING TO [...] BE BASED ON THE PRIMARY CLINICAL RECORDS. [facility] [employer] [facility]. provides no warranty or guarantee of the accuracy or completeness of information in this document.
[2024-07-16 12:22] VITALS: BP 112/87; PULSE 86; TEMP 36.7; O2SAT 98
--- NOTE | 2024-07-16 12:28 | PC.NURSE ---
Kindra, Honorio and 6 day old , Ashish arrive for follow up appointment. Of note infant color is yellow daniel with jaundice. Parents states things are better every day .. Kindra states feeling better after incredible headache starting resolving. Worst headache on Monday (day 3), increased in intensity when standing, sitting or trying to feed baby. REsolved when laying down. She increased fluids, water and gator aid, and headache nearly resolved completely this AM. States has felt good otherwise. States incision not causing discomfort, able to manage with Tylenol EX as needed. VSS and assessment WNL. Milk in and infant feeding well. Ashish jaundiced, alert and active movement X 4 extremities. VSS and assessment WNL. Circ healing well. Feeds every 2 hours only taking 1 breast as mom pumps other side. Parents report baby is fussy and gassy after feeds. 6 wets and 5 stools that are brownish yellow today. weight stable. Transcutaneous bili 16.7, explained recommendation of serum level at this time for parents, both agreeable. TC to Dr Davies office (PCP) and notified of need for serum draw. Dr Davies calls back and assessment given. to breast, mother hold in ackward position with 1 hand on head with other on thighs. tries to latch and grasps nipple resulting in mom flinching with discomfort. Encouraged to reposition hands for more secure hold and to bring infant close to her for feed. Infant latches deep once in close contact with mother. Feeds fair to well with audible swallows noted. Nursed 20 minutes. Serum bili level obtained and to lab. To second breast as mom independently latches with improved positioning and deep latch. no further questions, family leaves ambulatory. Lab results of 20.[address] Davies office waiting fo return call. 1200 Dr Davies will return call to family and see infant in office 07/17/2024.
== END 2024-07-16 10:15 | disposition home or self-care (01) ==
LOC: FBCO 08:17
PROVIDERS: PCP Nurse Practitioner; Visit Provider Obstetrics & Gynecology
DX: Z39.1 Encounter for care and examination of lactating mother (principal)

== ENCOUNTER 2025-04-15 19:52 | Outpatient (REF) | payer BC, SELFPAY ==
--- OUTSIDE RECORDS SUMMARY | 2025-04-15 14:54 | XMS_ITS ---
Author Name Auto Generated Organization [facility] Care Team Providers Care Medical Coding Instructor Name Role Phone PURA SOLIS Attending Unavailable WILL, PURA Attending Unavailable WILL, PURA Attending Unavailable JANKI, YEOY Attending Unavailable WILL, PURA Attending Unavailable JANKI, YEYO Attending Unavailable WILL, PURA Attending Unavailable JANKI, YEYO Attending Unavailable WILL, PURA Attending Unavailable WILL, PURA Attending Unavailable PROBLEMS No Problem Records Found PROCEDURES No Procedure Records Found RESULTS No Result Records Found ALLERGIES No Allergies Records Found ENCOUNTERS ADMIT/DISCHARGE ACCOUNT NUMBER ADMITTING ENCOUNTER CLASS LOCATION SOURCE 04/15/2025/ 5 [id number] Ambulatory Building:[facility] 08/28/2024/ 4 [id number] Ambulatory Building:[facility] 07/24/2024/ 4 [id number] Ambulatory Building:[facility] EPIC 07/03/2024/ 4 [id number] Ambulatory Building:[facility] 06/26/2024/ 4 [id number] Ambulatory Building:[facility] 06/19/2024/ 4 [id number] Ambulatory Building:[facility] 06/04/2024/ 4 [id number] Ambulatory Building:[facility] 05/21/2024/ 4 [id number] Ambulatory Building:[facility] 05/08/2024/ 4 [id number] Ambulatory Building:[facility] 04/23/2024/ 4 [id number] Ambulatory Building:[facility] EPIC PAYERS ENCOUNTER GUARANTOR PAYER SUBSCRIBER SOURCE 04/15/2025 MEE PANDAOB: [place], [place] [address]Krg: (HP) Primary Insurance:BCBSPo licy Number: [id number] ctive Date:2022-10-09 MEE MCGLOUISAOB: [id number] [address] [facility] 08/28/2024 MEE MOSQUEDAOB: [place], [place] [address]Por: (HP) Primary Insurance:BCBSPo licy Number: [id number] ctive Date:2022-10-09 JOVITA MOSQUEDAOB: [id number] [address] [id number] [facility] 07/24/2024 MEE MCGLOUISAOB: [place], [place] [address]Bca: (HP) Primary Insurance:BCBSPo licy Number: [id number] ctive Date:2022-10-09 EME MANCUSONDOB: [id number] [place] [address] [facility] EPIC 07/03/2024 MEE MANCUSONDOB: [place], [place] [address]Jyq: (HP) Primary Insurance:BCBSPo licy Number: [id number] ctive Date:2022-10-09 MEE MANCUSONDOB: [id number] [place] [address] [facility] EPIC 06/26/2024 MEEALBARO MANCUSONDOB: [place], [place] [address]Zkd: (HP) Primary Insurance:BCBSPo licy Number: [id number] ctive Date:2022-10-09 MEE MANCUSONDOB: [id number] [place] [address] [facility] EPIC 06/19/2024 MEEALBARO MANCUSONDOB: [place], [place] [address]Jgn: (HP) Primary Insurance:BCBSPo licy Number: [id number] ctive Date:2022-10-09 MEE MANCUSONDOB: [id number] [place] [address] [facility] EPIC 06/04/2024 MEE MANCUSONDOB: [place], [place] [address]Ork: (HP) Primary Insurance:BCBSPo licy Number: [id number] ctive Date:2022-10-09 MEE MANCUSONDOB: [id number] [place] [address] [facility] EPIC 05/21/2024 MEE GEOFFREYRIKYNDOB: [place], [place] [address]Vye: (HP) Primary Insurance:BCBSPo licy Number: [id number] ctive Date:2022-10-09 MEE HALELOUISAOB: [id number] [place] [address] [facility] 05/08/2024 MEE MCGRIKYNDOB: [place], [place] [address]Rif: (HP) Primary Insurance:BCBSPo licy Number: [id number] ctive Date:2022-10-09 MEE MCGLOUISAOB: [id number] [place] [address] [facility] 04/23/2024 MEE MCGLOUISAOB: [place], [place] [address]Mac: () Primary Insurance:BCBSPo licy Number: [id number] ctive Date:2022-10-09 MEE PANDAOB: [id number] [place] [address] [facility] EPIC
--- OUTSIDE RECORDS SUMMARY | 2025-04-15 15:00 | XMS_ITS | Encounter Summary ---
Author Organization [facility] Address [address] [place] [address] Care Team Providers Care Poultry Farm Laborer Name Role Phone Unavailable Primary Care Provider Unavailabl e Reason for Visit * Reason Comments Gynecologic Exam Encounter Details Date Type Department Care Team (Late st Contact Info) Description 04/15/2025 3:00 PM EDT Office Visit [facility] [address] [place] [id number] Isabel Galvan PA [address] [place], [facility] Well woman exam with routine gynecological exam Social History Tobacco Use Types Packs/Day Years Used Date Smoking Tobacco: Former Cigarettes 1 5 Q uit: 02/20/2016 Smokeless Tobacco: Never Alcohol Use Standard Drinks/Week Comments Not Currently 0 (1 standard drink = 0.6 oz pur e alcohol) Comments No Sex and Gender Information Value Date Recorded Sex Assigned at Not on file Legal Sex Female 7:12 PM EDT Gender Identity Not on file Sexual Orientation Not on file documented as of this encounter Last Filed Vital Signs Vital Sign Reading Time Taken Comments Blood Pressure 118/74 04/15/2025 3:06 PM EDT Pulse - - Temperature - - Respiratory Rate - - Oxygen Saturation - - Inhaled Oxygen Concentration - - Weight 103 kg (227 lb) 04/15/2025 3:06 PM EDT Height 172.7 cm (5' 8 ) 04/15/2025 3:06 PM EDT Body Mass Index 34.52 04/15/2025 3:06 PM EDT documented in this encounter Progress Notes * KODI Mark - 04/15/2025 3:00 PM EDT Reason for Appointment: Patient ID: Kindra Goldstein is a 35 y.o. female who presents for Gynecologic Exam Patient presents today for Annual Exam. MEDICATIONS Current Outpatient Medications Medication Instructions Cetirizine HCl 10 MG capsule 1 tablet, Daily docusate sodium (Colace) 50 MG capsule 50 capsules, 2 times daily MV-Min-Fe Fum-FA-DHA ( 1 PO) Take by mouth ALLERGIES No Known Allergies PROBLEMS Active Ambulatory Problems Diagnosis Date Noted No Active Ambulatory Problems Resolved Ambulatory Problems Diagnosis Date Noted No Resolved Ambulatory Problems Past Medical History: Diagnosis Date Anxiety Asthma (HCC) Hyperlipidemia HISTORY PAST MEDICAL HISTORY SOCIAL HISTORY Past Medical History: Diagnosis Date Anxiety Asthma (HCC) Hyperlipidemia Social History Tobacco Use Smoking status: Former Current packs/day: 0.00 Average packs/day: 1 pack/day for 5.0 years (5.0 ttl pk-yrs) Types: Cigarettes Quit date: 02/20/2016 Years since quittin.1 Smokeless tobacco: Never Substance Use Topics Alcohol use: Not Currently Drug use: Never FAMILY HISTORY Family History Problem Relation Name Age of Onset Migraines Mother Krysten Consolo Hypertension Father Ramesh Consolo Diabetes Father Ramesh Consolo Asthma Father Ramesh Put[place] Breast cancer Maternal Grandmother Meera Marie Cancer Maternal Grandmother Meera Marie Diabetes Paternal Grandmother Conner Consolo Cancer Paternal Grandmother Conner Consolo Cancer Paternal Grandfather Martín Consolo Stroke Paternal Grandfather Martín Consolo SURGICAL HISTORY Past Surgical History: Procedure Laterality Date SECTION, LOW TRANSVERSE SECTION, LOW TRANSVERSE 07/10/2024 CHOLECYSTECTOMY PAP SMEAR 06/13/2019 negative MA TONSILLECTOMY & ADENOIDECTOMY AGE 14/> REVIEW OF SYSTEMS Review of Systems: Review of Systems Constitutional: Negative. HENT: Negative. Eyes: Negative. Respiratory: Negative. Cardiovascular: Negative. Gastrointestinal: Negative. Genitourinary: Negative. Musculoskeletal: Negative. Skin: Negative. Neurological: Negative. All other systems reviewed and are negative. Hematological: Negative. Endocrine: Negative. Allergic/Immunologic: Negative. OBJECTIVE Objective: Physical Exam Constitutional: Appearance: Normal appearance. She is well-developed. Genitourinary: Vulva normal. Right Adnexa: not tender and no mass present. Left Adnexa: not tender and no mass present. No cervical discharge. Breasts: Breasts are soft. Right: Normal. Left: Normal. HENT: Head: Normocephalic. Nose: Nose normal. Mouth/Throat: Mouth: Mucous membranes are moist. Cardiovascular: Rate and Rhythm: Normal rate and regular rhythm. Pulmonary: Effort: Pulmonary effort is normal. Breath sounds: Normal breath sounds. Abdominal: General: Bowel sounds are normal. There is no distension. Palpations: Abdomen is soft. Tenderness: There is no abdominal tenderness. There is no guarding or rebound. Musculoskeletal: General: No swelling. Normal range of motion. Cervical back: Normal range of motion. Right lower leg: No edema. Left lower leg: No edema. Neurological: General: No focal deficit present. Mental Status: She is alert and oriented to person, place, and time. Skin: General: Skin is warm and dry. Psychiatric: Mood and Affect: Mood normal. Behavior: Behavior normal. Vitals and nursing note reviewed. Exam conducted with a production support analyst present. Vitals: Estimated body mass index is 34.52 kg/m?? as calculated from the following: Height as of this encounter: 5' 8 . Weight as of this encounter: 227 lb. BP: 118/74 Patient's last menstrual period was 04/08/2025 (approximate). ASSESSMENT & PLAN ICD-10-CM 1. Well woman exam with routine gynecological exam Z01.419 Pap Smear HPV DNA probe, amplified Annual Exam: Patient presents today for an annual exam. Patient states she is doing well and has no complaints. Pap was obtained without difficulty. Orders Placed This Encounter Procedures HPV DNA probe, amplified Follow Up: Patient is to return in one year for annual unless needed otherwise. Documented by Freida Up MA on behalf of: KODI Mark documented in this encounter Plan of Treatment Upcoming Encounters Date Type Department Care Team (Late st Contact Info) Description 04/22/2026 4:00 PM EDT [facility] [address] [facility] [place] [phone] Felice Burden, DO [address] [place], [place] [id number] Scheduled Orders Name Type Priority Associated Diagnoses Orde r Schedule Pap Smear Pathology and Cytology Routine Well woman exam with routine gynecological exam Ordered: 04/15/2025 HPV DNA probe, amplified Microbiology Routine Well woman exam with routine gynecological exam Ordered: 04/15/2025 documented as of this encounter Visit Diagnoses Diagnosis Well woman exam with routine gynecological exam Routine gynecological examination documented in this encounter
--- OUTSIDE RECORDS SUMMARY | 2025-04-15 20:01 | XMS_ITS | Encounter Summary ---
Author Organization [facility] Address [address] [facility] [place] [address] Care Team Providers Care Staff Weapons Officer Name Role Phone Unavailable Primary Care Provider Unavailabl e Encounter Details Date Type Department Care Team (Late Contact Info) Description 04/15/2025 Bamboo flowsheet [facility] [address] [facility] [place] [address] Isabel Galvan PA [address] [facility] [place], [place] [address] Social History Tobacco Use Types Packs/Day Years [...] on file documented as of this encounter Plan of Treatment Upcoming Encounters Date Type Department Care Team (Late st Contact Info) Description 04/22/2026 4:00 PM EDT Office Visit [facility] OB [address] [facility] [place] [address] eFlice Burden DO [address] [facility] [place], [facility] documented as of this encounter Visit Diagnoses Not on filedocumented in this encounter
--- OUTSIDE RECORDS SUMMARY | 2025-04-15 20:01 | XMS_ITS | Encounter Summary ---
Author Organization [facility] Address [address] [place] [address] Care Team Providers Care Music Department Chair Name Role Phone Unavailable Primary Care Provider Unavailabl e Encounter Details Date Type Department Care Team (Late st Contact Info) Description 05/21/2024 Clinisync Result Encounter [facility] External Department Unsolicited Provider, Generic External Data Social History Tobacco Use Types Packs/Day Years Used Date Smoking Tobacco: Former Cigarettes 1 5 Q uit: 02/20/2016 Smokeless Tobacco: Never Alcohol Use Standard Drinks/Week Comments Not Currently 0 (1 standard drink = 0.6 oz pur e alcohol) Comments Yes Sex and Gender Information Value Date Recorded Sex Assigned at Not on file Legal Sex Female 7:12 PM EDT Gender Identity Not on file Sexual Orientation Not on file documented as of this encounter Plan of Treatment Upcoming Encounters Date Type Department Care Team (Late st Contact Info) Description 04/22/2026 4:00 PM EDT Office Visit [facility] OB [address] [place] [phone] Yeyo Burden, DO [address] [place] [address] documented as of this encounter Procedures Procedure Name Priority Date/Time Associated Diagnosis Comments US OB CERVICAL LENGTH 05/21/2024 10:23 AM EDT documented in this encounter Results * US OB CERVICAL LENGTH (05/21/2024 10:23 AM EDT) Anatomical Region Laterality Modality Other 05/21/2024 10:2 3 AM EDT Narrative 05/21/2024 10:25 AM EDT [address] [address] Ultrasound Report Signed Patient: MEE WIGGINS MR#: [id number] : 1990 Acct:[id number] Age/Sex: 34 / F ADM Date: 05/21/24 Loc: [facility] Attending Dr: Yeyo Burden D.O. Ordering Physician: Yeyo Burden D.O. Date of Service: 05/21/24 Procedure(s): US OB cervical length Accession Number(s): [id number] cc: Alicia Dunn EDUCATION RESEARCH ANALYST; Yeyo Burden D.O. [address] [address] Patient Name: MEE WIGGINS MRN: [id number] date: 1990 Sex: F Assigned Patient Location: [facility] Current Patient Location: [facility] Accession/Order Number: [id number] Exam Date: 05/21/2024 09:12 Report Date: 05/21/2024 10:23 At the request of: YEYO BURDEN Procedure: US OB cervical length EXAMINATION: US OB growth, US OB cervical length HISTORY: MATERNAL OBESITY WITH BMI>30, CHOROID PLEXUS CYST COMPARISON: 04/24/2024 TECHNIQUE: Transabdominal sonographic examination was performed for obstetrical and evaluation. FINDINGS: Number: 1 Heart Rate: 137 bpm H.B. /min Amniotic Fluid Volume: 13.2 cm, largest fluid pocket 3.8 cm position: Cephalic presentation, longitudinal lie Placental Location: Anterior Cervix Length: 3.66 cm , closed Other: Previously noted choroid plexus cyst is not observed BIOMETRY: BPD: 8.44 cm; 34 weeks 0 days; 97 % HC: 30.03 cm; 33 weeks 2 days; 73.40 % AC: 27.11 cm; 31 weeks 1 day; 48.50 % FL: 6.52 cm; 33 weeks 4 days; 92.40 % EFW:1965.50 g; 79.20 %, 4 lbs. 5 oz. 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 Electronically authenticated by: SHUKRI LOCKWOOD Date: 05/21/2024 10:23 Dictated By: Shukri Lockwood M.D. Signed By: 05/21/24 1025 DD/ 1023 TD/TT: Student Services Vice President: Procedure Note Radiology, Radiologist, - 05/21/2024 [place] [address] Ultrasound Report Signed Patient: MEE WIGGINS AMR#: [id number] : 1990Acct:[id number] Age/Sex: 34 / FADM Date: 05/21/24 Loc: [facility] Attending Dr: Yeyo Burden D.O. Ordering Physician: Yeyo Burden D.O. Date of Service: 05/21/24 Procedure(s): US OB cervical length Accession Number(s): [id number] cc: Alicia Dunn EDUCATION RESEARCH ANALYST; Yeyo Burden D.O. The [place] [address] Patient Name: MEE WIGGINS MRN: [id number] date: 1990 Sex: F Assigned Patient Location: [facility] Current Patient Location: [facility] Accession/Order Number: [id number] Exam Date: 05/21/2024 09:12 Report Date: 05/21/2024 10:23 At the request of: YEYO BURDEN Procedure: US OB cervical length EXAMINATION: US OB growth, US OB cervical length HISTORY: MATERNAL OBESITY WITH BMI>30, CHOROID PLEXUS CYST COMPARISON: 04/24/2024 TECHNIQUE: Transabdominal sonographic examination was performed for obstetrical and evaluation. FINDINGS: Number: 1 Heart Rate: 137 bpm H.B. /min Amniotic Fluid Volume: 13.2 cm, largest fluid pocket 3.8 cm position: Cephalic presentation, longitudinal lie Placental Location: Anterior Cervix Length: 3.66 cm , closed Other: Previously noted choroid plexus cyst is not observed BIOMETRY: BPD: 8.44 cm; 34 weeks 0 days; 97 % HC: 30.03 cm; 33 weeks 2 days; 73.40 % AC: 27.11 cm; 31 weeks 1 day; 48.50 % FL: 6.52 cm; 33 weeks 4 days; 92.40 % EFW:1965.50 g; 79.20 %, 4 lbs. 5 oz. 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 Electronically authenticated by: SHUKRI LOCKWOOD Date: 05/21/2024 10:23 Dictated By: Shukri Lockwood M.D. Signed By:05/21/24 1025 DD/ 1023 TD/TT: Student Services Vice President: us Generic External Data Provider [facility] Final Result documented in this encounter Visit Diagnoses Not on filedocumented in this encounter
--- OUTSIDE RECORDS SUMMARY | 2025-04-15 20:01 | XMS_ITS | Encounter Summary ---
Author Organization [facility] Address [address] [place] [address] Care Team Providers Care Maintenance Machinist Name Role Phone Unavailable Primary Care Provider Unavailabl e Encounter Details Date Type Department Care Team (Late Contact Info) Description 06/19/2024 Clinisync Result Encounter [facility] External Department Unsolicited Yeyo Burden, DO [address] [place], [place] [phone] Social History Tobacco Use Types Packs/Day Years [...] Encounters Date Type Department Care Team (Late Contact Info) Description 04/22/2026 4:00 PM EDT Office Visit [facility] [address] [facility] [place] [phone] Yeyo Burden, DO [address] [place] [address] documented as of this encounter Procedures Procedure Name Priority Date/Time Associated Diagnosis Comments US OB BPP W NON-STRESS 06/19/2024 7:32 AM EDT documented in this encounter Results * US OB BPP W NON-STRESS (06/19/2024 7:32 AM EDT) Anatomical Region Laterality Modality Other 06/19/2024 7:32 AM EDT Narrative 06/19/2024 7:34 AM EDT [place] [id number] Ultrasound Report Signed Patient: MEE WIGGINS MR#: [id number] : 1990 Acct:[id number] Age/Sex: 34 / F ADM Date: 06/18/24 Loc: US Attending Dr: Yeyo Burden D.O. Ordering Physician: Yeyo Burden D.O. Date of Service: 06/18/24 Procedure(s): US OB BPP w non-stress Accession Number(s): [id number] cc: Alicia Dunn COLD MILL INSPECTOR; Yeyo Burden D.O. [place] [id number] Patient Name: MEE WIGGINS MRN: [id number] date: 1990 Sex: F Assigned Patient Location: US [place] 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 TECHNIQUE: Ultrasound biophysical profile was performed in the radiology department. non-reactive stress testing was performed by nursing staff in the birthing center. FINDINGS: BREATHING MOVEMENTS: 2 GROSS BODY MOVEMENTS: 2 TONE: 2 QUALITATIVE AMNIOTIC FLUID VOLUME: 2 PRESENTATION: CEPHALIC HEART RATE: 131.07 bpm AMNIOTIC FLUID VOLUME: 18.4 cm GESTATIONAL AGE: 35 weeks 1 day US/US OB BPP w non-stress IMPRESSION: Total biophysical profile score: 8 Electronically authenticated by: SHUKRI LOCKWOOD Date: 06/19/2024 07:32 Dictated By: Shukri Lockwood M.D. Signed By: 06/19/24 0734 DD/ TD/TT: Wireless Engineer: Procedure Note Radiology, Radiologist, - 06/19/2024 [place] [address] Ultrasound Report Signed Patient: MEE WIGGINS AMR#: [id number] : 1990Acct:[id number] Age/Sex: 34 / FADM Date: 06/18/24 Loc: US Attending Dr: Yeyo Burden D.O. Ordering Physician: Yeyo Burden D.O. Date of Service: 06/18/24 Procedure(s): US OB BPP w non-stress Accession Number(s): [id number] cc: Alicia Dunn COLD MILL INSPECTOR; Yeyo Burden D.O. The [place] [id number] Patient Name: MEE WIGGINS MRN: [id number] date: 1990 Sex: F Assigned Patient Location: US [place] 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 TECHNIQUE: Ultrasound biophysical profile was performed in the radiology department. non-reactive stress testing was performed by nursingstaff in the birthing center. FINDINGS: BREATHING MOVEMENTS: 2 GROSS BODY MOVEMENTS: 2 TONE: 2 QUALITATIVE AMNIOTIC FLUID VOLUME: 2 PRESENTATION: CEPHALIC HEART RATE: 131.07 bpm AMNIOTIC FLUID VOLUME: 18.4 cm GESTATIONAL AGE: 35 weeks 1 day US/US OB BPP w non-stress IMPRESSION: Total biophysical profile score: 8 Electronically authenticated by: SHUKRI LOCKWOOD Date: 06/19/2024 07:32 Dictated By: Shukri Lockwood M.D. Signed By:06/19/24 0734 DD/ TD/TT: Wireless Engineer: us Yeyo Burden DO [facility] Final Result documented in this encounter Visit Diagnoses Not on filedocumented in this encounter
--- OUTSIDE RECORDS SUMMARY | 2025-04-15 20:01 | XMS_ITS | Encounter Summary ---
Author Organization [facility] Address [address] [place] [address] Care Team Providers Care Technical Service Specialist Name Role Phone Unavailable Primary Care Provider Unavailabl e Encounter Details Date Type Department Care Team (Late Contact Info) Description 06/19/2024 Clinisync Result Encounter [facility] External Department Unsolicited Yeyo Burden, DO [address] [place] [address] Social History Tobacco Use Types Packs/Day Years [...] 04/22/2026 4:00 PM EDT Office Visit [facility] OB [address] [facility] [place] [address] Yeyo Burden, [address] [place] [address] documented as of this encounter Procedures Procedure Name Priority Date/Time Associated Diagnosis Comments OB GROWTH 06/19/2024 8:20 AM EDT documented in this encounter Results * US OB GROWTH (06/19/2024 8:20 AM EDT) Anatomical Region Laterality Modality Other 06/19/2024 8:20 AM EDT Narrative 06/19/2024 8:23 [place] [address] Ultrasound Report Signed Patient: MEE WIGGINS MR#: [id number] : 1990 Acct:[id number] Age/Sex: 34 / F ADM Date: 06/18/24 Loc: US Attending Dr: Yeyo Burden D.O. Ordering Physician: Yeyo Burden D.O. Date of Service: 06/18/24 Procedure(s): US OB growth Accession Number(s): [id number] cc: Alicia Dnun NP; Yeyo Burden D.O. [place] [id number] Patient Name: MEE WIGGINS MRN: [id number] date: 1990 Sex: F Assigned Patient Location: [facility] Current Patient Location: US Accession/Order Number: [id number] Exam Date: 06/18/2024 16:08 Report Date: 06/19/2024 08:20 At the request of: YEYO BURDEN Procedure: US OB growth EXAMINATION: US OB growth, US OB cervical length HISTORY: MATERNAL OBESITY WITH BMI >30 P00.89 COMPARISON: No relevant comparison available. FINDINGS: Single intrauterine gestation position: Cephalic presentation, longitudinal lie Amniotic fluid volume: 18.4 cm, largest fluid pocket 7.2 cm Heart rate: 131 beats minute Cervix: 3.1 cm, closed BPD: 9.36 cm, 38 weeks 1 day, greater than 97% Head circumference: 34.26 cm, 39 weeks 4 days, greater than 97% Abdominal circumference: 32.44 cm, 36 weeks 2 days, 87% Femur length: 6.9 cm, 35 weeks 3 days, 50% Estimated weight: 2990 g, 6 lbs. 9 oz., 86% Head circumference to abdominal circumference: 1.06 Femur length at circumference: 20.12 Clinical age: 35 weeks 1 day Clinical QUINTIN: 07/22/2024 Ultrasound age: 37 weeks 3 days Ultrasound QUINTIN: 07/06/2024 US/US OB growth IMPRESSION: BPD and head circumference greater than the 97th percentile Estimated weight 86 percentile Closed cervix measuring 3.1 cm length Electronically authenticated by: SHUKRI LOCKWOOD Date: 06/19/2024 08:20 Dictated By: Shukri Lockwood M.D. Signed By: 06/19/24822 DD/ 9 TD/TT: Hardware Test Engineer: Procedure Note Radiology, Radiologist, MD - 06/19/2024 [place] [address] Ultrasound Report Signed Patient: MEE WIGGINS AMR#: [id number] : 1990Acct:[id number] Age/Sex: 34 / FADM Date: 06/18/24 Loc: US Attending Dr: Yeyo Burden D.O. Ordering Physician: Yeyo Burden D.O. Date of Service: 06/18/24 Procedure(s): US OB growth Accession Number(s): [id number] cc: Alicia Dunn LABORATORY SAMPLE CARRIER; Yeyo Burden D.O. The [place] [address] Patient Name: MEE WIGGINS MRN: [id number] date: 1990 Sex: F Assigned Patient Location: [facility] Current Patient Location: US Accession/Order Number: [id number] Exam Date: 06/18/2024 16:08 Report Date: 06/19/2024 08:20 At the request of: YEYO BURDEN Procedure: US OB growth EXAMINATION: US OB growth, US OB cervical length HISTORY: MATERNAL OBESITY WITH BMI >30 P00.89 COMPARISON: No relevant comparison available. FINDINGS: Single intrauterine gestation position: Cephalic presentation, longitudinal lie Amniotic fluid volume: 18.4 cm, largest fluid pocket 7.2 cm Heart rate: 131 beats minute Cervix: 3.1 cm, closed BPD: 9.36 cm, 38 weeks 1 day, greater than 97% Head circumference: 34.26 cm, 39 weeks 4 days, greater than 97% Abdominal circumference: 32.44 cm, 36 weeks 2 days, 87% Femur length: 6.9 cm, 35 weeks 3 days, 50% Estimated weight: 2990 g, 6 lbs. 9 oz., 86% Head circumference to abdominal circumference: 1.06 Femur length at circumference: 20.12 Clinical age: 35 weeks 1 day Clinical QUINTIN: 07/22/2024 Ultrasound age: 37 weeks 3 days Ultrasound QUINTIN: 07/06/2024 US/US OB growth IMPRESSION: BPD and head circumference greater than the 97th percentile Estimated weight 86 percentile Closed cervix measuring 3.1 cm length Electronically authenticated by: SHUKRI LOCKWOOD Date: 06/19/2024 08:20 Dictated By: Shukri Lockwood M.D. Signed By:06/19/24822 DD/ 9 TD/TT: Hardware Test Engineer: us Yeyo Jenise DO [facility] Final Result documented in this encounter Visit Diagnoses Not on filedocumented in this encounter
--- OUTSIDE RECORDS SUMMARY | 2025-04-15 20:01 | XMS_ITS | Encounter Summary ---
Author Organization [facility] Address [address] [place] [address] Care Team Providers Care Biostatistics Teacher Name Role Phone Unavailable Primary Care Provider Unavailabl e Encounter Details Date Type Department Care Team (Late Contact Info) Description 06/19/2024 Clinisync Result Encounter [facility] External Department Unsolicited Yeyo Burden, DO [address] [place] [address] Social History Tobacco Use Types Packs/Day Years [...] 04/22/2026 4:00 PM EDT Office Visit [facility] OB [address] [place] [phone] Yeyo Burden, DO [address] [place] [address] documented as of this encounter Procedures Procedure Name Priority Date/Time Associated Diagnosis Comments US OB CERVICAL LENGTH 06/19/2024 8:20 AM EDT documented in this encounter Results * US OB CERVICAL LENGTH (06/19/2024 8:20 AM EDT) Anatomical Region Laterality Modality Other 06/19/2024 8:20 AM EDT Narrative 06/19/2024 8:23 [place] [address] Ultrasound Report Signed Patient: MEE WIGGINS MR#: [id number] : 1990 Acct:[id number] Age/Sex: 34 / F ADM Date: 06/18/24 Loc: US Attending Dr: Yeyo Burden D.O. Ordering Physician: Yeyo Burden D.O. Date of Service: 06/18/24 Procedure(s): US OB cervical length Accession Number(s): [id number] cc: Alicia Dunn GAS PIPE LAYER; Yeyo Burden D.O. [address] [address] Patient Name: MEE WIGGINS MRN: [id number] date: 1990 Sex: F Assigned Patient Location: US Current Patient Location: US Accession/Order Number: [id number] Exam Date: 06/18/2024 16:08 Report Date: 06/19/2024 [...] 3 days Ultrasound QUINTIN: 07/06/2024 US/US OB cervical length IMPRESSION: BPD and head circumference greater than the 97th percentile Estimated weight 86 percentile Closed cervix measuring 3.1 cm length Electronically authenticated by: SHUKRI LOCKWOOD Date: 06/19/2024 08:20 Dictated By: Shukri Lockwood M.D. Signed By: 06/19/24822 DD/ 9 TD/TT: Swatch Maker: Procedure Note Radiology, Radiologist, MD - 06/19/2024 [place] [address] Ultrasound Report Signed Patient: MEE WIGGINS AMR#: [id number] : 1990Acct:[id number] Age/Sex: 34 / FADM Date: 06/18/24 Loc: US Attending Dr: Yeyo Burden D.O. Ordering Physician: Yeyo Burden D.O. Date of Service: 06/18/24 Procedure(s): US OB cervical length Accession Number(s): [id number] cc: Alicia Dunn GAS PIPE LAYER; Yeyo Burden D.O. The [place] [id number] Patient Name: MEE WIGGINS MRN: [id number] date: 1990 Sex: F Assigned Patient Location: US Current Patient Location: US Accession/Order Number: [id number] Exam Date: 06/18/2024 16:08 Report Date: 06/19/2024 [...] 3 days Ultrasound QUINTIN: 07/06/2024 US/US OB cervical length IMPRESSION: BPD and head circumference greater than the 97th percentile Estimated weight 86 percentile Closed cervix measuring 3.1 cm length Electronically authenticated by: SHUKRI LOCKWOOD Date: 06/19/2024 08:20 Dictated By: Shukri oLckwood M.D. Signed By:06/19/24822 DD/ 9 TD/TT: Swatch Maker: us Yeyo Jenise DO [facility] Final Result documented in this encounter Visit Diagnoses Not on filedocumented in this encounter
--- OUTSIDE RECORDS SUMMARY | 2025-04-15 20:01 | XMS_ITS | Encounter Summary ---
Author Organization [facility] Address [address] [place] [address] Care Team Providers Care Supervisor Press Room Name Role Phone Unavailable Primary Care Provider [...] 04/22/2026 4:00 PM EDT Office Visit [facility] OB [address] [place] [phone] Yeyo Burden, DO [address] [place] [address] documented as of this encounter Procedures Procedure Name Priority Date/Time Associated Diagnosis Comments US OB GROWTH 05/21/2024 10:23 AM EDT documented in this encounter Results * US OB GROWTH (05/21/2024 10:23 AM EDT) Anatomical Region Laterality Modality Other 05/21/2024 10:2 3 AM EDT Narrative 05/21/2024 10:25 AM EDT [address] [address] Ultrasound Report Signed Patient: MEE WIGGINS MR#: [id number] : 1990 Acct:[id number] Age/Sex: 34 / F ADM Date: 05/21/24 Loc: NOMS Attending Dr: Yeyo Burden D.O. Ordering Physician: Yeyo Burden D.O. Date of Service: 05/21/24 Procedure(s): US OB growth Accession Number(s): [id number] cc: Alicia Dunn PAY CLERK; Yeyo Burden D.O. [address] [address] Patient Name: MEE WIGGINS MRN: [id number] date: 1990 Sex: F Assigned Patient [facility]: [facility] Current Patient Location: [facility] Accession/Order Number: [id number] Exam Date: 05/21/2024 09:12 Report Date: 05/21/2024 [...] QUINTIN by current US: 2024-07-09 US/US OB growth IMPRESSION: BPD greater than the 97th percentile Closed cervix measuring 3.7 cm *Reference: [employer]UM Practice Guideline for the performance of Obstetric Ultrasound Examinations, July 09, 2007. Electronically authenticated by: SHUKRI LOCKWOOD Date: 05/21/2024 10:23 Dictated By: Shukri Lockwood M.D. Signed By: 05/21/24 1025 DD/ 1023 TD/TT: Bullet Lubricant Mixer: Procedure Note Radiology, Radiologist, MD - 05/21/2024 [place] [address] Ultrasound Report Signed Patient: MEE WIGGINS AMR#: [id number] : 1990Acct:[id number] Age/Sex: 34 / FADM Date: 05/21/24 Loc: [facility]OMS Attending Dr: Yeyo Burden D.O. Ordering Physician: Yeyo Burden D.O. Date of Service: 05/21/24 Procedure(s): US OB growth Accession Number(s): [id number] cc: Alicia Dunn PAY CLERK; Yeyo Burden D.O. The [place] [address] Patient Name: MEE WIGGINS MRN: [facility]:[id number] date: 1990 Sex: F Assigned Patient Location: [facility] Current Patient Location: [facility] Accession/Order Number: [id number] Exam Date: 05/21/2024 09:12 Report Date: 05/21/2024 [...] QUINTIN by current US: 2024-07-09 US/US OB growth IMPRESSION: BPD greater than the 97th percentile Closed cervix measuring 3.7 cm *Reference: [employer]UM Practice Guideline for the performance of Obstetric Ultrasound Examinations, July 09, 2007. Electronically authenticated by: SHUKRI LOCKWOOD Date: 05/21/2024 10:23 Dictated By: Shukri Lockwood M.D. Signed By:05/21/24 1025 DD/ 1023 TD/TT: Bullet Lubricant Mixer: us Generic External Data Provider [facility] Final Result documented in this encounter Visit Diagnoses Not on filedocumented in this encounter
--- OUTSIDE RECORDS SUMMARY | 2025-04-15 20:01 | XMS_ITS | Encounter Summary ---
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 Social History Tobacco Use Types Packs/Day Years [...] EDT Office Visit [facility] OB [address] [facility] [phone] Felice Burden DO [address] [place], [place] [phone] documented as of this encounter Procedures Procedure Name Priority Date/Time Associated Diagnosis Comments US OB SCAN FOR GROWTH Routine 05/21/2024 11:09 AM EDT US OB ANATOMY SINGLE W US OB CERVICAL LENGTH Routine 05/21/2024 11:07 AM EDT documented in this encounter Results * US OB SCAN FOR GROWTH (05/21/2024 11:09 AM EDT) Anatomical Region Laterality Modality Body Ultrasound us Felice Jenise DO IMG OB US PROCEDURES Final Resul t * US OB ANATOMY SINGLE W US OB CERVICAL LENGTH (05/21/2024 11:07 AM EDT) Anatomical Region Laterality Modality Body Ultrasound us Felice Jenise DO IMG OB US PROCEDURES Final Resul t documented in this encounter Visit Diagnoses 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
--- OUTSIDE RECORDS SUMMARY | 2025-04-15 20:01 | XMS_ITS | Encounter Summary ---
Author Organization [facility] Address [address] [place] [address] Care Team Providers Care Lumber Sorter Machine Name Role Phone Unavailable Primary Care Provider Unavailabl e Encounter Details Date Type Department Care Team (Late Contact Info) Description 06/19/2024 Orders Only [facility] [address] [place] [address] Felice Burden, DO [address] [place] [address] Social History Tobacco Use Types Packs/Day Years [...] EDT Office Visit [facility] [address] [place] [phone] Felice Burden DO [address] [place] [address] documented as of this encounter Procedures Procedure Name Priority Date/Time Associated Diagnosis Comments US OB ANATOMY SINGLE W US OB CERVICAL LENGTH Routine 06/19/2024 8:45 AM EDT US OB SCAN FOR GROWTH Routine 06/19/2024 8:44 AM EDT US OB SCAN FOR GROWTH Routine 06/19/2024 8:42 AM EDT documented in this encounter Results * US OB ANATOMY SINGLE W US OB CERVICAL LENGTH (06/19/2024 8:45 AM EDT) Anatomical Region Laterality Modality Body Ultrasound us Felice Jenise DO IMG OB US PROCEDURES Final Resul t * US OB SCAN FOR GROWTH (06/19/2024 8:44 AM EDT) Anatomical Region Laterality Modality Body Ultrasound us Felice Jenise DO IMG OB US PROCEDURES Final Resul t * US OB SCAN FOR GROWTH (06/19/2024 8:42 AM EDT) Anatomical Region Laterality Modality Body Ultrasound us Felice Jenise DO IMG OB US PROCEDURES Final Resul t documented in this encounter Visit Diagnoses Not on filedocumented in this encounter
--- OUTSIDE RECORDS SUMMARY | 2025-04-15 20:02 | XMS_ITS | Encounter Summary ---
Author Organization [facility] Address [address] [place] [address] Care Team Providers Care Hot Mill Supervisor Name Role Phone Unavailable Primary Care Provider Unavailabl e Encounter Details Date Type Department Care Team (Late Contact Info) Description 07/03/2024 Clinisync Result Encounter [facility] External Department Unsolicited Yeyo Burden, DO [address] [place], [place] [phone] Social History Tobacco Use Types Packs/Day Years [...] EDT Office Visit [facility] [address] [facility] [place] [phone] Yeyo Burden, DO [address] [place] [address] documented as of this encounter Procedures Procedure Name Priority Date/Time Associated Diagnosis Comments US OB BPP W NON-STRESS 07/03/2024 4:17 AM EDT documented in this encounter Results * US OB BPP W NON-STRESS (07/03/2024 4:17 AM EDT) Anatomical Region Laterality Modality Other 07/03/2024 4:17 AM EDT Narrative 07/03/2024 4:20 [place] [address] Ultrasound Report Signed Patient: MEE WIGGINS MR#: [id number] : 1990 Acct:[id number] Age/Sex: 34 / F ADM Date: 07/02/24 Loc: [facility] 250-[address]: Yeyo Burden D.O. Ordering Physician: Yeyo Burden D.O. Date of Service: 07/02/24 Procedure(s): US OB BPP w non-stress Accession Number(s): [id number] cc: Alicia Dunn MANAGER STATISTICAL; Yeyo Burden D.O. [place] [id number] Patient Name: MEE WIGGINS MRN: [facility]:[id number] date: 1990 Sex: F Assigned Patient Location: [facility] Current Patient Location: [facility] Accession/Order Number: [id number] Exam Date: 07/02/2024 17:00 Report Date: 07/03/2024 04:17 At the request of: YEYO BURDEN Procedure: US OB BPP w non-stress EXAMINATION: US OB BPP w non-stress HISTORY:History of delivery COMPARISON: Ultrasound OB biophysical 06/25/2024 TECHNIQUE: Ultrasound biophysical profile was performed in the radiology department. BREATHING MOVEMENTS: 2 GROSS BODY MOVEMENTS: 2 TONE: 2 QUALITATIVE AMNIOTIC FLUID VOLUME: 2 PRESENTATION: CEPHALIC HEART RATE: 129.81 bpm AMNIOTIC FLUID VOLUME: 19.86 cm GESTATIONAL AGE: 37 weeks 1 day US/US OB BPP w non-stress IMPRESSION: Total biophysical profile score: 8 Electronically authenticated by: CLEMENTE ALATORRE Date: 07/03/2024 04:17 Dictated By: Clemente Alatorre M.D. Signed By: 07/03/24 419 DD/ 6 TD/TT: Environmental Remediation Engineer: Procedure Note Radiology, Radiologist, - 07/03/2024 [place] [address] Ultrasound Report Signed Patient: MEE WIGGINS AMR#: [id number] : 1990Acct:[id number] Age/Sex: 34 / FADM Date: 07/02/24 Loc: [facility] 250-[address]: Yeyo Burden D.O. Ordering Physician: Yeyo Burden D.O. Date of Service: 07/02/24 Procedure(s): US OB BPP w non-stress Accession Number(s): [id number] cc: Alicia Dunn NP; Yeyo Burden D.O. The [place] [id number] Patient Name: MEE WIGGINS MRN: [facility]:[id number] date: 1990 Sex: F Assigned Patient Location: [facility] Current Patient Location: [facility] Accession/Order Number: [id number] Exam Date: 07/02/2024 17:00 Report Date: 07/03/2024 04:17 At the request of: YEYO BURDEN Procedure: US OB BPP w non-stress EXAMINATION: US OB BPP w non-stress HISTORY:History of delivery COMPARISON: Ultrasound OB biophysical 06/25/2024 TECHNIQUE: Ultrasound biophysical profile was performed in the radiology department. BREATHING MOVEMENTS: 2 GROSS BODY MOVEMENTS: 2 TONE: 2 QUALITATIVE AMNIOTIC FLUID VOLUME: 2 PRESENTATION: CEPHALIC HEART RATE: 129.81 bpm AMNIOTIC FLUID VOLUME: 19.86 cm GESTATIONAL AGE: 37 weeks 1 day US/US OB BPP w non-stress IMPRESSION: Total biophysical profile score: 8 Electronically authenticated by: CLEMENTE ALATORRE Date: 07/03/2024 04:17 Dictated By: Clemente Alatorre M.D. Signed By:07/03/240 DD/ 6 TD/TT: Environmental Remediation Engineer: us Yeyo Burden DO [facility] Final Result documented in this encounter Visit Diagnoses Not on filedocumented in this encounter
--- OUTSIDE RECORDS SUMMARY | 2025-04-15 20:02 | XMS_ITS | Encounter Summary ---
Author Organization [facility] Address [address] [place] [address] Care Team Providers Care Acoustic Engineer Name Role Phone Unavailable Primary Care Provider Unavailabl e Encounter Details Date Type Department Care Team (Late st Contact Info) Description 12/29/2023 Clinisync Result Encounter [facility] External Department Unsolicited Provider, Generic External Data Social History Tobacco Use Types Packs/Day Years Used Date Smoking Tobacco: Never Assessed Comments Yes Sex and Gender Information Value Date Recorded Sex Assigned at Not on file Legal Sex Female 7:12 PM EDT Gender Identity Not on file Sexual Orientation Not on file documented as of this encounter Plan of Treatment Upcoming Encounters Date Type Department Care Team (Late st Contact Info) Description 04/22/2026 4:00 PM EDT Office Visit [facility] [address] [place] [phone] Yeyo Burden, DO [address] [facility] [address] [facility] [address] [place], [place] [phone] documented as of this encounter Procedures Procedure Name Priority Date/Time Associated Diagnosis Comments TBH BOX TEST SENT OUT Routine 12/29/2023 11:00 AM EDT HBSAG SCREEN Routine 12/29/2023 11:00 AM EDT RAPID PLASMA REAGIN, QUANT Routine 12/29/2023 11:00 AM EDT HIV AB/P24 AG WITH REFLEX Routine 12/29/2023 11:00 AM EDT HCV ANTIBODY RFX TO QUANT PCR Routine 12/29/2023 11:00 AM EDT MLR HEMOGLOBIN A1C Routine 12/29/2023 11 :00 AM EDT ALL TYPE AND SCREEN Routine 12/29/2023 1 1:00 AM EDT ALL RUBELLA IGG AB Routine 12/29/2023 11 :00 AM EDT ALL CBC WITH AUTO DIFF Routine 12/29/2023 11:00 AM EDT US OB TRANSVAGINAL 12/29/2023 10 :36 AM EDT documented in this encounter Results * HCV ANTIBODY RFX TO QUANT PCR (12/29/2023 11:00 AM EDT) HCV AB Non Reactive Non Reactive [facility] INTERPRETATION: Comment . [facility] Comment: Not infected with HCV unless early or acute infection is suspected (which may be delayed in an immunocompromised individual), or other evidence exists to indicate HCV infection. 12/29/2023 11:0 0 AM EDT 12/29/2023 11:10 AM EDT Jomar FUENTES - 12/30/2023 8:11 AM EDT us Generic External Data Provider LAB BLOOD ORDERAB LES Final Result [facility] * HIV AB/P24 AG WITH REFLEX (12/29/2023 11:00 AM EDT) HIV AB/P24 AG SCREEN Non Reactive Non Reactive [facility] Comment: HIV Negative HIV-1/HIV-2 antibodies and HIV-1 p24 antigen were NOT detected. There is no laboratory evidence of HIV infection. Performed at: [address] [id number] High Raw Sugar Boiler: Dre Fernández PhD, Phone: [phone] 12/29/2023 11:0 0 AM EDT 12/29/2023 11:10 AM EDT Narrative [facility] - 12/30/2023 8:11 AM EDT Generic External Data Provider LAB BLOOD ORDERAB LES Final Result Performing Organization Address [facility] Co de Phone Number [facility] * ALL RUBELLA IGG AB (12/29/2023 11:00 AM EDT) [facility] RUBELLA ANTIBODIES, IGG 3.93 Immune >0.99 index [facility] Comment: Non-immune <0.90 Equivocal 0.90 - 0.99 Immune >0.99 Performed at: [address] [id number] High Raw Sugar Boiler: Dre Fernández PhD, Phone: [phone] 12/29/2023 11:0 0 AM EDT 12/29/2023 11:10 AM EDT Narrative [facility] - 12/30/2023 8:11 AM EDT Generic External Data Provider [facility] F inal Result Performing Organization Address [facility] Phone Number [facility] * HBSAG SCREEN (12/29/2023 11:00 AM EDT) [facility] HBSAG SCREEN Negative Negative [facility] Comment: Performed at: [address] [id number] High Raw Sugar Boiler: Dre Fernández PhD, Phone: [phone] 12/29/2023 11:0 0 AM EDT 12/29/2023 11:10 AM EDT Narrative [facility] - 12/30/2023 8:11 AM EDT Generic External Data Provider LAB BLOOD ORDERAB LES Final Result Performing Organization Address [facility] de Phone Number [facility] * RAPID PLASMA REAGIN, QUANT (12/29/2023 11:00 AM EDT) [facility] RAPID PLASMA REAGIN, QUANT Non Reactive NonRea<1: 1 titer [facility] Comment: Please Note: This test does not meet current guidelines for screening and diagnosis of syphilis. This test is intended for following treatment response in patients being treated for syphilis infection. To screen for syphilis infection, a reflex cascade that includes both RPR and a treponema-specific assay should be utilized, such as Treponema pallidum (Syphilis) Screening [place] (696180) or Rapid Plasma Reagin (RPR) Test With Reflex to Quantitative RPR and Confirmatory Treponema pallidum Antibodies (293685). Performed at: [address] [id number] High Raw Sugar Boiler: Dre Fernández PhD, Phone: [phone] 12/29/2023 11:0 0 AM EDT 12/29/2023 11:10 AM EDT Narrative [facility] - 12/30/2023 8:11 AM EDT us Generic External Data Provider LAB BLOOD ORDERAB LES Final Result Performing Organization Address [facility] Co de Phone Number [facility] TB * [facility]H BOX TEST SENT OUT (12/29/2023 11:00 AM EDT) BOX TEST SENT OUT 12/29/23 TB 12/29/2023 11:0 0 AM EDT 12/29/2023 11:10 AM EDT Jomar [facility] - 12/29/2023 2:28 PM EDT us Yeyo KLEINISYNC Final Result Performing Organization Address [facility] Co de Phone Number [facility] * ALL TYPE AND SCREEN (12/29/2023 11:00 AM EDT) BLOOD TYPE B Positive [facility] ANTIBODY SCREEN NEGATIVE [facility] 12/29/2023 11:0 0 AM EDT 12/29/2023 11:10 AM EDT Jomar [facility] - 12/29/2023 12:47 PM EDT [facility] , Generic External Data Provider [facility] F inal Result Performing Organization Address City/[facility]/ZIP Co de Phone Number [facility] TB * MLR HEMOGLOBIN A1C (12/29/2023 11:00 AM EDT) Pathologist [facility] GLYCOHEMOGLOBIN A1C 4.8 4.5 - 6.2 % TB Comment: ADA RECOMMENDED LIMIT 4.0 - 6.0 ADA THERAPEUTIC TARGET < 7.0 ACTION SUGGESTED > 7.0 ESTIMATED AVERAGE GLUCOSE 91 mg/dL TB 12/29/2023 11:0 0 AM EDT 12/29/2023 11:10 AM EDT Narrative [facility] - 12/29/2023 12:12 PM EDT Yeyo Jenise DO [facility] Final Result Performing Organization Address [facility] Co de Phone Number [facility] * (ABNORMAL) ALL CBC WITH AUTO DIFF (12/29/2023 11:00 AM EDT) [facility] TB WBC 7.3 4.0 - 11.0 10 3/uL TBH TB RBC 4.27 4.20 - 5.40 10 6/uL TBH TB HGB 12.8 12.0 - 16.0 g/dL TB TB HCT 38.8 36.0 - 48.0 % TBH TB MCV 90.9 81.0 - 99.0 fL TB TB MCH 30.0 26.7 - 34.0 pg TBH TB MCHC 33.0 29.9 - 35.2 g/dL TB TB RDW 13.2 11.0 - 15.0 % TBH TB PLT 258 150 - 450 10 3/uL TBH TB MPV 9.4(L) 9.5 - 13.5 fL TBH NEUTROPHILS PERCENT AUTO 71.6 43.0 - 75.0 % TBH LYMPHOCYTES PERCENT AUTO 20.1(L) 20.5 - 60.0 % TBH MONOCYTES PERCENT AUTO 7.3 1.7 - 12.0 % TBH TBH EO % 0.4(L) 0.9 - 7.0 % TBH BASOPHILS PERCENT AUTO 0.3 0.2 - 2.0 % TBH IMMATURE GRANULOCYTES PCT AUTO 0.3 0.0 - 0.5 % TBH NEUTROPHILS ABSOLUTE AUTO 5.2 1.4 - 6.5 10 3/uL TBH LYMPHOCYTES ABSOLUTE AUTO 1.5 1.2 - 3.8 10 3/uL TBH MONOCYTES ABSOLUTE AUTO 0.5 0.3 - 0.8 10 3/uL TBH TBH EO # 0.0 0.0 - 0.7 10 3/uL TBH BASOPHILS ABSOLUTE AUTO 0.0 0.0 - 0.1 10 3/uL TBH IMMATURE GRANULOCYTES ABS AUTO 0.02 0.00 - 0.03 10 3/uL [facility]H 12/29/2023 11:0 0 AM EDT 12/29/2023 11:10 AM EDT Narrative [facility] - 12/29/2023 11:28 AM EDT us Generic External Data Provider [facility] F inal Result [facility] * US OB TRANSVAGINAL (12/29/2023 10:36 AM EDT) Anatomical Region Laterality Modality Other 12/29/2023 10:3 6 AM EDT Narrative 12/29/2023 10:38 [place] [address] Ultrasound Report Signed Patient: Mee Wiggins MR#: [id number] : 1990 Acct:[id number] Age/Sex: 33 / F ADM Date: 12/29/23 Loc: [facility] Attending Dr: Yeyo Burden D.O. Ordering Physician: Yeyo Burden D.O. Date of Service: 12/29/23 Procedure(s): US OB transvaginal Accession Number(s): [id number] cc: Alicia Dunn NP; Yeyo Burden D.O. [address] [address] Patient Name: MEE WIGGINS MRN: [id number] date: 1990 Sex: F Assigned Patient Location: [facility] Current Patient Location: [facility] Accession/Order Number: [id number] Exam Date: 12/29/2023 09:32 Report Date: 12/29/2023 10:36 At the request of: YEYO BURDEN Procedure: US OB transvaginal EXAMINATION: US OB transvaginal HISTORY: MISSED MENSES COMPARISON: No relevant comparison available. FINDINGS: GESTATIONAL SAC: Present and normal appearing. YOLK SAC: Present and normal appearing. POLE: Present and normal appearing. CARDIAC: Present. UTERUS: Normal size and appearance. OVARIES: Right: Normal. Left: Normal. CERVIX: 4.2 cm in length and closed. CUL-DE-SAC: Normal. OTHER: None. AGE BY LMP: 8 weeks 2 days QUINTIN BY LMP: 08/07/2024 AGE BY US CRL: 10 weeks 4 days QUINTIN BY US CRL: 07/22/2024 US/US OB transvaginal IMPRESSION: 1. Single live intrauterine . Electronically authenticated by: CLEMENTE ALATORRE Date: 12/29/2023 10:36 Dictated By: Clemente Alatorre M.D. Signed By: 12/29/23 1038 DD/ 1036 TD/TT: Director Of Special Events: Procedure Note Radiology, Radiologist, MD - 12/29/2023 [place] [address] Ultrasound Report Signed Patient: Mee Wiggins AMR#: [id number] : 1990Acct:[id number] Age/Sex: 33 FADM Date: 12/29/23 Loc: [facility] Attending Dr: Yeyo Burden D.O. Ordering Physician: Yeyo Burden D.O. Date of Service: 12/29/23 Procedure(s): US OB transvaginal Accession Number(s): [id number] cc: Alicia Dunn NP; Yeyo Burden D.O. [place] [address] Patient Name: MEE WIGIGNS MRN: [facility]:[id number] date: 1990 Sex: F Ass[facility] Accession/Order Number: [id number] Exam Date: 12/29/2023 09:32 Report Date: 12/29/2023 10:36 At the request of: YEYO BURDEN Procedure: US OB transvaginal EXAMINATION: US OB transvaginal HISTORY: MISSED MENSES COMPARISON: No relevant comparison available. FINDINGS: GESTATIONAL SAC: Present and normal appearing. YOLK SAC: Present and normal appearing. POLE: Present and normal appearing. CARDIAC: Present. UTERUS: Normal size and appearance. OVARIES: Right: Normal. Left: Normal. CERVIX: 4.2 cm in length and closed. CUL-DE-SAC: Normal. OTHER: None. AGE BY LMP: 8 weeks 2 days QUINTIN BY LMP: 08/07/2024 AGE BY US CRL: 10 weeks 4 days QUINTIN BY US CRL: 07/22/2024 US/US OB transvaginal IMPRESSION: 1. Single live intrauterine . Electronically authenticated by: CLEMENTE ALATORRE Date: 12/29/2023 10:36 Dictated By: Clemente Alatorre M.D. Signed By:12/29/23 1038 DD/ 1036 TD/TT: Director Of Special Events: us Generic External Data Provider [facility] Final Result documented in this encounter Visit Diagnoses Not on filedocumented in this encounter
--- OUTSIDE RECORDS SUMMARY | 2025-04-15 20:02 | XMS_ITS | Encounter Summary ---
Author Organization [facility] Address [address] [place] [address] Care Team Providers Care Database Architect Name Role Phone Unavailable Primary Care Provider Unavailabl e Encounter Details Date Type Department Care Team (Late st Contact Info) Description 06/05/2024 Clinisync Result Encounter [facility] External Department Unsolicited [...] 04/22/2026 4:00 PM EDT Office Visit [facility] OB [address] [phone] Yeyo Burden, DO [address] [place] [address] documented as of this encounter Procedures Procedure Name Priority Date/Time Associated Diagnosis Comments US OB BPP W NON-STRESS 06/05/2024 8:48 AM EDT documented in this encounter Results * US OB BPP W NON-STRESS (06/05/2024 8:48 AM EDT) Anatomical Region Laterality Modality Other 06/05/2024 8:48 AM EDT Narrative 06/05/2024 8:[place] [address] Ultrasound Report Signed Patient: MEE WIGGINS MR#: [id number] : 1990 Acct:[id number] Age/Sex: 34 / F ADM Date: 06/04/24 Loc: US Attending Dr: Yeyo Burden D.O. Ordering Physician: Yeyo Burden D.O. Date of Service: 06/04/24 Procedure(s): US OB BPP w non-stress Accession Number(s): [id number] cc: Alicia Dunn NP; Yeyo Burden D.O. The [place] [id number] Patient Name: MEE WIGGINS MRN: [id number] date: 1990 Sex: F Assigned Patient Location: US Current Patient Location: Accession/Order Number: [id number] Exam Date: 06/04/2024 16:07 Report Date: 06/05/2024 08:48 At the request of: YEYO BURDEN Procedure: US OB BPP w non-stress EXAMINATION: US OB BPP w non-stress HISTORY:CHOROID PLEXUS CYST O35.03X1 COMPARISON: Ultrasound OB growth 05/21/2024 TECHNIQUE: Ultrasound biophysical profile was performed in the radiology department. BREATHING MOVEMENTS: 2 GROSS BODY MOVEMENTS: 2 TONE: 2 QUALITATIVE AMNIOTIC FLUID VOLUME: 2 PRESENTATION: CEPHALIC HEART RATE: 139.18 bpm AMNIOTIC FLUID VOLUME: 13.87 cm GESTATIONAL AGE: 33 weeks 1 day US/US OB BPP w non-stress IMPRESSION: Total biophysical profile score: 8 Electronically authenticated by: CLEMENTE ALATORRE Date: 06/05/2024 08:48 Dictated By: Clemente Alatorre M.D. Signed By: 06/05/24 0851 DD/ TD/TT: Meter And Service Line Inspector: Procedure Note Radiology, Radiologist, MD - 06/05/2024 The [place] [id number] Ultrasound Report Signed Patient: MEE WIGGINS AMR#: [id number] : 1990Acct:[id number] Age/Sex: 34 / FADM Date: 06/04/24 Loc: US Attending Dr: Yeyo Burden D.O. Ordering Physician: Yeyo Burden D.O. Date of Service: 06/04/24 Procedure(s): US OB BPP w non-stress Accession Number(s): [id number] cc: Alicia Dunn MONTESSORI LEAD TEACHER; Yeyo Burden D.O. The [place] [id number] Patient Name: MEE WIGGINS MRN: [id number] date: 1990 Sex: F Assigned Patient Location: US Current Patient Location: Accession/Order Number: [id number] Exam Date: 06/04/2024 16:07 Report Date: 06/05/2024 08:48 At the request of: YEYO BURDEN Procedure: US OB BPP w non-stress EXAMINATION: US OB BPP w non-stress HISTORY:CHOROID PLEXUS CYST O35.03X1 COMPARISON: Ultrasound OB growth 05/21/2024 TECHNIQUE: Ultrasound biophysical profile was performed in the radiology department. BREATHING MOVEMENTS: 2 GROSS BODY MOVEMENTS: 2 TONE: 2 QUALITATIVE AMNIOTIC FLUID VOLUME: 2 PRESENTATION: CEPHALIC HEART RATE: 139.18 bpm AMNIOTIC FLUID VOLUME: 13.87 cm GESTATIONAL AGE: 33 weeks 1 day US/US OB BPP w non-stress IMPRESSION: Total biophysical profile score: 8 Electronically authenticated by: CLEMENTE ALATORRE Date: 06/05/2024 08:48 Dictated By: Clemente Alatorre M.D. Signed By:06/05/2451 DD/ TD/TT: Meter And Service Line Inspector: us Generic External Data Provider [facility] Final Result documented in this encounter Visit Diagnoses Not on filedocumented in this encounter
--- OUTSIDE RECORDS SUMMARY | 2025-04-15 20:02 | XMS_ITS | Encounter Summary ---
Author Organization [facility] Address [address] [facility] [place] [address] Care Team Providers Care Visual Merchandising Director Name Role Phone Unavailable Primary Care Provider Unavailabl e Encounter Details Date Type Department Care Team (Late st Contact Info) Description 06/26/2024 Abstract [facility] OB [address] [place] [address] Felice Burden, [address] [place], [facility] Social History Tobacco Use Types Packs/Day Years [...] 04/22/2026 4:00 PM EDT Office Visit [facility] OB [address] [place] [address] Felice Burden DO [address] [place], [place] [phone] documented as of this encounter Visit Diagnoses Not on filedocumented in this encounter
--- OUTSIDE RECORDS SUMMARY | 2025-04-15 20:02 | XMS_ITS | Clinical Summary ---
Author Organization [facility] Address [address] [place] [address] Care Team Providers Care Manager Marketing Name Role Phone No, Pcp Primary Care Provider Unavailabl e Allergies No known active allergies Medications Vit-Fe Fumarate-FA ( VITAMIN PO) Take 1 tablet by mouth Daily Active Cetirizine HCl (ZYRTEC ALLERGY PO) Take 1 tablet by mouth daily Active Active Problems Problem Noted Date Diagnosed Date Hx delivery (G1), PP ROM/Cord Prolapse, Demise 02/13/2024 Social History Tobacco Use Types Packs/Day Years Used Date Smoking Tobacco: Former Cigarettes Smokeless Tobacco: Never Tobacco Cessation:Counseling Given: No Comments: Stopped smoking cigarettes- 8 yrs ago 02/13/2024 Alcohol Use Standard Drinks/Week Comments Not Currently 0 (1 standard drink = 0.6 oz pur e alcohol) Comments No Sex and Gender Information Value Date Recorded Sex Assigned at Not on file Legal Sex Female 12:49 PM EDT Gender Identity Not on file Sexual Orientation Not on file Last Filed Vital Signs Vital Sign Reading Time Taken Comments Blood Pressure 110/74 03/12/2024 3:30 PM EDT Pulse 93 03/12/2024 3:30 PM EDT Temperature 36.7 C (98 F) 03/12/2024 3:30 PM EDT Respiratory Rate 16 03/12/2024 3:30 PM EDT Oxygen Saturation - - Inhaled Oxygen Concentration - - Weight 93.3 kg (205 lb 11 oz) 03/12/2024 3:30 PM EDT Height 172.7 cm (5' 8 ) 03/12/2024 3:30 PM EDT Body Mass Index 31.27 03/12/2024 3:30 PM EDT Plan of Treatment Not on file Insurance [employer]BS Care Teams Manager Marketing Relationship Specialty Start Date End Date No, Pcp PCP - General 02/06/24
--- OUTSIDE RECORDS SUMMARY | 2025-04-15 20:02 | XMS_ITS | Encounter Summary ---
Author Organization [facility] Address [address] [place] [address] Care Team Providers Care Cotton Ball Bagger Name Role Phone Unavailable Primary Care Provider Unavailabl e Encounter Details Date Type Department Care Team (Late st Contact Info) Description 05/09/2024 Clinisync Result Encounter [facility] External Department Unsolicited [...] 04/22/2026 4:00 PM EDT Office Visit [facility] OB [address] [place] [phone] Yeyo Burden, DO [address] [place] [address] documented as of this encounter Procedures Procedure Name Priority Date/Time Associated Diagnosis Comments US OB CERVICAL LENGTH 05/09/2024 10:45 AM EDT documented in this encounter Results * US OB CERVICAL LENGTH (05/09/2024 10:45 AM EDT) Anatomical Region Laterality Modality Other 05/09/2024 10:4 5 AM EDT Narrative 05/09/2024 10:[place] [address] Ultrasound Report Signed Patient: Mee Wiggins MR#: [id number] : 1990 Acct:[id number] Age/Sex: 34 / F ADM Date: 05/09/24 Loc: US Attending Dr: Yeyo Burden D.O. Ordering Physician: Yeyo Burden D.O. Date of Service: 05/09/24 Procedure(s): US OB cervical length Accession Number(s): [id number] cc: Alicia Dunn WASTE REDUCTION COORDINATOR; Yeyo Burden D.O. [place] [id number] Patient Name: MEE WIGGINS MRN: [id number] date: 1990 Sex: F Assigned Patient Location: US Current Patient Location: US Accession/Order Number: [id number] Exam Date: 05/09/2024 08:54 Report Date: 05/09/2024 10:45 At the request of: YEYO BURDEN Procedure: US OB cervical length EXAMINATION: US OB cervical length HISTORY: Choroid Plexus Cyst Of Fetus Affecting Care Of Mother COMPARISON: No relevant comparison available. TECHNIQUE: Transabdominal and transvaginal sonographic examination for cervical length. FINDINGS: CERVIX LENGTH: 3.6 cm; closed. POSITION: Cephalic HEART RATE: 136 bpm AMNIOTIC FLUID: 17.0 cm Age by EDC: 33 weeks 5 days QUINTIN by EDC: 06/22/2024 US/US OB cervical length IMPRESSION: 1. Closed cervix 3.6 cm in length. Electronically authenticated by: CLEMENTE ALATORRE Date: 05/09/2024 10:45 Dictated By: Clemente Alatorre M.D. Signed By: 05/09/24 1047 DD/ 1045 TD/TT: Art History Instructor: Procedure Note Radiology, Radiologist, MD - 05/09/2024 [place] [id number] Ultrasound Report Signed Patient: Mee Wiggins AMR#: [id number] : 1990Acct:[id number] Age/Sex: 34 / FADM Date: 05/09/24 Loc: US Attending Dr: Yeyo Burden D.O. Ordering Physician: Yeyo Burden D.O. Date of Service: 05/09/24 Procedure(s): US OB cervical length Accession Number(s): [id number] cc: Alicia Dunn WASTE REDUCTION COORDINATOR; Yeyo Burden D.O. [place] [address] Patient Name: MEE WIGGINS MRN: [id number] date: 1990 Sex: F Assigned Patient Location: US Current Patient Location: US Accession/Order Number: [id number] Exam Date: 05/09/2024 08:54 Report Date: 05/09/2024 10:45 At the request of: YEYO BURDEN Procedure: US OB cervical length EXAMINATION: US OB cervical length HISTORY: Choroid Plexus Cyst Of Fetus Affecting Care Of Mother COMPARISON: No relevant comparison available. TECHNIQUE: Transabdominal and transvaginal sonographic examination for cervical length. FINDINGS: CERVIX LENGTH: 3.6 cm; closed. POSITION: Cephalic HEART RATE: 136 bpm AMNIOTIC FLUID: 17.0 cm Age by EDC: 33 weeks 5 days QUINTIN by EDC: 06/22/2024 US/US OB cervical length IMPRESSION: 1. Closed cervix 3.6 cm in length. Electronically authenticated by: CLEMENTE ALATORRE Date: 05/09/2024 10:45 Dictated By: Clemente Alatorre M.D. Signed By:05/09/24 1047 DD/ 1045 TD/TT: Art History Instructor: us Generic External Data Provider [facility] Final Result documented in this encounter Visit Diagnoses Not on filedocumented in this encounter
--- OUTSIDE RECORDS SUMMARY | 2025-04-15 20:02 | XMS_ITS | Encounter Summary ---
Author Organization [facility] Address [address] [facility] [place] [address] Care Team Providers Care Packing Machine Operator Name Role Phone Unavailable Primary Care Provider Unavailabl e Encounter Details Date Type Department Care Team (Late st Contact Info) Description 06/25/2024 Abstract [facility] OB [address] [place] [address] Felice Burden, [address] [place], [facility]11 Social History Tobacco Use Types Packs/Day Years [...] Visit [facility] OB [address] [place] [address] Felice Burden DO [address] [place], [place] [id number] documented as of this encounter Visit Diagnoses Not on filedocumented in this encounter
--- OUTSIDE RECORDS SUMMARY | 2025-04-15 20:02 | XMS_ITS | Encounter Summary ---
Author Organization [facility] Address [address] [place] [address] Care Team Providers Care Cannon Crewmember Name Role Phone Unavailable Primary Care Provider Unavailabl e Encounter Details Date Type Department Care Team (Late st Contact Info) Description 06/26/2024 Abstract [facility] [address] [place] [address] Felice Burden, DO [address] [place], [facility] Social History Tobacco Use Types Packs/Day [...] 04/22/2026 4:00 PM EDT Office Visit [facility] OB [address] [place] [address] Felice Burden, DO [address] [place], [place] [phone] documented as of this encounter Visit Diagnoses Not on filedocumented in this encounter
--- OUTSIDE RECORDS SUMMARY | 2025-04-15 20:02 | XMS_ITS | Encounter Summary ---
Author Organization [facility] Address [address] [place] [address] Care Team Providers Care Lens Mounter Name Role Phone Unavailable Primary Care Provider Unavailabl e Encounter Details Date Type Department Care Team (Late Contact Info) Description 06/05/2024 Orders Only [facility] [address] [place] [address] Felice Burden, DO [address] [place] [address] Social History Tobacco Use Types Packs/Day Years [...] Visit [facility] OB [address] [place] [phone] Felice Burden DO [address] [place] [address] documented as of this encounter Procedures Procedure Name Priority Date/Time Associated Diagnosis Comments SCANNED LABS Routine 06/05/2024 9:23 AM EDT documented in this encounter Results * SCANNED LABS (06/05/2024 9:23 AM EDT) us Felice Burden DO LAB CHG PERFORMABLES Final Resul t documented in this encounter Visit Diagnoses Not on filedocumented in this encounter
--- OUTSIDE RECORDS SUMMARY | 2025-04-15 20:02 | XMS_ITS | Encounter Summary ---
Author Organization [facility] Address [address] [place] [address] Care Team Providers Care Silver Cleaner Name Role Phone Unavailable Primary Care Provider Unavailabl e Encounter Details Date Type Department Care Team (Late Contact Info) Description 06/05/2024 Clinisync Result Encounter N[facility] External Department Unsolicited Yeyo Burden, DO [address] [place] [address] Social History Tobacco Use Types Packs/Day Years [...] 4:00 PM EDT Office Visit [facility] OB [address] [place] [address] Yeyo Burden, DO [address] [place] [address] documented as of this encounter Procedures Procedure Name Priority Date/Time Associated Diagnosis Comments US OB CERVICAL LENGTH 06/05/2024 8:54 AM EDT documented in this encounter Results * US OB CERVICAL LENGTH (06/05/2024 8:54 AM EDT) Anatomical Region Laterality Modality Other 06/05/2024 8:54 AM EDT Narrative 06/05/2024 8:57 AM EDT [place] [id number] Ultrasound Report Signed Patient: MEE WIGGINS MR#: [id number] : 1990 Acct:[id number] Age/Sex: 34 / F ADM Date: 06/04/24 Loc: US Attending Dr: Yeyo Burden D.O. Ordering Physician: Yeyo Burden D.O. Date of Service: 06/04/24 Procedure(s): US OB cervical length Accession Number(s): [id number] cc: Alicia Dunn SENIOR CHEMIST; Yeyo Burden D.O. [place] [id number] Patient Name: MEE WIGGINS MRN: [id number] date: 1990 Sex: F Assigned Patient Location: US Current Patient Location: US Accession/Order Number: [id number] Exam Date: 06/04/2024 16:07 Report Date: 06/05/2024 08:54 At the request of: YEYO BURDEN Procedure: US OB cervical length EXAMINATION: US OB cervical length HISTORY: CHOROID PLEXUS CYST O35.03X1 COMPARISON: Ultrasound OB cervical length 05/21/2024 TECHNIQUE: Transabdominal and transvaginal sonographic examination for cervical length. FINDINGS: CERVIX LENGTH: 3.2 cm, closed. POSITION: Cephalic HEART RATE: 139 bpm Age by EDC: 33 weeks 1 day QUINTIN by EDC: 07/22/2024 US/US OB cervical length IMPRESSION: 1. Closed cervix 3.2 cm in length (3.7 cm on 05/21/2024). Electronically authenticated by: CLEMENTE ALATORRE Date: 06/05/2024 08:54 Dictated By: Clemente Alatorre M.D. Signed By: 06/05/24 0857 DD/ TD/TT: Senior Power Scheduler: Procedure Note Radiology, Radiologist, - 06/05/2024 [place] [address] Ultrasound Report Signed Patient: MEE WIGGINS AMR#: [id number] : 1990Acct:[id number] Age/Sex: 34 / FADM Date: 06/04/24 Loc: US Attending Dr: Yeyo Burden D.O. Ordering Physician: Yeyo Burden D.O. Date of Service: 06/04/24 Procedure(s): US OB cervical length Accession Number(s): [id number] cc: Alicia Dunn SENIOR CHEMIST; Yeyo Burden D.O. The [place] [id number] Patient Name: MEE WIGGINS MRN: [id number] date: 1990 Sex: F Assigned Patient Location: US Current Patient Location: US Accession/Order Number: [id number] Exam Date: 06/04/2024 16:07 Report Date: 06/05/2024 08:54 At the request of: YEYO BURDEN Procedure: US OB cervical length EXAMINATION: US OB cervical length HISTORY: CHOROID PLEXUS CYST O35.03X1 COMPARISON: Ultrasound OB cervical length 05/21/2024 TECHNIQUE: Transabdominal and transvaginal sonographic examination for cervical length. FINDINGS: CERVIX LENGTH: 3.2 cm, closed. POSITION: Cephalic HEART RATE: 139 bpm Age by EDC: 33 weeks 1 day QUINTIN by EDC: 07/22/2024 US/US OB cervical length IMPRESSION: 1. Closed cervix 3.2 cm in length (3.7 cm on 05/21/2024). Electronically authenticated by: CLEMENTE ALATORRE Date: 06/05/2024 08:54 Dictated By: Clemente Alatorre M.D. Signed By:06/05/24 0857 DD/ 0854 TD/TT: Senior Power Scheduler: us Yeyo Burden DO [facility] Final Result documented in this encounter Visit Diagnoses Not on filedocumented in this encounter
--- OUTSIDE RECORDS SUMMARY | 2025-04-15 20:02 | XMS_ITS | Encounter Summary ---
Author Organization [facility] Address [address] [facility] [place] [address] Care Team Providers Care Tube Drawing Supervisor Name Role Phone Unavailable Primary Care Provider Unavailabl e Encounter Details Date Type Department Care Team (Late st Contact Info) Description 05/09/2024 Abstract [facility] OB [address] [place] [address] Felice Burden, [address] [place], [facility]11 Social History Tobacco Use Types Packs/Day Years [...] 04/22/2026 4:00 PM EDT Office Visit [facility] OB [address] [place] [address] Felice Burden DO [address] [place], [place] [phone] documented as of this encounter Visit Diagnoses Not on filedocumented in this encounter
--- OUTSIDE RECORDS SUMMARY | 2025-04-15 20:02 | XMS_ITS | Encounter Summary ---
Author Organization [facility] Address [address] [facility] [place] [address] Care Team Providers Care Oil Plant Operator Name Role Phone Unavailable Primary Care Provider Unavailabl e Encounter Details Date Type Department Care Team (Late st Contact Info) Description 07/05/2024 Abstract [facility] OB [address] [place] [address] Felice Burden, [address] [place], [facility]11 Social History Tobacco Use Types Packs/Day [...] 04/22/2026 4:00 PM EDT Office Visit [facility] OB [address] [place] [address] Felice Burden DO [address] [place], [place] [phone] documented as of this encounter Visit Diagnoses Not on filedocumented in this encounter
--- OUTSIDE RECORDS SUMMARY | 2025-04-15 20:02 | XMS_ITS | Encounter Summary ---
Author Organization [facility] Address [address] [place] [address] Care Team Providers Care Manager Reporting Name Role Phone Unavailable Primary Care Provider Unavailabl e Encounter Details Date Type Department Care Team (Late Contact Info) Description 07/03/2024 Orders Only [facility] [address] [place] [address] Felice Burden, DO [address] [place] [address] Social History Tobacco Use Types Packs/Day Years [...] Visit [facility] OB [address] [place] [phone] Felice Burden DO [address] [place] [address] documented as of this encounter Procedures Procedure Name Priority Date/Time Associated Diagnosis Comments US OB SCAN FOR GROWTH Routine 07/03/2024 8:30 AM EDT US OB VIABILITY Routine 07/03/2024 8:30 AM EDT documented in this encounter Results * US OB VIABLILITY (07/03/2024 8:30 AM EDT) Anatomical Region Laterality Modality Body Ultrasound us Felice Jenise DO IMG OB US PROCEDURES Final Resul t * US OB SCAN FOR GROWTH (07/03/2024 8:30 AM EDT) Anatomical Region Laterality Modality Body Ultrasound us Felice Jenise DO IMG OB US PROCEDURES Final Resul t documented in this encounter Visit Diagnoses Not on filedocumented in this encounter
--- OUTSIDE RECORDS SUMMARY | 2025-04-15 20:02 | XMS_ITS | Clinical Summary ---
Author Organization [facility] Address [address] [facility] [place] [address] Care Team Providers Care Wire Walker Name Role Phone Unavailable Primary Care Provider Unavailabl e Allergies No known active allergies Medications MV-Min-Fe Fum-FA-DHA ( 1 PO) Take by mouth Active Cetirizine HCl 10 MG capsule Take 1 tablet by mouth Daily Active docusate sodium (Colace) 50 MG capsule Take 50 capsules by mouth in the morning and 50 capsules before bedtime. Active Encounters Date Type Department Care Team Description 04/15/2025 3:00 PM EDT Office Visit [facility] [address] [place] [address] Isabel Galvan PA Well woman exam with routine gynecological exam 04/15/2025 Bamboo flowsheet [facility] [place] [address] [place] [address] Isabel Galvan PA 04/08/2025 Telephone [facility] [address] [place] [address] Felice Burden DO from Last 3 Months Family History Medical History Relation Name Comments Asthma Father Ramesh Consolo Diabetes Father Ramesh Consolo Hypertension Father Ramesh Consolo Breast cancer Maternal Grandmother Meera Smileykikaevita Cancer Maternal Grandmother Meera Marie Migraines Mother Krysten Consolo Cancer Paternal Grandfather Bill Consolo Stroke Paternal Grandfather Bill Consolo Cancer Paternal Grandmother Conner Consolo Diabetes Paternal Grandmother Conner Consolo Relation Name Status Comments Father Ramesh Consolo Alive Maternal Grandfather Maternal Grandmother Meera Smileykikawald Mother Krysten Consolo Alive Paternal Grandfather Martín Putnam Paternal Grandmother Conner Putnam Social History Tobacco Use Types Packs/Day Years Used Date Smoking Tobacco: Former Cigarettes 1 5 Q uit: 02/20/2016 Smokeless Tobacco: Never Tobacco Cessation:Counseling Given: Not Answered Alcohol Use Standard Drinks/Week Comments Not Currently [...] Mass Index 34.52 04/15/2025 3:06 PM EDT Plan of Treatment Upcoming Encounters Date Type Department Care Team (Late st Contact Info) Description 04/22/2026 4:00 PM EDT Office Visit [facility] OB [address] [facility] [place] [address] Felice Burden DO [address] [place], [facility]11 Insurance BS
--- OUTSIDE RECORDS SUMMARY | 2025-04-15 20:02 | XMS_ITS | Encounter Summary ---
Author Organization [facility] Address [address] [place] [address] Care Team Providers Care Office Services Associate Name Role Phone Unavailable Primary Care Provider Unavailabl e Encounter Details Date Type Department Care Team (Late Contact Info) Description 04/25/2024 Orders Only [facility] [address] [place] [address] Felice Burden, DO [address] [place] [address] Social History Tobacco Use Types Packs/Day Years [...] Visit [facility] OB [address] [place] [phone] Felice Burden DO [address] [place] [address] documented as of this encounter Procedures Procedure Name Priority Date/Time Associated Diagnosis Comments US OB ANATOMY SINGLE W US OB CERVICAL LENGTH Routine 04/25/2024 11:11 AM EDT documented in this encounter Results * US OB ANATOMY SINGLE W US OB CERVICAL LENGTH (04/25/2024 11:11 AM EDT) Anatomical Region Laterality Modality Body Ultrasound us Felice HYATT OB US PROCEDURES Final Resul t documented in this encounter Visit Diagnoses Not on filedocumented in this encounter
--- OUTSIDE RECORDS SUMMARY | 2025-04-15 20:02 | XMS_ITS | Encounter Summary ---
Author Organization [facility] Address [address] [place] [address] Care Team Providers Care Other Sales Support Worker Name Role Phone Unavailable Primary Care Provider Unavailabl e Encounter Details Date Type Department Care Team (Late Contact Info) Description 06/12/2024 Orders Only [facility] [address] [place] [address] Felice Burden, DO [address] [place] [address] Social History Tobacco Use Types Packs/Day Years [...] Visit [facility] OB [address] [place] [phone] Felice Burden DO [address] [place] [address] documented as of this encounter Procedures Procedure Name Priority Date/Time Associated Diagnosis Comments US OB SCAN FOR GROWTH Routine 06/12/2024 9:28 AM EDT documented in this encounter Results * US OB SCAN FOR GROWTH (06/12/2024 9:28 AM EDT) Anatomical Region Laterality Modality Body Ultrasound us Felice HYATT OB US PROCEDURES Final Resul t documented in this encounter Visit Diagnoses Not on filedocumented in this encounter
--- OUTSIDE RECORDS SUMMARY | 2025-04-15 20:02 | XMS_ITS | Encounter Summary ---
Author Organization [facility] Address [address] [place] [address] Care Team Providers Care Portable Router Operator Name Role Phone Unavailable Primary Care Provider Unavailabl e Encounter Details Date Type Department Care Team (Late st Contact Info) Description 07/10/2024 Abstract [facility] [address] [address] Felice Burden, DO [address] [place], [facility]11 Social History Tobacco Use Types Packs/Day [...] PM EDT Office Visit [facility] OB [address] [place] [address] Felice Burden, DO [address] [place], [place] [address] documented as of this encounter Visit Diagnoses Not on filedocumented in this encounter
--- OUTSIDE RECORDS SUMMARY | 2025-04-15 20:02 | XMS_ITS | Encounter Summary ---
Author Organization [facility] Address [address] [place] [address] Care Team Providers Care Body Mechanic Apprentice Name Role Phone Unavailable Primary Care Provider Unavailabl e Encounter Details Date Type Department Care Team (Late st Contact Info) Description 04/03/2024 Clinisync Result Encounter N[facility] External Department Unsolicited [...] 04/22/2026 4:00 PM EDT Office Visit [facility] OB [address] [place] [phone] Yeyo Burden, DO [address] [place] [address] documented as of this encounter Procedures Procedure Name Priority Date/Time Associated Diagnosis Comments US OB GROWTH 04/03/2024 7:04 AM EDT documented in this encounter Results * US OB GROWTH (04/03/2024 7:04 AM EDT) Anatomical Region Laterality Modality Other 04/03/2024 7:04 AM EDT Narrative 04/03/2024 7:06 [place] [address] Ultrasound Report Signed Patient: Mee Wiggins MR#: [id number] : 1990 Acct:[id number] Age/Sex: 34 / F ADM Date: 04/02/24 Loc: US Attending Dr: Yeyo Burden D.O. Ordering Physician: Yeyo Burden D.O. Date of Service: 04/02/24 Procedure(s): US OB growth Accession Number(s): [id number] cc: Alicia Dunn CLERK CARRIER; Yeyo Burden D.O. The [address] [address] Patient Name: MEE WIGGINS MRN: [id number] date: 1990 Sex: F Assigned Patient Location: US Current Patient Location: Accession/Order Number: [id number] Exam Date: 04/02/2024 16:06 Report Date: 04/03/2024 07:04 At the request of: YEYO BURDEN Procedure: US OB growth EXAMINATION: US OB growth HISTORY: Choroid plexus cyst of fetus affecting care of mother COMPARISON: No relevant comparison available. FINDINGS: Heart Rate: 137.06 bpm Amniotic Fluid Volume: 19.4 cm. Maximum fluid pocket 5.1 cm Cervix: Closed, 3.7 cm in length Placenta: Anterior. The placental edge is 8 cm from the internal cervical os Number: 1 Position: Breech presentation, longitudinal lie BIOMETRY: BPD: 5.87 cm cm; 24 weeks 0 days; 38.40 %% HC: 22.32 cm cm; 24 weeks 2 days; 39.20 %% AC: 19.38 cm cm; 24 weeks 1 day; 38.90 %% FL: 4.17 cm cm; 23 weeks 4 days; 20.30 %% EFW: 641.17 g; 1 lb. 7 oz. 30.50 % FL/AC: 21.51 FL/BPD: 70.99 HC/AC: 1.15 GESTATIONAL AGE: Age by EDC: 24 weeks 1 day QUINTIN by EDC: 2024-07-22 Age by US: 24 weeks 0 days QUINTIN by US: 2024-07-23 US/US OB growth IMPRESSION: Normal interval growth Closed cervix measuring 3.7 cm in length Electronically authenticated by: SHUKRI LOCKWOOD Date: 04/03/2024 07:04 Dictated By: Shukri Lockwood M.D. Signed By: 04/03/24705 DD/ 3 TD/TT: Railroad Passenger Agent: Procedure Note Radiology, Radiologist, MD - 04/03/2024 [place] [address] Ultrasound Report Signed Patient: Mee Wiggins AMR#: [id number] : 1990Acct:[id number] Age/Sex: 34 / FADM Date: 04/02/24 Loc: US Attending Dr: Yeyo Burden D.O. Ordering Physician: Yeyo Burden D.O. Date of Service: 04/02/24 Procedure(s): US OB growth Accession Number(s): [id number] cc: Alicia Dunn CLERK CARRIER; Yeyo Burden D.O. The [place] [address] Patient Name: MEE WIGGINS MRN: [id number] date: 1990 Sex: F Assigned Patient Location: US Current Patient Location: Accession/Order Number: [id number] Exam Date: 04/02/2024 16:06 Report Date: 04/03/2024 07:04 At the request of: YEYO BURDEN Procedure: US OB growth EXAMINATION: US OB growth HISTORY: Choroid plexus cyst of fetus affecting care of mother COMPARISON: No relevant comparison available. FINDINGS: Heart Rate: 137.06 bpm Amniotic Fluid Volume: 19.4 cm. Maximum fluid pocket 5.1 cm Cervix: Closed, 3.7 cm in length Placenta: Anterior. The placental edge is 8 cm from the internal cervicalos Number: 1 Position: Breech presentation, longitudinal lie BIOMETRY: BPD: 5.87 cm cm; 24 weeks 0 days; 38.40 %% HC: 22.32 cm cm; 24 weeks 2 days; 39.20 %% AC: 19.38 cm cm; 24 weeks 1 day; 38.90 %% FL: 4.17 cm cm; 23 weeks 4 days; 20.30 %% EFW: 641.17 g; 1 lb. 7 oz. 30.50 % FL/AC: 21.51 FL/BPD: 70.99 HC/AC: 1.15 GESTATIONAL AGE: Age by EDC: 24 weeks 1 day QUINTIN by EDC: 2024-07-22 Age by US: 24 weeks 0 days QUINTIN by US: 2024-07-23 US/US OB growth IMPRESSION: Normal interval growth Closed cervix measuring 3.7 cm in length Electronically authenticated by: SHUKRI LOCKWOOD Date: 04/03/2024 07:04 Dictated By: Shukri Lockwood M.D. Signed By:04/03/24705 DD/ 3 TD/TT: Railroad Passenger Agent: us Generic External Data Provider [facility] Final Result documented in this encounter Visit Diagnoses Not on filedocumented in this encounter
--- OUTSIDE RECORDS SUMMARY | 2025-04-15 20:02 | XMS_ITS | Encounter Summary ---
Author Organization [facility] Address [address] [facility] [place] [address] Care Team Providers Care Strainer Tender Name Role Phone Unavailable Primary Care Provider Unavailabl e Encounter Details Date Type Department Care Team (Late st Contact Info) Description 04/24/2024 Abstract [facility] OB [address] [place] [address] Genna Montiel LPN [address] [employer] [place] Rubi [facility]11 Social History Tobacco Use Types Packs/Day [...] 04/22/2026 4:00 PM EDT Office Visit [facility] OB [address] [place] [address] Felice Burden DO [address] [place], [place] [phone] documented as of this encounter Visit Diagnoses Not on filedocumented in this encounter
--- OUTSIDE RECORDS SUMMARY | 2025-04-15 20:02 | XMS_ITS | Encounter Summary ---
Author Organization [facility] Address [address] [place] [address] Care Team Providers Care Belt And Link Assembly Supervisor Name Role Phone Unavailable Primary Care Provider Unavailabl e Encounter Details Date Type Department Care Team (Late st Contact Info) Description 06/12/2024 Clinisync Result Encounter [facility] External Department Unsolicited [...] 04/22/2026 4:00 PM EDT Office Visit [facility] OB [address] [place] [phone] Yeyo Burden, DO [address] [place] [address] documented as of this encounter Procedures Procedure Name Priority Date/Time Associated Diagnosis Comments US OB BPP W NON-STRESS 06/12/2024 5:48 AM EDT documented in this encounter Results * US OB BPP W NON-STRESS (06/12/2024 5:48 AM EDT) Anatomical Region Laterality Modality Other 06/12/2024 5:48 AM EDT Narrative 06/12/2024 5:51 [place] [address] Ultrasound Report Signed Patient: MEE WIGGINS MR#: [id number] : 1990 Acct:[id number] Age/Sex: 34 / F ADM Date: 06/11/24 Loc: US Attending Dr: Yeyo Burden D.O. Ordering Physician: Yeyo Burden D.O. Date of Service: 06/11/24 Procedure(s): US OB BPP w non-stress Accession Number(s): [id number] cc: Alicia Dunn CLASSROOM ASSISTANT; Yeyo Burden D.O. [place] [id number] Patient Name: MEE WIGGINS MRN: [id number] date: 1990 Sex: F Assigned Patient Location: [facility] Current Patient Location: Accession/Order Number: [id number] Exam Date: 06/11/2024 15:09 Report Date: 06/12/2024 05:48 At the request of: YEYO BURDEN Procedure: US OB BPP w non-stress EXAMINATION: US OB BPP w non-stress HISTORY:Choroid plexus cyst of fetus O35.03x1 COMPARISON: Ultrasound OB biophysical 06/04/2024 TECHNIQUE: Ultrasound biophysical profile was performed in the radiology department. BREATHING MOVEMENTS: 2 GROSS BODY MOVEMENTS: 2 TONE: 2 QUALITATIVE AMNIOTIC FLUID VOLUME: 2 PRESENTATION: CEPHALIC HEART RATE: 134 bpm AMNIOTIC FLUID VOLUME: 16.76 cm GESTATIONAL AGE: 34 weeks 1 day US/US OB BPP w non-stress IMPRESSION: Total biophysical profile score: 8 Electronically authenticated by: CLEMENTE ALATORRE Date: 06/12/2024 05:48 Dictated By: Clemente Alatorre M.D. Signed By: 06/12/24 0551 DD/ 0548 TD/TT: Healthcare Sales Representative: Procedure Note Radiology, Radiologist, MD - 06/12/2024 The [place] [id number] Ultrasound Report Signed Patient: MEE WIGGINS AMR#: [id number] : 1990Acct:[id number] Age/Sex: 34 / FADM Date: 06/11/24 Loc: US Attending Dr: Yeyo Burden D.O. Ordering Physician: Yeyo Burden D.O. Date of Service: 06/11/24 Procedure(s): US OB BPP w non-stress Accession Number(s): [id number] cc: Alicia Dunn CLASSROOM ASSISTANT; Yeyo Burden D.O. The [place] [address] Patient Name: MEE WIGGINS MRN: [id number] date: 1990 Sex: F Assigned Patient Location: [facility] Current Patient Location: Accession/Order Number: [id number] Exam Date: 06/11/2024 15:09 Report Date: 06/12/2024 05:48 At the request of: YEYO BURDEN Procedure: US OB BPP w non-stress EXAMINATION: US OB BPP w non-stress HISTORY:Choroid plexus cyst of fetus O35.03x1 COMPARISON: Ultrasound OB biophysical 06/04/2024 TECHNIQUE: Ultrasound biophysical profile was performed in the radiology department. BREATHING MOVEMENTS: 2 GROSS BODY MOVEMENTS: 2 TONE: 2 QUALITATIVE AMNIOTIC FLUID VOLUME: 2 PRESENTATION: CEPHALIC HEART RATE: 134 bpm AMNIOTIC FLUID VOLUME: 16.76 cm GESTATIONAL AGE: 34 weeks 1 day US/US OB BPP w non-stress IMPRESSION: Total biophysical profile score: 8 Electronically authenticated by: CLEMENTE ALATORRE Date: 06/12/2024 05:48 Dictated By: Clemente Alatorre M.D. Signed By:06/12/24 0551 DD/ TD/TT: Healthcare Sales Representative: us Generic External Data Provider [facility] Final Result documented in this encounter Visit Diagnoses Not on filedocumented in this encounter
--- OUTSIDE RECORDS SUMMARY | 2025-04-15 20:02 | XMS_ITS | Encounter Summary ---
Author Organization [facility] Address [address] [place] [address] Care Team Providers Care Alberene Stone Setter Name Role Phone Unavailable Primary Care Provider Unavailabl e Encounter Details Date Type Department Care Team (Late st Contact Info) Description 07/10/2024 Abstract [facility] [address] [place] [phone] Felice Burden, DO [address] [place], [facility] Social History Tobacco Use Types Packs/Day Years [...] 04/22/2026 4:00 PM EDT Office Visit [facility] OB [address] [place] [address] Felice Burden, DO [address] [place], [place] [id number] documented as of this encounter Visit Diagnoses Not on filedocumented in this encounter
--- OUTSIDE RECORDS SUMMARY | 2025-04-15 20:02 | XMS_ITS | Encounter Summary ---
Author Organization [facility] Address [address] [place] [address] Care Team Providers Care Pumper Hand Name Role Phone Unavailable Primary Care Provider Unavailabl e Encounter Details Date Type Department Care Team (Late st Contact Info) Description 04/25/2024 Clinisync Result Encounter NOMS External Department Unsolicited [...] Visit [facility] OB [address] [place] [phone] Yeyo Burden, DO [address] [place], [facility]11 documented as of this encounter Procedures Procedure Name Priority Date/Time Associated Diagnosis Comments US OB GROWTH 04/25/2024 7:34 AM EDT documented in this encounter Results * US OB GROWTH (04/25/2024 7:34 AM EDT) Anatomical Region Laterality Modality Other 04/25/2024 7:34 AM EDT Narrative 04/25/2024 7:37 [place] [address] Ultrasound Report Signed Patient: Mee Wiggins MR#: [id number] : 1990 Acct:[id number] Age/Sex: 34 / F ADM Date: 04/24/24 Loc: US Attending Dr: Yeyo Burden D.O. Ordering Physician: Yeyo Burden D.O. Date of Service: 04/24/24 Procedure(s): US OB growth Accession Number(s): [id number] cc: Alicia Dunn CIGAR BANDER; Yeyo Burden D.O. [place] [id number] Patient Name: MEE WIGGINS MRN: [id number] date: 1990 Sex: F Assigned Patient Location: US Current Patient Location: Accession/Order Number: [id number] Exam Date: 04/24/2024 16:06 Report Date: 04/25/2024 07:34 At the request of: YEYO BURDEN Procedure: US OB growth EXAMINATION: US OB growth HISTORY: Choroid Plexus Cyst Affecting Care Of Mother COMPARISON: ULTRASOUND OB GROWTH 04/02/2024 FINDINGS: Heart Rate: 137.76 bpm Amniotic Fluid Volume: 16.3 cm; normal range Number: 1 Position: CEPHALIC Cervix: 3.3 cm in length, closed. BIOMETRY: BPD: 7.41 cm; 29 weeks 5 days; 96.60 % HC: 27.30 cm; 29 weeks 6 days; 91.80 % AC: 22.51 cm; 26 weeks 6 days; 30.20 % FL: 5.31 cm; 28 weeks 1 day; 63.10 % EFW: 1129.75 g; 59 % FL/AC: 23.59 FL/BPD: 71.62 HC/AC: 1.21 GESTATIONAL AGE: Age by EDC: 27 weeks 2 days QUINTIN by EDC: 2024-07-22 Age by US: 28 weeks 5 days QUINTIN by US: 2024-07-12 US/US OB growth IMPRESSION: 1. Single live intrauterine with growth detailed above. 2. Closed cervix 3.3 cm in length; unchanged. Electronically authenticated by: CLEMENTE ALATORRE Date: 04/25/2024 07:34 Dictated By: Clemente Alatorre M.D. Signed By: 04/25/24 0737 DD/ TD/TT: Designer Writer: Procedure Note Radiology, Radiologist, MD - 04/25/2024 [place] [address] Ultrasound Report Signed Patient: Mee Wiggins AMR#: [id number] : 1990Acct:[id number] Age/Sex: 34 / FADM Date: 04/24/24 Loc: US Attending Dr: Yeyo Burden D.O. Ordering Physician: Yeyo Burden D.O. Date of Service: 04/24/24 Procedure(s): US OB growth Accession Number(s): [id number] cc: Alicia Dunn CIGAR BANDER; Yeyo Burden D.O. The [place] [id number] Patient Name: MEE WIGGINS MRN: [facility]:[id number] date: 1990 Sex: F Assigned Patient Location: US Current Patient Location: Accession/Order Number: [id number] Exam Date: 04/24/2024 16:06 Report Date: 04/25/2024 07:34 At the request of: YEYO BURDEN Procedure: US OB growth EXAMINATION: US OB growth HISTORY: Choroid Plexus Cyst Affecting Care Of Mother COMPARISON: ULTRASOUND OB GROWTH 04/02/2024 FINDINGS: Heart Rate: 137.76 bpm Amniotic Fluid Volume: 16.3 cm; normal range Number: 1 Position: CEPHALIC Cervix: 3.3 cm in length, closed. BIOMETRY: BPD: 7.41 cm; 29 weeks 5 days; 96.60 % HC: 27.30 cm; 29 weeks 6 days; 91.80 % AC: 22.51 cm; 26 weeks 6 days; 30.20 % FL: 5.31 cm; 28 weeks 1 day; 63.10 % EFW: 1129.75 g; 59 % FL/AC: 23.59 FL/BPD: 71.62 HC/AC: 1.21 GESTATIONAL AGE: Age by EDC: 27 weeks 2 days QUINTIN by EDC: 2024-07-22 Age by US: 28 weeks 5 days QUINTIN by US: 2024-07-12 US/US OB growth IMPRESSION: 1. Single live intrauterine with growth detailed above. 2. Closed cervix 3.3 cm in length; unchanged. Electronically authenticated by: CLEMENTE ALATORRE Date: 04/25/2024 07:34 Dictated By: Clemente Alatorre M.D. Signed By:04/25/2437 DD/ TD/TT: Designer Writer: us Generic External Data Provider [facility] Final Result documented in this encounter Visit Diagnoses Not on filedocumented in this encounter
--- OUTSIDE RECORDS SUMMARY | 2025-04-15 20:02 | XMS_ITS | Encounter Summary ---
Author Organization [facility] Address [address] [place] [address] Care Team Providers Care Coffin Maker Name Role Phone Unavailable Primary Care Provider Unavailabl e Encounter Details Date Type Department Care Team (Late st Contact Info) Description 06/26/2024 Clinisync Result Encounter NOMS External Department Unsolicited [...] EDT Office Visit [facility] OB [address] [place] [address] Yeyo Burden, DO [address] [place], [facility]11 documented as of this encounter Procedures Procedure Name Priority Date/Time Associated Diagnosis Comments STREP GP B CASTRO Routine 06/26/2024 2:59 PM EDT US OB BPP W NON-STRESS 06/26/2024 7:10 AM EDT documented in this encounter Results * STREP GP B CASTRO (06/26/2024 2:59 PM EDT) STREP GP B CASTRO Strep Gp B CASTRO [facility] STREP GP B CASTRO Negative [facility]H STREP GP B CASTRO Centers for Disease Control and Prevention (CDC) and [facility] STREP GP B CASTRO Citizen Of [place] Congress of Obstetricians and Gynecologists [facility] STREP GP B CASTRO (ACOG) guidelines for prevention of group B [facility] STREP GP B CASTRO streptococcal (GBS) disease specify co-collection of [facility] STREP GP B CASTRO a vaginal and rectal swab specimen to maximize TB[facility] STREP GP B CASTRO sensitivity of GBS detection. Per the CDC and ACOG, TBH STREP GP B CASTRO swabbing both the lower vagina and rectum TB[facility] STREP GP B CASTRO substantially increases the yield of detection TBH STREP GP B CASTRO compared with sampling the vagina alone. TBH STREP GP B CASTRO Penicillin G, ampicillin, or cefazolin are indicated [facility] STREP GP B CASTRO for intrapartum prophylaxis of GBS TB[facility] STREP GP B CASTRO colonization. Reflex susceptibility testing should be TB[facility] STREP GP B CASTRO performed prior to use of clindamycin only on GBS TB[facility] STREP GP B CASTRO isolates from penicillin-allergi c women who are TB[facility] STREP GP B CASTRO considered a high risk for anaphylaxis. Treatment with [facility] STREP GP B CASTRO vancomycin without additional testing is warranted if TB[facility] STREP GP B CASTRO resistance to clindamycin is noted. TB[facility] STREP GP B CASTRO Performed at: [facility] STREP GP B CASTRO [address] [place], [place] [id number] [facility] STREP GP B CASTRO Workplace Relations Adviser: Dre Fernández PhD, Phone: [phone] [facility] 06/26/2024 2:59 PM EDT 06/27/2024 6:49 AM EDT Narrative GINA - 06/29/2024 2:09 PM EDT us Generic External Data Provider LAB BLOOD ORDERAB LES Final Result [facility] * US OB BPP W NON-STRESS (06/26/2024 7:10 AM EDT) Anatomical Region Laterality Modality Other 06/26/2024 7:10 AM EDT Narrative 06/26/2024 7:13 AM EDT The [address] [address] Ultrasound Report Signed Patient: MEE WIGGINS MR#: [id number] : 1990 Acct:[id number] Age/Sex: 34 / F ADM Date: 06/25/24 Loc: US Attending Dr: Yeyo Burden D.O. Ordering Physician: Yeyo Burden D.O. Date of Service: 06/25/24 Procedure(s): US OB BPP w non-stress Accession Number(s): [id number] cc: Alicia Dunn NP; Yeyo Burden D.O. The [address] [address] Patient Name: MEE WIGGINS MRN: [id number] date: 1990 Sex: F Assigned Patient Location: US Current Patient Location: Accession/Order Number: [id number] Exam Date: 06/25/2024 16:04 Report Date: 06/26/2024 07:10 At the request of: YEYO BURDEN Procedure: US OB BPP w non-stress EXAMINATION: US OB BPP w non-stress HISTORY: Choroid plexus cyst of fetus O35.03X1 COMPARISON: 06/18/2024 TECHNIQUE: Ultrasound biophysical profile was performed in the radiology department. non-reactive stress testing was performed by nursing staff in the birthing center. FINDINGS: BREATHING MOVEMENTS: 2 GROSS BODY MOVEMENTS: 2 TONE: 2 QUALITATIVE AMNIOTIC FLUID VOLUME: 2 PRESENTATION: Cephalic HEART RATE: 130 BPM AMNIOTIC FLUID VOLUME: 19.4 cm GESTATIONAL AGE: 36 weeks 1 day US/US OB BPP w non-stress IMPRESSION: Total biophysical profile score: 8/8 Electronically authenticated by: SHUKRI LOCKWOOD Date: 06/26/2024 07:10 Dictated By: Shukri Lockwood M.D. Signed By: 06/26/2413 DD/ TD/TT: Slate Splitter: Procedure Note Radiology, Radiologist, - 09/18/2024 The [place] [id number] Ultrasound Report Signed Patient: MEE WIGGINS AMR#: [id number] : 1990Acct:[id number] Age/Sex: 34 / FADM Date: 06/25/24 Loc: US Attending Dr: Yeyo Burden D.O. Ordering Physician: Yeyo Burden D.O. Date of Service: 06/25/24 Procedure(s): US OB BPP w non-stress Accession Number(s): [id number] cc: Alicia Dunn BAG WORKER; Yeyo Burden D.O. The [place] [id number] Patient Name: MEE WIGGINS MRN: [id number] date: 1990 Sex: F Assigned Patient Location: US Current Patient Location: Accession/Order Number: [id number] Exam Date: 06/25/2024 16:04 Report Date: 06/26/2024 07:10 At the request of: YEYO BURDEN Procedure: US OB BPP w non-stress EXAMINATION: US OB BPP w non-stress HISTORY: Choroid plexus cyst of fetus O35.03X1 COMPARISON: 06/18/2024 TECHNIQUE: Ultrasound biophysical profile was performed in the radiology department. non-reactive stress testing was performed by nursingstaff in the birthing center. FINDINGS: BREATHING MOVEMENTS: 2 GROSS BODY MOVEMENTS: 2 TONE: 2 QUALITATIVE AMNIOTIC FLUID VOLUME: 2 PRESENTATION: Cephalic HEART RATE: 130 BPM AMNIOTIC FLUID VOLUME: 19.4 cm GESTATIONAL AGE: 36 weeks 1 day US/US OB BPP w non-stress IMPRESSION: Total biophysical profile score: 8/8 Electronically authenticated by: SHUKRI LOCKWOOD Date: 06/26/2024 07:10 Dictated By: Shukri Lockwood M.D. Signed By:06/26/2413 DD/ 9 TD/TT: Slate Splitter: us Generic External Data Provider [facility] Final Result documented in this encounter Visit Diagnoses Not on filedocumented in this encounter
--- OUTSIDE RECORDS SUMMARY | 2025-04-15 20:02 | XMS_ITS | Encounter Summary ---
Author Organization [facility] Address [address] [place] [address] Care Team Providers Care Global Implementation Manager Name Role Phone Unavailable Primary Care [...] 04/22/2026 4:00 PM EDT Office Visit [facility] OB [address] [place] [phone] Yeyo Burden, DO [address] [place] [address] documented as of this encounter Procedures Procedure Name Priority Date/Time Associated Diagnosis Comments US OB CERVICAL LENGTH 04/25/2024 7:35 AM EDT documented in this encounter Results * US OB CERVICAL LENGTH (04/25/2024 7:35 AM EDT) Anatomical Region Laterality Modality Other 04/25/2024 7:35 AM EDT Narrative 04/25/2024 7:38 [place] [address] Ultrasound Report Signed Patient: Mee Wiggins MR#: [id number] : 1990 Acct:[id number] Age/Sex: 34 / F ADM Date: 04/24/24 Loc: US Attending Dr: Yeyo Burden D.O. Ordering Physician: Yeyo Burden D.O. Date of Service: 04/24/24 Procedure(s): US OB cervical length Accession Number(s): [id number] cc: Alicia Dunn TARIFF CLERK; Yeyo Burden D.O. The [place] [id number] Patient Name: MEE WIGGINS MRN: [id number] date: 1990 Sex: F Assigned Patient Location: US Current Patient Location: Accession/Order Number: [id number] Exam Date: 04/24/2024 16:06 Report Date: 04/25/2024 07:35 At the request of: YEYO BURDEN Procedure: US OB cervical length EXAMINATION: US OB cervical length HISTORY: Choroid Plexus Cyst Affecting Care Of Mother COMPARISON: No relevant comparison available. TECHNIQUE: Transabdominal sonographic examination was performed for obstetrical and evaluation. FINDINGS: Closed cervix 3.3 cm in length. US/US OB cervical length IMPRESSION: 1. Stable, closed cervix 3.3 cm in length. Electronically authenticated by: CLEMENTE ALATORRE Date: 04/25/2024 07:35 Dictated By: Clemente Alatorre M.D. Signed By: 04/25/24 0738 DD/ 0735 TD/TT: Supervisor Locomotive: Procedure Note Radiology, Radiologist, MD - 04/25/2024 The [place] [id number] Ultrasound Report Signed Patient: Mee Wiggins AMR#: [id number] : 1990Acct:[id number] Age/Sex: 34 / FADM Date: 04/24/24 Loc: US Attending Dr: Yeyo Burden D.O. Ordering Physician: Yeyo Burden D.O. Date of Service: 04/24/24 Procedure(s): US OB cervical length Accession Number(s): [id number] cc: Alicia Dunn TARIFF CLERK; Yeyo Burden D.O. [place] [phone] Patient Name: MEE WIGGINS MRN: [id number] date: 1990 Sex: F Assigned Patient Location: US Current Patient Location: Accession/Order Number: [id number] Exam Date: 04/24/2024 16:06 Report Date: 04/25/2024 07:35 At the request of: YEYO BURDEN Procedure: US OB cervical length EXAMINATION: US OB cervical length HISTORY: Choroid Plexus Cyst Affecting Care Of Mother COMPARISON: No relevant comparison available. TECHNIQUE: Transabdominal sonographic examination was performed for obstetrical and evaluation. FINDINGS: Closed cervix 3.3 cm in length. US/US OB cervical length IMPRESSION: 1. Stable, closed cervix 3.3 cm in length. Electronically authenticated by: CLEMENTE ALATORRE Date: 04/25/2024 07:35 Dictated By: Clemente Alatorre M.D. Signed By:04/25/24 0738 DD/ 0735 TD/TT: Supervisor Locomotive: us Generic External Data Provider [facility] Final Result documented in this encounter Visit Diagnoses Not on filedocumented in this encounter
--- OUTSIDE RECORDS SUMMARY | 2025-04-15 20:02 | XMS_ITS | Encounter Summary ---
Author Organization [facility] Address [address] [facility] [place] [address] Care Team Providers Care Clinical Safety Manager Name Role Phone Unavailable Primary Care Provider Unavailabl e Encounter Details Date Type Department Care Team (Late st Contact Info) Description 04/08/2025 Telephone [facility] [address] [place] [address] Felice Burden, DO [address] [place], [facility]11 Social History Tobacco Use Types Packs/Day Years [...] on file documented as of this encounter Miscellaneous Notes * Telephone Encounter - Genna Montiel LPN - 04/08/2025 12:15 PM EDT 11:33 am -Patient called the office and she asked for a return call. 12:16 am- Patient call was returned and she states that she did go ahead and reschedule her annual appointment as she is still and she started spotting so she moved her annual appointment since getting close to the 2 o'clock time. documented in this encounter Plan of Treatment Upcoming Encounters Date Type Department Care Team (Late st Contact Info) Description 04/22/2026 4:00 PM EDT Office Visit [facility] [address] [facility] [address] [place] [address] Felice Burden, [address] [place] [address] [place] [address] documented as of this encounter Visit Diagnoses Not on filedocumented in this encounter
--- OUTSIDE RECORDS SUMMARY | 2025-04-15 20:02 | XMS_ITS | Encounter Summary ---
Author Organization [facility] Address [address] [place] [address] Care Team Providers Care Night Nurse Name Role Phone Unavailable Primary Care Provider Unavailabl e Encounter Details Date Type Department Care Team (Late st Contact Info) Description 12/20/2024 Orders Only [facility] [address] [place] [phone] Freida Up MA [address] [place] [address] [place] [address] Social History Tobacco Use Types Packs/Day Years [...] 04/22/2026 4:00 PM EDT Office Visit [facility] OB [address] [place] [address] [place] [address] Felice Burden DO [address] [place], [place] [phone] documented as of this encounter Procedures Procedure Name Priority Date/Time Associated Diagnosis Comments PAP SMEAR Routine 07/12/2023 12:00 AM EDT documented in this encounter Results * Pap Smear (07/12/2023 12:00 AM EDT) Swab Cervical swab / Unknown us Felice Burden DO LAB CYTOLOGY ORDERABLES Final Re sult EXTERNAL LAB documented in this encounter Visit Diagnoses Not on filedocumented in this encounter
--- OUTSIDE RECORDS SUMMARY | 2025-04-15 20:02 | XMS_ITS | Encounter Summary ---
Author Organization [facility] Address [address] [facility] [place] [address] Care Team Providers Care Warehouse Trainer Name Role Phone Unavailable Primary Care Provider Unavailabl e Encounter Details Date Type Department Care Team (Late st Contact Info) Description 07/19/2024 Abstract [facility] OB [address] [place] [address] Felice Burden, [address] [place], [facility]11 Social History Tobacco Use Types Packs/Day [...] 04/22/2026 4:00 PM EDT Office Visit [facility] OB [address] [place] [address] Felice Burden DO [address] [place], [place] [phone] documented as of this encounter Visit Diagnoses Not on filedocumented in this encounter
--- OUTSIDE RECORDS SUMMARY | 2025-04-15 20:02 | XMS_ITS | Encounter Summary ---
Author Organization [facility] Address [address] [place] [address] Care Team Providers Care Candlemaker Name Role Phone Unavailable Primary Care Provider [...] 04/22/2026 4:00 PM EDT Office Visit [facility] [address] [place] [id number] Yeyo Burden, DO [address] [place] [address] documented as of this encounter Procedures Procedure Name Priority Date/Time Associated Diagnosis Comments US OB CERVICAL LENGTH 04/03/2024 7:04 AM EDT documented in this encounter Results * US OB CERVICAL LENGTH (04/03/2024 7:04 AM EDT) Anatomical Region Laterality Modality Other 04/03/2024 7:04 AM EDT Narrative 04/03/2024 7:07 AM EDT [facility] [place] [id number] Ultrasound Report Signed Patient: Mee Wiggins MR#: [id number] : 1990 Acct:[id number] Age/Sex: 34 / F ADM Date: 04/02/24 Loc: US Attending Dr: Yeyo Burden D.O. Ordering Physician: Yeyo Burden D.O. Date of Service: 04/02/24 Procedure(s): US OB cervical length Accession Number(s): [id number] cc: Alicia Dunn CAR SEAT UPHOLSTERER; Yeyo Burden D.O. [facility] [place] [id number] Patient Name: MEE WIGGINS MRN: [id number] date: 1990 Sex: F Assigned Patient Location: US Current Patient Location: Accession/Order Number: [id number] Exam Date: 04/02/2024 16:06 Report Date: 04/03/2024 07:04 At the request of: YEYO BURDEN Procedure: US OB cervical length EXAMINATION: US OB cervical length HISTORY: Encounter for screening for cervical length Z36.86 COMPARISON: No relevant comparison available. FINDINGS: Closed cervix measuring 3.7 cm in length US/US OB cervical length IMPRESSION: Closed cervix measuring 3.7 cm in length Electronically authenticated by: SHUKRI LOCKWOOD Date: 04/03/2024 07:04 Dictated By: Shukri Lockwood M.D. Signed By: 04/03/24 0707 DD/ 0704 TD/TT: Skin Diving Teacher: Procedure Note Radiology, Radiologist, MD - 04/03/2024 [facility] [place] [id number] Ultrasound Report Signed Patient: Mee Wiggins [facility]#: [id number] : 1990Acct:[id number] Age/Sex: 34 / FADM Date: 04/02/24 Loc: US Attending Dr: Yeyo Burden D.O. Ordering Physician: Yeyo Burden D.O. Date of Service: 04/02/24 Procedure(s): US OB cervical length Accession Number(s): [id number] cc: Alicia Dunn CAR SEAT UPHOLSTERER; Yeyo Burden D.O. [place] [id number] Patient Name: MEE WIGGINS MRN: [facility]:[id number] date: 1990 Sex: F Assigned Patient Location: US Current Patient Location: Accession/Order Number: [id number] Exam Date: 04/02/2024 16:06 Report Date: 04/03/2024 07:04 At the request of: YEYO BURDEN Procedure: US OB cervical length EXAMINATION: US OB cervical length HISTORY: Encounter for screening for cervical length Z36.86 COMPARISON: No relevant comparison available. FINDINGS: Closed cervix measuring 3.7 cm in length US/US OB cervical length IMPRESSION: Closed cervix measuring 3.7 cm in length Electronically authenticated by: SHUKRI LOCKWOOD Date: 04/03/2024 07:04 Dictated By: Shukri Lockwood M.D. Signed By:04/03/24 0707 DD/ 0704 TD/TT: Skin Diving Teacher: us Generic External Data Provider [facility] Final Result documented in this encounter Visit Diagnoses Not on filedocumented in this encounter
--- OUTSIDE RECORDS SUMMARY | 2025-04-15 20:02 | XMS_ITS | Encounter Summary ---
Author Organization [facility] Address [address] [facility] [place] [address] Care Team Providers Care Valve Machine Operator Name Role Phone Unavailable Primary Care Provider Unavailabl e Encounter Details Date Type Department Care Team (Late st Contact Info) Description 03/14/2024 Abstract [facility] OB [address] [phone] Genna Montiel LPN [address] [facility] [place] [facility] Social History Tobacco Use Types Packs/Day Years [...] Visit [facility] OB [address] [phone] Felice Burden DO [address] [place], [place] [id number] documented as of this encounter Visit Diagnoses Not on filedocumented in this encounter
[2025-04-18 13:08] LABS: Age Gdln ACOG Testing Note (.); IGP, Aptima HPV, rfx 16/18,45 Note (.)
== END 2025-04-15 19:53 | disposition home or self-care (01) ==
LOC: LAB 19:52
PROVIDERS: PCP Nurse Practitioner; Visit Provider Physician Assistant
DX: Z01.419 Encounter for gynecological examination (general) (routine) without abnormal findings (principal)
CPT/HCPCS: 87624; 88175